=== PATIENT | female | born 1930 | race Asian ===

== ENCOUNTER 2018-09-25 15:26 | Inpatient (IN) | payer BC, MEDICAID ==
[~2018-09-25] VITALS: Ht 162.6 cm; Wt 51.7 kg
--- NOTE | 2018-09-25 15:39 | NUR ---
ED Nurse Note: Pt came into the ER w/ complaints of lower back pain since yesterday. According to pt, she has had this pain for 2 years but it got worse yesterday. Pt denies having trauma or falling. Pt is rating the pain a 10/10. Non radiating. Pt is A+ O x4. Ambulatory. Skin warm to touch.
--- NOTE | 2018-09-25 15:49 | Emergency Room Report ---
History of Present Illness General Chief Complaint: Back Pain-No Injury Present Illness HPI Patient is an 88-year-old female brought in by family members after increased low back pain. Patient a prior history of chronic discomfort to her low back. Patient had been having some worsening pain over the past 1 to 2 days. Patient reportedly had been urinating normally. She had not been vomiting. She had not been having any episodes of bleeding. Patient a prior history of cardiac disease and had prior angioplasty. She had been noted to have increased discomfort worse with ambulation. She was noted to have previous history of some compression fractures to her low back. She had not had any recent trauma. Allergies: Coded Allergies: No Known Allergies (Unverified , 09/25/18) Patient History Past Medical History: see triage record Last Menstrual Period: menopause Now: No Reviewed Nursing Documentation: PMH: Agreed; PSxH: Agreed Nursing Documentation-PMH Hx Cardiac Problems: Yes Hx Hypertension: Yes Review of Systems All Other Systems: negative except mentioned in HPI Physical Exam Vital Signs Date Time Temp Pulse Resp B/P (MAP) Pulse Ox O2 Delivery O2 Flow Rate FiO2 09/25/18 15:31 97.9 134 20 94 Room Air General Appearance: alert, GCS 15, mild distress, thin, Chronically Ill Head: normocephalic Eyes: bilateral eye PERRL ENT: hearing grossly normal Neck: limited range of motion Respiratory: lungs clear, normal breath sounds Cardiovascular #1: edema - bilateral lower extremity edema Gastrointestinal: normal inspection, normal bowel sounds, non tender, soft, no pulsatile mass Musculoskeletal: decreased range of motion, other - kyphosis Neurologic: alert, oriented x3, responsive, house player III-XII nml as tested, motor strength/tone normal, aphasia, abnormal gait - antalgic gait, kyphosis. Skin: normal inspection, normal color Medical Decision Making Diagnostic Impression: Primary Impression: Intractable back pain Additional Impressions: Urinary tract infection CHF (congestive heart failure) Atrial fibrillation with RVR Spinal stenosis ER Course Patient presented for back pain. Differential diagnosis included but was not limited to herniated disc, cauda equina syndrome, abdominal aortic aneurysm, perforated ulcer, spinal epidural abscess, spinal stenosis, lumbar fracture, metastatic lesion, pyelonephritis. Because of complexity of patient's case laboratory testing and imaging studies were ordered.Patient was noted to have prior history of cardiac disease as well as congestive heart failure. She was noted to have not taken her medications this morning. Patient was noted to have atrial fibrillation on cardiac monitoring with a rate of 126. Patient was given some pain medications. She was noted to have mildly elevated blood pressure and did not take her blood pressure medications.Patient was given low- dose IV morphine for pain.CT imaging of the thoracic and lumbar spine were ordered due to patient's prior history of worsening pain and possible compression fractures.Dr. Hugh Pressley was contacted for inpatient management. Labs Test 09/25/18 16:00 09/25/18 16:50 White Blood Count 5.8 K/UL (4.8-10.8) Red Blood Count 4.39 M/UL (4.20-5.40) Hemoglobin 13.9 G/DL (12.0-16.0) Hematocrit 41.3 % (37.0-47.0) Mean Corpuscular Volume 94 FL (80-99) Mean Corpuscular Hemoglobin 31.7 PG (27.0-31.0) Mean Corpuscular Hemoglobin Concent 33.7 G/DL (32.0-36.0) Red Cell Distribution Width 13.7 % (11.6-14.8) Platelet Count 147 K/UL (150-450) Mean Platelet Volume 5.8 FL (6.5-10.1) Neutrophils (%) (Auto) 56.3 % (45.0-75.0) Lymphocytes (%) (Auto) 30.6 % (20.0-45.0) Monocytes (%) (Auto) 6.9 % (1.0-10.0) Eosinophils (%) (Auto) 5.0 % (0.0-3.0) Basophils (%) (Auto) 1.2 % (0.0-2.0) Sodium Level 136 MMOL/L (136-145) Potassium Level 5.0 MMOL/L (3.5-5.1) Chloride Level 100 MMOL/L (98-107) Carbon Dioxide Level 26 MMOL/L (21-32) Anion Gap 10 mmol/L (5-15) Blood Urea Nitrogen 23 mg/dL (7-18) Creatinine 0.9 MG/DL (0.55-1.30) Estimat Glomerular Filtration Rate mL/min (>60) Glucose Level 111 MG/DL (74-106) Calcium Level 9.8 MG/DL (8.5-10.1) Total Bilirubin 1.1 MG/DL (0.2-1.0) Direct Bilirubin 0.2 MG/DL (0.0-0.3) Aspartate Amino Transf (AST/SGOT) 64 U/L (15-37) Alanine Aminotransferase (ALT/SGPT) 51 U/L (12-78) Alkaline Phosphatase 149 U/L (46-116) Troponin I 0.006 ng/mL (0.000-0.056) Total Protein 8.3 G/DL (6.4-8.2) Albumin 3.6 G/DL (3.4-5.0) Globulin 4.7 g/dL Albumin/Globulin Ratio 0.8 (1.0-2.7) Lipase 160 U/L (73-393) Urine Color [place] Urine Appearance Slightly cloudy Urine pH 6.5 (4.5-8.0) Urine Specific [place] 1.015 (1.005-1.035) Urine Protein 3+ (NEGATIVE) Urine Glucose (UA) Negative (NEGATIVE) Urine Ketones Negative (NEGATIVE) Urine Blood 1+ (NEGATIVE) Urine Nitrite Negative (NEGATIVE) Urine Bilirubin Negative (NEGATIVE) Urine Ictotest Negative (NEGATIVE) Urine Urobilinogen Normal MG/DL (0.0-1.0) Urine Leukocyte Esterase 3+ (NEGATIVE) Urine RBC 2-4 /HPF (0 - 2) Urine WBC 40-60 /HPF (0 - 2) Urine Squamous Epithelial Cells Many /LPF (NONE/OCC) Urine Bacteria Moderate /HPF (NONE) EKG Diagnostic Results Rate: tachycardiac ST Segments: other - afib Rhythm Strip Diag. Results EP Interpretation: yes Rhythm: no PVC's, no ectopy Last Vital Signs Date Time Temp Pulse Resp B/P (MAP) Pulse Ox O2 Delivery O2 Flow Rate FiO2 09/25/18 15:31 97.9 134 20 94 Room Air Status: unchanged Disposition: ADMITTED INPATIENT Condition: Serious Scripts Unable to Obtain Active Prescriptions or Reported Meds Albin Tariq MD September 25, 2018 15:49
[2018-09-25 15:50] VITALS: BP 135/112
[2018-09-25] MEDS ORDERED: Morphine Sulfate 2mg/ml Inj(IV/IM USE ONLY) IVP ONE ×3 (16:00→19:30)
[2018-09-25] MEDS ORDERED: Metoprolol 5mg/5ml Inj IVP ONE (16:00)
--- NOTE | 2018-09-25 16:07 | NUR ---
ED Nurse Note: Pt went down to CT.
--- NOTE | 2018-09-25 16:34 | NUR ---
ED Nurse Note: Offered straight cath for urine collection and pt denied. Will continue to monitor.
[2018-09-25 16:50] LABS: BASOPHILS % (AUTO) 1.2 % (0.0-2.0); HEMATOCRIT 41.3 % (37.0-47.0); HEMOGLOBIN 13.9 G/DL (12.0-16.0); LYMPHOCYTES % (AUTO) 30.6 % (20.0-45.0); MEAN CORPUSCULAR VOLUME 94 FL (80-99); MONOCYTES % (AUTO) 6.9 % (1.0-10.0); NEUTROPHILS % (AUTO) 56.3 % (45.0-75.0); PLATELET COUNT 147 K/UL (150-450); RED BLOOD COUNT 4.39 M/UL (4.20-5.40); RED CELL DISTRIBUTION WIDTH 13.7 % (11.6-14.8); WHITE BLOOD COUNT 5.8 K/UL (4.8-10.8)
[2018-09-25] MEDS ORDERED: Isovue-370 150ml vial INJ PRN (17:00)
[2018-09-25 17:01] LABS: BILIRUBIN, URINE NEGATIVE (NEGATIVE); COLOR,URINE AMBER; GLUCOSE, URINE (UA) NEGATIVE (NEGATIVE); KETONES,URINE NEGATIVE (NEGATIVE); LEUKOCYTE ESTERASE ,URINE 3+ (NEGATIVE); NITRITE,URINE NEGATIVE (NEGATIVE); PH,URINE 6.5 (4.5-8.0); PROTEIN,URINE 3+ (NEGATIVE); UROBILINOGEN,URINE NORMAL MG/DL (0.0-1.0)
[2018-09-25 17:01] LABS: ANION GAP 10 mmol/L (5-15); BLOOD UREA NITROGEN 23 mg/dL (7-18); CALCIUM 9.8 MG/DL (8.5-10.1); CARBON DIOXIDE 26 MMOL/L (21-32); CHLORIDE 100 MMOL/L (98-107); CREATININE 0.9 MG/DL (0.55-1.30); SODIUM 136 MMOL/L (136-145)
[2018-09-25 17:04] LABS: APPEARANCE,URINE SLIGHTLY CLOUDY
[2018-09-25 17:11] LABS: ALANINE AMINOTRANSFERASE 51 U/L (12-78); ALBUMIN 3.6 G/DL (3.4-5.0); ALBUMIN/GLOBULIN RATIO 0.8 (1.0-2.7); ALKALINE PHOSPHATASE 149 U/L (46-116); ASPARTATE AMINO TRANSFERASE 64 U/L (15-37); BILIRUBIN,TOTAL 1.1 MG/DL (0.2-1.0)
[2018-09-25 18:00] VITALS: BP 137/95
--- NOTE | 2018-09-25 18:03 | NUR ---
ED Nurse Note: Pt went down to get CT w/ contrast.
--- NOTE | 2018-09-25 18:18 | NUR ---
ED Nurse Note: Pt came back from CT.
[2018-09-25 18:46] LABS: BILIRUBIN,DIRECT 0.2 MG/DL (0.0-0.3)
[2018-09-25] MEDS ORDERED: Digoxin 0.5mg/2ml Inj IVP ONE (19:00)
[2018-09-25] MEDS ORDERED: cefTRIAXone 1 GM in NS 55 ML IVPB ONE (19:00)
--- NOTE | 2018-09-25 19:10 | NUR ---
HAND-OFF: Report given to ENRIQUETA Latif.
--- NOTE | 2018-09-25 19:11 | NUR ---
ED Nurse Note: Report received from ENRIQUETA Rutherford. Pt awake and alert. Daughter at bedside.
[2018-09-25] MEDS ORDERED: dilTIAZem HCl 25mg/5ml Inj IVP ONE (19:30)
[2018-09-25] MEDS ORDERED: Miralax 17gm pkt ORAL PRN (20:45)
[2018-09-25] MEDS ORDERED: Zolpidem 5mg tab ORAL PRN (20:45)
--- NOTE | 2018-09-25 21:29 | Consultation ---
History of Present Illness General Date patient seen: September 25, 2018 Chief Complaint: Back Pain-No Injury Referring physician: Dr. Hollingsworth Present Illness HPI Didi Paul is an 88-year-old female with a history of chronic low back pain, prior compression fractures of spine, and cardiac disease with prior angioplasty. Over the last two days, she has reported worsening of her normal back pain symptoms, especially while ambulating. She denies any problems with urination or defecation. She further denies fever, nausea, vomiting or any bleeding. She denies any falls or other trauma in the past month. Allergies: Coded Allergies: No Known Allergies (Unverified , 09/25/18) Medication History Scheduled Apixaban (Eliquis), 2.5 MG PO BID, (Reported) Atorvastatin Calcium* (Atorvastatin Calcium*), 20 MG ORAL BEDTIME, (Reported) Diltiazem HCl (Diltiazem 24Hr Cd), 240 MG PO BID, (Reported) Donepezil Hcl* (Donepezil Hcl*), 5 MG ORAL DAILY, (Reported) Furosemide* (Lasix*), 20 MG ORAL BID, (Reported) Isosorbide Mononitrate (Isosorbide Mononitrate Er), 30 MG PO BID, (Reported) Linagliptin (Tradjenta), 5 MG PO DAILY, (Reported) Memantine HCl (Memantine HCl ER), 14 MG PO DAILY, (Reported) Quetiapine Fumarate* (Seroquel*), 25 MG ORAL BID, (Reported) Ranitidine Hcl* (Zantac*), 150 MG ORAL HS, (Reported) Scheduled PRN Tramadol Hcl* (Ultram*), 50 MG ORAL Q8HR PRN for For Pain, (Reported) Patient History Limited by: language barrier History Provided By: Patient, Friend, Medical Record Healthcare decision maker Resuscitation status Advanced Directive on File Past Medical/Surgical History Past Medical/Surgical History: (1) Pulmonary hypertension, moderate to severe (2) CHF (congestive heart failure) (3) Constipation (4) Chronic a-fib (5) Urinary tract infection (6) Spinal stenosis (7) Atrial fibrillation with RVR (8) Intractable back pain (9) Subclinical hypothyroidism (10) EF 15% Review of Systems All Other Systems: negative except mentioned in HPI Physical Exam General Appearance: WD/WN, no apparent distress, alert, alert oriented x3 Lines, tubes and drains: peripheral Neck: non-tender, normal alignment, normal inspection Respiratory/Chest: normal breath sounds, no respiratory distress, no accessory muscle use Cardiovascular/Chest: normal peripheral pulses Abdomen: non tender, soft Extremities: normal range of motion, non-tender, normal inspection, no calf tenderness, normal capillary refill, non-pitting, no edema, no cyanosis Skin Exam: normal pigmentation, warm/dry 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: horse rider II-XII grossly normal, no motor/sensory deficits, alert, oriented x 3, responsive, normal mood/affect, no Babinski Musculoskeletal: normal muscle bulk, no effusion Last 24 Hour Vital Signs Date Time Temp Pulse Resp B/P (MAP) Pulse Ox O2 Delivery O2 Flow Rate FiO2 09/25/18 19:31 139 134/102 09/25/18 19:03 122 09/25/18 18:00 98.2 123 20 137/95 95 Room Air 09/25/18 17:44 98.0 09/25/18 16:32 98.0 09/25/18 16:01 128 135/112 09/25/18 15:50 98.0 124 21 135/112 96 Room Air 09/25/18 15:31 97.9 134 20 94 Room Air Laboratory Tests Test 09/25/18 16:00 09/25/18 16:50 White Blood Count 5.8 K/UL (4.8-10.8) Red Blood Count 4.39 M/UL (4.20-5.40) Hemoglobin 13.9 G/DL (12.0-16.0) Hematocrit 41.3 % (37.0-47.0) Mean Corpuscular Volume 94 FL (80-99) Mean Corpuscular Hemoglobin 31.7 PG (27.0-31.0) H Mean Corpuscular Hemoglobin Concent 33.7 G/DL (32.0-36.0) Red Cell Distribution Width 13.7 % (11.6-14.8) Platelet Count 147 K/UL (150-450) L Mean Platelet Volume 5.8 FL (6.5-10.1) L Neutrophils (%) (Auto) 56.3 % (45.0-75.0) Lymphocytes (%) (Auto) 30.6 % (20.0-45.0) Monocytes (%) (Auto) 6.9 % (1.0-10.0) Eosinophils (%) (Auto) 5.0 % (0.0-3.0) H Basophils (%) (Auto) 1.2 % (0.0-2.0) Sodium Level 136 MMOL/L (136-145) Potassium Level 5.0 MMOL/L (3.5-5.1) Chloride Level 100 MMOL/L (98-107) Carbon Dioxide Level 26 MMOL/L (21-32) Anion Gap 10 mmol/L (5-15) Blood Urea Nitrogen 23 mg/dL (7-18) H Creatinine 0.9 MG/DL (0.55-1.30) Estimat Glomerular Filtration Rate mL/min (>60) Glucose Level 111 MG/DL (74-106) H Calcium Level 9.8 MG/DL (8.5-10.1) Total Bilirubin 1.1 MG/DL (0.2-1.0) H Direct Bilirubin 0.2 MG/DL (0.0-0.3) Aspartate Amino Transf (AST/SGOT) 64 U/L (15-37) H Alanine Aminotransferase (ALT/SGPT) 51 U/L (12-78) Alkaline Phosphatase 149 U/L (46-116) H Troponin I 0.006 ng/mL (0.000-0.056) Total Protein 8.3 G/DL (6.4-8.2) H Albumin 3.6 G/DL (3.4-5.0) Globulin 4.7 g/dL Albumin/Globulin Ratio 0.8 (1.0-2.7) L Lipase 160 U/L (73-393) Urine Color [place] Urine Appearance Slightly cloudy Urine pH 6.5 (4.5-8.0) Urine Specific [place] 1.015 (1.005-1.035) Urine Protein 3+ (NEGATIVE) H Urine Glucose (UA) Negative (NEGATIVE) Urine Ketones Negative (NEGATIVE) Urine Blood 1+ (NEGATIVE) H Urine Nitrite Negative (NEGATIVE) Urine Bilirubin Negative (NEGATIVE) Urine Ictotest Negative (NEGATIVE) Urine Urobilinogen Normal MG/DL (0.0-1.0) Urine Leukocyte Esterase 3+ (NEGATIVE) H Urine RBC 2-4 /HPF (0 - 2) H Urine WBC 40-60 /HPF (0 - 2) H Urine Squamous Epithelial Cells Many /LPF (NONE/OCC) H Urine Bacteria Moderate /HPF (NONE) H Height (Feet): 5 Height (Inches): 4.00 Weight (Pounds): 125 Medications Current Medications Medications (Trade) Dose Ordered Sig/Yunior Route PRN Reason Start Time Stop Time Status Last Admin Dose Admin Acetaminophen (Tylenol) 650 mg Q4H PRN ORAL fever 09/25/18 20:45 10/25/18 20:44 Dextrose (Dextrose 50%) 25 ml Q30M PRN IV Hypoglycemia 09/25/18 20:45 10/25/18 20:44 Dextrose (Dextrose 50%) 50 ml Q30M PRN IV Hypoglycemia 09/25/18 20:45 10/25/18 20:44 Heparin Sodium (Porcine) (Heparin 5000 units/ml) 5,000 units EVERY 12 HOURS SUBQ 09/25/18 21:00 10/25/18 20:59 Iopamidol (Isovue-370 150ml) 150 ml NOW PRN INJ Radiology Procedure 09/25/18 17:00 Levofloxacin 50 ml @ 50 mls/hr Q24H IVPB 09/26/18 21:00 10/03/18 20:59 Levofloxacin 100 ml @ 100 mls/hr ONCE ONCE IVPB 09/25/18 22:00 09/25/18 22:59 Lorazepam (Ativan 2mg/ml 1ml) 0.5 mg Q4H PRN IV For Anxiety 09/25/18 20:45 10/02/18 20:44 Morphine Sulfate (Morphine Sulfate) 2 mg Q4H PRN IVP For Pain 4-6 09/25/18 20:45 10/02/18 20:44 Morphine Sulfate (Morphine Sulfate) 4 mg Q4H PRN IVP For Pain 7-10 09/25/18 20:45 10/02/18 20:44 Ondansetron HCl (Zofran) 4 mg Q6H PRN IVP Nausea & Vomiting 09/25/18 20:45 10/25/18 20:44 Polyethylene Glycol (Miralax) 17 gm HSPRN PRN ORAL Constipation 09/25/18 20:45 10/25/18 20:44 Zolpidem Tartrate (Ambien) 5 mg HSPRN PRN ORAL Insomnia 09/25/18 20:45 10/02/18 20:44 Assessment/Plan Problem List: (1) Intractable back pain ICD Codes: M54.9 - Dorsalgia, unspecified SNOMED: 468930835 (2) Spinal stenosis ICD Codes: M48.00 - Spinal stenosis, site unspecified SNOMED: 71677163 (3) Atrial fibrillation with RVR ICD Codes: I48.91 - Unspecified atrial fibrillation SNOMED: 655367480607380 (4) Constipation ICD Codes: K59.00 - Constipation, unspecified SNOMED: 53680685 (5) EF 15% Status: stable Assessment/Plan: CT L spine most significant for stenosis and degenerative changes - Recommend MRI L spine and surgical consultation - even if regarding injectable treatment as candidate may not be eligible for surgery due to secondary health concerns Kady López N.P. September 25, 2018 21:29
--- NOTE | 2018-09-25 21:30 | NUR ---
ED Nurse Note: Pt transferred to [facility] floor. Report given to ENRIQUETA Ruelas. Pt A/Ox4, Frisian speaking. Family @ bedside. pt showing no signs of acute distress. VSS. Pt accompanied by RN and supervisor spinning. All belongings taken with pt along with belongings list.
--- NOTE | 2018-09-25 21:30 | NUR ---
NURSE NOTES: Barbara ROBISON called and gave telephone report.
[2018-09-25] MEDS: Heparin 5000 units/ml inj SUBQ SCH (21:55)
--- NOTE | 2018-09-25 22:00 | NUR ---
NURSE NOTES: Pt report received from ivis ROBISON from ER and pt has been transferred to SDU at this time. No acute complications noted at this time. Pt is alert and oriented times 4. Pt has a manager cardiac placed, active and working, no signs or symptoms of acute cardiac distress noted at this time. Pt is saturating at 100% on room air. No signs or symptoms of acute respiratory distress at this time. Pt has a R AC 18 and a R Hand 20G IV active and able to flush, no complications noted. All safety precautions are taken such as bed is placed in lowest position, call light is within easy reach, pt is instructed to call for assistance when ambulating, bed alarm is armed and active, bed rails are up times 2. Pt family member at bed side. Pt has been received with all belongings at bed side. Will establish plan of care.
[2018-09-26] VITALS: BP 136/90
[2018-09-26 04:00] VITALS: BP 127/89
[2018-09-26 04:59] LABS: BASOPHILS % (AUTO) 1.1 % (0.0-2.0); EOSINOPHILS % (AUTO) 3.5 % (0.0-3.0); HEMATOCRIT 39.9 % (37.0-47.0); HEMOGLOBIN 13.2 G/DL (12.0-16.0); LYMPHOCYTES % (AUTO) 21.1 % (20.0-45.0); MEAN CORPUSCULAR VOLUME 97 FL (80-99); MONOCYTES % (AUTO) 9.4 % (1.0-10.0); NEUTROPHILS % (AUTO) 64.9 % (45.0-75.0); PLATELET COUNT 152 K/UL (150-450); RED CELL DISTRIBUTION WIDTH 14.6 % (11.6-14.8); WHITE BLOOD COUNT 5.8 K/UL (4.8-10.8)
[2018-09-26 05:37] LABS: ALANINE AMINOTRANSFERASE 57 U/L (12-78); ALBUMIN 3.4 G/DL (3.4-5.0); ALBUMIN/GLOBULIN RATIO 0.8 (1.0-2.7); ALKALINE PHOSPHATASE 185 U/L (46-116); ANION GAP 10 mmol/L (5-15); ASPARTATE AMINO TRANSFERASE 73 U/L (15-37); BLOOD UREA NITROGEN 26 mg/dL (7-18); CALCIUM 9.5 MG/DL (8.5-10.1); CARBON DIOXIDE 27 MMOL/L (21-32); CHLORIDE 97 MMOL/L (98-107); CREATININE 1.1 MG/DL (0.55-1.30); SODIUM 134 MMOL/L (136-145)
--- NOTE | 2018-09-26 06:57 | NUR ---
HAND-OFF: Report given to Erika ROBISON. pt is in stable conditoin and A-symptomatic.
--- NOTE | 2018-09-26 07:02 | NUR ---
NURSE NOTES: Received bedside report from Suraj ROBISON. Pt. up sitting at the edge of the bed. A/O x 4. No sign of distress. C/O back pain. IV site at right AC #18g. and right hand #20g. both SL. Bed in low position, locked. Family at bedside for support. Call light within reach. Will cont. to monitor.
[2018-09-26] MEDS: Morphine Sulfate 2mg/ml Inj(IV/IM USE ONLY) IVP PRN ×2 (07:28→21:30)
[2018-09-26 08:00] VITALS: BP 150/103
--- NOTE | 2018-09-26 08:47 | Consultation ---
History of Present Illness General Date patient seen: September 26, 2018 Present Illness Allergies: Coded Allergies: No Known Allergies (Unverified , 09/25/18) Medication History Unable to Obtain Active Prescriptions or Reported Meds Patient History Healthcare decision maker self Resuscitation status Full Code Advanced Directive on File No Physical Exam Last 24 Hour Vital Signs Date Time Temp Pulse Resp B/P (MAP) Pulse Ox O2 Delivery O2 Flow Rate FiO2 09/26/18 08:00 Room Air 09/26/18 08:00 97.6 102 20 150/103 (119) 98 102 09/26/18 06:00 109 09/26/18 04:00 98.1 103 16 127/89 (102) 99 103 09/26/18 04:00 Room Air 09/26/18 00:00 Room Air 09/26/18 00:00 113 09/26/18 00:00 98.0 118 16 136/90 (105) 99 118 09/25/18 22:00 Room Air 09/25/18 21:30 98.0 101 22 122/67 99 Room Air 09/25/18 19:31 139 134/102 09/25/18 19:03 122 09/25/18 18:00 98.2 123 20 137/95 95 Room Air 09/25/18 17:44 98.0 09/25/18 16:32 98.0 09/25/18 16:01 128 135/112 09/25/18 15:50 98.0 124 21 135/112 96 Room Air 09/25/18 15:31 97.9 134 20 94 Room Air Laboratory Tests Test 09/25/18 16:00 09/25/18 16:50 09/26/18 03:35 White Blood Count 5.8 K/UL (4.8-10.8) 5.8 K/UL (4.8-10.8) Red Blood Count 4.39 M/UL (4.20-5.40) 4.10 M/UL (4.20-5.40) L Hemoglobin 13.9 G/DL (12.0-16.0) 13.2 G/DL (12.0-16.0) Hematocrit 41.3 % (37.0-47.0) 39.9 % (37.0-47.0) Mean Corpuscular Volume 94 FL (80-99) 97 FL (80-99) Mean Corpuscular Hemoglobin 31.7 PG (27.0-31.0) H 32.2 PG (27.0-31.0) H Mean Corpuscular Hemoglobin Concent 33.7 G/DL (32.0-36.0) 33.1 G/DL (32.0-36.0) Red Cell Distribution Width 13.7 % (11.6-14.8) 14.6 % (11.6-14.8) Platelet Count 147 K/UL (150-450) L 152 K/UL (150-450) Mean Platelet Volume 5.8 FL (6.5-10.1) L 6.0 FL (6.5-10.1) L Neutrophils (%) (Auto) 56.3 % (45.0-75.0) 64.9 % (45.0-75.0) Lymphocytes (%) (Auto) 30.6 % (20.0-45.0) 21.1 % (20.0-45.0) Monocytes (%) (Auto) 6.9 % (1.0-10.0) 9.4 % (1.0-10.0) Eosinophils (%) (Auto) 5.0 % (0.0-3.0) H 3.5 % (0.0-3.0) H Basophils (%) (Auto) 1.2 % (0.0-2.0) 1.1 % (0.0-2.0) Sodium Level 136 MMOL/L (136-145) 134 MMOL/L (136-145) L Potassium Level 5.0 MMOL/L (3.5-5.1) 4.0 MMOL/L (3.5-5.1) Chloride Level 100 MMOL/L (98-107) 97 MMOL/L (98-107) L Carbon Dioxide Level 26 MMOL/L (21-32) 27 MMOL/L (21-32) Anion Gap 10 mmol/L (5-15) 10 mmol/L (5-15) Blood Urea Nitrogen 23 mg/dL (7-18) H 26 mg/dL (7-18) H Creatinine 0.9 MG/DL (0.55-1.30) 1.1 MG/DL (0.55-1.30) Estimat Glomerular Filtration Rate mL/min (>60) mL/min (>60) Glucose Level 111 MG/DL (74-106) H 87 MG/DL (74-106) Calcium Level 9.8 MG/DL (8.5-10.1) 9.5 MG/DL (8.5-10.1) Total Bilirubin 1.1 MG/DL (0.2-1.0) H 1.0 MG/DL (0.2-1.0) Direct Bilirubin 0.2 MG/DL (0.0-0.3) Aspartate Amino Transf (AST/SGOT) 64 U/L (15-37) H 73 U/L (15-37) H Alanine Aminotransferase (ALT/SGPT) 51 U/L (12-78) 57 U/L (12-78) Alkaline Phosphatase 149 U/L (46-116) H 185 U/L (46-116) H Troponin I 0.006 ng/mL (0.000-0.056) Total Protein 8.3 G/DL (6.4-8.2) H 7.9 G/DL (6.4-8.2) Albumin 3.6 G/DL (3.4-5.0) 3.4 G/DL (3.4-5.0) Globulin 4.7 g/dL 4.5 g/dL Albumin/Globulin Ratio 0.8 (1.0-2.7) L 0.8 (1.0-2.7) L Lipase 160 U/L (73-393) Urine Color [place] Urine Appearance Slightly cloudy Urine pH 6.5 (4.5-8.0) Urine Specific [place] 1.015 (1.005-1.035) Urine Protein 3+ (NEGATIVE) H Urine Glucose (UA) Negative (NEGATIVE) Urine Ketones Negative (NEGATIVE) Urine Blood 1+ (NEGATIVE) H Urine Nitrite Negative (NEGATIVE) Urine Bilirubin Negative (NEGATIVE) Urine Ictotest Negative (NEGATIVE) Urine Urobilinogen Normal MG/DL (0.0-1.0) Urine Leukocyte Esterase 3+ (NEGATIVE) H Urine RBC 2-4 /HPF (0 - 2) H Urine WBC 40-60 /HPF (0 - 2) H Urine Squamous Epithelial Cells Many /LPF (NONE/OCC) H Urine Bacteria Moderate /HPF (NONE) H Thyroid Stimulating Hormone (TSH) 15.169 uiU/mL (0.358-3.740) Microbiology Date/Time Source Procedure Growth Status 09/25/18 16:50 Urine,Clean Catch Urine Culture - Preliminary Resulted Height (Feet): 5 Height (Inches): 4.00 Weight (Pounds): 125 Medications Current Medications Medications (Trade) Dose Ordered Sig/Yunior Route PRN Reason Start Time Stop Time Status Last Admin Dose Admin Acetaminophen (Tylenol) 650 mg Q4H PRN ORAL fever 09/25/18 20:45 10/25/18 20:44 Dextrose (Dextrose 50%) 25 ml Q30M PRN IV Hypoglycemia 09/25/18 20:45 10/25/18 20:44 Dextrose (Dextrose 50%) 50 ml Q30M PRN IV Hypoglycemia 09/25/18 20:45 10/25/18 20:44 Heparin Sodium (Porcine) (Heparin 5000 units/ml) 5,000 units EVERY 12 HOURS SUBQ 09/25/18 21:00 10/25/18 20:59 09/25/18 21:55 Iopamidol (Isovue-370 150ml) 150 ml NOW PRN INJ Radiology Procedure 09/25/18 17:00 Levofloxacin 50 ml @ 50 mls/hr Q24H IVPB 09/26/18 21:00 10/03/18 20:59 Lorazepam (Ativan 2mg/ml 1ml) 0.5 mg Q4H PRN IV For Anxiety 09/25/18 20:45 10/02/18 20:44 Morphine Sulfate (Morphine Sulfate) 2 mg Q4H PRN IVP For Pain 4-6 09/25/18 20:45 10/02/18 20:44 09/26/18 07:28 Morphine Sulfate (Morphine Sulfate) 4 mg Q4H PRN IVP For Pain 7-10 09/25/18 20:45 10/02/18 20:44 Ondansetron HCl (Zofran) 4 mg Q6H PRN IVP Nausea & Vomiting 09/25/18 20:45 10/25/18 20:44 Polyethylene Glycol (Miralax) 17 gm HSPRN PRN ORAL Constipation 09/25/18 20:45 10/25/18 20:44 Zolpidem Tartrate (Ambien) 5 mg HSPRN PRN ORAL Insomnia 09/25/18 20:45 10/02/18 20:44 Assessment/Plan Assessment/Plan: (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
--- NOTE | 2018-09-26 09:14 | NUR ---
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 AFIB W/RVR . UTI VS: BP 157/111, P 134, T 97.9, RR 20, SpO2 94 RBC 4.10, Na 134, BUN 26 IS:LOPRESSOR 2.5mg ZOFRAN 4mg MORPHINE 1mG DIGOXIN 0.5mG CEFTRIAXONE 55ml IVPB LASIX 40meq CARDIZEM 10mg ADMITTED TO SDU DCP: RETURN HOME
[2018-09-26] MEDS: Heparin 5000 units/ml inj SUBQ SCH (09:45)
--- NOTE | 2018-09-26 09:45 | NUR ---
*-* NO INSURANCE INFORMATION IN THE BAR UNABLE TO SEND CLINICALS AND REVIEWS *-*
--- NOTE | 2018-09-26 10:22 | GI Initial Consult Note ---
History of Present Illness General Date patient seen: September 26, 2018 Time patient seen: 10:18 Reason for Hospitalization: Back Pain-No Injury Referring physician: PEE Reason for Consultation: ABNORMAL LFTs Present Illness HPI Patient is an 88-year-old female brought in by family members after increased low back pain. Patient a prior history of chronic discomfort to her low back. Patient had been having some worsening pain over the past 1 to 2 days. Patient reportedly had been urinating normally. She had not been vomiting. She had not been having any episodes of bleeding. Patient a prior history of cardiac disease and had prior angioplasty. She had been noted to have increased discomfort worse with ambulation. She was noted to have previous history of some compression fractures to her low back. She had not had any recent trauma. GI consulted for abnormal LFTs. Patient seen, awake alert and oriented x4 no apparent distress. Daughter at bedside. Patient denies any current abdominal pain, denies any nausea vomiting or diarrhea. The patient denies any history of endoscopy or colonoscopy. Labs reviewed; no leukocytosis, no anemia, AST elevation at 73 with alkaline phosphatase elevation of 185, TSH 15.7. Home Meds Unable to Obtain Active Prescriptions or Reported Meds Med list reviewed/reconciled: Yes Allergies: Coded Allergies: No Known Allergies (Unverified , 09/25/18) Patient History History Provided By: Patient, Medical Record PMH Narrative Past Medical History: see triage record Last Menstrual Period: menopause Now: No Reviewed Nursing Documentation: PMH: Agreed; PSxH: Agreed Nursing Documentation-PMH Hx Cardiac Problems: Yes Hx Hypertension: Yes Social History: Denies: smoking, alcohol use, drug use, other Review of Systems All Other Systems: negative except mentioned in HPI Physical Exam Vital Signs Date Time Temp Pulse Resp B/P (MAP) Pulse Ox O2 Delivery O2 Flow Rate FiO2 09/25/18 15:31 97.9 134 20 94 Room Air 09/25/18 15:50 135/112 Sp02 EP Interpretation: reviewed, normal Labs Laboratory Tests Test 09/25/18 16:00 09/25/18 16:50 09/26/18 03:35 White Blood Count 5.8 K/UL (4.8-10.8) 5.8 K/UL (4.8-10.8) Red Blood Count 4.39 M/UL (4.20-5.40) 4.10 M/UL (4.20-5.40) L Hemoglobin 13.9 G/DL (12.0-16.0) 13.2 G/DL (12.0-16.0) Hematocrit 41.3 % (37.0-47.0) 39.9 % (37.0-47.0) Mean Corpuscular Volume 94 FL (80-99) 97 FL (80-99) Mean Corpuscular Hemoglobin 31.7 PG (27.0-31.0) H 32.2 PG (27.0-31.0) H Mean Corpuscular Hemoglobin Concent 33.7 G/DL (32.0-36.0) 33.1 G/DL (32.0-36.0) Red Cell Distribution Width 13.7 % (11.6-14.8) 14.6 % (11.6-14.8) Platelet Count 147 K/UL (150-450) L 152 K/UL (150-450) Mean Platelet Volume 5.8 FL (6.5-10.1) L 6.0 FL (6.5-10.1) L Neutrophils (%) (Auto) 56.3 % (45.0-75.0) 64.9 % (45.0-75.0) Lymphocytes (%) (Auto) 30.6 % (20.0-45.0) 21.1 % (20.0-45.0) Monocytes (%) (Auto) 6.9 % (1.0-10.0) 9.4 % (1.0-10.0) Eosinophils (%) (Auto) 5.0 % (0.0-3.0) H 3.5 % (0.0-3.0) H Basophils (%) (Auto) 1.2 % (0.0-2.0) 1.1 % (0.0-2.0) Sodium Level 136 MMOL/L (136-145) 134 MMOL/L (136-145) L Potassium Level 5.0 MMOL/L (3.5-5.1) 4.0 MMOL/L (3.5-5.1) Chloride Level 100 MMOL/L (98-107) 97 MMOL/L (98-107) L Carbon Dioxide Level 26 MMOL/L (21-32) 27 MMOL/L (21-32) Anion Gap 10 mmol/L (5-15) 10 mmol/L (5-15) Blood Urea Nitrogen 23 mg/dL (7-18) H 26 mg/dL (7-18) H Creatinine 0.9 MG/DL (0.55-1.30) 1.1 MG/DL (0.55-1.30) Estimat Glomerular Filtration Rate mL/min (>60) mL/min (>60) Glucose Level 111 MG/DL (74-106) H 87 MG/DL (74-106) Calcium Level 9.8 MG/DL (8.5-10.1) 9.5 MG/DL (8.5-10.1) Total Bilirubin 1.1 MG/DL (0.2-1.0) H 1.0 MG/DL (0.2-1.0) Direct Bilirubin 0.2 MG/DL (0.0-0.3) Aspartate Amino Transf (AST/SGOT) 64 U/L (15-37) H 73 U/L (15-37) H Alanine Aminotransferase (ALT/SGPT) 51 U/L (12-78) 57 U/L (12-78) Alkaline Phosphatase 149 U/L (46-116) H 185 U/L (46-116) H Troponin I 0.006 ng/mL (0.000-0.056) Total Protein 8.3 G/DL (6.4-8.2) H 7.9 G/DL (6.4-8.2) Albumin 3.6 G/DL (3.4-5.0) 3.4 G/DL (3.4-5.0) Globulin 4.7 g/dL 4.5 g/dL Albumin/Globulin Ratio 0.8 (1.0-2.7) L 0.8 (1.0-2.7) L Lipase 160 U/L (73-393) Urine Color [place] Urine Appearance Slightly cloudy Urine pH 6.5 (4.5-8.0) Urine Specific [place] 1.015 (1.005-1.035) Urine Protein 3+ (NEGATIVE) H Urine Glucose (UA) Negative (NEGATIVE) Urine Ketones Negative (NEGATIVE) Urine Blood 1+ (NEGATIVE) H Urine Nitrite Negative (NEGATIVE) Urine Bilirubin Negative (NEGATIVE) Urine Ictotest Negative (NEGATIVE) Urine Urobilinogen Normal MG/DL (0.0-1.0) Urine Leukocyte Esterase 3+ (NEGATIVE) H Urine RBC 2-4 /HPF (0 - 2) H Urine WBC 40-60 /HPF (0 - 2) H Urine Squamous Epithelial Cells Many /LPF (NONE/OCC) H Urine Bacteria Moderate /HPF (NONE) H Thyroid Stimulating Hormone (TSH) 15.169 uiU/mL (0.358-3.740) General Appearance: well appearing, no apparent distress, alert, thin Head: normocephalic EENT: PERRL/EOMI, normal ENT inspection Neck: supple Respiratory: normal breath sounds, no respiratory distress Cardiovascular: normal rate Gastrointestinal: normal inspection, non tender, soft, normal bowel sounds, non -distended Rectal: deferred Genitourinary: no CVA tenderness Musculoskeletal: normal inspection, back normal Neurologic: normal inspection, alert, oriented x3, responsive Psychiatric: normal inspection, judgement/insight normal, memory normal Skin: normal inspection, normal color, no rash, warm/dry, palpation normal, well hydrated Lymphatic: normal inspection, no adenopathy Current Medications Current Medications Medications (Trade) Dose Ordered Sig/Yunior Route PRN Reason Start Time Stop Time Status Last Admin Dose Admin Acetaminophen (Tylenol) 650 mg Q4H PRN ORAL fever 09/25/18 20:45 10/25/18 20:44 Dextrose (Dextrose 50%) 25 ml Q30M PRN IV Hypoglycemia 09/25/18 20:45 10/25/18 20:44 Dextrose (Dextrose 50%) 50 ml Q30M PRN IV Hypoglycemia 09/25/18 20:45 10/25/18 20:44 Heparin Sodium (Porcine) (Heparin 5000 units/ml) 5,000 units EVERY 12 HOURS SUBQ 09/25/18 21:00 10/25/18 20:59 09/26/18 09:45 Iopamidol (Isovue-370 150ml) 150 ml NOW PRN INJ Radiology Procedure 09/25/18 17:00 Levofloxacin 50 ml @ 50 mls/hr Q24H IVPB 09/26/18 21:00 10/03/18 20:59 Lorazepam (Ativan 2mg/ml 1ml) 0.5 mg Q4H PRN IV For Anxiety 09/25/18 20:45 10/02/18 20:44 Morphine Sulfate (Morphine Sulfate) 2 mg Q4H PRN IVP For Pain 4-6 09/25/18 20:45 10/02/18 20:44 09/26/18 07:28 Morphine Sulfate (Morphine Sulfate) 4 mg Q4H PRN IVP For Pain 7-10 09/25/18 20:45 10/02/18 20:44 Ondansetron HCl (Zofran) 4 mg Q6H PRN IVP Nausea & Vomiting 09/25/18 20:45 10/25/18 20:44 Polyethylene Glycol (Miralax) 17 gm HSPRN PRN ORAL Constipation 09/25/18 20:45 10/25/18 20:44 Zolpidem Tartrate (Ambien) 5 mg HSPRN PRN ORAL Insomnia 09/25/18 20:45 10/02/18 20:44 GI: Plan Problems: (1) LFTs abnormal (2) Constipation Plan Symptomatic treatment at this time Advance diet as tolerated Pain management Zofran as needed Repeat LFTs PPI Follow-up labs, free T4 GI procedures only if emergent, otherwise outpatient Discussed with Dr. Mcclure. Thank you for this patient referral, we will follow. The patient was seen and examined at bedside and all new and available data was reviewed in the patients chart. I agree with the above findings, impression and plan. (Patient seen earlier today. Signature stamp does not reflect patient encounter time.). - MD Yaneth Dunn,[employer] BUSINESS EDUCATION TEACHER September 26, 2018 10:22
--- NOTE | 2018-09-26 10:25 | Diagnostic Imaging Report ---
Indication: Back pain Technique: Continuous helical transaxial imaging of the thoraco-lumbar spine was obtained. No IV contrast was administered. Coronal 2-D reformats were also obtained. Study obtained in a Siemens sensation [address] Total Dose length Product (DLP): 465.[address] Dose Index Volume (CTDIvol): 16.75 mGy Comparison: None Findings: There are severe degenerative changes within the thoracic and lumbar spine characterized by extensive hypertrophic circumferential endplate osteophytes, osteophytes involving the facets at multiple levels, narrowing and vacuum phenomenon of the intervertebral discs. There is also loss of height of the several of the vertebral bodies especially portions of the L3, L4 and L5 vertebra. Suggestion of multilevel spinal stenosis and narrowing of the neural foramina. Bones are osteopenic. There is no malalignment identified on this examination within the thoracolumbar spine. 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 There is an incidental rounded hypodensity in the right kidney probably cystic measuring about 2.3 cm. There is honeycombing at the right lung base and streaky densities throughout both lung daley, likely scarring or fibrosis. IMPRESSION: No obvious acute fracture. Severe degenerative changes of the lumbar spine as described above. Suspected right renal cysts. 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 [facility] has communicated the preliminary results to the Emergency Department. Their findings are largely concordant with this report. The CT scanner at [facility] is accredited by the [employer] and the scans are performed using dose optimization techniques as appropriate to a performed exam including Automatic Exposure control.
--- NOTE | 2018-09-26 10:34 | Diagnostic Imaging Report ---
Indication: Chest and abdominal pain. CTA chest abdomen pelvis Technique: Continuous helical transaxial imaging of the chest, abdomen and pelvis was obtained from the thoracic inlet to the pubic symphysis during rapid intravenous contrast administration. Arterial phase of enhancement obtained. Coronal 2-D reformats were also obtained and maximum intensity projection images in multiple planes. Study obtained in a Siemens sensation [address] Total Dose length Product (DLP): Refer to CT lumbar report mGycm CT Dose Index Volume (CTDIvol): Refer to CT lumbar report mGy Comparison: None Findings: There is evidence of biventricular enlargement of the heart. The right atrium in particular is markedly enlarged. There is reflux contrast within the IVC noted which may be due to right heart failure or tricuspid regurgitation. The aorta is diffusely ectatic. The ascending aorta is aneurysmal measuring up to about 4.5 cm. Moderate calcification of aorta demonstrated. There is no evidence of dissection. Aortic arch vessels are widely patent. The descending aorta has a maximum diameter of about 4.4 cm. The major vessels including the SMA and celiac artery appear patent. No significant stenosis of either renal artery are identified. The abdominal aorta is diffusely tortuous and mildly aneurysmal measuring up to about 3.8 cm. The pulmonary artery is also reasonably opacified and appears relatively uniform in enhancement. No obvious filling defects to suggest pulmonary embolus identified. Nonvascular findings: There is honeycombing at the right lung base indicative of fibrosis. Patchy groundglass opacities are present at both lung bases with reticular peripheral densities also likely fibrosis. No consolidation identified. There is trace right pleural fluid. There is minimal peritoneal fluid. Diverticula noted within the colon. There is suggestion of diffuse thickening of the wall the gallbladder. There are degenerative changes of the spine. This is discussed in detail on the thoracolumbar spine report. IMPRESSION: Ascending aortic aneurysm 4.5 cm. Moderate atherosclerotic disease with ectasia of the thoracic and abdominal aorta as described above. 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 No evidence of dissection. Multiple incidental findings: Patchy lung fibrosis. Groundglass opacities, nonspecific. Trace right pleural effusion. Trace ascites. Diverticulosis of the colon. Thickening of the wall the gallbladder, nonspecific in nature. Degenerative changes of the spine The CT scanner at [facility] is accredited by the [employer] and the scans are performed using dose optimization techniques as appropriate to a performed exam including Automatic Exposure control.
[2018-09-26 12:00] VITALS: BP 123/93
--- NOTE | 2018-09-26 12:28 | Consultation ---
History of Present Illness General Date patient seen: September 26, 2018 Chief Complaint: Back Pain-No Injury Referring physician: PEE Reason for Consultation: inpatient management Present Illness HPI 88-year-old female with hx of CAD, CHF, on laxis, Afib, on Eliquis and Cardizem, dementia, brought in by family members with CC of low back pain. Patient had been having some worsening pain over the past 1 to 2 days. . Patient a prior history of cardiac disease and had prior angioplasty. She was in rapid afib in ER. She also was diagnosed to have UTI and admitted to [facility]. Allergies: Coded Allergies: No Known Allergies (Unverified , 09/25/18) Medication History Unable to Obtain Active Prescriptions or Reported Meds Patient History Healthcare decision maker self Resuscitation status Full Code Advanced Directive on File No Past Medical/Surgical History Past Medical/Surgical History: (1) Chronic a-fib (2) Chronic systolic CHF (congestive heart failure) Review of Systems All Other Systems: negative except mentioned in HPI Physical Exam General Appearance: cachetic, thin Lines, tubes and drains: peripheral HEENT: normocephalic, atraumatic Neck: non-tender, normal alignment Respiratory/Chest: chest wall non-tender, lungs clear, normal breath sounds Breasts: no masses Cardiovascular/Chest: normal peripheral pulses, normal rate Abdomen: normal bowel sounds, non tender, soft Genitourinary/Rectal: normal genital exam, normal rectal exam Extremities: normal range of motion, non-tender Skin Exam: normal pigmentation 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 Last 24 Hour Vital Signs Date Time Temp Pulse Resp B/P (MAP) Pulse Ox O2 Delivery O2 Flow Rate FiO2 09/26/18 08:00 Room Air 09/26/18 08:00 97.6 102 20 150/103 (119) 98 102 09/26/18 07:31 129 09/26/18 06:00 109 09/26/18 04:00 98.1 103 16 127/89 (102) 99 103 09/26/18 04:00 Room Air 09/26/18 00:00 Room Air 09/26/18 00:00 113 09/26/18 00:00 98.0 118 16 136/90 (105) 99 118 09/25/18 22:00 Room Air 09/25/18 21:30 98.0 101 22 122/67 99 Room Air 09/25/18 19:31 139 134/102 09/25/18 19:03 122 09/25/18 18:00 98.2 123 20 137/95 95 Room Air 09/25/18 17:44 98.0 09/25/18 16:32 98.0 09/25/18 16:01 128 135/112 09/25/18 15:50 98.0 124 21 135/112 96 Room Air 09/25/18 15:31 97.9 134 20 94 Room Air Laboratory Tests Test 09/25/18 16:00 09/25/18 16:50 09/26/18 03:35 White Blood Count 5.8 K/UL (4.8-10.8) 5.8 K/UL (4.8-10.8) Red Blood Count 4.39 M/UL (4.20-5.40) 4.10 M/UL (4.20-5.40) L Hemoglobin 13.9 G/DL (12.0-16.0) 13.2 G/DL (12.0-16.0) Hematocrit 41.3 % (37.0-47.0) 39.9 % (37.0-47.0) Mean Corpuscular Volume 94 FL (80-99) 97 FL (80-99) Mean Corpuscular Hemoglobin 31.7 PG (27.0-31.0) H 32.2 PG (27.0-31.0) H Mean Corpuscular Hemoglobin Concent 33.7 G/DL (32.0-36.0) 33.1 G/DL (32.0-36.0) Red Cell Distribution Width 13.7 % (11.6-14.8) 14.6 % (11.6-14.8) Platelet Count 147 K/UL (150-450) L 152 K/UL (150-450) Mean Platelet Volume 5.8 FL (6.5-10.1) L 6.0 FL (6.5-10.1) L Neutrophils (%) (Auto) 56.3 % (45.0-75.0) 64.9 % (45.0-75.0) Lymphocytes (%) (Auto) 30.6 % (20.0-45.0) 21.1 % (20.0-45.0) Monocytes (%) (Auto) 6.9 % (1.0-10.0) 9.4 % (1.0-10.0) Eosinophils (%) (Auto) 5.0 % (0.0-3.0) H 3.5 % (0.0-3.0) H Basophils (%) (Auto) 1.2 % (0.0-2.0) 1.1 % (0.0-2.0) Sodium Level 136 MMOL/L (136-145) 134 MMOL/L (136-145) L Potassium Level 5.0 MMOL/L (3.5-5.1) 4.0 MMOL/L (3.5-5.1) Chloride Level 100 MMOL/L (98-107) 97 MMOL/L (98-107) L Carbon Dioxide Level 26 MMOL/L (21-32) 27 MMOL/L (21-32) Anion Gap 10 mmol/L (5-15) 10 mmol/L (5-15) Blood Urea Nitrogen 23 mg/dL (7-18) H 26 mg/dL (7-18) H Creatinine 0.9 MG/DL (0.55-1.30) 1.1 MG/DL (0.55-1.30) Estimat Glomerular Filtration Rate mL/min (>60) mL/min (>60) Glucose Level 111 MG/DL (74-106) H 87 MG/DL (74-106) Calcium Level 9.8 MG/DL (8.5-10.1) 9.5 MG/DL (8.5-10.1) Total Bilirubin 1.1 MG/DL (0.2-1.0) H 1.0 MG/DL (0.2-1.0) Direct Bilirubin 0.2 MG/DL (0.0-0.3) Aspartate Amino Transf (AST/SGOT) 64 U/L (15-37) H 73 U/L (15-37) H Alanine Aminotransferase (ALT/SGPT) 51 U/L (12-78) 57 U/L (12-78) Alkaline Phosphatase 149 U/L (46-116) H 185 U/L (46-116) H Troponin I 0.006 ng/mL (0.000-0.056) Total Protein 8.3 G/DL (6.4-8.2) H 7.9 G/DL (6.4-8.2) Albumin 3.6 G/DL (3.4-5.0) 3.4 G/DL (3.4-5.0) Globulin 4.7 g/dL 4.5 g/dL Albumin/Globulin Ratio 0.8 (1.0-2.7) L 0.8 (1.0-2.7) L Lipase 160 U/L (73-393) Urine Color [place] Urine Appearance Slightly cloudy Urine pH 6.5 (4.5-8.0) Urine Specific [place] 1.015 (1.005-1.035) Urine Protein 3+ (NEGATIVE) H Urine Glucose (UA) Negative (NEGATIVE) Urine Ketones Negative (NEGATIVE) Urine Blood 1+ (NEGATIVE) H Urine Nitrite Negative (NEGATIVE) Urine Bilirubin Negative (NEGATIVE) Urine Ictotest Negative (NEGATIVE) Urine Urobilinogen Normal MG/DL (0.0-1.0) Urine Leukocyte Esterase 3+ (NEGATIVE) H Urine RBC 2-4 /HPF (0 - 2) H Urine WBC 40-60 /HPF (0 - 2) H Urine Squamous Epithelial Cells Many /LPF (NONE/OCC) H Urine Bacteria Moderate /HPF (NONE) H Thyroid Stimulating Hormone (TSH) 15.169 uiU/mL (0.358-3.740) Microbiology Date/Time Source Procedure Growth Status 09/25/18 16:50 Urine,Clean Catch Urine Culture - Preliminary Resulted Height (Feet): 5 Height (Inches): 4.00 Weight (Pounds): 125 Medications Current Medications Medications (Trade) Dose Ordered Sig/Yunior Route PRN Reason Start Time Stop Time Status Last Admin Dose Admin Acetaminophen (Tylenol) 650 mg Q4H PRN ORAL fever 09/25/18 20:45 10/25/18 20:44 Dextrose (Dextrose 50%) 25 ml Q30M PRN IV Hypoglycemia 09/25/18 20:45 10/25/18 20:44 Dextrose (Dextrose 50%) 50 ml Q30M PRN IV Hypoglycemia 09/25/18 20:45 10/25/18 20:44 Heparin Sodium (Porcine) (Heparin 5000 units/ml) 5,000 units EVERY 12 HOURS SUBQ 09/25/18 21:00 10/25/18 20:59 09/26/18 09:45 Iopamidol (Isovue-370 150ml) 150 ml NOW PRN INJ Radiology Procedure 09/25/18 17:00 Levofloxacin 50 ml @ 50 mls/hr Q24H IVPB 09/26/18 21:00 10/03/18 20:59 Lorazepam (Ativan 2mg/ml 1ml) 0.5 mg Q4H PRN IV For Anxiety 09/25/18 20:45 10/02/18 20:44 Morphine Sulfate (Morphine Sulfate) 2 mg Q4H PRN IVP For Pain 4-6 09/25/18 20:45 10/02/18 20:44 09/26/18 07:28 Morphine Sulfate (Morphine Sulfate) 4 mg Q4H PRN IVP For Pain 7-10 09/25/18 20:45 10/02/18 20:44 Ondansetron HCl (Zofran) 4 mg Q6H PRN IVP Nausea & Vomiting 09/25/18 20:45 10/25/18 20:44 Polyethylene Glycol (Miralax) 17 gm HSPRN PRN ORAL Constipation 09/25/18 20:45 10/25/18 20:44 Zolpidem Tartrate (Ambien) 5 mg HSPRN PRN ORAL Insomnia 09/25/18 20:45 10/02/18 20:44 Assessment/Plan Problem List: (1) Atrial fibrillation with RVR ICD Codes: I48.91 - Unspecified atrial fibrillation SNOMED: 209656667438978 (2) Urinary tract infection ICD Codes: N39.0 - Urinary tract infection, site not specified SNOMED: 76427390 (3) Chronic systolic CHF (congestive heart failure) ICD Codes: I50.22 - Chronic systolic (congestive) heart failure SNOMED: 23570087, 746598693 (4) Chronic a-fib ICD Codes: I48.2 - Chronic atrial fibrillation SNOMED: 374331374 (5) Spinal stenosis ICD Codes: M48.00 - Spinal stenosis, site unspecified SNOMED: 78183809 (6) Intractable back pain ICD Codes: M54.9 - Dorsalgia, unspecified SNOMED: 610425125 Assessment/Plan: Echo Urine c/s IV abx, heart rate control with cardizem IV f/u CXR and bnp cardiology evaluation pt responding to Morphine for pain. John Hollingsworth MD September 26, 2018 12:28
--- NOTE | 2018-09-26 13:35 | NUR ---
RADIOLOGY DEPT., CHEST X-RAY DONE.-P.DYE
--- NOTE | 2018-09-26 14:20 | Diagnostic Imaging Report ---
Indication: Dyspnea Comparison: None A single view chest radiograph was obtained. Findings: The heart is markedly enlarged. The aorta is tortuous and ectatic. The interstitium of the lung is mildly prominent but the suspect this may be chronic. Bones are osteopenic. IMPRESSION: Cardiomegaly. No acute findings
--- NOTE | 2018-09-26 15:46 | NUR ---
P.T NOTE: P.T EVALUATION COMPLETED AND TREATMENT INITIATED. PLEASE REFER TO P.T EVALUATION FOR CURRENT FUNCTIONAL STATUS. Addendum: 09/26/18 at 1546 by SYLVIA GN PT Amended: Links added. Addendum: 09/26/18 at 1642 by SYLVIA NG PT ADDENDUM: SKILLED P.T SERVICE IS WARRANTED TO IMPROVE HER STRENGTH BALANCE AND ENDURANCE TO INCREASE HER MOBILITY INDEPENDENCE AND SAFETY. RECOMMEND HOME P.T AT GA.
[2018-09-26 16:00] VITALS: BP 144/103
[2018-09-26] MEDS: Eliquis 2.5mg tablet ORAL SCH (17:55)
--- NOTE | 2018-09-26 19:09 | Neurology Progress Note ---
Interim History Interim History ROS Limited/Unobtainable: No Complaints: LBP Events: Having U/S today Interim History Ambulating in and out of bed today with pain improved by morphine Review of Systems All Systems: reviewed and negative except above Objective Physical Exam Last Vital Signs Date Time Temp Pulse Resp B/P (MAP) Pulse Ox O2 Delivery O2 Flow Rate FiO2 09/26/18 16:00 Room Air 09/26/18 16:00 97.5 126 23 144/103 (117) 96 126 Laboratory Tests Test 09/26/18 03:35 White Blood Count 5.8 K/UL (4.8-10.8) Red Blood Count 4.10 M/UL (4.20-5.40) L Hemoglobin 13.2 G/DL (12.0-16.0) Hematocrit 39.9 % (37.0-47.0) Mean Corpuscular Volume 97 FL (80-99) Mean Corpuscular Hemoglobin 32.2 PG (27.0-31.0) H Mean Corpuscular Hemoglobin Concent 33.1 G/DL (32.0-36.0) Red Cell Distribution Width 14.6 % (11.6-14.8) Platelet Count 152 K/UL (150-450) Mean Platelet Volume 6.0 FL (6.5-10.1) L Neutrophils (%) (Auto) 64.9 % (45.0-75.0) Lymphocytes (%) (Auto) 21.1 % (20.0-45.0) Monocytes (%) (Auto) 9.4 % (1.0-10.0) Eosinophils (%) (Auto) 3.5 % (0.0-3.0) H Basophils (%) (Auto) 1.1 % (0.0-2.0) Sodium Level 134 MMOL/L (136-145) L Potassium Level 4.0 MMOL/L (3.5-5.1) Chloride Level 97 MMOL/L (98-107) L Carbon Dioxide Level 27 MMOL/L (21-32) Anion Gap 10 mmol/L (5-15) Blood Urea Nitrogen 26 mg/dL (7-18) H Creatinine 1.1 MG/DL (0.55-1.30) Estimat Glomerular Filtration Rate mL/min (>60) Glucose Level 87 MG/DL (74-106) Hemoglobin A1c 6.2 % (4.3-6.0) H Calcium Level 9.5 MG/DL (8.5-10.1) Total Bilirubin 1.0 MG/DL (0.2-1.0) Aspartate Amino Transf (AST/SGOT) 73 U/L (15-37) H Alanine Aminotransferase (ALT/SGPT) 57 U/L (12-78) Alkaline Phosphatase 185 U/L (46-116) H Total Protein 7.9 G/DL (6.4-8.2) Albumin 3.4 G/DL (3.4-5.0) Globulin 4.5 g/dL Albumin/Globulin Ratio 0.8 (1.0-2.7) L Thyroid Stimulating Hormone (TSH) 15.169 uiU/mL (0.358-3.740) Free Thyroxine 0.97 NG/DL (0.76-1.46) Free Triiodothyronine 2.4 pg/mL (2.3-4.2) Neurologic Exam Mental Status: awake, alert, oriented x4, normal cognition, good mathematical skills, normal recent memory, normal remote memory, preserved visuospatial function Speech: normal speech, no dysarthia Language: normal language, no aphasia Cranial Nerve II: fundus normal, visual daley, no papilledema Cranial Nerves III, IV, : PERRLA, EOMI, pupils Cranial Nerve V: normal facial sensations, temporales function normal, masseters function normal, pterygoids function normal Cranial Nerve VII: no facial asymmetry, normal facial expressions Cranial Nerve VIII: normal hearing, no nystagmus Cranial Nerve IX: normal palate elevation, gag response Cranial Nerve X: no voice hoarseness Cranial Nerve XI: SCM symmetric, trapezii function normal Cranial Nerve XII: tongue midline, no tongue atrophy/fasciculations Motor System: normal muscle tone, strength 5/5, no involuntary movement, no muscle wasting Sensory: normal pinprick, normal light touch, normal position sense, normal graphesthesia Coordination: normal finger to nose bilaterally, normal heel to cason bilaterally, negative Romberg test Deep Tendon Reflexes: 2+ bicep (L), 2+ bicep (R), 2+ tricep (L), 2+ tricep (R) , 2+ brachioradialis (L), 2+ brachioradialis (R), 2+ knee (L), 2+ knee (R), 2+ ankle (L), 2+ ankle (R) Stance: normal Gait: stable, normal regular Impression/Recommendations Problems: (1) Constipation (2) Urinary tract infection (3) Spinal stenosis (4) Atrial fibrillation with RVR (5) Intractable back pain (6) Subclinical hypothyroidism (7) EF 15% Recommendations Continue Q 4 Neurovascular obs Treat UTI with abx PUt on bowel regimen for any constipation - especially now with Morphine on board- Constipation will worsen LBP Maintain normothermia MRI L Spine with surgical consult= mainly for discussion of injectable therapy as patient is likely unable to have any surgery Kady López N.P. September 26, 2018 19:09
--- NOTE | 2018-09-26 19:24 | NUR ---
HAND-OFF: Report given to Katina ROBISON. Pt. remain stable.
--- NOTE | 2018-09-26 19:30 | Consultation ---
History of Present Illness General Date patient seen: September 26, 2018 Chief Complaint: Back Pain-No Injury Referring physician: Dr. Hollingsworth Reason for Consultation: inpatient management Present Illness HPI 88 y/o F with hx of CAD s/p angioplasty, HTN, compression fractures of spine, CHF, Afib on Eliquis, Dementia presents to ED on 09/25 with 1- 2 days of worsening low back pain Denied f/c, n/v/d, falls or trauma. +frequency per daughter Allergies: Coded Allergies: No Known Allergies (Unverified , 09/25/18) Medication History Unable to Obtain Active Prescriptions or Reported Meds Patient History Healthcare decision maker self Resuscitation status Full Code Advanced Directive on File No Patient History Narrative Pmhx: as above Shx: Denies: smoking, alcohol use, drug use, other Fhx: non contributory Review of Systems All Other Systems: negative except mentioned in HPI Physical Exam Physical Exam Narrative General Appearance: well appearing, no apparent distress, alert, thin Head: normocephalic EENT: PERRL/EOMI, normal ENT inspection Neck: supple Respiratory: normal breath sounds, no respiratory distress Cardiovascular: normal rate Gastrointestinal: normal inspection, non tender, soft, normal bowel sounds, non -distended Genitourinary: no CVA tenderness Musculoskeletal: normal inspection, back normal Neurologic: normal inspection, alert, oriented x3, responsive Psychiatric: normal inspection, judgement/insight normal, memory normal Skin: normal inspection, normal color, no rash, warm/dry, palpation normal, well hydrated Last 24 Hour Vital Signs Date Time Temp Pulse Resp B/P (MAP) Pulse Ox O2 Delivery O2 Flow Rate FiO2 09/26/18 16:00 Room Air 09/26/18 16:00 97.5 126 23 144/103 (117) 96 126 09/26/18 15:30 126 09/26/18 12:00 96.3 118 21 123/93 (103) 98 118 09/26/18 12:00 Room Air 09/26/18 11:28 124 09/26/18 08:00 Room Air 09/26/18 08:00 97.6 102 20 150/103 (119) 98 102 09/26/18 07:31 129 09/26/18 06:00 109 09/26/18 04:00 98.1 103 16 127/89 (102) 99 103 09/26/18 04:00 Room Air 09/26/18 00:00 Room Air 09/26/18 00:00 113 09/26/18 00:00 98.0 118 16 136/90 (105) 99 118 09/25/18 22:00 Room Air 09/25/18 21:30 98.0 101 22 122/67 99 Room Air 09/25/18 19:31 139 134/102 Intake and Output 09/25/18 09/26/18 19:00 07:00 # Voids 1 # Bowel Movements 2 Laboratory Tests Test 09/26/18 03:35 White Blood Count 5.8 K/UL (4.8-10.8) Red Blood Count 4.10 M/UL (4.20-5.40) L Hemoglobin 13.2 G/DL (12.0-16.0) Hematocrit 39.9 % (37.0-47.0) Mean Corpuscular Volume 97 FL (80-99) Mean Corpuscular Hemoglobin 32.2 PG (27.0-31.0) H Mean Corpuscular Hemoglobin Concent 33.1 G/DL (32.0-36.0) Red Cell Distribution Width 14.6 % (11.6-14.8) Platelet Count 152 K/UL (150-450) Mean Platelet Volume 6.0 FL (6.5-10.1) L Neutrophils (%) (Auto) 64.9 % (45.0-75.0) Lymphocytes (%) (Auto) 21.1 % (20.0-45.0) Monocytes (%) (Auto) 9.4 % (1.0-10.0) Eosinophils (%) (Auto) 3.5 % (0.0-3.0) H Basophils (%) (Auto) 1.1 % (0.0-2.0) Sodium Level 134 MMOL/L (136-145) L Potassium Level 4.0 MMOL/L (3.5-5.1) Chloride Level 97 MMOL/L (98-107) L Carbon Dioxide Level 27 MMOL/L (21-32) Anion Gap 10 mmol/L (5-15) Blood Urea Nitrogen 26 mg/dL (7-18) H Creatinine 1.1 MG/DL (0.55-1.30) Estimat Glomerular Filtration Rate mL/min (>60) Glucose Level 87 MG/DL (74-106) Hemoglobin A1c 6.2 % (4.3-6.0) H Calcium Level 9.5 MG/DL (8.5-10.1) Total Bilirubin 1.0 MG/DL (0.2-1.0) Aspartate Amino Transf (AST/SGOT) 73 U/L (15-37) H Alanine Aminotransferase (ALT/SGPT) 57 U/L (12-78) Alkaline Phosphatase 185 U/L (46-116) H Total Protein 7.9 G/DL (6.4-8.2) Albumin 3.4 G/DL (3.4-5.0) Globulin 4.5 g/dL Albumin/Globulin Ratio 0.8 (1.0-2.7) L Thyroid Stimulating Hormone (TSH) 15.169 uiU/mL (0.358-3.740) Free Thyroxine 0.97 NG/DL (0.76-1.46) Free Triiodothyronine 2.4 pg/mL (2.3-4.2) Height (Feet): 5 Height (Inches): 4.00 Weight (Pounds): 125 Medications Current Medications Medications (Trade) Dose Ordered Sig/Yunior Route PRN Reason Start Time Stop Time Status Last Admin Dose Admin Acetaminophen (Tylenol) 650 mg Q4H PRN ORAL fever 09/25/18 20:45 10/25/18 20:44 Apixaban (Eliquis) 2.5 mg BID ORAL 09/26/18 18:00 10/26/18 17:59 09/26/18 17:55 Dextrose (Dextrose 50%) 25 ml Q30M PRN IV Hypoglycemia 09/25/18 20:45 10/25/18 20:44 Dextrose (Dextrose 50%) 50 ml Q30M PRN IV Hypoglycemia 09/25/18 20:45 10/25/18 20:44 Diltiazem HCl (Cardizem) 10 mg Q1H PRN IV HR>120BPM 09/26/18 12:30 10/26/18 12:29 Iopamidol (Isovue-370 150ml) 150 ml NOW PRN INJ Radiology Procedure 09/25/18 17:00 Levofloxacin 50 ml @ 50 mls/hr Q24H IVPB 09/26/18 21:00 10/03/18 20:59 Lorazepam (Ativan 2mg/ml 1ml) 0.5 mg Q4H PRN IV For Anxiety 09/25/18 20:45 10/02/18 20:44 Morphine Sulfate (Morphine Sulfate) 2 mg Q4H PRN IVP For Pain 4-6 09/25/18 20:45 10/02/18 20:44 09/26/18 07:28 Morphine Sulfate (Morphine Sulfate) 4 mg Q4H PRN IVP For Pain 7-10 09/25/18 20:45 10/02/18 20:44 Ondansetron HCl (Zofran) 4 mg Q6H PRN IVP Nausea & Vomiting 09/25/18 20:45 10/25/18 20:44 Polyethylene Glycol (Miralax) 17 gm HSPRN PRN ORAL Constipation 09/25/18 20:45 10/25/18 20:44 Zolpidem Tartrate (Ambien) 5 mg HSPRN PRN ORAL Insomnia 09/25/18 20:45 10/02/18 20:44 Assessment/Plan Assessment/Plan: Abx: Levaquin 09/25- Ceftriaxone x1 09/25 Assessment: Low back pain -CT T +L spine: No obvious acute fracture.Severe degenerative changes of the lumbar spine as described above. Suspected right renal cysts. 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 -CTA c/a/p: Ascending aortic aneurysm 4.5 cm. Moderate atherosclerotic disease with ectasia of the thoracic and abdominal aorta as described above. 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 No evidence of dissection. Multiple incidental findings: Patchy lung fibrosis. Groundglass opacities, nonspecific. Trace right pleural effusion. Trace ascites. Diverticulosis of the colon. Thickening of the wall the gallbladder, nonspecific in nature. Degenerative changes of the spine Afebrile No leukocytosis -CXR: Cardiomegaly. No acute findings Probable UTI (+frequency) -u/a wbc 40-60, nit neg, leuk +3, sq cells many; ucx p Mild LFTs elevation- r/o hepatobiliary disease CAD s/p angioplasty HTN compression fractures of spine CHF Afib on Eliquis Dementia Plan: -Continue empiric LEvaquin #2 pending repeat u/a and ucx -f/u cx -Monitor CBC/CMP, temperatures -aspiration precautions -Abd US -CMP am -aspiration precautions -u/a w/ reflex Thank you for this consultation. Will continue to follow along with you. Discussed with ENRIQUETA. Fanny Lugo M.D. September 26, 2018 19:30
--- NOTE | 2018-09-26 19:30 | NUR ---
NURSE NOTES: Received Pt is resting on the bed and awake and confused and forgetful. Family; daughter stay at bedside. On Tele monitor with A-fib with HR 110-130's. No symptomatic. Denied pain at this time. IV site leaking on Rt. AC and Rt. Hand removed IV and will insert new IV. According to pervious nurse, she said her home medications verified with Dr. Piedra. Placed fall precaution. Will continue to care plan.
[2018-09-26 20:00] VITALS: BP 146/99
[2018-09-26] MEDS ORDERED: Levofloxacin 250mg/D5W 50ml IVPB SCH (21:00)
--- NOTE | 2018-09-26 22:00 | History and Physical Report ---
DATE OF ADMISSION: 09/25/2018 CONSULTANTS: 1. John Hollingsworth M.D. 2. Mino Wilson M.D. 3. Mark Manuel M.D. 4. Ross Smith M.D. 5. Puma Dong M.D. CHIEF COMPLAINT: Intractable back pain, atrial fibrillation, and rapid ventricular response. BRIEF HISTORY: This is an 88-year-old female, who lives at home, presented to [facility] last night with intractable back pain, was having some rapid atrial fibrillation with rapid ventricular response and the patient was seen and admitted to [facility] for further care. Currently, feeling a little bit better, in a rollator in the room, slight back pain. REVIEW OF SYSTEMS: No chest pain. Slight short of breath. No nausea, vomiting, or diarrhea. PAST MEDICAL HISTORY: Include congestive heart failure, degenerative joint disease, and spinal stenosis. PAST SURGICAL HISTORY: Unknown. MEDICATIONS: Include levofloxacin, apixaban, Tylenol, morphine, , and zolpidem. ALLERGIES: Denies. SOCIAL HISTORY: No smoking. No alcohol. No intravenous drug abuse. FAMILY HISTORY: Noncontributory. PHYSICAL EXAMINATION: GENERAL: Today, he is very calm, in room. VITAL SIGNS: Temperature is 97, pulse 102, respirations 20, and blood pressure 150/103. CARDIOVASCULAR: There is no murmur. Slightly irregular and rapid. LUNGS: Distant and clear. ABDOMEN: Bowel sounds positive. Nontender. Nondistended. EXTREMITIES: No cyanosis or edema. NEUROLOGIC: The patient moves all extremities. Lower extremity weakness noted. LABORATORY AND DIAGNOSTIC DATA: Labs at this time show CBC is normal. BMP shows sodium 134, chloride 97, and BUN 26. AST 73 and alkaline phosphatase 185. Troponin 0.006. TSH is 15. She is hypothyroid. Urinalysis show 3+ protein, 3+ leukocyte esterase. ASSESSMENT: 1. Intractable back pain. 2. Atrial fibrillation. 3. Rapid ventricular response. 4. Congestive heart failure. 5. Degenerative joint disease. 6. Hypothyroid. 7. Spinal stenosis. 8. Urinary tract infection. PLAN: 1. Resume home medications. 2. Cardiology followup. 3. We will add Dr. Velazquez for Endocrinology evaluation. 4. PT and dietary evaluation. 5. CBC and BMP in the morning. 6. We will continue to follow the patient. Hugh Pressley D.O. DR: DAVID JOB#: [id number] CC:
[2018-09-26 22:46] LABS: APPEARANCE,URINE CLEAR; BILIRUBIN, URINE NEGATIVE (NEGATIVE); GLUCOSE, URINE (UA) NEGATIVE (NEGATIVE); KETONES,URINE NEGATIVE (NEGATIVE); LEUKOCYTE ESTERASE ,URINE 3+ (NEGATIVE); NITRITE,URINE NEGATIVE (NEGATIVE); PH,URINE 5 (4.5-8.0); PROTEIN,URINE 3+ (NEGATIVE); UROBILINOGEN,URINE NORMAL MG/DL (0.0-1.0)
[2018-09-26 22:48] LABS: COLOR,URINE YELLOW
[2018-09-26] MEDS ORDERED: CARDIAZEM CD240 MG PO (23:01)
[2018-09-26] MEDS ORDERED: QUETIAPINE FUMA25 MG ORAL (23:01)
[2018-09-26] MEDS ORDERED: ISOSORBIDE MONO30 M1 PO (23:01)
[2018-09-26] MEDS ORDERED: TRAMADOL HCL50 MG ORAL (23:01)
[2018-09-26] MEDS ORDERED: ZANTAC150 MG ORAL (23:01)
[2018-09-26] MEDS ORDERED: DONEPEZIL HCL5 M2 ORAL (23:01)
[2018-09-26] MEDS ORDERED: ELIQUIS2.5 MG PO (23:01)
[2018-09-26] MEDS ORDERED: FUROSEMIDE20 M1 ORAL (23:01)
[2018-09-26] MEDS ORDERED: ATORVASTATIN CA20 MG ORAL (23:01)
[2018-09-26] MEDS ORDERED: TRADJENTA5 MG PO (23:01)
[2018-09-26] MEDS ORDERED: MEMANTINE HCL E14 MG PO (23:01)
[2018-09-27] VITALS: BP 136/95
[2018-09-27] MEDS: dilTIAZem HCl 25mg/5ml Inj IV PRN ×3 (00:45→08:53)
--- NOTE | 2018-09-27 03:00 | Consultation ---
DATE OF CONSULTATION: 09/26/2018 ENDOCRINOLOGY CONSULTATION CONSULTING PHYSICIAN: Herber Velazquez M.D. REFERRING PHYSICIAN: Hugh Pressley D.O. REASON FOR CONSULTATION: Elevated TSH. HISTORY OF PRESENT ILLNESS: This is an 88-year-old female with history of dementia, presented to the hospital with increased low back pain. She has been having worsening of the pain in the past 1 to 2 days. She has been urinating normally. No abdominal symptoms. She has prior history of cardiac disease and had angioplasty and she has been noted to have increased discomfort with ambulation and also previously had compression fracture to her lower back. She was noted to be in atrial fibrillation with rapid ventricular response. Also, the TSH was noted to be elevated at 15. Endocrinology was consulted. PAST MEDICAL HISTORY: 1. Coronary artery disease. 2. Congestive heart failure. 3. Atrial fibrillation. 4. Dementia. MEDICATIONS AT HOME: 1. Lasix. 2. Eliquis. 3. Cardizem. ALLERGIES TO MEDICATIONS: None. REVIEW OF SYSTEMS: Difficult to obtain. PHYSICAL EXAMINATION: GENERAL: The patient's blood pressure is 150/100, pulse of 100, temperature of 97, and respiratory rate of 20. HEENT: Pupils are reactive to light. Sclerae anicteric. NECK: No jugular venous distention. HEART: Regular. LUNGS: Clear. ABDOMEN: Positive bowel sounds. EXTREMITIES: Trace edema. LABORATORY VALUES: Sodium 134, potassium 4.2, chloride 97, bicarbonate 27, BUN 26, and creatinine 1.1. TSH of 15. A1c of 6.2. DIAGNOSES: 1. Worsening of the back pain. 2. Congestive heart failure. 3. Atrial fibrillation. 4. Hypothyroidism, subclinical. 5. Borderline diabetes. PLAN: T4 and T3 are normal. Repeat the TSH and if it comes back elevated, we will start the patient on low-dose levothyroxine. No need for blood glucose monitoring since the blood glucose is mostly within the range and and A1c is in the borderline range of diabetes. I will follow the results and further advice. Thank you Dr. Pressley for the courtesy of this consultation. Herber Velazquez M.D. DR: ENRIQUETA/MAICOL JOB#: [id number] CC:
[2018-09-27] MEDS: Morphine Sulfate 4mg/ml Inj (IV USE ONLY) IVP PRN (03:15)
[2018-09-27 04:00] VITALS: BP 140/108
[2018-09-27 04:58] LABS: BASOPHILS % (AUTO) 1.4 % (0.0-2.0); EOSINOPHILS % (AUTO) 5.7 % (0.0-3.0); HEMATOCRIT 42.2 % (37.0-47.0); HEMOGLOBIN 14.2 G/DL (12.0-16.0); LYMPHOCYTES % (AUTO) 30.2 % (20.0-45.0); MEAN CORPUSCULAR VOLUME 97 FL (80-99); MONOCYTES % (AUTO) 9.1 % (1.0-10.0); NEUTROPHILS % (AUTO) 53.6 % (45.0-75.0); PLATELET COUNT 150 K/UL (150-450); RED BLOOD COUNT 4.35 M/UL (4.20-5.40); RED CELL DISTRIBUTION WIDTH 14.2 % (11.6-14.8); WHITE BLOOD COUNT 4.8 K/UL (4.8-10.8)
[2018-09-27 05:37] LABS: ALANINE AMINOTRANSFERASE 55 U/L (12-78); ALBUMIN 3.2 G/DL (3.4-5.0); ALBUMIN/GLOBULIN RATIO 0.7 (1.0-2.7); ALKALINE PHOSPHATASE 170 U/L (46-116); ANION GAP 10 mmol/L (5-15); ASPARTATE AMINO TRANSFERASE 66 U/L (15-37); BILIRUBIN,TOTAL 0.9 MG/DL (0.2-1.0); BLOOD UREA NITROGEN 36 mg/dL (7-18); CALCIUM 9.6 MG/DL (8.5-10.1); CARBON DIOXIDE 25 MMOL/L (21-32); CHLORIDE 97 MMOL/L (98-107); CREATININE 1.1 MG/DL (0.55-1.30); POTASSIUM 4.5 MMOL/L (3.5-5.1); SODIUM 132 MMOL/L (136-145)
--- NOTE | 2018-09-27 06:21 | General Progress Note ---
Assessment/Plan Problem List: (1) Subclinical hypothyroidism ICD Codes: E03.9 - Hypothyroidism, unspecified SNOMED: 17076826 (2) Intractable back pain ICD Codes: M54.9 - Dorsalgia, unspecified SNOMED: 848734684 (3) Atrial fibrillation with RVR ICD Codes: I48.91 - Unspecified atrial fibrillation SNOMED: 722848118284654 (4) Spinal stenosis ICD Codes: M48.00 - Spinal stenosis, site unspecified SNOMED: 12270705 (5) Urinary tract infection ICD Codes: N39.0 - Urinary tract infection, site not specified SNOMED: 41541746 Assessment/Plan: TSH is repeated and is pending free T4 and free T3 are normal will hold off on thyroid hormone replacement until repeat TSH is available Subjective ROS Limited/Unobtainable: Yes Allergies: Coded Allergies: No Known Allergies (Unverified , 09/25/18) Subjective events noted interval notes reviewed Objective Last 24 Hour Vital Signs Date Time Temp Pulse Resp B/P (MAP) Pulse Ox O2 Delivery O2 Flow Rate FiO2 09/27/18 04:00 122 09/27/18 04:00 98.0 125 24 140/108 (119) 97 124 09/27/18 04:00 Room Air 09/27/18 00:45 135 153/101 09/27/18 00:00 116 09/27/18 00:00 98.1 124 24 136/95 (109) 96 124 09/27/18 00:00 Room Air 09/26/18 20:00 126 09/26/18 20:00 98.4 126 23 146/99 (115) 96 126 09/26/18 20:00 Room Air 09/26/18 16:00 Room Air 09/26/18 16:00 97.5 126 23 144/103 (117) 96 126 09/26/18 15:30 126 09/26/18 12:00 96.3 118 21 123/93 (103) 98 118 09/26/18 12:00 Room Air 09/26/18 11:28 124 09/26/18 08:00 Room Air 09/26/18 08:00 97.6 102 20 150/103 (119) 98 102 09/26/18 07:31 129 Intake and Output 09/26/18 09/27/18 19:00 07:00 Intake Total 400 ml 50 ml Balance 400 ml 50 ml Intake Oral 400 ml IV Total 50 ml # Voids 2 # Bowel Movements 3 Laboratory Tests 09/26/18 22:20: Urine Color Yellow, Urine Appearance Clear, Urine pH 5, Urine Specific [place] 1.020, Urine Protein 3+H, Urine Glucose (UA) Negative, Urine Ketones Negative, Urine Blood 2+H, Urine Nitrite Negative, Urine Bilirubin Negative, Urine Urobilinogen Normal, Urine Leukocyte Esterase 3+H, Urine RBC 2-4H, Urine WBC 5- 10H, Urine Squamous Epithelial Cells Few, Urine Bacteria ModerateH 09/27/18 03:20: White Blood Count 4.8, Red Blood Count 4.35, Hemoglobin 14.2, Hematocrit 42.2, Mean Corpuscular Volume 97, Mean Corpuscular Hemoglobin 32.6H, Mean Corpuscular Hemoglobin Concent 33.6, Red Cell Distribution Width 14.2, Platelet Count 150, Mean Platelet Volume 7.3, Neutrophils (%) (Auto) 53.6, Lymphocytes (%) (Auto) 30.2, Monocytes (%) (Auto) 9.1, Eosinophils (%) (Auto) 5.7H, Basophils (%) (Auto ) 1.4, Sodium Level 132L, Potassium Level 4.5, Chloride Level 97L, Carbon Dioxide Level 25, Anion Gap 10, Blood Urea Nitrogen 36H, Creatinine 1.1, Estimat Glomerular Filtration Rate , Glucose Level 84, Calcium Level 9.6, Phosphorus Level 5.0H, Magnesium Level 2.2, Total Bilirubin 0.9, Aspartate Amino Transf (AST/SGOT) 66H, Alanine Aminotransferase (ALT/SGPT) 55, Alkaline Phosphatase 170H, Pro-B-Type Natriuretic Peptide [Pending], Total Protein 7.8, Albumin 3.2L, Globulin 4.6, Albumin/Globulin Ratio 0.7L, Free Thyroxine 0.97, Thyroid Stimulating Immunoglobulin [Pending] Height (Feet): 5 Height (Inches): 4.00 Weight (Pounds): 125 General Appearance: no apparent distress Neck: normal alignment Cardiovascular: arrhythmia Respiratory/Chest: lungs clear Abdomen: normal bowel sounds Pelvis: normal external exam Edema: no edema noted Arm (L), no edema noted Arm (R), no edema noted Leg (L), no edema noted Leg (R), no edema noted Pedal (L), no edema noted Pedal (R), no edema noted Generalized Objective Current Medications Medications (Trade) Dose Ordered Sig/Yunior Route PRN Reason Start Time Stop Time Status Last Admin Dose Admin Acetaminophen (Tylenol) 650 mg Q4H PRN ORAL fever 09/25/18 20:45 10/25/18 20:44 Apixaban (Eliquis) 2.5 mg BID ORAL 09/26/18 18:00 10/26/18 17:59 09/26/18 17:55 Dextrose (Dextrose 50%) 25 ml Q30M PRN IV Hypoglycemia 09/25/18 20:45 10/25/18 20:44 Dextrose (Dextrose 50%) 50 ml Q30M PRN IV Hypoglycemia 09/25/18 20:45 10/25/18 20:44 Diltiazem HCl (Cardizem) 10 mg Q1H PRN IV HR>120BPM 09/26/18 12:30 10/26/18 12:29 09/27/18 00:45 Iopamidol (Isovue-370 150ml) 150 ml NOW PRN INJ Radiology Procedure 09/25/18 17:00 Levofloxacin 50 ml @ 50 mls/hr Q24H IVPB 09/26/18 21:00 10/03/18 20:59 09/26/18 21:30 Lorazepam (Ativan 2mg/ml 1ml) 0.5 mg Q4H PRN IV For Anxiety 09/25/18 20:45 10/02/18 20:44 Morphine Sulfate (Morphine Sulfate) 2 mg Q4H PRN IVP For Pain 4-6 09/25/18 20:45 10/02/18 20:44 09/26/18 21:30 Morphine Sulfate (Morphine Sulfate) 4 mg Q4H PRN IVP For Pain 7-10 09/25/18 20:45 10/02/18 20:44 09/27/18 03:15 Ondansetron HCl (Zofran) 4 mg Q6H PRN IVP Nausea & Vomiting 09/25/18 20:45 10/25/18 20:44 Polyethylene Glycol (Miralax) 17 gm HSPRN PRN ORAL Constipation 09/25/18 20:45 10/25/18 20:44 Zolpidem Tartrate (Ambien) 5 mg HSPRN PRN ORAL Insomnia 09/25/18 20:45 10/02/18 20:44 09/26/18 23:34 Herber Velazquez MD September 27, 2018 06:21
--- NOTE | 2018-09-27 06:54 | NUR ---
NURSE NOTES: Pt is resting on the bed and awake and agitated and confused. On Tele monitor with ST wtih HR: 130's Trying to give Cardizem 10mg IV prn but pt remove IV at this time again. Explained benefits at risks. Cardizem medication was discarded.
--- NOTE | 2018-09-27 07:30 | NUR ---
HAND-OFF: Report given to ENRIQUETA Claudio. Pt is resting on the bed and awake and confused. Family stays at bedside. Pt removed IV line again. Still noted A-fib on Tele monitor.
--- NOTE | 2018-09-27 07:36 | NUR ---
NURSE NOTES: Received report from ENRIQUETA Mckoy. Observed patient in bed, awake, verbal, and responsive. Family member present at the bedside. Patient is on room air, no distress noted. Per night shift supervisor nurse, patient pulled out IV line. No signs/symptoms of pain at this time. Bed in lowest position, side rails up x 3, and call light within reach. Will continue to monitor.
[2018-09-27 08:00] VITALS: BP 133/110
[2018-09-27] MEDS: Eliquis 2.5mg tablet ORAL SCH ×2 (08:48→17:47)
--- NOTE | 2018-09-27 08:55 | General Progress Note ---
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 Wilson and he concurred. Subjective Date patient seen: September 27, 2018 Time patient seen: 07:30 - am Allergies: Coded Allergies: No Known Allergies (Unverified , 09/25/18) Subjective REVIEW OF SYSTEMS: Denies rash, fever, chills, sweating, dizziness, drowsiness, blurred vision, sore throat, or change in weight. No shortness of breath or chest pain. No nausea, vomiting, or blood in the stool or urine. No bowel or bladder incontinence. No dysuria. The patient is complaining of back pain. SUBJECTIVE: She is in bed with family member at bedside. The pain has been tolerated on the Morphine. CT scans reviewed. No new complaints at this time. Objective Last 24 Hour Vital Signs Date Time Temp Pulse Resp B/P (MAP) Pulse Ox O2 Delivery O2 Flow Rate FiO2 09/27/18 08:00 Room Air 09/27/18 08:00 97.8 125 20 133/110 (118) 98 09/27/18 04:00 122 09/27/18 04:00 98.0 125 24 140/108 (119) 97 124 09/27/18 04:00 Room Air 09/27/18 00:45 135 153/101 09/27/18 00:00 116 09/27/18 00:00 98.1 124 24 136/95 (109) 96 124 09/27/18 00:00 Room Air 09/26/18 20:00 126 09/26/18 20:00 98.4 126 23 146/99 (115) 96 126 09/26/18 20:00 Room Air 09/26/18 16:00 Room Air 09/26/18 16:00 97.5 126 23 144/103 (117) 96 126 09/26/18 15:30 126 09/26/18 12:00 96.3 118 21 123/93 (103) 98 118 09/26/18 12:00 Room Air 09/26/18 11:28 124 Intake and Output 09/26/18 09/27/18 19:00 07:00 Intake Total 400 ml 290 ml Balance 400 ml 290 ml Intake Oral 400 ml 240 ml IV Total 50 ml # Voids 2 4 # Bowel Movements 3 Laboratory Tests 09/26/18 22:20: Urine Color Yellow, Urine Appearance Clear, Urine pH 5, Urine Specific [place] 1.020, Urine Protein 3+H, Urine Glucose (UA) Negative, Urine Ketones Negative, Urine Blood 2+H, Urine Nitrite Negative, Urine Bilirubin Negative, Urine Urobilinogen Normal, Urine Leukocyte Esterase 3+H, Urine RBC 2-4H, Urine WBC 5- 10H, Urine Squamous Epithelial Cells Few, Urine Bacteria ModerateH 09/27/18 03:20: White Blood Count 4.8, Red Blood Count 4.35, Hemoglobin 14.2, Hematocrit 42.2, Mean Corpuscular Volume 97, Mean Corpuscular Hemoglobin 32.6H, Mean Corpuscular Hemoglobin Concent 33.6, Red Cell Distribution Width 14.2, Platelet Count 150, Mean Platelet Volume 7.3, Neutrophils (%) (Auto) 53.6, Lymphocytes (%) (Auto) 30.2, Monocytes (%) (Auto) 9.1, Eosinophils (%) (Auto) 5.7H, Basophils (%) (Auto ) 1.4, Sodium Level 132L, Potassium Level 4.5, Chloride Level 97L, Carbon Dioxide Level 25, Anion Gap 10, Blood Urea Nitrogen 36H, Creatinine 1.1, Estimat Glomerular Filtration Rate , Glucose Level 84, Calcium Level 9.6, Phosphorus Level 5.0H, Magnesium Level 2.2, Total Bilirubin 0.9, Aspartate Amino Transf (AST/SGOT) 66H, Alanine Aminotransferase (ALT/SGPT) 55, Alkaline Phosphatase 170H, Pro-B-Type Natriuretic Peptide 63456O, Total Protein 7.8, Albumin 3.2L, Globulin 4.6, Albumin/Globulin Ratio 0.7L, Thyroid Stimulating Hormone (TSH) 18.321H, Free Thyroxine 0.97, Thyroid Stimulating Immunoglobulin [ Pending] Height (Feet): 5 Height (Inches): 4.00 Weight (Pounds): 125 Objective PHYSICAL EXAMINATION: GENERAL: Alert, awake, and oriented. LUNGS: Decreased breath sounds bilaterally. HEART: S1 and S2 regular. ABDOMEN: Soft and nontender. EXTREMITIES: No cyanosis. No clubbing. NEURO: No changes. Procedure: CT T Spine no Contrast Indication: Back pain Technique: Continuous helical transaxial imaging of the thoraco-lumbar spine was obtained. No IV contrast was administered. Coronal 2-D reformats were also obtained. Study obtained in a Siemens sensation [address] Total Dose length Product (DLP): 465.[address] Dose Index Volume (CTDIvol): 16.75 mGy Comparison: None Findings: There are severe degenerative changes within the thoracic and lumbar spine characterized by extensive hypertrophic circumferential endplate osteophytes, osteophytes involving the facets at multiple levels, narrowing and vacuum phenomenon of the intervertebral discs. There is also loss of height of the several of the vertebral bodies especially portions of the L3, L4 and L5 vertebra. Suggestion of multilevel spinal stenosis and narrowing of the neural foramina. Bones are osteopenic. There is no malalignment identified on this examination within the thoracolumbar spine. 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 There is an incidental rounded hypodensity in the right kidney probably cystic measuring about 2.3 cm. There is honeycombing at the right lung base and streaky densities throughout both lung daley, likely scarring or fibrosis. IMPRESSION: No obvious acute fracture. Severe degenerative changes of the lumbar spine as described above. Suspected right renal cysts. 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 No IV contrast was administered. Coronal 2-D reformats were also obtained. Study obtained in a Siemens sensation [address] Total Dose length Product (DLP): 465.[address] Dose Index Volume (CTDIvol): 16.75 mGy Comparison: None Findings: There are severe degenerative changes within the thoracic and lumbar spine characterized by extensive hypertrophic circumferential endplate osteophytes, osteophytes involving the facets at multiple levels, narrowing and vacuum phenomenon of the intervertebral discs. There is also loss of height of the several of the vertebral bodies especially portions of the L3, L4 and L5 vertebra. Suggestion of multilevel spinal stenosis and narrowing of the neural foramina. Bones are osteopenic. There is no malalignment identified on this examination within the thoracolumbar spine. 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 There is an incidental rounded hypodensity in the right kidney probably cystic measuring about 2.3 cm. There is honeycombing at the right lung base and streaky densities throughout both lung daley, likely scarring or fibrosis. IMPRESSION: No obvious acute fracture. Severe degenerative changes of the lumbar spine as described above. Suspected right renal cysts. 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 Ilya Perez September 27, 2018 08:55
--- NOTE | 2018-09-27 09:39 | Diagnostic Imaging Report ---
Indication:Abdominal pain Technique: Grayscale and duplex Doppler imaging of the abdomen performed. Comparison: None Findings: There is thickening of the gallbladder wall nonspecific. The liver is unremarkable. Trace ascites noted. At least 2 renal cysts demonstrated in the right kidney. There is no hydronephrosis. Spleen is normal in size. No biliary ductal dilatation is identified. CBD is 3 mm in diameter. The aorta is moderately calcified and ectatic consistent with atherosclerotic disease. There is fusiform dilatation of the proximal aorta just below the diaphragm measuring up to about 3.5 cm. The mid and distal aorta appear ectatic and tortuous without obvious fusiform aneurysm. IMPRESSION: Fusiform aneurysm suspected in the infradiaphragmatic upper abdominal aorta measuring up to 3.5 cm. Thickening of the gallbladder wall, nonspecific. Trace ascites. Right renal cysts
--- NOTE | 2018-09-27 10:00 | GI Progress Note ---
Assessment/Plan Problems: (1) Subclinical hypothyroidism ICD Codes: E03.9 - Hypothyroidism, unspecified SNOMED: 34337868 (2) Constipation ICD Codes: K59.00 - Constipation, unspecified SNOMED: 38455289 (3) LFTs abnormal ICD Codes: R94.5 - Abnormal results of liver function studies SNOMED: 782397864 Status: unchanged Status Narrative Discussed with Dr. Mcclure. Assessment/Plan Symptomatic treatment at this time Advance diet as tolerated Pain management Zofran as needed Repeat LFTs PPI Follow-up labs, free T4 GI procedures only if emergent, otherwise outpatient The patient was seen and examined at bedside and all new and available data was reviewed in the patients chart. I agree with the above findings, impression and plan. (Patient seen earlier today. Signature stamp does not reflect patient encounter time.). - Daron Mcclure MD Subjective Gastrointestinal/Abdominal: Reports: no symptoms Subjective limited Objective Last 24 Hour Vital Signs Date Time Temp Pulse Resp B/P (MAP) Pulse Ox O2 Delivery O2 Flow Rate FiO2 09/27/18 08:53 125 133/110 09/27/18 08:00 Room Air 09/27/18 08:00 97.8 125 20 133/110 (118) 98 09/27/18 07:37 131 09/27/18 04:00 122 09/27/18 04:00 98.0 125 24 140/108 (119) 97 124 09/27/18 04:00 Room Air 09/27/18 00:45 135 153/101 09/27/18 00:00 116 09/27/18 00:00 98.1 124 24 136/95 (109) 96 124 09/27/18 00:00 Room Air 09/26/18 20:00 126 09/26/18 20:00 98.4 126 23 146/99 (115) 96 126 09/26/18 20:00 Room Air 09/26/18 16:00 Room Air 09/26/18 16:00 97.5 126 23 144/103 (117) 96 126 09/26/18 15:30 126 09/26/18 12:00 96.3 118 21 123/93 (103) 98 118 09/26/18 12:00 Room Air 09/26/18 11:28 124 Intake and Output 09/26/18 09/27/18 19:00 07:00 Intake Total 400 ml 290 ml Balance 400 ml 290 ml Intake Oral 400 ml 240 ml IV Total 50 ml # Voids 2 4 # Bowel Movements 3 Laboratory Tests Test 09/26/18 22:20 09/27/18 03:20 Urine Color Yellow Urine Appearance Clear Urine pH 5 (4.5-8.0) Urine Specific [place] 1.020 (1.005-1.035) Urine Protein 3+ (NEGATIVE) H Urine Glucose (UA) Negative (NEGATIVE) Urine Ketones Negative (NEGATIVE) Urine Blood 2+ (NEGATIVE) H Urine Nitrite Negative (NEGATIVE) Urine Bilirubin Negative (NEGATIVE) Urine Urobilinogen Normal MG/DL (0.0-1.0) Urine Leukocyte Esterase 3+ (NEGATIVE) H Urine RBC 2-4 /HPF (0 - 2) H Urine WBC 5-10 /HPF (0 - 2) H Urine Squamous Epithelial Cells Few /LPF (NONE/OCC) Urine Bacteria Moderate /HPF (NONE) H White Blood Count 4.8 K/UL (4.8-10.8) Red Blood Count 4.35 M/UL (4.20-5.40) Hemoglobin 14.2 G/DL (12.0-16.0) Hematocrit 42.2 % (37.0-47.0) Mean Corpuscular Volume 97 FL (80-99) Mean Corpuscular Hemoglobin 32.6 PG (27.0-31.0) H Mean Corpuscular Hemoglobin Concent 33.6 G/DL (32.0-36.0) Red Cell Distribution Width 14.2 % (11.6-14.8) Platelet Count 150 K/UL (150-450) Mean Platelet Volume 7.3 FL (6.5-10.1) Neutrophils (%) (Auto) 53.6 % (45.0-75.0) Lymphocytes (%) (Auto) 30.2 % (20.0-45.0) Monocytes (%) (Auto) 9.1 % (1.0-10.0) Eosinophils (%) (Auto) 5.7 % (0.0-3.0) H Basophils (%) (Auto) 1.4 % (0.0-2.0) Sodium Level 132 MMOL/L (136-145) L Potassium Level 4.5 MMOL/L (3.5-5.1) Chloride Level 97 MMOL/L (98-107) L Carbon Dioxide Level 25 MMOL/L (21-32) Anion Gap 10 mmol/L (5-15) Blood Urea Nitrogen 36 mg/dL (7-18) H Creatinine 1.1 MG/DL (0.55-1.30) Estimat Glomerular Filtration Rate mL/min (>60) Glucose Level 84 MG/DL (74-106) Calcium Level 9.6 MG/DL (8.5-10.1) Phosphorus Level 5.0 MG/DL (2.5-4.9) H Magnesium Level 2.2 MG/DL (1.8-2.4) Total Bilirubin 0.9 MG/DL (0.2-1.0) Aspartate Amino Transf (AST/SGOT) 66 U/L (15-37) H Alanine Aminotransferase (ALT/SGPT) 55 U/L (12-78) Alkaline Phosphatase 170 U/L (46-116) H Pro-B-Type Natriuretic Peptide 72910 pg/mL (0-125) H Total Protein 7.8 G/DL (6.4-8.2) Albumin 3.2 G/DL (3.4-5.0) L Globulin 4.6 g/dL Albumin/Globulin Ratio 0.7 (1.0-2.7) L Thyroid Stimulating Hormone (TSH) 18.321 uiU/mL (0.358-3.740) Free Thyroxine 0.97 NG/DL (0.76-1.46) Thyroid Stimulating Immunoglobulin Pending Height (Feet): 5 Height (Inches): 4.00 Weight (Pounds): 125 General Appearance: no apparent distress, alert, thin Cardiovascular: normal rate Respiratory/Chest: normal breath sounds, no respiratory distress Abdominal Exam: normal bowel sounds, non tender, soft Extremities: non-tender Marlene Wolfe NP September 27, 2018 10:00
[2018-09-27] MEDS ORDERED: Digoxin 0.5mg/2ml Inj IVP SCH (10:45)
--- NOTE | 2018-09-27 10:52 | Pulmonology Progress Note ---
Assessment/Plan Problems: (1) Atrial fibrillation with RVR (2) Urinary tract infection (3) Chronic systolic CHF (congestive heart failure) (4) Chronic a-fib (5) Spinal stenosis (6) Intractable back pain (7) Pulmonary hypertension, moderate to severe (8) EF 15% (9) Subclinical hypothyroidism Assessment/Plan IV digoxin once resume Cardizem PO check Urine c/s continue IV abx Echo reviewed EF of 15% responding well to Morphine IV, will add [place] on Eliquis for afib resume Quetiapine, Subjective ROS Limited/Unobtainable: No Interval Events: comfortable Allergies: Coded Allergies: No Known Allergies (Unverified , 09/25/18) Objective Last 24 Hour Vital Signs Date Time Temp Pulse Resp B/P (MAP) Pulse Ox O2 Delivery O2 Flow Rate FiO2 09/27/18 08:53 125 133/110 09/27/18 08:00 Room Air 09/27/18 08:00 97.8 125 20 133/110 (118) 98 09/27/18 07:37 131 09/27/18 04:00 122 09/27/18 04:00 98.0 125 24 140/108 (119) 97 124 09/27/18 04:00 Room Air 09/27/18 00:45 135 153/101 09/27/18 00:00 116 09/27/18 00:00 98.1 124 24 136/95 (109) 96 124 09/27/18 00:00 Room Air 09/26/18 20:00 126 09/26/18 20:00 98.4 126 23 146/99 (115) 96 126 09/26/18 20:00 Room Air 09/26/18 16:00 Room Air 09/26/18 16:00 97.5 126 23 144/103 (117) 96 126 09/26/18 15:30 126 09/26/18 12:00 96.3 118 21 123/93 (103) 98 118 09/26/18 12:00 Room Air 09/26/18 11:28 124 Intake and Output 09/26/18 09/27/18 19:00 07:00 Intake Total 400 ml 290 ml Balance 400 ml 290 ml Intake Oral 400 ml 240 ml IV Total 50 ml # Voids 2 4 # Bowel Movements 3 General Appearance: cachetic HEENT: normocephalic, atraumatic Respiratory/Chest: chest wall non-tender, lungs clear Cardiovascular: normal rate Abdomen: normal bowel sounds, no organomegaly Extremities: no cyanosis, no clubbing Skin: no rash Microbiology Date/Time Source Procedure Growth Status 09/25/18 16:50 Urine,Clean Catch Urine Culture - Preliminary Gram Negative Bacillus 1 Resulted Laboratory Tests 09/26/18 22:20: Urine Color Yellow, Urine Appearance Clear, Urine pH 5, Urine Specific [place] 1.020, Urine Protein 3+H, Urine Glucose (UA) Negative, Urine Ketones Negative, Urine Blood 2+H, Urine Nitrite Negative, Urine Bilirubin Negative, Urine Urobilinogen Normal, Urine Leukocyte Esterase 3+H, Urine RBC 2-4H, Urine WBC 5- 10H, Urine Squamous Epithelial Cells Few, Urine Bacteria ModerateH 09/27/18 03:20: White Blood Count 4.8, Red Blood Count 4.35, Hemoglobin 14.2, Hematocrit 42.2, Mean Corpuscular Volume 97, Mean Corpuscular Hemoglobin 32.6H, Mean Corpuscular Hemoglobin Concent 33.6, Red Cell Distribution Width 14.2, Platelet Count 150, Mean Platelet Volume 7.3, Neutrophils (%) (Auto) 53.6, Lymphocytes (%) (Auto) 30.2, Monocytes (%) (Auto) 9.1, Eosinophils (%) (Auto) 5.7H, Basophils (%) (Auto ) 1.4, Sodium Level 132L, Potassium Level 4.5, Chloride Level 97L, Carbon Dioxide Level 25, Anion Gap 10, Blood Urea Nitrogen 36H, Creatinine 1.1, Estimat Glomerular Filtration Rate , Glucose Level 84, Calcium Level 9.6, Phosphorus Level 5.0H, Magnesium Level 2.2, Total Bilirubin 0.9, Aspartate Amino Transf (AST/SGOT) 66H, Alanine Aminotransferase (ALT/SGPT) 55, Alkaline Phosphatase 170H, Pro-B-Type Natriuretic Peptide 34861B, Total Protein 7.8, Albumin 3.2L, Globulin 4.6, Albumin/Globulin Ratio 0.7L, Thyroid Stimulating Hormone (TSH) 18.321H, Free Thyroxine 0.97, Thyroid Stimulating Immunoglobulin [ Pending] Current Medications Medications (Trade) Dose Ordered Sig/Yunior Route PRN Reason Start Time Stop Time Status Last Admin Dose Admin Acetaminophen (Tylenol) 650 mg Q4H PRN ORAL fever 09/25/18 20:45 10/25/18 20:44 Apixaban (Eliquis) 2.5 mg BID ORAL 09/26/18 18:00 10/26/18 17:59 09/27/18 08:48 Dextrose (Dextrose 50%) 25 ml Q30M PRN IV Hypoglycemia 09/25/18 20:45 10/25/18 20:44 Dextrose (Dextrose 50%) 50 ml Q30M PRN IV Hypoglycemia 09/25/18 20:45 10/25/18 20:44 Diltiazem HCl (Cardizem) 10 mg Q1H PRN IV HR>120BPM 09/26/18 12:30 10/26/18 12:29 09/27/18 08:53 Iopamidol (Isovue-370 150ml) 150 ml NOW PRN INJ Radiology Procedure 09/25/18 17:00 Levofloxacin 50 ml @ 50 mls/hr Q24H IVPB 09/26/18 21:00 10/03/18 20:59 09/26/18 21:30 Lorazepam (Ativan 2mg/ml 1ml) 0.5 mg Q4H PRN IV For Anxiety 09/25/18 20:45 10/02/18 20:44 Morphine Sulfate (Morphine Sulfate) 2 mg Q4H PRN IVP For Pain 4-6 09/25/18 20:45 10/02/18 20:44 09/26/18 21:30 Morphine Sulfate (Morphine Sulfate) 4 mg Q4H PRN IVP For Pain 7-10 09/25/18 20:45 10/02/18 20:44 09/27/18 03:15 Ondansetron HCl (Zofran) 4 mg Q6H PRN IVP Nausea & Vomiting 09/25/18 20:45 10/25/18 20:44 Polyethylene Glycol (Miralax) 17 gm HSPRN PRN ORAL Constipation 09/25/18 20:45 10/25/18 20:44 Zolpidem Tartrate (Ambien) 5 mg HSPRN PRN ORAL Insomnia 09/25/18 20:45 10/02/18 20:44 09/26/18 23:34 John Hollingsworth MD September 27, 2018 10:52
[2018-09-27] MEDS ORDERED: Digoxin 0.5mg/2ml Inj IVP ONE (11:00)
[2018-09-27] MEDS: dilTIAZem HCl CD 240mg cap ORAL SCH ×2 (11:11→21:52)
--- NOTE | 2018-09-27 11:13 | Infectious Diseases Prog Note ---
Assessment/Plan Assessment/Plan Abx: Levaquin 09/25- Ceftriaxone x1 09/25 Assessment: Low back pain -CT T +L spine: No obvious acute fracture.Severe degenerative changes of the lumbar spine as described above. Suspected right renal cysts. 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 -CTA c/a/p: Ascending aortic aneurysm 4.5 cm. Moderate atherosclerotic disease with ectasia of the thoracic and abdominal aorta as described above. 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 No evidence of dissection. Multiple incidental findings: Patchy lung fibrosis. [place] opacities, nonspecific. Trace right pleural effusion. Trace ascites. Diverticulosis of the colon. Thickening of the wall the gallbladder, nonspecific in nature. Degenerative changes of the spine Afebrile No leukocytosis -CXR: Cardiomegaly. No acute findings Probable UTI (+frequency) -u/a wbc 40-60, nit neg, leuk +3, sq cells many; ucx 10-20k GNR; repeat u/a wbc 5-10, nit neg, leuk +3, few sq cells; ucx p Mild LFTs elevation; improving- r/o hepatobiliary disease -Abd US: Fusiform aneurysm suspected in the infradiaphragmatic upper abdominal aorta measuring up to 3.5 cm. Thickening of the gallbladder wall, nonspecific. Trace ascites. Right renal cysts CAD s/p angioplasty HTN compression fractures of spine CHF Afib on Eliquis Dementia Plan: -Continue empiric LEvaquin #3 pending repeat u/a and ucx -f/u cx -Monitor CBC/CMP, temperatures -aspiration precautions -f/u repeat ucx Thank you for this consultation. Will continue to follow along with you. Discussed with RN. Subjective Allergies: Coded Allergies: No Known Allergies (Unverified , 09/25/18) Subjective afebrile no leukocytosis Objective Vital Signs Last 24 Hour Vital Signs Date Time Temp Pulse Resp B/P (MAP) Pulse Ox O2 Delivery O2 Flow Rate FiO2 09/27/18 10:54 118 09/27/18 08:53 125 133/110 09/27/18 08:00 Room Air 09/27/18 08:00 97.8 125 20 133/110 (118) 98 09/27/18 07:37 131 09/27/18 04:00 122 09/27/18 04:00 98.0 125 24 140/108 (119) 97 124 09/27/18 04:00 Room Air 09/27/18 00:45 135 153/101 09/27/18 00:00 116 09/27/18 00:00 98.1 124 24 136/95 (109) 96 124 09/27/18 00:00 Room Air 09/26/18 20:00 126 09/26/18 20:00 98.4 126 23 146/99 (115) 96 126 09/26/18 20:00 Room Air 09/26/18 16:00 Room Air 09/26/18 16:00 97.5 126 23 144/103 (117) 96 126 09/26/18 15:30 126 09/26/18 12:00 96.3 118 21 123/93 (103) 98 118 09/26/18 12:00 Room Air 09/26/18 11:28 124 Height (Feet): 5 Height (Inches): 4.00 Weight (Pounds): 125 Objective General Appearance: well appearing, no apparent distress, alert, thin Head: normocephalic EENT: PERRL/EOMI, normal ENT inspection Neck: supple Respiratory: normal breath sounds, no respiratory distress Cardiovascular: normal rate Gastrointestinal: normal inspection, non tender, soft, normal bowel sounds, non -distended Genitourinary: no CVA tenderness Musculoskeletal: normal inspection, back normal Neurologic: normal inspection, alert, oriented x3, responsive Psychiatric: normal inspection, judgement/insight normal, memory normal Skin: normal inspection, normal color, no rash, warm/dry, palpation normal, well hydrated Microbiology Date/Time Source Procedure Growth Status 09/25/18 16:50 Urine,Clean Catch Urine Culture - Preliminary Gram Negative Bacillus 1 Resulted Laboratory Tests Test 09/26/18 22:20 09/27/18 03:20 Urine Color Yellow Urine Appearance Clear Urine pH 5 (4.5-8.0) Urine Specific [place] 1.020 (1.005-1.035) Urine Protein 3+ (NEGATIVE) H Urine Glucose (UA) Negative (NEGATIVE) Urine Ketones Negative (NEGATIVE) Urine Blood 2+ (NEGATIVE) H Urine Nitrite Negative (NEGATIVE) Urine Bilirubin Negative (NEGATIVE) Urine Urobilinogen Normal MG/DL (0.0-1.0) Urine Leukocyte Esterase 3+ (NEGATIVE) H Urine RBC 2-4 /HPF (0 - 2) H Urine WBC 5-10 /HPF (0 - 2) H Urine Squamous Epithelial Cells Few /LPF (NONE/OCC) Urine Bacteria Moderate /HPF (NONE) H White Blood Count 4.8 K/UL (4.8-10.8) Red Blood Count 4.35 M/UL (4.20-5.40) Hemoglobin 14.2 G/DL (12.0-16.0) Hematocrit 42.2 % (37.0-47.0) Mean Corpuscular Volume 97 FL (80-99) Mean Corpuscular Hemoglobin 32.6 PG (27.0-31.0) H Mean Corpuscular Hemoglobin Concent 33.6 G/DL (32.0-36.0) Red Cell Distribution Width 14.2 % (11.6-14.8) Platelet Count 150 K/UL (150-450) Mean Platelet Volume 7.3 FL (6.5-10.1) Neutrophils (%) (Auto) 53.6 % (45.0-75.0) Lymphocytes (%) (Auto) 30.2 % (20.0-45.0) Monocytes (%) (Auto) 9.1 % (1.0-10.0) Eosinophils (%) (Auto) 5.7 % (0.0-3.0) H Basophils (%) (Auto) 1.4 % (0.0-2.0) Sodium Level 132 MMOL/L (136-145) L Potassium Level 4.5 MMOL/L (3.5-5.1) Chloride Level 97 MMOL/L (98-107) L Carbon Dioxide Level 25 MMOL/L (21-32) Anion Gap 10 mmol/L (5-15) Blood Urea Nitrogen 36 mg/dL (7-18) H Creatinine 1.1 MG/DL (0.55-1.30) Estimat Glomerular Filtration Rate mL/min (>60) Glucose Level 84 MG/DL (74-106) Calcium Level 9.6 MG/DL (8.5-10.1) Phosphorus Level 5.0 MG/DL (2.5-4.9) H Magnesium Level 2.2 MG/DL (1.8-2.4) Total Bilirubin 0.9 MG/DL (0.2-1.0) Aspartate Amino Transf (AST/SGOT) 66 U/L (15-37) H Alanine Aminotransferase (ALT/SGPT) 55 U/L (12-78) Alkaline Phosphatase 170 U/L (46-116) H Pro-B-Type Natriuretic Peptide 51208 pg/mL (0-125) H Total Protein 7.8 G/DL (6.4-8.2) Albumin 3.2 G/DL (3.4-5.0) L Globulin 4.6 g/dL Albumin/Globulin Ratio 0.7 (1.0-2.7) L Thyroid Stimulating Hormone (TSH) 18.321 uiU/mL (0.358-3.740) Free Thyroxine 0.97 NG/DL (0.76-1.46) Thyroid Stimulating Immunoglobulin Pending Current Medications Medications (Trade) Dose Ordered Sig/Yunior Route PRN Reason Start Time Stop Time Status Last Admin Dose Admin Acetaminophen (Tylenol) 650 mg Q4H PRN ORAL fever 09/25/18 20:45 10/25/18 20:44 Apixaban (Eliquis) 2.5 mg BID ORAL 09/26/18 18:00 10/26/18 17:59 09/27/18 08:48 Dextrose (Dextrose 50%) 25 ml Q30M PRN IV Hypoglycemia 09/25/18 20:45 10/25/18 20:44 Dextrose (Dextrose 50%) 50 ml Q30M PRN IV Hypoglycemia 09/25/18 20:45 10/25/18 20:44 Digoxin (Lanoxin) 0.25 mg DAILY ORAL 09/28/18 09:00 10/28/18 08:59 Digoxin (Lanoxin) 0.5 mg ONCE IVP 09/27/18 10:45 09/27/18 12:00 09/27/18 10:54 Diltiazem HCl (Cardizem CD) 240 mg Q12HR ORAL 09/27/18 10:45 10/27/18 10:44 Diltiazem HCl (Cardizem) 10 mg Q1H PRN IV HR>120BPM 09/26/18 12:30 10/26/18 12:29 09/27/18 08:53 Donepezil HCl (Aricept) 5 mg DAILY ORAL 09/28/18 09:00 10/28/18 08:59 Iopamidol (Isovue-370 150ml) 150 ml NOW PRN INJ Radiology Procedure 09/25/18 17:00 Isosorbide Mononitrate (Imdur) 30 mg Q12HR ORAL 09/27/18 21:00 10/27/18 20:59 Levofloxacin 50 ml @ 50 mls/hr Q24H IVPB 09/26/18 21:00 10/03/18 20:59 09/26/18 21:30 Lorazepam (Ativan 2mg/ml 1ml) 0.5 mg Q4H PRN IV For Anxiety 09/25/18 20:45 10/02/18 20:44 Memantine (Namenda) 10 mg DAILY ORAL 09/28/18 09:00 10/28/18 08:59 Morphine Sulfate (Morphine Sulfate) 2 mg Q4H PRN IVP For Pain 4-6 09/25/18 20:45 10/02/18 20:44 09/26/18 21:30 Morphine Sulfate (Morphine Sulfate) 4 mg Q4H PRN IVP For Pain 7-10 09/25/18 20:45 10/02/18 20:44 09/27/18 03:15 Ondansetron HCl (Zofran) 4 mg Q6H PRN IVP Nausea & Vomiting 09/25/18 20:45 10/25/18 20:44 Polyethylene Glycol (Miralax) 17 gm HSPRN PRN ORAL Constipation 09/25/18 20:45 10/25/18 20:44 Quetiapine Fumarate (SEROquel) 25 mg BID ORAL 09/27/18 18:00 10/27/18 17:59 Zolpidem Tartrate (Ambien) 5 mg HSPRN PRN ORAL Insomnia 09/25/18 20:45 10/02/18 20:44 09/26/18 23:34 Fanny Lugo M.D. September 27, 2018 11:13
[2018-09-27 12:00] VITALS: BP 132/104
--- NOTE | 2018-09-27 13:09 | Neurology Progress Note ---
Interim History Interim History ROS Limited/Unobtainable: No Complaints: LBP Events: Awaiting completion of L Spine MRI Interim History Pain managed with Morphine Objective Physical Exam Last Vital Signs Date Time Temp Pulse Resp B/P (MAP) Pulse Ox O2 Delivery O2 Flow Rate FiO2 09/27/18 12:00 97.8 131 23 132/104 (113) 99 09/27/18 12:00 Room Air Laboratory Tests Test 09/26/18 22:20 09/27/18 03:20 Urine Color Yellow Urine Appearance Clear Urine pH 5 (4.5-8.0) Urine Specific [place] 1.020 (1.005-1.035) Urine Protein 3+ (NEGATIVE) H Urine Glucose (UA) Negative (NEGATIVE) Urine Ketones Negative (NEGATIVE) Urine Blood 2+ (NEGATIVE) H Urine Nitrite Negative (NEGATIVE) Urine Bilirubin Negative (NEGATIVE) Urine Urobilinogen Normal MG/DL (0.0-1.0) Urine Leukocyte Esterase 3+ (NEGATIVE) H Urine RBC 2-4 /HPF (0 - 2) H Urine WBC 5-10 /HPF (0 - 2) H Urine Squamous Epithelial Cells Few /LPF (NONE/OCC) Urine Bacteria Moderate /HPF (NONE) H White Blood Count 4.8 K/UL (4.8-10.8) Red Blood Count 4.35 M/UL (4.20-5.40) Hemoglobin 14.2 G/DL (12.0-16.0) Hematocrit 42.2 % (37.0-47.0) Mean Corpuscular Volume 97 FL (80-99) Mean Corpuscular Hemoglobin 32.6 PG (27.0-31.0) H Mean Corpuscular Hemoglobin Concent 33.6 G/DL (32.0-36.0) Red Cell Distribution Width 14.2 % (11.6-14.8) Platelet Count 150 K/UL (150-450) Mean Platelet Volume 7.3 FL (6.5-10.1) Neutrophils (%) (Auto) 53.6 % (45.0-75.0) Lymphocytes (%) (Auto) 30.2 % (20.0-45.0) Monocytes (%) (Auto) 9.1 % (1.0-10.0) Eosinophils (%) (Auto) 5.7 % (0.0-3.0) H Basophils (%) (Auto) 1.4 % (0.0-2.0) Sodium Level 132 MMOL/L (136-145) L Potassium Level 4.5 MMOL/L (3.5-5.1) Chloride Level 97 MMOL/L (98-107) L Carbon Dioxide Level 25 MMOL/L (21-32) Anion Gap 10 mmol/L (5-15) Blood Urea Nitrogen 36 mg/dL (7-18) H Creatinine 1.1 MG/DL (0.55-1.30) Estimat Glomerular Filtration Rate mL/min (>60) Glucose Level 84 MG/DL (74-106) Calcium Level 9.6 MG/DL (8.5-10.1) Phosphorus Level 5.0 MG/DL (2.5-4.9) H Magnesium Level 2.2 MG/DL (1.8-2.4) Total Bilirubin 0.9 MG/DL (0.2-1.0) Aspartate Amino Transf (AST/SGOT) 66 U/L (15-37) H Alanine Aminotransferase (ALT/SGPT) 55 U/L (12-78) Alkaline Phosphatase 170 U/L (46-116) H Pro-B-Type Natriuretic Peptide 51009 pg/mL (0-125) H Total Protein 7.8 G/DL (6.4-8.2) Albumin 3.2 G/DL (3.4-5.0) L Globulin 4.6 g/dL Albumin/Globulin Ratio 0.7 (1.0-2.7) L Thyroid Stimulating Hormone (TSH) 18.321 uiU/mL (0.358-3.740) Free Thyroxine 0.97 NG/DL (0.76-1.46) Thyroid Stimulating Immunoglobulin Pending Neurologic Exam Mental Status: awake, alert, oriented x4, normal cognition, good mathematical skills, normal recent memory, normal remote memory, preserved visuospatial function Speech: normal speech, no dysarthia Language: normal language, no aphasia Cranial Nerve II: fundus normal, visual daley, no papilledema Cranial Nerves III, IV, : PERRLA, EOMI, pupils Cranial Nerve V: normal facial sensations, temporales function normal, masseters function normal, pterygoids function normal Cranial Nerve VII: no facial asymmetry, normal facial expressions Cranial Nerve VIII: normal hearing, no nystagmus Cranial Nerve IX: normal palate elevation, gag response Cranial Nerve X: no voice hoarseness Cranial Nerve XI: SCM symmetric, trapezii function normal Cranial Nerve XII: tongue midline, no tongue atrophy/fasciculations Motor System: normal muscle tone, strength 5/5, no involuntary movement, no muscle wasting Sensory: normal pinprick, normal light touch, normal position sense, normal graphesthesia Coordination: normal finger to nose bilaterally, normal heel to cason bilaterally, negative Romberg test Deep Tendon Reflexes: 2+ bicep (L), 2+ bicep (R), 2+ tricep (L), 2+ tricep (R) , 2+ brachioradialis (L), 2+ brachioradialis (R), 2+ knee (L), 2+ knee (R), 2+ ankle (L), 2+ ankle (R) Stance: normal Gait: stable, normal regular Impression/Recommendations Problems: (1) Constipation (2) Urinary tract infection (3) Spinal stenosis (4) Atrial fibrillation with RVR (5) Intractable back pain (6) Subclinical hypothyroidism (7) EF 15% Status: stable Recommendations Continue Q 4 Neurovascular obs Treat UTI with abx PUt on bowel regimen for any constipation - especially now with Morphine on board- Constipation will worsen LBP Maintain normothermia MRI L Spine with surgical consult= mainly for discussion of injectable therapy as patient is likely unable to have any surgery Awaiting completion of study- No changes to exam today. Kady López N.P. September 27, 2018 13:09
--- NOTE | 2018-09-27 13:38 | NUR ---
*-* INSURANCE *-* ALL CLINICALS AND REVIEW HAVE BEEN FAXED TO: [facility] #PENDING [facility]:ABBI Easley [phone] F
--- NOTE | 2018-09-27 13:54 | NUR ---
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 AFIB W/RVR . UTI VS: BP 133/110, P 131, T 97.8, RR 23, SpO2 99 Na 132, BUN 36, TSH 18.321 IS:CARDIZEM 240mg IV DIGOXIN 0.5mg IVP ELIQUIS 2.5mg MORPHINE SULFATE 4mg IVP SDU STATUS
[2018-09-27] MEDS: LORazepam Inj 2mg/ml 1ml IV PRN (14:55)
--- NOTE | 2018-09-27 15:10 | General Progress Note ---
Assessment/Plan Problem List: (1) CHF (congestive heart failure) ICD Codes: I50.9 - Heart failure, unspecified SNOMED: 47371623 (2) Chronic a-fib ICD Codes: I48.2 - Chronic atrial fibrillation SNOMED: 264584710 (3) Spinal stenosis ICD Codes: M48.00 - Spinal stenosis, site unspecified SNOMED: 40887529 (4) Atrial fibrillation with RVR ICD Codes: I48.91 - Unspecified atrial fibrillation SNOMED: 837961923415774 (5) Intractable back pain ICD Codes: M54.9 - Dorsalgia, unspecified SNOMED: 277086961 (6) Subclinical hypothyroidism ICD Codes: E03.9 - Hypothyroidism, unspecified SNOMED: 53018828 Status: stable, progressing Assessment/Plan: pt diet pain control cbc bmp am dc plan Subjective Constitutional: Reports: weakness Allergies: Coded Allergies: No Known Allergies (Unverified , 09/25/18) All Systems: reviewed and negative except above Subjective sleepy calm Objective Last 24 Hour Vital Signs Date Time Temp Pulse Resp B/P (MAP) Pulse Ox O2 Delivery O2 Flow Rate FiO2 09/27/18 12:01 112 09/27/18 12:00 97.8 131 23 132/104 (113) 99 09/27/18 12:00 Room Air 09/27/18 11:11 118 133/110 09/27/18 10:54 118 09/27/18 08:53 125 133/110 09/27/18 08:00 Room Air 09/27/18 08:00 97.8 125 20 133/110 (118) 98 09/27/18 07:37 131 09/27/18 04:00 122 09/27/18 04:00 98.0 125 24 140/108 (119) 97 124 09/27/18 04:00 Room Air 09/27/18 00:45 135 153/101 09/27/18 00:00 116 09/27/18 00:00 98.1 124 24 136/95 (109) 96 124 09/27/18 00:00 Room Air 09/26/18 20:00 126 09/26/18 20:00 98.4 126 23 146/99 (115) 96 126 09/26/18 20:00 Room Air 09/26/18 16:00 Room Air 09/26/18 16:00 97.5 126 23 144/103 (117) 96 126 09/26/18 15:30 126 Intake and Output 09/26/18 09/27/18 19:00 07:00 Intake Total 400 ml 290 ml Balance 400 ml 290 ml Intake Oral 400 ml 240 ml IV Total 50 ml # Voids 2 4 # Bowel Movements 3 Laboratory Tests 09/26/18 22:20: Urine Color Yellow, Urine Appearance Clear, Urine pH 5, Urine Specific [place] 1.020, Urine Protein 3+H, Urine Glucose (UA) Negative, Urine Ketones Negative, Urine Blood 2+H, Urine Nitrite Negative, Urine Bilirubin Negative, Urine Urobilinogen Normal, Urine Leukocyte Esterase 3+H, Urine RBC 2-4H, Urine WBC 5- 10H, Urine Squamous Epithelial Cells Few, Urine Bacteria ModerateH 09/27/18 03:20: White Blood Count 4.8, Red Blood Count 4.35, Hemoglobin 14.2, Hematocrit 42.2, Mean Corpuscular Volume 97, Mean Corpuscular Hemoglobin 32.6H, Mean Corpuscular Hemoglobin Concent 33.6, Red Cell Distribution Width 14.2, Platelet Count 150, Mean Platelet Volume 7.3, Neutrophils (%) (Auto) 53.6, Lymphocytes (%) (Auto) 30.2, Monocytes (%) (Auto) 9.1, Eosinophils (%) (Auto) 5.7H, Basophils (%) (Auto ) 1.4, Sodium Level 132L, Potassium Level 4.5, Chloride Level 97L, Carbon Dioxide Level 25, Anion Gap 10, Blood Urea Nitrogen 36H, Creatinine 1.1, Estimat Glomerular Filtration Rate , Glucose Level 84, Calcium Level 9.6, Phosphorus Level 5.0H, Magnesium Level 2.2, Total Bilirubin 0.9, Aspartate Amino Transf (AST/SGOT) 66H, Alanine Aminotransferase (ALT/SGPT) 55, Alkaline Phosphatase 170H, Pro-B-Type Natriuretic Peptide 96787E, Total Protein 7.8, Albumin 3.2L, Globulin 4.6, Albumin/Globulin Ratio 0.7L, Thyroid Stimulating Hormone (TSH) 18.321H, Free Thyroxine 0.97, Thyroid Stimulating Immunoglobulin [ Pending] Height (Feet): 5 Height (Inches): 4.00 Weight (Pounds): 125 General Appearance: lethargic EENT: normal ENT inspection Neck: normal alignment Cardiovascular: normal peripheral pulses, normal rate, regular rhythm Respiratory/Chest: chest wall non-tender, lungs clear, normal breath sounds Abdomen: normal bowel sounds, non tender, soft Extremities: normal inspection Edema: no edema noted Arm (L), no edema noted Arm (R), no edema noted Leg (L), no edema noted Leg (R), no edema noted Pedal (L), no edema noted Pedal (R), no edema noted Generalized Neurologic: motor weakness Skin: normal pigmentation, warm/dry Hugh Pressley DO September 27, 2018 15:10
[2018-09-27 16:00] VITALS: BP 118/74
--- NOTE | 2018-09-27 16:00 | NUR ---
NURSE NOTES: Patient was brought down to MRI with RN, transported and accredited pharmacy technician. Patient was asleep, calm and comfortable during transport. Prior to transportation to MRI, patient was given health teachings regarding procedure and was given PRN ativan IVP for anxiety. While setting up for MRI, patient became very restless and combative, unable to follow commands, patient was shouting and attempting to get out of bed while kicking. Patient was brought back to SDU with RN, unable to do MRI at this time.
--- NOTE | 2018-09-27 16:31 | NUR ---
09/27 @ 1550 FIRST ATTEMPT. pt IS COMBATIVE. EVEN WITH SEDATION pt WOKE UP WHILE TRANSFERRING FROM [place] TO EXAM TABLE. pt ATTEMPTED TO HIT TECH, TRANSPORTER (VIKTOR), WELL RN (LETTY). MORE ATIVAN WAS NEEDED HOWEVER ORDERS FOR IT IS Q 4 HRS. UNABLE TO RECEIVE MORE. EXAM ON HOLD. - CS
--- NOTE | 2018-09-27 18:45 | Consultation ---
DATE OF CONSULTATION: 09/26/2018 REFERRING PHYSICIAN: Hugh Pressley D.O. CONSULTING PHYSICIAN: Mino Wilson M.D. PHYSICIAN TEMPLATE MAKER: Elena Abad CHIEF COMPLAINT: Back pain. HISTORY OF PRESENT ILLNESS: This is an 88-year-old female who was seen on the [facility] for initial pain management consultation. The patient is in bed. Her daughter is at bedside and is being interpreting at this time. The patient had been complaining of lower back pain and admitted into the hospital. A CT scan of the thoracic and lumbar spine was ordered, which pending results at this time. She had a history of back pain which is chronic which is severe interfering with her daily activities. She reports a history of compression fractures in the lower back. At this time, she was started on morphine 2 to 4 mg IV every 4 hours as needed for moderate to severe pain. One dose of the morphine 2 mg in the last 24hrs. We were consulted so that the patient would have adequate pain control while here in the hospital. PAST MEDICAL HISTORY: CHF, hypertension, AFib, menopause, and AAA. SOCIAL HISTORY: Denies smoking tobacco, drinking alcohol, or IV drug abuse. ALLERGIES: No known drug allergies. MEDICATIONS: None reported at this time. REVIEW OF SYSTEMS: Denies rash, fever, chills, sweating, dizziness, drowsiness, blurred vision, sore throat, or change in weight. No shortness of breath or chest pain. No nausea, vomiting, or blood in the stool or urine. No bowel or bladder incontinence. No dysuria. The patient is complaining of back pain. PHYSICAL EXAMINATION: GENERAL: Alert, awake, and oriented. VITAL SIGNS: Blood pressure 127/89, heart rate 63, oxygen saturation 99%, respiratory rate is 16, and temperature 99.1 degrees Fahrenheit. HEENT: PERRLA. NECK: Range of motion is full in all directions. No tenderness to paracervical muscles. No adenopathy. LUNGS: Decreased breath sounds bilaterally. HEART: S1 and S2 regular. ABDOMEN: Soft and nontender. BACK: Range of motion is decreased in flexion and extension with tenderness to paraspinal muscles, trapezius, and rhomboid muscles. EXTREMITIES: Upper and lower extremity range of motion is decreased due to the patient's condition. No cyanosis. No clubbing. Sensory is reduced. Reflexes are not obtainable. No adenopathy. 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 The patient will be continued on the morphine as needed. CT scan of the thoracic and lumbar spine pending the results. The patient was discussed with Dr. Wilson and concurred. We will follow the patient. Thank you very much for the courtesy of this consultation. Mino Wilson M.D. MARLENA Abad DR: Melyg JOB#: [id number] CC: FRAN
--- NOTE | 2018-09-27 19:06 | NUR ---
HAND-OFF: Report given to ENRIQUETA Alex. Patient in stable condition.
--- NOTE | 2018-09-27 19:10 | NUR ---
NURSE NOTES: Report received from ENRIQUETA Claudio. Observed pt sleeping on the bed. Afib with HR of 70 noted. On Room air, with no signs of SOB. IV on R UA 22G, intact and patent. Bed in the lowest position. Side rails up x3. Call light within reach. Will continue to monitor.
[2018-09-27 20:00] VITALS: BP 130/88
[2018-09-27] MEDS: Imdur 30mg tab ORAL SCH (21:53)
--- NOTE | 2018-09-27 23:04 | NUR ---
NURSE NOTES: Pt appears calm and comfortable. Used bedside commode, urine output of 350cc noted. A-fib with HR of 87 noted on patient monitor. Pt daughter at the bed side. No acute distress noted at this time.
[2018-09-28] VITALS: BP 113/66
--- NOTE | 2018-09-28 02:46 | Neurology Progress Note ---
Interim History Interim History ROS Limited/Unobtainable: No Complaints: LBP Events: Awaiting completion of L Spine MRI Objective Physical Exam Last Vital Signs Date Time Temp Pulse Resp B/P (MAP) Pulse Ox O2 Delivery O2 Flow Rate FiO2 09/28/18 00:00 97.8 80 20 113/66 (82) 95 09/28/18 00:00 Room Air Laboratory Tests Test 09/27/18 03:20 White Blood Count 4.8 K/UL (4.8-10.8) Red Blood Count 4.35 M/UL (4.20-5.40) Hemoglobin 14.2 G/DL (12.0-16.0) Hematocrit 42.2 % (37.0-47.0) Mean Corpuscular Volume 97 FL (80-99) Mean Corpuscular Hemoglobin 32.6 PG (27.0-31.0) H Mean Corpuscular Hemoglobin Concent 33.6 G/DL (32.0-36.0) Red Cell Distribution Width 14.2 % (11.6-14.8) Platelet Count 150 K/UL (150-450) Mean Platelet Volume 7.3 FL (6.5-10.1) Neutrophils (%) (Auto) 53.6 % (45.0-75.0) Lymphocytes (%) (Auto) 30.2 % (20.0-45.0) Monocytes (%) (Auto) 9.1 % (1.0-10.0) Eosinophils (%) (Auto) 5.7 % (0.0-3.0) H Basophils (%) (Auto) 1.4 % (0.0-2.0) Sodium Level 132 MMOL/L (136-145) L Potassium Level 4.5 MMOL/L (3.5-5.1) Chloride Level 97 MMOL/L (98-107) L Carbon Dioxide Level 25 MMOL/L (21-32) Anion Gap 10 mmol/L (5-15) Blood Urea Nitrogen 36 mg/dL (7-18) H Creatinine 1.1 MG/DL (0.55-1.30) Estimat Glomerular Filtration Rate mL/min (>60) Glucose Level 84 MG/DL (74-106) Calcium Level 9.6 MG/DL (8.5-10.1) Phosphorus Level 5.0 MG/DL (2.5-4.9) H Magnesium Level 2.2 MG/DL (1.8-2.4) Total Bilirubin 0.9 MG/DL (0.2-1.0) Aspartate Amino Transf (AST/SGOT) 66 U/L (15-37) H Alanine Aminotransferase (ALT/SGPT) 55 U/L (12-78) Alkaline Phosphatase 170 U/L (46-116) H Pro-B-Type Natriuretic Peptide 12682 pg/mL (0-125) H Total Protein 7.8 G/DL (6.4-8.2) Albumin 3.2 G/DL (3.4-5.0) L Globulin 4.6 g/dL Albumin/Globulin Ratio 0.7 (1.0-2.7) L Thyroid Stimulating Hormone (TSH) 18.321 uiU/mL (0.358-3.740) Free Thyroxine 0.97 NG/DL (0.76-1.46) Thyroid Stimulating Immunoglobulin Pending Neurologic Exam Mental Status: awake, alert, oriented x4, normal cognition, good mathematical skills, normal recent memory, normal remote memory, preserved visuospatial function Speech: normal speech, no dysarthia Language: normal language, no aphasia Cranial Nerve II: fundus normal, visual daley, no papilledema Cranial Nerves III, IV, : PERRLA, EOMI, pupils Cranial Nerve V: normal facial sensations, temporales function normal, masseters function normal, pterygoids function normal Cranial Nerve VII: no facial asymmetry, normal facial expressions Cranial Nerve VIII: normal hearing, no nystagmus Cranial Nerve IX: normal palate elevation, gag response Cranial Nerve X: no voice hoarseness Cranial Nerve XI: SCM symmetric, trapezii function normal Cranial Nerve XII: tongue midline, no tongue atrophy/fasciculations Motor System: normal muscle tone, strength 5/5, no involuntary movement, no muscle wasting Sensory: normal pinprick, normal light touch, normal position sense, normal graphesthesia Coordination: normal finger to nose bilaterally, normal heel to cason bilaterally, negative Romberg test Deep Tendon Reflexes: 2+ bicep (L), 2+ bicep (R), 2+ tricep (L), 2+ tricep (R) , 2+ brachioradialis (L), 2+ brachioradialis (R), 2+ knee (L), 2+ knee (R), 2+ ankle (L), 2+ ankle (R) Stance: normal Gait: stable, normal regular Impression/Recommendations Problems: (1) Constipation (2) Urinary tract infection (3) Spinal stenosis (4) Atrial fibrillation with RVR (5) Intractable back pain (6) Subclinical hypothyroidism (7) EF 15% Status: stable, progressing Recommendations Continue Q 4 Neurovascular obs Treat UTI with abx PUt on bowel regimen for any constipation - especially now with Morphine on board- Constipation will worsen LBP Maintain normothermia MRI L Spine with surgical consult= mainly for discussion of injectable therapy as patient is likely unable to have any surgery Awaiting completion of study- No changes to exam today. Kady López N.P. September 28, 2018 02:46
[2018-09-28] MEDS: Morphine Sulfate 4mg/ml Inj (IV USE ONLY) IVP PRN (02:52)
--- NOTE | 2018-09-28 03:00 | NUR ---
NURSE NOTES: Pt c/o back pain, 01/24, chronic, aching pain, non-radiating. Observed pt sitting on the bed and rubbing her back. Position change, adjusting pillows, talking done for distraction. PRN pain med given. Will continue to monitor.
[2018-09-28 04:00] VITALS: BP 97/61
[2018-09-28 05:26] LABS: BASOPHILS % (AUTO) 1.2 % (0.0-2.0); HEMATOCRIT 42.5 % (37.0-47.0); HEMOGLOBIN 14.5 G/DL (12.0-16.0); LYMPHOCYTES % (AUTO) 19.2 % (20.0-45.0); MEAN CORPUSCULAR VOLUME 96 FL (80-99); MONOCYTES % (AUTO) 9.8 % (1.0-10.0); NEUTROPHILS % (AUTO) 62.7 % (45.0-75.0); PLATELET COUNT 172 K/UL (150-450); RED BLOOD COUNT 4.44 M/UL (4.20-5.40); RED CELL DISTRIBUTION WIDTH 14.2 % (11.6-14.8); WHITE BLOOD COUNT 5.2 K/UL (4.8-10.8)
[2018-09-28 05:32] LABS: ANION GAP 11 mmol/L (5-15); BLOOD UREA NITROGEN 34 mg/dL (7-18); CALCIUM 9.1 MG/DL (8.5-10.1); CARBON DIOXIDE 24 MMOL/L (21-32); CHLORIDE 100 MMOL/L (98-107); CREATININE 1.1 MG/DL (0.55-1.30); POTASSIUM 4.3 MMOL/L (3.5-5.1); SODIUM 135 MMOL/L (136-145)
--- NOTE | 2018-09-28 06:35 | General Progress Note ---
Assessment/Plan Problem List: (1) Subclinical hypothyroidism ICD Codes: E03.9 - Hypothyroidism, unspecified SNOMED: 72834438 (2) Intractable back pain ICD Codes: M54.9 - Dorsalgia, unspecified SNOMED: 953978122 (3) Atrial fibrillation with RVR ICD Codes: I48.91 - Unspecified atrial fibrillation SNOMED: 610709456985255 (4) Spinal stenosis ICD Codes: M48.00 - Spinal stenosis, site unspecified SNOMED: 20171119 (5) Urinary tract infection ICD Codes: N39.0 - Urinary tract infection, site not specified SNOMED: 42705545 Status: stable, progressing Assessment/Plan: TSH is repeated and elevation is confirmed free T4 and free T3 are normal will start low dose Levothyroxine 25 mcg daily Subjective ROS Limited/Unobtainable: Yes Allergies: Coded Allergies: No Known Allergies (Unverified , 09/25/18) Subjective events noted interval notes reviewed Objective Last 24 Hour Vital Signs Date Time Temp Pulse Resp B/P (MAP) Pulse Ox O2 Delivery O2 Flow Rate FiO2 09/28/18 04:00 Room Air 09/28/18 04:00 61 09/28/18 04:00 97.5 73 18 97/61 (73) 96 09/28/18 00:00 97.8 80 20 113/66 (82) 95 09/28/18 00:00 Room Air 09/28/18 00:00 84 09/27/18 21:53 138/88 09/27/18 21:52 78 138/88 09/27/18 20:00 75 09/27/18 20:00 97.5 81 20 130/88 (102) 100 09/27/18 20:00 Room Air 09/27/18 16:26 66 09/27/18 16:00 98.4 131 19 118/74 (89) 100 09/27/18 16:00 Room Air 09/27/18 12:01 112 09/27/18 12:00 97.8 131 23 132/104 (113) 99 09/27/18 12:00 Room Air 09/27/18 11:11 118 133/110 09/27/18 10:54 118 09/27/18 08:53 125 133/110 09/27/18 08:00 Room Air 09/27/18 08:00 97.8 125 20 133/110 (118) 98 09/27/18 07:37 131 Intake and Output 09/27/18 09/28/18 18:59 06:59 Intake Total 480 ml 500 ml Output Total 650 ml Balance 480 ml -150 ml Intake Oral 480 ml 500 ml Output Urine Total 650 ml # Voids 3 2 Laboratory Tests 09/28/18 03:40: White Blood Count 5.2, Red Blood Count 4.44, Hemoglobin 14.5, Hematocrit 42.5, Mean Corpuscular Volume 96, Mean Corpuscular Hemoglobin 32.7H, Mean Corpuscular Hemoglobin Concent 34.1, Red Cell Distribution Width 14.2, Platelet Count 172, Mean Platelet Volume 6.5, Neutrophils (%) (Auto) 62.7, Lymphocytes (%) (Auto) 19.2L, Monocytes (%) (Auto) 9.8, Eosinophils (%) (Auto) 7.0H, Basophils (%) ( Auto) 1.2, Sodium Level 135L, Potassium Level 4.3, Chloride Level 100, Carbon Dioxide Level 24, Anion Gap 11, Blood Urea Nitrogen 34H, Creatinine 1.1, Estimat Glomerular Filtration Rate , Glucose Level 114H, Calcium Level 9.1 Height (Feet): 5 Height (Inches): 4.00 Weight (Pounds): 118 General Appearance: no apparent distress Neck: normal alignment Cardiovascular: arrhythmia Respiratory/Chest: lungs clear Abdomen: normal bowel sounds Pelvis: normal external exam Objective Current Medications Medications (Trade) Dose Ordered Sig/Yunior Route PRN Reason Start Time Stop Time Status Last Admin Dose Admin Acetaminophen (Tylenol) 650 mg Q4H PRN ORAL fever 09/25/18 20:45 10/25/18 20:44 Apixaban (Eliquis) 2.5 mg BID ORAL 09/26/18 18:00 10/26/18 17:59 09/27/18 17:47 Dextrose (Dextrose 50%) 25 ml Q30M PRN IV Hypoglycemia 09/25/18 20:45 10/25/18 20:44 Dextrose (Dextrose 50%) 50 ml Q30M PRN IV Hypoglycemia 09/25/18 20:45 10/25/18 20:44 Digoxin (Lanoxin) 0.25 mg DAILY ORAL 09/28/18 09:00 10/28/18 08:59 Diltiazem HCl (Cardizem CD) 240 mg Q12HR ORAL 09/27/18 10:45 10/27/18 10:44 09/27/18 21:52 Diltiazem HCl (Cardizem) 10 mg Q1H PRN IV HR>120BPM 09/26/18 12:30 10/26/18 12:29 09/27/18 08:53 Donepezil HCl (Aricept) 5 mg DAILY ORAL 09/28/18 09:00 10/28/18 08:59 Iopamidol (Isovue-370 150ml) 150 ml NOW PRN INJ Radiology Procedure 09/25/18 17:00 Isosorbide Mononitrate (Imdur) 30 mg Q12HR ORAL 09/27/18 21:00 10/27/18 20:59 09/27/18 21:53 Levofloxacin (Levaquin) 250 mg Q24H ORAL 09/27/18 21:00 10/04/18 20:59 09/27/18 21:46 Lorazepam (Ativan 2mg/ml 1ml) 0.5 mg Q4H PRN IV For Anxiety 09/25/18 20:45 10/02/18 20:44 09/27/18 14:55 Memantine (Namenda) 10 mg DAILY ORAL 09/28/18 09:00 10/28/18 08:59 Morphine Sulfate (Morphine Sulfate) 2 mg Q4H PRN IVP For Pain 4-6 09/25/18 20:45 10/02/18 20:44 09/26/18 21:30 Morphine Sulfate (Morphine Sulfate) 4 mg Q4H PRN IVP For Pain 7-10 09/25/18 20:45 10/02/18 20:44 09/28/18 02:52 Ondansetron HCl (Zofran) 4 mg Q6H PRN IVP Nausea & Vomiting 09/25/18 20:45 10/25/18 20:44 Polyethylene Glycol (Miralax) 17 gm HSPRN PRN ORAL Constipation 09/25/18 20:45 10/25/18 20:44 Quetiapine Fumarate (SEROquel) 25 mg BID ORAL 09/27/18 18:00 10/27/18 17:59 09/27/18 17:46 Zolpidem Tartrate (Ambien) 5 mg HSPRN PRN ORAL Insomnia 09/25/18 20:45 10/02/18 20:44 09/26/18 23:34 Herber Velazquez MD September 28, 2018 06:34
[2018-09-28] MEDS: Levothyroxine 25mcg tab ORAL SCH (06:49)
--- NOTE | 2018-09-28 07:16 | NUR ---
NURSE NOTES: Report given to ENRIQUETA Claudio. No acute distress noted at this time.
--- NOTE | 2018-09-28 07:17 | NUR ---
HAND-OFF: Report given to ENRIQUETA Claudio.
--- NOTE | 2018-09-28 07:27 | NUR ---
NURSE NOTES: Report received from ENRIQUETA Alex. Observed patient sitting in bed, awake and responsive. Patient on room air, no distress noted. IV on right upper arm intact and patent. No signs/symptoms of pain at this time. Patient's daughter present at bedside. Bed in lowest position, side rails up, and call within reach. Will continue to monitor.
[2018-09-28 08:00] VITALS: BP 97/64
--- NOTE | 2018-09-28 08:51 | General Progress Note ---
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 D/w Dr. Wilson and he concurred. Subjective Date patient seen: September 28, 2018 Time patient seen: 07:30 - am Allergies: Coded Allergies: No Known Allergies (Unverified , 09/25/18) Subjective REVIEW OF SYSTEMS: Denies rash, fever, chills, sweating, dizziness, drowsiness, blurred vision, sore throat, or change in weight. No shortness of breath or chest pain. No nausea, vomiting, or blood in the stool or urine. No bowel or bladder incontinence. No dysuria. The patient is complaining of back pain. SUBJECTIVE: She is in bed with family member at bedside. Pain has been unchanged and worse with movement which has been tolerated on the Morphine. MRI of L spine has been ordered. Objective Last 24 Hour Vital Signs Date Time Temp Pulse Resp B/P (MAP) Pulse Ox O2 Delivery O2 Flow Rate FiO2 09/28/18 08:00 Room Air 09/28/18 08:00 97.2 62 18 97/64 (75) 98 09/28/18 04:00 Room Air 09/28/18 04:00 61 09/28/18 04:00 97.5 73 18 97/61 (73) 96 09/28/18 00:00 97.8 80 20 113/66 (82) 95 09/28/18 00:00 Room Air 09/28/18 00:00 84 09/27/18 21:53 138/88 09/27/18 21:52 78 138/88 09/27/18 20:00 75 09/27/18 20:00 97.5 81 20 130/88 (102) 100 09/27/18 20:00 Room Air 09/27/18 16:26 66 09/27/18 16:00 98.4 131 19 118/74 (89) 100 09/27/18 16:00 Room Air 09/27/18 12:01 112 09/27/18 12:00 97.8 131 23 132/104 (113) 99 09/27/18 12:00 Room Air 09/27/18 11:11 118 133/110 09/27/18 10:54 118 09/27/18 08:53 125 133/110 Intake and Output 09/27/18 09/28/18 19:00 07:00 Intake Total 480 ml 500 ml Output Total 650 ml Balance 480 ml -150 ml Intake Oral 480 ml 500 ml Output Urine Total 650 ml # Voids 3 2 Laboratory Tests 09/28/18 03:40: White Blood Count 5.2, Red Blood Count 4.44, Hemoglobin 14.5, Hematocrit 42.5, Mean Corpuscular Volume 96, Mean Corpuscular Hemoglobin 32.7H, Mean Corpuscular Hemoglobin Concent 34.1, Red Cell Distribution Width 14.2, Platelet Count 172, Mean Platelet Volume 6.5, Neutrophils (%) (Auto) 62.7, Lymphocytes (%) (Auto) 19.2L, Monocytes (%) (Auto) 9.8, Eosinophils (%) (Auto) 7.0H, Basophils (%) ( Auto) 1.2, Sodium Level 135L, Potassium Level 4.3, Chloride Level 100, Carbon Dioxide Level 24, Anion Gap 11, Blood Urea Nitrogen 34H, Creatinine 1.1, Estimat Glomerular Filtration Rate , Glucose Level 114H, Calcium Level 9.1 Height (Feet): 5 Height (Inches): 4.00 Weight (Pounds): 118 Objective PHYSICAL EXAMINATION: GENERAL: Alert, awake, and oriented. LUNGS: Decreased breath sounds bilaterally. HEART: S1 and S2 regular. ABDOMEN: Soft and nontender. EXTREMITIES: No cyanosis. No clubbing. NEURO: No changes. Ilya Perez September 28, 2018 08:51
[2018-09-28] MEDS: Imdur 30mg tab ORAL SCH ×2 (09:00→20:45)
[2018-09-28] MEDS: dilTIAZem HCl CD 240mg cap ORAL SCH (09:00)
[2018-09-28] MEDS: Eliquis 2.5mg tablet ORAL SCH ×2 (09:44→18:23)
[2018-09-28] MEDS: Memantine 10mg tab ORAL SCH (09:44)
[2018-09-28] MEDS: Donepezil 5mg Tab ORAL SCH (09:44)
--- NOTE | 2018-09-28 09:48 | NUR ---
PT NOTE: In in bed awake & alert. Pt declines therapeutic exercise & GT at this time. Will check back later today if schedule permits.
--- NOTE | 2018-09-28 10:07 | GI Progress Note ---
Assessment/Plan Problems: (1) Subclinical hypothyroidism ICD Codes: E03.9 - Hypothyroidism, unspecified SNOMED: 15257953 (2) Constipation ICD Codes: K59.00 - Constipation, unspecified SNOMED: 97557033 (3) LFTs abnormal ICD Codes: R94.5 - Abnormal results of liver function studies SNOMED: 278948516 Status: stable Status Narrative Discussed with Dr. Mcclure. Assessment/Plan Symptomatic treatment at this time Advance diet as tolerated Pain management Zofran as needed Repeat LFTs PPI Follow-up labs, free T4 GI procedures only if emergent, otherwise outpatient The patient was seen and examined at bedside and all new and available data was reviewed in the patients chart. I agree with the above findings, impression and plan. (Patient seen earlier today. Signature stamp does not reflect patient encounter time.). - Daron Mcclure MD Subjective Subjective limited Objective Last 24 Hour Vital Signs Date Time Temp Pulse Resp B/P (MAP) Pulse Ox O2 Delivery O2 Flow Rate FiO2 09/28/18 09:00 57 09/28/18 09:00 97/64 09/28/18 09:00 57 97/64 09/28/18 08:00 Room Air 09/28/18 08:00 97.2 62 18 97/64 (75) 98 09/28/18 08:00 57 09/28/18 04:00 Room Air 09/28/18 04:00 61 09/28/18 04:00 97.5 73 18 97/61 (73) 96 09/28/18 00:00 97.8 80 20 113/66 (82) 95 09/28/18 00:00 Room Air 09/28/18 00:00 84 09/27/18 21:53 138/88 09/27/18 21:52 78 138/88 09/27/18 20:00 75 09/27/18 20:00 97.5 81 20 130/88 (102) 100 09/27/18 20:00 Room Air 09/27/18 16:26 66 09/27/18 16:00 98.4 131 19 118/74 (89) 100 09/27/18 16:00 Room Air 09/27/18 12:01 112 09/27/18 12:00 97.8 131 23 132/104 (113) 99 09/27/18 12:00 Room Air 09/27/18 11:11 118 133/110 09/27/18 10:54 118 Intake and Output 09/27/18 09/28/18 19:00 07:00 Intake Total 480 ml 500 ml Output Total 650 ml Balance 480 ml -150 ml Intake Oral 480 ml 500 ml Output Urine Total 650 ml # Voids 3 2 Laboratory Tests Test 09/28/18 03:40 White Blood Count 5.2 K/UL (4.8-10.8) Red Blood Count 4.44 M/UL (4.20-5.40) Hemoglobin 14.5 G/DL (12.0-16.0) Hematocrit 42.5 % (37.0-47.0) Mean Corpuscular Volume 96 FL (80-99) Mean Corpuscular Hemoglobin 32.7 PG (27.0-31.0) H Mean Corpuscular Hemoglobin Concent 34.1 G/DL (32.0-36.0) Red Cell Distribution Width 14.2 % (11.6-14.8) Platelet Count 172 K/UL (150-450) Mean Platelet Volume 6.5 FL (6.5-10.1) Neutrophils (%) (Auto) 62.7 % (45.0-75.0) Lymphocytes (%) (Auto) 19.2 % (20.0-45.0) L Monocytes (%) (Auto) 9.8 % (1.0-10.0) Eosinophils (%) (Auto) 7.0 % (0.0-3.0) H Basophils (%) (Auto) 1.2 % (0.0-2.0) Sodium Level 135 MMOL/L (136-145) L Potassium Level 4.3 MMOL/L (3.5-5.1) Chloride Level 100 MMOL/L (98-107) Carbon Dioxide Level 24 MMOL/L (21-32) Anion Gap 11 mmol/L (5-15) Blood Urea Nitrogen 34 mg/dL (7-18) H Creatinine 1.1 MG/DL (0.55-1.30) Estimat Glomerular Filtration Rate mL/min (>60) Glucose Level 114 MG/DL (74-106) H Calcium Level 9.1 MG/DL (8.5-10.1) Height (Feet): 5 Height (Inches): 4.00 Weight (Pounds): 118 General Appearance: no apparent distress, alert, thin Cardiovascular: normal rate Respiratory/Chest: normal breath sounds, no respiratory distress Abdominal Exam: normal bowel sounds, non tender, soft Extremities: non-tender Marlene Wolfe NP September 28, 2018 10:07
--- NOTE | 2018-09-28 10:54 | Pulmonology Progress Note ---
Assessment/Plan Problems: (1) Atrial fibrillation with RVR Assessment & Plan: controlled now with heart rate as low as 50's (2) EF 15% (3) Urinary tract infection (4) Chronic systolic CHF (congestive heart failure) (5) Chronic a-fib (6) Spinal stenosis (7) Intractable back pain (8) Pulmonary hypertension, moderate to severe (9) Subclinical hypothyroidism Assessment/Plan IV digoxin once yesterday, resume Cardizem PO check Urine c/s mckoy sensitive except for Nitrofurantoin continue IV abx Echo reviewed EF of 15% responding well to Morphine IV, will add [place] on Eliquis for afib resume Quetiapine, Subjective ROS Limited/Unobtainable: No Constitutional: Reports: no symptoms HEENT: Repors: no symptoms Respiratory: Reports: no symptoms Allergies: Coded Allergies: No Known Allergies (Unverified , 09/25/18) Objective Last 24 Hour Vital Signs Date Time Temp Pulse Resp B/P (MAP) Pulse Ox O2 Delivery O2 Flow Rate FiO2 09/28/18 09:00 57 09/28/18 09:00 97/64 09/28/18 09:00 57 97/64 09/28/18 08:00 Room Air 09/28/18 08:00 97.2 62 18 97/64 (75) 98 09/28/18 08:00 57 09/28/18 04:00 Room Air 09/28/18 04:00 61 09/28/18 04:00 97.5 73 18 97/61 (73) 96 09/28/18 00:00 97.8 80 20 113/66 (82) 95 09/28/18 00:00 Room Air 09/28/18 00:00 84 09/27/18 21:53 138/88 09/27/18 21:52 78 138/88 09/27/18 20:00 75 09/27/18 20:00 97.5 81 20 130/88 (102) 100 09/27/18 20:00 Room Air 09/27/18 16:26 66 09/27/18 16:00 98.4 131 19 118/74 (89) 100 09/27/18 16:00 Room Air 09/27/18 12:01 112 09/27/18 12:00 97.8 131 23 132/104 (113) 99 09/27/18 12:00 Room Air 09/27/18 11:11 118 133/110 09/27/18 10:54 118 Intake and Output 09/27/18 09/28/18 19:00 07:00 Intake Total 480 ml 500 ml Output Total 650 ml Balance 480 ml -150 ml Intake Oral 480 ml 500 ml Output Urine Total 650 ml # Voids 3 2 General Appearance: WD/WN HEENT: normocephalic, atraumatic Respiratory/Chest: chest wall non-tender, lungs clear Breasts: no masses Cardiovascular: normal peripheral pulses, normal rate Abdomen: normal bowel sounds Genitourinary: normal external genitalia Extremities: no cyanosis 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, no motor/sensory deficits Lymphatic: no neck adenopathy Musculoskeletal: normal muscle bulk Microbiology Date/Time Source Procedure Growth Status 09/25/18 16:50 Urine,Clean Catch Urine Culture - Final Proteus Mirabilis Complete Laboratory Tests 09/28/18 03:40: White Blood Count 5.2, Red Blood Count 4.44, Hemoglobin 14.5, Hematocrit 42.5, Mean Corpuscular Volume 96, Mean Corpuscular Hemoglobin 32.7H, Mean Corpuscular Hemoglobin Concent 34.1, Red Cell Distribution Width 14.2, Platelet Count 172, Mean Platelet Volume 6.5, Neutrophils (%) (Auto) 62.7, Lymphocytes (%) (Auto) 19.2L, Monocytes (%) (Auto) 9.8, Eosinophils (%) (Auto) 7.0H, Basophils (%) ( Auto) 1.2, Sodium Level 135L, Potassium Level 4.3, Chloride Level 100, Carbon Dioxide Level 24, Anion Gap 11, Blood Urea Nitrogen 34H, Creatinine 1.1, Estimat Glomerular Filtration Rate , Glucose Level 114H, Calcium Level 9.1 Current Medications Medications (Trade) Dose Ordered Sig/Yunior Route PRN Reason Start Time Stop Time Status Last Admin Dose Admin Acetaminophen (Tylenol) 650 mg Q4H PRN ORAL fever 09/25/18 20:45 10/25/18 20:44 Apixaban (Eliquis) 2.5 mg BID ORAL 09/26/18 18:00 10/26/18 17:59 09/28/18 09:44 Dextrose (Dextrose 50%) 25 ml Q30M PRN IV Hypoglycemia 09/25/18 20:45 6/11/19 20:44 Dextrose (Dextrose 50%) 50 ml Q30M PRN IV Hypoglycemia 09/25/18 20:45 10/25/18 20:44 Digoxin (Lanoxin) 0.25 mg DAILY ORAL 09/28/18 09:00 10/28/18 08:59 Diltiazem HCl (Cardizem CD) 240 mg Q12HR ORAL 09/27/18 10:45 10/27/18 10:44 09/27/18 21:52 Diltiazem HCl (Cardizem) 10 mg Q1H PRN IV HR>120BPM 09/26/18 12:30 10/26/18 12:29 09/27/18 08:53 Donepezil HCl (Aricept) 5 mg DAILY ORAL 09/28/18 09:00 10/28/18 08:59 09/28/18 09:44 Iopamidol (Isovue-370 150ml) 150 ml NOW PRN INJ Radiology Procedure 09/25/18 17:00 Isosorbide Mononitrate (Imdur) 30 mg Q12HR ORAL 09/27/18 21:00 10/27/18 20:59 09/27/18 21:53 Levofloxacin (Levaquin) 250 mg Q24H ORAL 09/27/18 21:00 10/04/18 20:59 09/27/18 21:46 Levothyroxine Sodium (Synthroid) 25 mcg DAILY@0630 ORAL 09/28/18 06:45 10/28/18 06:44 09/28/18 06:49 Lorazepam (Ativan 2mg/ml 1ml) 0.5 mg Q4H PRN IV For Anxiety 09/25/18 20:45 10/02/18 20:44 09/27/18 14:55 Memantine (Namenda) 10 mg DAILY ORAL 09/28/18 09:00 10/28/18 08:59 09/28/18 09:44 Morphine Sulfate (Morphine Sulfate) 2 mg Q4H PRN IVP For Pain 4-6 09/25/18 20:45 10/02/18 20:44 09/26/18 21:30 Morphine Sulfate (Morphine Sulfate) 4 mg Q4H PRN IVP For Pain 7-10 09/25/18 20:45 10/02/18 20:44 09/28/18 02:52 Ondansetron HCl (Zofran) 4 mg Q6H PRN IVP Nausea & Vomiting 09/25/18 20:45 10/25/18 20:44 Polyethylene Glycol (Miralax) 17 gm HSPRN PRN ORAL Constipation 09/25/18 20:45 10/25/18 20:44 Quetiapine Fumarate (SEROquel) 25 mg BID ORAL 09/27/18 18:00 10/27/18 17:59 09/28/18 09:44 Zolpidem Tartrate (Ambien) 5 mg HSPRN PRN ORAL Insomnia 09/25/18 20:45 10/02/18 20:44 09/26/18 23:34 John Hollingsworth MD September 28, 2018 10:54
[2018-09-28 12:00] VITALS: BP 116/73
--- NOTE | 2018-09-28 12:06 | NUR ---
[employer] SI: INTRACTABLE BACK PAIN . AFIB W/RVR . UTI VS: BP 97/61, P 57, T 97.5, RR 20, SpO2 95 NA 135, BUN 34 IS:MORPHINE SULFATE 4mg SYNTHROID 25mcg MEMANTINE 10mg ARICEPT 5mg SDU STATUS
--- NOTE | 2018-09-28 13:21 | NUR ---
*-* INSURANCE *-* UPDATED CLINICALS AND REVIEW HAVE BEEN FAXED TO: [facility] #PENDING [facility]:ABBI Easley [phone]
--- NOTE | 2018-09-28 14:49 | General Progress Note ---
Assessment/Plan Problem List: (1) CHF (congestive heart failure) ICD Codes: I50.9 - Heart failure, unspecified SNOMED: 16378615 (2) Chronic a-fib ICD Codes: I48.2 - Chronic atrial fibrillation SNOMED: 806312763 (3) Spinal stenosis ICD Codes: M48.00 - Spinal stenosis, site unspecified SNOMED: 97549473 (4) Atrial fibrillation with RVR ICD Codes: I48.91 - Unspecified atrial fibrillation SNOMED: 704054948822511 (5) Intractable back pain ICD Codes: M54.9 - Dorsalgia, unspecified SNOMED: 326005656 (6) Subclinical hypothyroidism ICD Codes: E03.9 - Hypothyroidism, unspecified SNOMED: 11291576 Status: stable, progressing Assessment/Plan: pt diet pain control cbc bmp am dc plan w hh Subjective Constitutional: Reports: weakness Allergies: Coded Allergies: No Known Allergies (Unverified , 09/25/18) All Systems: reviewed and negative except above Subjective sleepy calm Objective Last 24 Hour Vital Signs Date Time Temp Pulse Resp B/P (MAP) Pulse Ox O2 Delivery O2 Flow Rate FiO2 09/28/18 12:00 46 09/28/18 12:00 97.0 68 18 116/73 (87) 99 09/28/18 12:00 Room Air 09/28/18 09:00 57 09/28/18 09:00 97/64 09/28/18 09:00 57 97/64 09/28/18 08:00 Room Air 09/28/18 08:00 97.2 62 18 97/64 (75) 98 09/28/18 08:00 57 09/28/18 04:00 Room Air 09/28/18 04:00 61 09/28/18 04:00 97.5 73 18 97/61 (73) 96 09/28/18 00:00 97.8 80 20 113/66 (82) 95 09/28/18 00:00 Room Air 09/28/18 00:00 84 09/27/18 21:53 138/88 09/27/18 21:52 78 138/88 09/27/18 20:00 75 09/27/18 20:00 97.5 81 20 130/88 (102) 100 09/27/18 20:00 Room Air 5/14/19 16:26 66 09/27/18 16:00 98.4 131 19 118/74 (89) 100 09/27/18 16:00 Room Air Intake and Output 09/27/18 09/28/18 19:00 07:00 Intake Total 480 ml 500 ml Output Total 650 ml Balance 480 ml -150 ml Intake Oral 480 ml 500 ml Output Urine Total 650 ml # Voids 3 2 Laboratory Tests 09/28/18 03:40: White Blood Count 5.2, Red Blood Count 4.44, Hemoglobin 14.5, Hematocrit 42.5, Mean Corpuscular Volume 96, Mean Corpuscular Hemoglobin 32.7H, Mean Corpuscular Hemoglobin Concent 34.1, Red Cell Distribution Width 14.2, Platelet Count 172, Mean Platelet Volume 6.5, Neutrophils (%) (Auto) 62.7, Lymphocytes (%) (Auto) 19.2L, Monocytes (%) (Auto) 9.8, Eosinophils (%) (Auto) 7.0H, Basophils (%) ( Auto) 1.2, Sodium Level 135L, Potassium Level 4.3, Chloride Level 100, Carbon Dioxide Level 24, Anion Gap 11, Blood Urea Nitrogen 34H, Creatinine 1.1, Estimat Glomerular Filtration Rate , Glucose Level 114H, Calcium Level 9.1 Height (Feet): 5 Height (Inches): 4.00 Weight (Pounds): 118 General Appearance: lethargic EENT: normal ENT inspection Neck: normal alignment Cardiovascular: normal peripheral pulses, normal rate, regular rhythm Respiratory/Chest: chest wall non-tender, lungs clear, normal breath sounds Abdomen: normal bowel sounds, non tender, soft Extremities: normal inspection Edema: no edema noted Arm (L), no edema noted Arm (R), no edema noted Leg (L), no edema noted Leg (R), no edema noted Pedal (L), no edema noted Pedal (R), no edema noted Generalized Neurologic: motor weakness Skin: normal pigmentation, warm/dry Hugh Pressley DO September 28, 2018 14:49
[2018-09-28 16:00] VITALS: BP 131/58
[2018-09-28] MEDS: LORazepam Inj 2mg/ml 1ml IV PRN (16:09)
--- NOTE | 2018-09-28 18:28 | Infectious Diseases Prog Note ---
Assessment/Plan Assessment/Plan Abx: Levaquin 09/25- Ceftriaxone x1 09/25 Assessment: Low back pain -CT T +L spine: No obvious acute fracture.Severe degenerative changes of the lumbar spine as described above. Suspected right renal cysts. 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 -CTA c/a/p: Ascending aortic aneurysm 4.5 cm. Moderate atherosclerotic disease with ectasia of the thoracic and abdominal aorta as described above. 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 No evidence of dissection. Multiple incidental findings: Patchy lung fibrosis. Groundglass opacities, nonspecific. Trace right pleural effusion. Trace ascites. Diverticulosis of the colon. Thickening of the wall the gallbladder, nonspecific in nature. Degenerative changes of the spine Afebrile No leukocytosis -CXR: Cardiomegaly. No acute findings Probable UTI (+frequency) -u/a wbc 40-60, nit neg, leuk +3, sq cells many; ucx 10-20k P.mirabilis (R nitro; otherwise S); repeat u/a wbc 5-10, nit neg, leuk +3, few sq cells; ucx p Mild LFTs elevation; improving- r/o hepatobiliary disease -Abd US: Fusiform aneurysm suspected in the infradiaphragmatic upper abdominal aorta measuring up to 3.5 cm. Thickening of the gallbladder wall, nonspecific. Trace ascites. Right renal cysts CAD s/p angioplasty HTN compression fractures of spine CHF Afib on Eliquis Dementia Plan: -Continue empiric LEvaquin #4 pending repeat u/a and ucx -f/u cx -Monitor CBC/CMP, temperatures -aspiration precautions -f/u repeat ucx Thank you for this consultation. Will continue to follow along with you. Discussed with RN. Subjective Allergies: Coded Allergies: No Known Allergies (Unverified , 09/25/18) Subjective afebrile no leukocytosis Objective Vital Signs Last 24 Hour Vital Signs Date Time Temp Pulse Resp B/P (MAP) Pulse Ox O2 Delivery O2 Flow Rate FiO2 09/28/18 16:00 62 09/28/18 16:00 97.7 67 22 131/58 (82) 96 09/28/18 16:00 Room Air 09/28/18 12:00 46 09/28/18 12:00 97.0 68 18 116/73 (87) 99 09/28/18 12:00 Room Air 09/28/18 09:00 57 09/28/18 09:00 97/64 09/28/18 09:00 57 97/64 09/28/18 08:00 Room Air 09/28/18 08:00 97.2 62 18 97/64 (75) 98 09/28/18 08:00 57 09/28/18 04:00 Room Air 09/28/18 04:00 61 09/28/18 04:00 97.5 73 18 97/61 (73) 96 09/28/18 00:00 97.8 80 20 113/66 (82) 95 09/28/18 00:00 Room Air 09/28/18 00:00 84 09/27/18 21:53 138/88 09/27/18 21:52 78 138/88 09/27/18 20:00 75 09/27/18 20:00 97.5 81 20 130/88 (102) 100 09/27/18 20:00 Room Air Height (Feet): 5 Height (Inches): 4.00 Weight (Pounds): 118 Objective General Appearance: well appearing, no apparent distress, alert, thin Head: normocephalic EENT: PERRL/EOMI, normal ENT inspection Neck: supple Respiratory: normal breath sounds, no respiratory distress Cardiovascular: normal rate Gastrointestinal: normal inspection, non tender, soft, normal bowel sounds, non -distended Genitourinary: no CVA tenderness Musculoskeletal: normal inspection, back normal Neurologic: normal inspection, alert, oriented x3, responsive Psychiatric: normal inspection, judgement/insight normal, memory normal Skin: normal inspection, normal color, no rash, warm/dry, palpation normal, well hydrated Laboratory Tests Test 09/28/18 03:40 White Blood Count 5.2 K/UL (4.8-10.8) Red Blood Count 4.44 M/UL (4.20-5.40) Hemoglobin 14.5 G/DL (12.0-16.0) Hematocrit 42.5 % (37.0-47.0) Mean Corpuscular Volume 96 FL (80-99) Mean Corpuscular Hemoglobin 32.7 PG (27.0-31.0) H Mean Corpuscular Hemoglobin Concent 34.1 G/DL (32.0-36.0) Red Cell Distribution Width 14.2 % (11.6-14.8) Platelet Count 172 K/UL (150-450) Mean Platelet Volume 6.5 FL (6.5-10.1) Neutrophils (%) (Auto) 62.7 % (45.0-75.0) Lymphocytes (%) (Auto) 19.2 % (20.0-45.0) L Monocytes (%) (Auto) 9.8 % (1.0-10.0) Eosinophils (%) (Auto) 7.0 % (0.0-3.0) H Basophils (%) (Auto) 1.2 % (0.0-2.0) Sodium Level 135 MMOL/L (136-145) L Potassium Level 4.3 MMOL/L (3.5-5.1) Chloride Level 100 MMOL/L (98-107) Carbon Dioxide Level 24 MMOL/L (21-32) Anion Gap 11 mmol/L (5-15) Blood Urea Nitrogen 34 mg/dL (7-18) H Creatinine 1.1 MG/DL (0.55-1.30) Estimat Glomerular Filtration Rate mL/min (>60) Glucose Level 114 MG/DL (74-106) H Calcium Level 9.1 MG/DL (8.5-10.1) Thyroid Stimulating Hormone (TSH) 11.074 uiU/mL (0.358-3.740) Current Medications Medications (Trade) Dose Ordered Sig/Yunior Route PRN Reason Start Time Stop Time Status Last Admin Dose Admin Acetaminophen (Tylenol) 650 mg Q4H PRN ORAL fever 09/25/18 20:45 10/25/18 20:44 Acetaminophen/ Hydrocodone Bitart ([place] 10/325) 1 tab Q4H PRN ORAL For Pain 09/28/18 11:00 10/05/18 10:59 Apixaban (Eliquis) 2.5 mg BID ORAL 09/26/18 18:00 10/26/18 17:59 09/28/18 18:23 Dextrose (Dextrose 50%) 25 ml Q30M PRN IV Hypoglycemia 09/25/18 20:45 10/25/18 20:44 Dextrose (Dextrose 50%) 50 ml Q30M PRN IV Hypoglycemia 09/25/18 20:45 10/25/18 20:44 Digoxin (Lanoxin) 0.25 mg DAILY ORAL 09/28/18 09:00 10/28/18 08:59 Diltiazem HCl (Cardizem CD) 240 mg Q12HR ORAL 09/27/18 10:45 10/27/18 10:44 09/27/18 21:52 Diltiazem HCl (Cardizem) 10 mg Q1H PRN IV HR>120BPM 09/26/18 12:30 10/26/18 12:29 09/27/18 08:53 Donepezil HCl (Aricept) 5 mg DAILY ORAL 09/28/18 09:00 10/28/18 08:59 09/28/18 09:44 Iopamidol (Isovue-370 150ml) 150 ml NOW PRN INJ Radiology Procedure 09/25/18 17:00 Isosorbide Mononitrate (Imdur) 30 mg Q12HR ORAL 09/27/18 21:00 10/27/18 20:59 09/27/18 21:53 Levofloxacin (Levaquin) 250 mg Q24H ORAL 09/27/18 21:00 10/04/18 20:59 09/27/18 21:46 Levothyroxine Sodium (Synthroid) 25 mcg DAILY@0630 ORAL 09/28/18 06:45 10/28/18 06:44 09/28/18 06:49 Lorazepam (Ativan 2mg/ml 1ml) 0.5 mg Q4H PRN IV For Anxiety 09/25/18 20:45 10/02/18 20:44 09/28/18 16:09 Memantine (Namenda) 10 mg DAILY ORAL 09/28/18 09:00 10/28/18 08:59 09/28/18 09:44 Morphine Sulfate (Morphine Sulfate) 2 mg Q4H PRN IVP For Pain 4-6 09/25/18 20:45 10/02/18 20:44 09/26/18 21:30 Morphine Sulfate (Morphine Sulfate) 4 mg Q4H PRN IVP For Pain 7-10 09/25/18 20:45 10/02/18 20:44 09/28/18 02:52 Ondansetron HCl (Zofran) 4 mg Q6H PRN IVP Nausea & Vomiting 09/25/18 20:45 10/25/18 20:44 Polyethylene Glycol (Miralax) 17 gm HSPRN PRN ORAL Constipation 09/25/18 20:45 10/25/18 20:44 Quetiapine Fumarate (SEROquel) 25 mg BID ORAL 09/27/18 18:00 10/27/18 17:59 09/28/18 18:23 Zolpidem Tartrate (Ambien) 5 mg HSPRN PRN ORAL Insomnia 09/25/18 20:45 10/02/18 20:44 09/26/18 23:34 Fanny Lugo M.D. September 28, 2018 18:28
--- NOTE | 2018-09-28 18:51 | Cardiology Progress Note ---
Assessment/Plan Assessment/Plan The patient is seen and examined, full consult note will be dictated shortly. Objective Last 24 Hour Vital Signs Date Time Temp Pulse Resp B/P (MAP) Pulse Ox O2 Delivery O2 Flow Rate FiO2 09/28/18 16:00 62 09/28/18 16:00 97.7 67 22 131/58 (82) 96 09/28/18 16:00 Room Air 09/28/18 12:00 46 09/28/18 12:00 97.0 68 18 116/73 (87) 99 09/28/18 12:00 Room Air 09/28/18 09:00 57 09/28/18 09:00 97/64 09/28/18 09:00 57 97/64 09/28/18 08:00 Room Air 09/28/18 08:00 97.2 62 18 97/64 (75) 98 09/28/18 08:00 57 09/28/18 04:00 Room Air 09/28/18 04:00 61 09/28/18 04:00 97.5 73 18 97/61 (73) 96 09/28/18 00:00 97.8 80 20 113/66 (82) 95 09/28/18 00:00 Room Air 09/28/18 00:00 84 09/27/18 21:53 138/88 09/27/18 21:52 78 138/88 09/27/18 20:00 75 09/27/18 20:00 97.5 81 20 130/88 (102) 100 09/27/18 20:00 Room Air Intake and Output 09/27/18 09/28/18 19:00 07:00 Intake Total 480 ml 500 ml Output Total 650 ml Balance 480 ml -150 ml Intake Oral 480 ml 500 ml Output Urine Total 650 ml # Voids 3 2 Laboratory Tests Test 09/28/18 03:40 White Blood Count 5.2 K/UL (4.8-10.8) Red Blood Count 4.44 M/UL (4.20-5.40) Hemoglobin 14.5 G/DL (12.0-16.0) Hematocrit 42.5 % (37.0-47.0) Mean Corpuscular Volume 96 FL (80-99) Mean Corpuscular Hemoglobin 32.7 PG (27.0-31.0) H Mean Corpuscular Hemoglobin Concent 34.1 G/DL (32.0-36.0) Red Cell Distribution Width 14.2 % (11.6-14.8) Platelet Count 172 K/UL (150-450) Mean Platelet Volume 6.5 FL (6.5-10.1) Neutrophils (%) (Auto) 62.7 % (45.0-75.0) Lymphocytes (%) (Auto) 19.2 % (20.0-45.0) L Monocytes (%) (Auto) 9.8 % (1.0-10.0) Eosinophils (%) (Auto) 7.0 % (0.0-3.0) H Basophils (%) (Auto) 1.2 % (0.0-2.0) Sodium Level 135 MMOL/L (136-145) L Potassium Level 4.3 MMOL/L (3.5-5.1) Chloride Level 100 MMOL/L (98-107) Carbon Dioxide Level 24 MMOL/L (21-32) Anion Gap 11 mmol/L (5-15) Blood Urea Nitrogen 34 mg/dL (7-18) H Creatinine 1.1 MG/DL (0.55-1.30) Estimat Glomerular Filtration Rate mL/min (>60) Glucose Level 114 MG/DL (74-106) H Calcium Level 9.1 MG/DL (8.5-10.1) Thyroid Stimulating Hormone (TSH) 11.074 uiU/mL (0.358-3.740) Mark Manuel MD September 28, 2018 18:51
--- NOTE | 2018-09-28 19:10 | NUR ---
HAND-OFF: Report given to ENRIQUETA Aaron. Patient in stable condition.
--- NOTE | 2018-09-28 19:20 | NUR ---
NURSE NOTES: Received report from Shanon RN and Ashley ROBISON, pt. in bed awake- A/O x's1-able to make needs known, pt. is forgetful at times, Family member is at bedside and will be staying the night with patient, quality assurance monitor final on, bed in lowest position and call light within easy reach, bed alarm on and safety brakes engaged, pt. is aware to ask for assist when ambulating to bathroom, pt appears to be sating well on room air at 98%- no distress noted, TYREL 22G- IV intact and patent, all needs attended to, Safety measures continued, will continue with plan of care.
[2018-09-28 20:00] VITALS: BP 138/88
--- NOTE | 2018-09-28 20:40 | NUR ---
NURSE NOTES: Called DR. Manuel- regarding daughter is not wanting to give pt. Imdur and Vasotec- even after I explained reasons why she is getting the medicine. Per DR. Manuel can hold Imdur but to give Vasotec- orders carried out and daughter aware and okay to give.
[2018-09-28] MEDS: Enalapril 2.5mg tab ORAL SCH (21:25)
--- NOTE | 2018-09-28 23:45 | Consultation ---
DATE OF CONSULTATION: 09/28/2018 CARDIOLOGY CONSULTATION CONSULTING PHYSICIAN: Mark Manuel M.D. REFERRING PHYSICIAN: Hugh Pressley D.O. REASON FOR CONSULTATION: Management of atrial fibrillation. HISTORY OF PRESENT ILLNESS: This is a very unfortunate 88-year-old female, who was brought in by family members for evaluation and management of her low back pain that has been going on for about 1 to 2 days. At the time of arrival to the hospital, the patient was noted to have atrial fibrillation with rapid ventricular response at the rate of 134 and blood pressure was 135/112 mmHg. Initial evaluation of this patient in the emergency department revealed urinary tract infection. Her troponin I level was 0.006. A 12 lead electrocardiogram in the emergency department confirmed atrial fibrillation with rapid ventricular response. The patient was admitted to intensive care unit for further evaluation and management of intractable back pain, urinary tract infection, and atrial fibrillation with rapid ventricular response. A 2D echocardiography done in this facility reveals severe global left ventricular hypokinesia with wall motion abnormalities in the anteroseptal, anterior, basal inferior, and apical baron with overall left ventricular ejection fraction of about 15 to 20 percent. There was also evidence of moderate mitral regurgitation as well as severe pulmonary hypertension with right ventricular systolic pressure of 71 mmHg. The study also revealed increased right atrial pressure as IVC was dilated at 2.6 with no physiological collapse. A Cardiology consultation was made at the request of Dr. Pressley for management of cardiomyopathy as well as atrial fibrillation. PAST MEDICAL HISTORY: 1. Congestive heart failure. 2. Hypertension. 3. Compression fracture of the lumbar spine. PAST SURGICAL HISTORY: None. MEDICATIONS: List of medication includes apixaban 2.5 mg twice daily, atorvastatin 20 mg p.o. at bedtime, diltiazem 240 mg twice daily, donepezil 5 mg daily, Lasix 20 mg p.o. twice daily, isosorbide mononitrate 30 mg p.o. twice daily, Tradjenta 5 mg p.o. daily, memantine 14 mg p.o. daily, Seroquel 25 mg twice daily, Zantac 150 mg at bedtime, and Ultram 50 mg q.8 hours p.r.n. pain. ALLERGIES: No known drug allergies. REVIEW OF SYSTEMS: A 12-system review done is essentially negative except what mentioned in the history of present illness. PHYSICAL EXAMINATION: VITAL SIGNS: At the time of arrival to the hospital, blood pressure was 135/112 mmHg, heart rate of 124, temperature 98.0 degrees Fahrenheit, and O2 saturation 96% on room air. GENERAL: The patient is a very unfortunate 88-year-old female, who is in no apparent respiratory distress. HEENT: Atraumatic, normocephalic, anicteric. Pupils are equal, round, and reactive to light and accommodation. Extraocular muscles are intact. NECK: JVP is elevated about 12 cm. No carotid bruit. Carotid upstroke is 2+ bilaterally. CVS: Normal S1, S2. Irregular irregular rhythm. A 2/6 holosystolic murmur at the apex. LUNGS: Clear to auscultation bilaterally. ABDOMEN: Soft, nontender, and nondistended. No hepatosplenomegaly. Positive bowel sounds. EXTREMITIES: No evidence of edema, clubbing, or cyanosis. LABORATORY FINDINGS: At the time of admission, sodium 136, potassium is 5.0, chloride 100, bicarbonate 26, BUN 23, and creatinine 0.9. Glucose is 111. Calcium is 9.8. Magnesium 2.2. AST 64 and ALT 51. Troponin I level was 0.006. ProBNP was . TSH of 15.1. WBC 5.8, hemoglobin 13.9, hematocrit 41.3, and platelet count is 147,000. Chest x-ray shows cardiomegaly with no pulmonary edema. A 2D echocardiography, overall left ventricular ejection fraction of 15 to 20 percent with areas of wall motion abnormalities as mentioned above, severe pulmonary hypertension 71 mmHg with right atrial pressure measured at 15 mmHg, moderate mitral regurgitation, and mild aortic regurgitation, diastolic data could not be obtained due to underlying atrial fibrillation. ASSESSMENT AND PLAN: This is a very unfortunate 88-year-old lady, who is seen in Cardiology consultation. 1. Four-chamber and dilated cardiomyopathy with areas of wall motion abnormalities suggestive of possible ischemic cardiomyopathy. It is not clear whether ischemic workup has been done in this patient or not. Overall, left ventricular ejection fraction of about 15 to 20 percent. We will start the patient on guideline directed medical therapy. We required to discuss with the patient regarding prior cardiac workup in this patient. 2. Atrial fibrillation with rapid ventricular response, responded well to digoxin, currently controlled ventricular response. Given the fact that the patient has low ejection fraction, I would discontinue diltiazem and replace with carvedilol as the diltiazem would have negative inotropic properties. A digoxin level will be also done in view of the chronic kidney disease. The patient is on Eliquis and will be continued on Eliquis this admission. 3. History of hypertension. Blood pressure is fluctuating at this time. We will continue adjusting the medication to treat primarily acute heart failure. I would like to thank, Dr. Pressley, for allowing me to participate in the care of this patient. Mark Manuel M.D. DR: RODERICK JOB#: [id number] CC:
[2018-09-29] VITALS: BP 126/66
[2018-09-29 04:00] VITALS: BP 137/86
[2018-09-29 05:19] LABS: BASOPHILS % (AUTO) 7.4 % (0.0-2.0); EOSINOPHILS % (AUTO) 6.8 % (0.0-3.0); HEMATOCRIT 43.3 % (37.0-47.0); HEMOGLOBIN 14.3 G/DL (12.0-16.0); LYMPHOCYTES % (AUTO) 28.2 % (20.0-45.0); MEAN CORPUSCULAR VOLUME 99 FL (80-99); MONOCYTES % (AUTO) 9.4 % (1.0-10.0); NEUTROPHILS % (AUTO) 48.1 % (45.0-75.0); PLATELET COUNT 152 K/UL (150-450); RED BLOOD COUNT 4.37 M/UL (4.20-5.40); RED CELL DISTRIBUTION WIDTH 14.8 % (11.6-14.8); WHITE BLOOD COUNT 4.1 K/UL (4.8-10.8)
[2018-09-29 05:45] LABS: ALANINE AMINOTRANSFERASE 53 U/L (12-78); ALBUMIN 3.8 G/DL (3.4-5.0); ALBUMIN/GLOBULIN RATIO 0.9 (1.0-2.7); ALKALINE PHOSPHATASE 170 U/L (46-116); ANION GAP 15 mmol/L (5-15); ASPARTATE AMINO TRANSFERASE 82 U/L (15-37); BILIRUBIN,TOTAL 0.9 MG/DL (0.2-1.0); BLOOD UREA NITROGEN 34 mg/dL (7-18); CALCIUM 9.7 MG/DL (8.5-10.1); CARBON DIOXIDE 22 MMOL/L (21-32); CHLORIDE 97 MMOL/L (98-107); CREATININE 1.1 MG/DL (0.55-1.30); POTASSIUM 5.9 MMOL/L (3.5-5.1); SODIUM 135 MMOL/L (136-145)
[2018-09-29] MEDS: Levothyroxine 25mcg tab ORAL SCH (06:34)
--- NOTE | 2018-09-29 07:09 | NUR ---
HAND-OFF: Report given to Shanon RN, pt. remains stable and no signs of distress noted- aware to f/u on abnormal labs- potassium trending up- message left for DR. Hollingsworth- regarding abnormal labs waiting for call back from doctor.
--- NOTE | 2018-09-29 07:12 | NUR ---
NURSE NOTES: Received patient from ENRIQUETA Aaron. patient is awake, sitting at edge of bed. on room air, respirations even and unlabored. TYREL 22 gauge saline lcok patent and asymptomatic. bed locked in lowest position, siderails up X3, bed alarm on. daughter at bedside, call light within reach. patient has K level of 5.9. Dr. Hollingsworth notified by shift commander nurse. will continue to monitor.
--- NOTE | 2018-09-29 07:12 | NUR ---
NURSE NOTES: potassium trending up- message left for DR. Hollingsworth- regarding abnormal labs waiting for call back from doctor. Nurse aware to follow up.
[2018-09-29 08:00] VITALS: BP 123/81
[2018-09-29] MEDS ORDERED: Sodium Polystyrene Sulfonate 15gm Powder ORAL ONE ×2 (08:30)
[2018-09-29] MEDS: Imdur 30mg tab ORAL SCH ×2 (08:38→20:22)
[2018-09-29] MEDS: Memantine 10mg tab ORAL SCH (08:38)
[2018-09-29] MEDS: Donepezil 5mg Tab ORAL SCH (08:38)
[2018-09-29] MEDS: Eliquis 2.5mg tablet ORAL SCH ×2 (08:39→17:37)
[2018-09-29] MEDS: Enalapril 2.5mg tab ORAL SCH (08:39)
--- NOTE | 2018-09-29 08:50 | General Progress Note ---
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 D/w Dr. Wilson and he concurred. Subjective Date patient seen: September 29, 2018 Time patient seen: 07:15 - am Allergies: Coded Allergies: No Known Allergies (Unverified , 09/25/18) Subjective REVIEW OF SYSTEMS: Denies rash, fever, chills, sweating, dizziness, drowsiness, blurred vision, sore throat, or change in weight. No shortness of breath or chest pain. No nausea, vomiting, or blood in the stool or urine. No bowel or bladder incontinence. No dysuria. The patient is complaining of back pain. SUBJECTIVE: Patient is in bed continues to c/o pain in her back with movement. MRI was taken pending results. She has continued to get the Morphine as needed. Was started on norco 10/325mg PO 1 tab Q4H PRN pain to transition from IV to PO medication. Objective Last 24 Hour Vital Signs Date Time Temp Pulse Resp B/P (MAP) Pulse Ox O2 Delivery O2 Flow Rate FiO2 09/29/18 08:39 123/81 09/29/18 08:39 84 123/81 09/29/18 08:38 84 09/29/18 08:38 123/81 09/29/18 08:00 Room Air 09/29/18 08:00 97.0 84 18 123/81 (95) 99 09/29/18 04:00 67 09/29/18 04:00 Room Air 09/29/18 04:00 97.2 70 16 137/86 (103) 97 09/29/18 00:00 Room Air 09/29/18 00:00 97.3 84 16 126/66 (86) 96 09/29/18 00:00 67 09/28/18 21:25 131/79 09/28/18 20:45 138/88 09/28/18 20:31 75 138/88 09/28/18 20:00 97.3 75 16 138/88 (105) 100 09/28/18 20:00 Room Air 09/28/18 20:00 59 09/28/18 16:00 62 09/28/18 16:00 97.7 67 22 131/58 (82) 96 09/28/18 16:00 Room Air 09/28/18 12:00 46 09/28/18 12:00 97.0 68 18 116/73 (87) 99 09/28/18 12:00 Room Air 09/28/18 09:00 57 09/28/18 09:00 97/64 09/28/18 09:00 57 97/64 Intake and Output 09/28/18 09/29/18 18:59 06:59 Intake Total 480 ml Balance 480 ml Intake Oral 480 ml # Voids 2 2 Laboratory Tests 09/29/18 04:00: White Blood Count 4.1L, Red Blood Count 4.37, Hemoglobin 14.3, Hematocrit 43.3, Mean Corpuscular Volume 99, Mean Corpuscular Hemoglobin 32.7H, Mean Corpuscular Hemoglobin Concent 32.9, Red Cell Distribution Width 14.8, Platelet Count 152, Mean Platelet Volume 5.5L, Neutrophils (%) (Auto) 48.1, Lymphocytes (%) (Auto) 28.2, Monocytes (%) (Auto) 9.4, Eosinophils (%) (Auto) 6.8H, Basophils (%) (Auto ) 7.4H, Sodium Level 135L, Potassium Level 5.9H, Chloride Level 97L, Carbon Dioxide Level 22, Anion Gap 15, Blood Urea Nitrogen 34H, Creatinine 1.1, Estimat Glomerular Filtration Rate , Glucose Level 85, Calcium Level 9.7, Total Bilirubin 0.9, Aspartate Amino Transf (AST/SGOT) 82H, Alanine Aminotransferase ( ALT/SGPT) 53, Alkaline Phosphatase 170H, Total Protein 7.8, Albumin 3.8, Globulin 4.0, Albumin/Globulin Ratio 0.9L Height (Feet): 5 Height (Inches): 4.00 Weight (Pounds): 116 Objective PHYSICAL EXAMINATION: GENERAL: Alert, awake, and oriented. LUNGS: Decreased breath sounds bilaterally. HEART: S1 and S2 regular. ABDOMEN: Soft and nontender. EXTREMITIES: No cyanosis. No clubbing. NEURO: No changes. Ilya Perez September 29, 2018 08:50
--- NOTE | 2018-09-29 10:04 | Cardiac Electrophysiology PN ---
Subjective Subjective EP consult dictated. [id number] Objective Last 24 Hour Vital Signs Date Time Temp Pulse Resp B/P (MAP) Pulse Ox O2 Delivery O2 Flow Rate FiO2 09/29/18 08:39 123/81 09/29/18 08:39 84 123/81 09/29/18 08:38 84 09/29/18 08:38 123/81 09/29/18 08:00 Room Air 09/29/18 08:00 97.0 84 18 123/81 (95) 99 09/29/18 08:00 88 09/29/18 04:00 67 09/29/18 04:00 Room Air 09/29/18 04:00 97.2 70 16 137/86 (103) 97 09/29/18 00:00 Room Air 09/29/18 00:00 97.3 84 16 126/66 (86) 96 09/29/18 00:00 67 09/28/18 21:25 131/79 09/28/18 20:45 138/88 09/28/18 20:31 75 138/88 09/28/18 20:00 97.3 75 16 138/88 (105) 100 09/28/18 20:00 Room Air 09/28/18 20:00 59 09/28/18 16:00 62 09/28/18 16:00 97.7 67 22 131/58 (82) 96 09/28/18 16:00 Room Air 09/28/18 12:00 46 09/28/18 12:00 97.0 68 18 116/73 (87) 99 09/28/18 12:00 Room Air Intake and Output 09/28/18 09/29/18 18:59 06:59 Intake Total 480 ml Balance 480 ml Intake Oral 480 ml # Voids 2 2 Laboratory Tests Test 09/29/18 04:00 White Blood Count 4.1 K/UL (4.8-10.8) L Red Blood Count 4.37 M/UL (4.20-5.40) Hemoglobin 14.3 G/DL (12.0-16.0) Hematocrit 43.3 % (37.0-47.0) Mean Corpuscular Volume 99 FL (80-99) Mean Corpuscular Hemoglobin 32.7 PG (27.0-31.0) H Mean Corpuscular Hemoglobin Concent 32.9 G/DL (32.0-36.0) Red Cell Distribution Width 14.8 % (11.6-14.8) Platelet Count 152 K/UL (150-450) Mean Platelet Volume 5.5 FL (6.5-10.1) L Neutrophils (%) (Auto) 48.1 % (45.0-75.0) Lymphocytes (%) (Auto) 28.2 % (20.0-45.0) Monocytes (%) (Auto) 9.4 % (1.0-10.0) Eosinophils (%) (Auto) 6.8 % (0.0-3.0) H Basophils (%) (Auto) 7.4 % (0.0-2.0) H Sodium Level 135 MMOL/L (136-145) L Potassium Level 5.9 MMOL/L (3.5-5.1) H Chloride Level 97 MMOL/L (98-107) L Carbon Dioxide Level 22 MMOL/L (21-32) Anion Gap 15 mmol/L (5-15) Blood Urea Nitrogen 34 mg/dL (7-18) H Creatinine 1.1 MG/DL (0.55-1.30) Estimat Glomerular Filtration Rate mL/min (>60) Glucose Level 85 MG/DL (74-106) Calcium Level 9.7 MG/DL (8.5-10.1) Total Bilirubin 0.9 MG/DL (0.2-1.0) Aspartate Amino Transf (AST/SGOT) 82 U/L (15-37) H Alanine Aminotransferase (ALT/SGPT) 53 U/L (12-78) Alkaline Phosphatase 170 U/L (46-116) H Total Protein 7.8 G/DL (6.4-8.2) Albumin 3.8 G/DL (3.4-5.0) Globulin 4.0 g/dL Albumin/Globulin Ratio 0.9 (1.0-2.7) L Microbiology Date/Time Source Procedure Growth Status 09/26/18 22:20 Urine,Clean Catch Urine Culture - Preliminary Resulted Mark Sanders MD September 29, 2018 10:04
--- NOTE | 2018-09-29 10:20 | Pulmonology Progress Note ---
Assessment/Plan Problems: (1) Atrial fibrillation with RVR Assessment & Plan: controlled now with heart rate as low as 50's (2) EF 15% (3) Urinary tract infection (4) Chronic systolic CHF (congestive heart failure) (5) Chronic a-fib (6) Spinal stenosis (7) Intractable back pain (8) Pulmonary hypertension, moderate to severe (9) Subclinical hypothyroidism Assessment/Plan continue IV abx Echo reviewed EF of 15%heart rate controlled hyperkalemia, ? etiology, dc enalapril, one dose of Kayexalate. resume Cardizem PO check Urine c/s mckoy sensitive except for Nitrofurantoin responding well to Morphine IV, will add Hancock on Eliquis for afib resume Quetiapine, d/w daughter at the bed site. Subjective ROS Limited/Unobtainable: No Constitutional: Reports: no symptoms HEENT: Repors: no symptoms Respiratory: Reports: no symptoms Allergies: Coded Allergies: No Known Allergies (Unverified , 09/25/18) Objective Last 24 Hour Vital Signs Date Time Temp Pulse Resp B/P (MAP) Pulse Ox O2 Delivery O2 Flow Rate FiO2 09/29/18 08:39 123/81 09/29/18 08:39 84 123/81 09/29/18 08:38 84 09/29/18 08:38 123/81 09/29/18 08:00 Room Air 09/29/18 08:00 97.0 84 18 123/81 (95) 99 09/29/18 08:00 88 09/29/18 04:00 67 09/29/18 04:00 Room Air 09/29/18 04:00 97.2 70 16 137/86 (103) 97 09/29/18 00:00 Room Air 09/29/18 00:00 97.3 84 16 126/66 (86) 96 09/29/18 00:00 67 09/28/18 21:25 131/79 09/28/18 20:45 138/88 09/28/18 20:31 75 138/88 09/28/18 20:00 97.3 75 16 138/88 (105) 100 09/28/18 20:00 Room Air 09/28/18 20:00 59 09/28/18 16:00 62 09/28/18 16:00 97.7 67 22 131/58 (82) 96 09/28/18 16:00 Room Air 09/28/18 12:00 46 09/28/18 12:00 97.0 68 18 116/73 (87) 99 09/28/18 12:00 Room Air Intake and Output 09/28/18 09/29/18 18:59 06:59 Intake Total 480 ml Balance 480 ml Intake Oral 480 ml # Voids 2 2 General Appearance: cachetic HEENT: normocephalic, atraumatic Respiratory/Chest: chest wall non-tender, lungs clear Cardiovascular: normal peripheral pulses, normal rate Abdomen: normal bowel sounds, soft, non tender Genitourinary: normal external genitalia Extremities: no cyanosis Skin: no rash Neurologic/Psychiatric: floor covering contractor II-XII grossly normal Microbiology Date/Time Source Procedure Growth Status 09/26/18 22:20 Urine,Clean Catch Urine Culture - Preliminary Resulted Laboratory Tests 09/29/18 04:00: White Blood Count 4.1L, Red Blood Count 4.37, Hemoglobin 14.3, Hematocrit 43.3, Mean Corpuscular Volume 99, Mean Corpuscular Hemoglobin 32.7H, Mean Corpuscular Hemoglobin Concent 32.9, Red Cell Distribution Width 14.8, Platelet Count 152, Mean Platelet Volume 5.5L, Neutrophils (%) (Auto) 48.1, Lymphocytes (%) (Auto) 28.2, Monocytes (%) (Auto) 9.4, Eosinophils (%) (Auto) 6.8H, Basophils (%) (Auto ) 7.4H, Sodium Level 135L, Potassium Level 5.9H, Chloride Level 97L, Carbon Dioxide Level 22, Anion Gap 15, Blood Urea Nitrogen 34H, Creatinine 1.1, Estimat Glomerular Filtration Rate , Glucose Level 85, Calcium Level 9.7, Total Bilirubin 0.9, Aspartate Amino Transf (AST/SGOT) 82H, Alanine Aminotransferase ( ALT/SGPT) 53, Alkaline Phosphatase 170H, Total Protein 7.8, Albumin 3.8, Globulin 4.0, Albumin/Globulin Ratio 0.9L Current Medications Medications (Trade) Dose Ordered Sig/Yunior Route PRN Reason Start Time Stop Time Status Last Admin Dose Admin Acetaminophen (Tylenol) 650 mg Q4H PRN ORAL fever 09/25/18 20:45 10/25/18 20:44 Acetaminophen/ Hydrocodone Bitart (Hancock 10/325) 1 tab Q4H PRN ORAL For Pain 09/28/18 11:00 10/05/18 10:59 Apixaban (Eliquis) 2.5 mg BID ORAL 09/26/18 18:00 10/26/18 17:59 09/29/18 08:39 Carvedilol (Coreg) 3.125 mg EVERY 12 HOURS ORAL 09/28/18 21:00 10/28/18 20:59 09/29/18 08:39 Dextrose (Dextrose 50%) 25 ml Q30M PRN IV Hypoglycemia 09/25/18 20:45 10/25/18 20:44 Dextrose (Dextrose 50%) 50 ml Q30M PRN IV Hypoglycemia 09/25/18 20:45 10/25/18 20:44 Digoxin (Lanoxin) 0.25 mg DAILY ORAL 09/28/18 09:00 10/28/18 08:59 09/29/18 08:38 Diltiazem HCl (Cardizem) 10 mg Q1H PRN IV HR>120BPM 09/26/18 12:30 10/26/18 12:29 09/27/18 08:53 Donepezil HCl (Aricept) 5 mg DAILY ORAL 09/28/18 09:00 10/28/18 08:59 09/29/18 08:38 Enalapril Maleate (Vasotec) 2.5 mg EVERY 12 HOURS ORAL 09/28/18 21:00 10/28/18 20:59 09/29/18 08:39 Iopamidol (Isovue-370 150ml) 150 ml NOW PRN INJ Radiology Procedure 09/25/18 17:00 Isosorbide Mononitrate (Imdur) 30 mg Q12HR ORAL 09/27/18 21:00 10/27/18 20:59 09/29/18 08:38 Levofloxacin (Levaquin) 250 mg Q24H ORAL 09/27/18 21:00 10/04/18 20:59 09/28/18 20:31 Levothyroxine Sodium (Synthroid) 25 mcg DAILY@0630 ORAL 09/28/18 06:45 10/28/18 06:44 09/29/18 06:34 Lorazepam (Ativan 2mg/ml 1ml) 0.5 mg Q4H PRN IV For Anxiety 09/25/18 20:45 10/02/18 20:44 09/28/18 16:09 Memantine (Namenda) 10 mg DAILY ORAL 09/28/18 09:00 10/28/18 08:59 09/29/18 08:38 Morphine Sulfate (Morphine Sulfate) 2 mg Q4H PRN IVP For Pain 4-6 09/25/18 20:45 10/02/18 20:44 09/26/18 21:30 Morphine Sulfate (Morphine Sulfate) 4 mg Q4H PRN IVP For Pain 7-10 09/25/18 20:45 10/02/18 20:44 09/28/18 02:52 Ondansetron HCl (Zofran) 4 mg Q6H PRN IVP Nausea & Vomiting 09/25/18 20:45 10/25/18 20:44 Polyethylene Glycol (Miralax) 17 gm HSPRN PRN ORAL Constipation 09/25/18 20:45 10/25/18 20:44 Quetiapine Fumarate (SEROquel) 25 mg BID ORAL 09/27/18 18:00 10/27/18 17:59 09/29/18 08:40 Zolpidem Tartrate (Ambien) 5 mg HSPRN PRN ORAL Insomnia 09/25/18 20:45 10/02/18 20:44 09/26/18 23:34 John Hollingsworth MD September 29, 2018 10:20
--- NOTE | 2018-09-29 10:21 | GI Progress Note ---
Assessment/Plan Problems: (1) Subclinical hypothyroidism ICD Codes: E03.9 - Hypothyroidism, unspecified SNOMED: 71082652 (2) Constipation ICD Codes: K59.00 - Constipation, unspecified SNOMED: 40708677 (3) LFTs abnormal ICD Codes: R94.5 - Abnormal results of liver function studies SNOMED: 522828004 Status: stable, unchanged Status Narrative Discussed with Dr. Mcclure Assessment/Plan Symptomatic treatment at this time Advance diet as tolerated Pain management Zofran as needed Repeat LFTs PPI Follow-up labs GI procedures only if emergent, otherwise outpatient The patient was seen and examined at bedside and all new and available data was reviewed in the patients chart. I agree with the above findings, impression and plan. (Patient seen earlier today. Signature stamp does not reflect patient encounter time.). - Daron Mcclure MD Subjective Subjective limited Objective Last 24 Hour Vital Signs Date Time Temp Pulse Resp B/P (MAP) Pulse Ox O2 Delivery O2 Flow Rate FiO2 09/29/18 08:39 123/81 09/29/18 08:39 84 123/81 09/29/18 08:38 84 09/29/18 08:38 123/81 09/29/18 08:00 Room Air 09/29/18 08:00 97.0 84 18 123/81 (95) 99 09/29/18 08:00 88 09/29/18 04:00 67 09/29/18 04:00 Room Air 09/29/18 04:00 97.2 70 16 137/86 (103) 97 09/29/18 00:00 Room Air 09/29/18 00:00 97.3 84 16 126/66 (86) 96 09/29/18 00:00 67 09/28/18 21:25 131/79 09/28/18 20:45 138/88 09/28/18 20:31 75 138/88 09/28/18 20:00 97.3 75 16 138/88 (105) 100 09/28/18 20:00 Room Air 09/28/18 20:00 59 09/28/18 16:00 62 09/28/18 16:00 97.7 67 22 131/58 (82) 96 09/28/18 16:00 Room Air 09/28/18 12:00 46 09/28/18 12:00 97.0 68 18 116/73 (87) 99 09/28/18 12:00 Room Air Intake and Output 09/28/18 09/29/18 18:59 06:59 Intake Total 480 ml Balance 480 ml Intake Oral 480 ml # Voids 2 2 Laboratory Tests Test 09/29/18 04:00 White Blood Count 4.1 K/UL (4.8-10.8) L Red Blood Count 4.37 M/UL (4.20-5.40) Hemoglobin 14.3 G/DL (12.0-16.0) Hematocrit 43.3 % (37.0-47.0) Mean Corpuscular Volume 99 FL (80-99) Mean Corpuscular Hemoglobin 32.7 PG (27.0-31.0) H Mean Corpuscular Hemoglobin Concent 32.9 G/DL (32.0-36.0) Red Cell Distribution Width 14.8 % (11.6-14.8) Platelet Count 152 K/UL (150-450) Mean Platelet Volume 5.5 FL (6.5-10.1) L Neutrophils (%) (Auto) 48.1 % (45.0-75.0) Lymphocytes (%) (Auto) 28.2 % (20.0-45.0) Monocytes (%) (Auto) 9.4 % (1.0-10.0) Eosinophils (%) (Auto) 6.8 % (0.0-3.0) H Basophils (%) (Auto) 7.4 % (0.0-2.0) H Sodium Level 135 MMOL/L (136-145) L Potassium Level 5.9 MMOL/L (3.5-5.1) H Chloride Level 97 MMOL/L (98-107) L Carbon Dioxide Level 22 MMOL/L (21-32) Anion Gap 15 mmol/L (5-15) Blood Urea Nitrogen 34 mg/dL (7-18) H Creatinine 1.1 MG/DL (0.55-1.30) Estimat Glomerular Filtration Rate mL/min (>60) Glucose Level 85 MG/DL (74-106) Calcium Level 9.7 MG/DL (8.5-10.1) Total Bilirubin 0.9 MG/DL (0.2-1.0) Aspartate Amino Transf (AST/SGOT) 82 U/L (15-37) H Alanine Aminotransferase (ALT/SGPT) 53 U/L (12-78) Alkaline Phosphatase 170 U/L (46-116) H Total Protein 7.8 G/DL (6.4-8.2) Albumin 3.8 G/DL (3.4-5.0) Globulin 4.0 g/dL Albumin/Globulin Ratio 0.9 (1.0-2.7) L Height (Feet): 5 Height (Inches): 4.00 Weight (Pounds): 116 General Appearance: WD/WN, no apparent distress, alert, thin Cardiovascular: normal rate Respiratory/Chest: normal breath sounds, no respiratory distress Abdominal Exam: normal bowel sounds, non tender, soft Extremities: normal range of motion, non-tender Marlene Wolfe NP September 29, 2018 10:21
--- NOTE | 2018-09-29 11:47 | Infectious Diseases Prog Note ---
Assessment/Plan Assessment/Plan Abx: Levaquin 09/25- Ceftriaxone x1 09/25 Assessment: Low back pain -CT T +L spine: No obvious acute fracture.Severe degenerative changes of the lumbar spine as described above. Suspected right renal cysts. 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 -CTA c/a/p: Ascending aortic aneurysm 4.5 cm. Moderate atherosclerotic disease with ectasia of the thoracic and abdominal aorta as described above. 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 No evidence of dissection. Multiple incidental findings: Patchy lung fibrosis. Groundglass opacities, nonspecific. Trace right pleural effusion. Trace ascites. Diverticulosis of the colon. Thickening of the wall the gallbladder, nonspecific in nature. Degenerative changes of the spine Afebrile No leukocytosis -CXR: Cardiomegaly. No acute findings Probable UTI (+frequency) -u/a wbc 40-60, nit neg, leuk +3, sq cells many; ucx 10-20k P.mirabilis (R nitro; otherwise S); repeat u/a wbc 5-10, nit neg, leuk +3, few sq cells; ucx p Mild LFTs elevation; improving- r/o hepatobiliary disease -Abd US: Fusiform aneurysm suspected in the infradiaphragmatic upper abdominal aorta measuring up to 3.5 cm. Thickening of the gallbladder wall, nonspecific. Trace ascites. Right renal cysts CAD s/p angioplasty HTN compression fractures of spine CHF Afib on Eliquis Dementia Plan: -Continue empiric LEvaquin #5/7 for UTI -f/u cx -Monitor CBC/CMP, temperatures -aspiration precautions -f/u repeat ucx Thank you for this consultation. Will continue to follow along with you. Discussed with RN. Subjective Allergies: Coded Allergies: No Known Allergies (Unverified , 09/25/18) Subjective afebrile no leukocytosis Objective Vital Signs Last 24 Hour Vital Signs Date Time Temp Pulse Resp B/P (MAP) Pulse Ox O2 Delivery O2 Flow Rate FiO2 09/29/18 08:39 123/81 09/29/18 08:39 84 123/81 09/29/18 08:38 84 09/29/18 08:38 123/81 09/29/18 08:00 Room Air 09/29/18 08:00 97.0 84 18 123/81 (95) 99 09/29/18 08:00 88 09/29/18 04:00 67 09/29/18 04:00 Room Air 09/29/18 04:00 97.2 70 16 137/86 (103) 97 09/29/18 00:00 Room Air 09/29/18 00:00 97.3 84 16 126/66 (86) 96 09/29/18 00:00 67 09/28/18 21:25 131/79 09/28/18 20:45 138/88 09/28/18 20:31 75 138/88 09/28/18 20:00 97.3 75 16 138/88 (105) 100 09/28/18 20:00 Room Air 09/28/18 20:00 59 09/28/18 16:00 62 09/28/18 16:00 97.7 67 22 131/58 (82) 96 09/28/18 16:00 Room Air 09/28/18 12:00 46 09/28/18 12:00 97.0 68 18 116/73 (87) 99 09/28/18 12:00 Room Air Height (Feet): 5 Height (Inches): 4.00 Weight (Pounds): 116 Objective General Appearance: well appearing, no apparent distress, alert, thin Head: normocephalic EENT: PERRL/EOMI, normal ENT inspection Neck: supple Respiratory: normal breath sounds, no respiratory distress Cardiovascular: normal rate Gastrointestinal: normal inspection, non tender, soft, normal bowel sounds, non -distended Genitourinary: no CVA tenderness Musculoskeletal: normal inspection, back normal Neurologic: normal inspection, alert, oriented x3, responsive Psychiatric: normal inspection, judgement/insight normal, memory normal Skin: normal inspection, normal color, no rash, warm/dry, palpation normal, well hydrated Microbiology Date/Time Source Procedure Growth Status 09/26/18 22:20 Urine,Clean Catch Urine Culture - Preliminary Resulted Laboratory Tests Test 09/29/18 04:00 White Blood Count 4.1 K/UL (4.8-10.8) L Red Blood Count 4.37 M/UL (4.20-5.40) Hemoglobin 14.3 G/DL (12.0-16.0) Hematocrit 43.3 % (37.0-47.0) Mean Corpuscular Volume 99 FL (80-99) Mean Corpuscular Hemoglobin 32.7 PG (27.0-31.0) H Mean Corpuscular Hemoglobin Concent 32.9 G/DL (32.0-36.0) Red Cell Distribution Width 14.8 % (11.6-14.8) Platelet Count 152 K/UL (150-450) Mean Platelet Volume 5.5 FL (6.5-10.1) L Neutrophils (%) (Auto) 48.1 % (45.0-75.0) Lymphocytes (%) (Auto) 28.2 % (20.0-45.0) Monocytes (%) (Auto) 9.4 % (1.0-10.0) Eosinophils (%) (Auto) 6.8 % (0.0-3.0) H Basophils (%) (Auto) 7.4 % (0.0-2.0) H Sodium Level 135 MMOL/L (136-145) L Potassium Level 5.9 MMOL/L (3.5-5.1) H Chloride Level 97 MMOL/L (98-107) L Carbon Dioxide Level 22 MMOL/L (21-32) Anion Gap 15 mmol/L (5-15) Blood Urea Nitrogen 34 mg/dL (7-18) H Creatinine 1.1 MG/DL (0.55-1.30) Estimat Glomerular Filtration Rate mL/min (>60) Glucose Level 85 MG/DL (74-106) Calcium Level 9.7 MG/DL (8.5-10.1) Total Bilirubin 0.9 MG/DL (0.2-1.0) Aspartate Amino Transf (AST/SGOT) 82 U/L (15-37) H Alanine Aminotransferase (ALT/SGPT) 53 U/L (12-78) Alkaline Phosphatase 170 U/L (46-116) H Total Protein 7.8 G/DL (6.4-8.2) Albumin 3.8 G/DL (3.4-5.0) Globulin 4.0 g/dL Albumin/Globulin Ratio 0.9 (1.0-2.7) L Current Medications Medications (Trade) Dose Ordered Sig/Yunior Route PRN Reason Start Time Stop Time Status Last Admin Dose Admin Acetaminophen (Tylenol) 650 mg Q4H PRN ORAL fever 09/25/18 20:45 10/25/18 20:44 Acetaminophen/ Hydrocodone Bitart ([place] 10/325) 1 tab Q4H PRN ORAL For Pain 09/28/18 11:00 10/05/18 10:59 Apixaban (Eliquis) 2.5 mg BID ORAL 09/26/18 18:00 10/26/18 17:59 09/29/18 08:39 Carvedilol (Coreg) 3.125 mg EVERY 12 HOURS ORAL 09/28/18 21:00 10/28/18 20:59 09/29/18 08:39 Dextrose (Dextrose 50%) 25 ml Q30M PRN IV Hypoglycemia 09/25/18 20:45 10/25/18 20:44 Dextrose (Dextrose 50%) 50 ml Q30M PRN IV Hypoglycemia 09/25/18 20:45 10/25/18 20:44 Digoxin (Lanoxin) 0.25 mg DAILY ORAL 09/28/18 09:00 10/28/18 08:59 09/29/18 08:38 Diltiazem HCl (Cardizem) 10 mg Q1H PRN IV HR>120BPM 09/26/18 12:30 10/26/18 12:29 09/27/18 08:53 Donepezil HCl (Aricept) 5 mg DAILY ORAL 09/28/18 09:00 10/28/18 08:59 09/29/18 08:38 Iopamidol (Isovue-370 150ml) 150 ml NOW PRN INJ Radiology Procedure 09/25/18 17:00 Isosorbide Mononitrate (Imdur) 30 mg Q12HR ORAL 09/27/18 21:00 10/27/18 20:59 09/29/18 08:38 Levofloxacin (Levaquin) 250 mg Q24H ORAL 09/27/18 21:00 10/04/18 20:59 09/28/18 20:31 Levothyroxine Sodium (Synthroid) 25 mcg DAILY@0630 ORAL 09/28/18 06:45 10/28/18 06:44 09/29/18 06:34 Lorazepam (Ativan 2mg/ml 1ml) 0.5 mg Q4H PRN IV For Anxiety 09/25/18 20:45 10/02/18 20:44 09/28/18 16:09 Memantine (Namenda) 10 mg DAILY ORAL 09/28/18 09:00 10/28/18 08:59 09/29/18 08:38 Morphine Sulfate (Morphine Sulfate) 2 mg Q4H PRN IVP For Pain 4-6 09/25/18 20:45 10/02/18 20:44 09/26/18 21:30 Morphine Sulfate (Morphine Sulfate) 4 mg Q4H PRN IVP For Pain 7-09/25/18 20:45 10/02/18 20:44 09/28/18 02:52 Ondansetron HCl (Zofran) 4 mg Q6H PRN IVP Nausea & Vomiting 09/25/18 20:45 10/25/18 20:44 Polyethylene Glycol (Miralax) 17 gm HSPRN PRN ORAL Constipation 09/25/18 20:45 10/25/18 20:44 Quetiapine Fumarate (SEROquel) 25 mg BID ORAL 09/27/18 18:00 10/27/18 17:59 09/29/18 08:40 Zolpidem Tartrate (Ambien) 5 mg HSPRN PRN ORAL Insomnia 09/25/18 20:45 10/02/18 20:44 09/26/18 23:34 Fanny Lugo M.D. September 29, 2018 11:47
[2018-09-29 12:00] VITALS: BP 139/64
--- NOTE | 2018-09-29 12:56 | Neurology Progress Note ---
Interim History Interim History ROS Limited/Unobtainable: No Complaints: LBP Events: Awaiting completion of L Spine MRI Interim History Intermittent pain but more well controlled overall at this time secondary to opioid use. Objective Physical Exam Last Vital Signs Date Time Temp Pulse Resp B/P (MAP) Pulse Ox O2 Delivery O2 Flow Rate FiO2 09/29/18 12:00 97.5 87 18 139/64 (89) 98 09/29/18 12:00 Room Air Laboratory Tests Test 09/29/18 04:00 White Blood Count 4.1 K/UL (4.8-10.8) L Red Blood Count 4.37 M/UL (4.20-5.40) Hemoglobin 14.3 G/DL (12.0-16.0) Hematocrit 43.3 % (37.0-47.0) Mean Corpuscular Volume 99 FL (80-99) Mean Corpuscular Hemoglobin 32.7 PG (27.0-31.0) H Mean Corpuscular Hemoglobin Concent 32.9 G/DL (32.0-36.0) Red Cell Distribution Width 14.8 % (11.6-14.8) Platelet Count 152 K/UL (150-450) Mean Platelet Volume 5.5 FL (6.5-10.1) L Neutrophils (%) (Auto) 48.1 % (45.0-75.0) Lymphocytes (%) (Auto) 28.2 % (20.0-45.0) Monocytes (%) (Auto) 9.4 % (1.0-10.0) Eosinophils (%) (Auto) 6.8 % (0.0-3.0) H Basophils (%) (Auto) 7.4 % (0.0-2.0) H Sodium Level 135 MMOL/L (136-145) L Potassium Level 5.9 MMOL/L (3.5-5.1) H Chloride Level 97 MMOL/L (98-107) L Carbon Dioxide Level 22 MMOL/L (21-32) Anion Gap 15 mmol/L (5-15) Blood Urea Nitrogen 34 mg/dL (7-18) H Creatinine 1.1 MG/DL (0.55-1.30) Estimat Glomerular Filtration Rate mL/min (>60) Glucose Level 85 MG/DL (74-106) Calcium Level 9.7 MG/DL (8.5-10.1) Total Bilirubin 0.9 MG/DL (0.2-1.0) Aspartate Amino Transf (AST/SGOT) 82 U/L (15-37) H Alanine Aminotransferase (ALT/SGPT) 53 U/L (12-78) Alkaline Phosphatase 170 U/L (46-116) H Total Protein 7.8 G/DL (6.4-8.2) Albumin 3.8 G/DL (3.4-5.0) Globulin 4.0 g/dL Albumin/Globulin Ratio 0.9 (1.0-2.7) L Neurologic Exam Mental Status: awake, alert, oriented x4, normal cognition, good mathematical skills, normal recent memory, normal remote memory, preserved visuospatial function Speech: normal speech, no dysarthia Language: normal language, no aphasia Cranial Nerve II: fundus normal, visual daley, no papilledema Cranial Nerves III, IV, : PERRLA, EOMI, pupils Cranial Nerve V: normal facial sensations, temporales function normal, masseters function normal, pterygoids function normal Cranial Nerve VII: no facial asymmetry, normal facial expressions Cranial Nerve VIII: normal hearing, no nystagmus Cranial Nerve IX: normal palate elevation, gag response Cranial Nerve X: no voice hoarseness Cranial Nerve XI: SCM symmetric, trapezii function normal Cranial Nerve XII: tongue midline, no tongue atrophy/fasciculations Motor System: normal muscle tone, strength 5/5, no involuntary movement, no muscle wasting Sensory: normal pinprick, normal light touch, normal position sense, normal graphesthesia Coordination: normal finger to nose bilaterally, normal heel to cason bilaterally, negative Romberg test Deep Tendon Reflexes: 2+ bicep (L), 2+ bicep (R), 2+ tricep (L), 2+ tricep (R) , 2+ brachioradialis (L), 2+ brachioradialis (R), 2+ knee (L), 2+ knee (R), 2+ ankle (L), 2+ ankle (R) Stance: normal Gait: stable, normal regular Impression/Recommendations Problems: (1) Constipation (2) Urinary tract infection (3) Spinal stenosis (4) Atrial fibrillation with RVR (5) Intractable back pain (6) Subclinical hypothyroidism (7) EF 15% Status: stable, unchanged Recommendations Continue Q 4 Neurovascular obs Treat UTI with abx Correct Replete lytes - hyperkalemia on labs Consider Gabapentin if patient requires more opioid PRNs - doesn't appear to be needing this at this time. Maintain normothermia MRI L Spine with surgical consult= mainly for discussion of injectable therapy as patient is likely unable to have any surgery secondary to poor cardiac function/ age Awaiting completion of study- She remains ambulatory with improved pain overall secondary to opioid use. Kady López N.P. September 29, 2018 12:56
--- NOTE | 2018-09-29 14:31 | NUR ---
*-* INSURANCE *-* UPDATED CLINICALS HAVE BEEN FAXED TO: [facility] #PENDING [facility]:ABBI Easley [id number] [phone]
--- NOTE | 2018-09-29 14:42 | Diagnostic Imaging Report ---
Indication: Back pain Technique: MRI examination of the lumbar spine was performed in a 1.5 Irish magnet. Sequences obtained include sagittal and axial T1 and T2 fast spin echo, and sagittal STIR. Comparison: none Findings: Conus medullaris is seen at L1. Bone marrow signal is essentially normal with no evidence of bone marrow edema or fracture. There is severe degenerative disc disease and facet arthropathy at multiple levels within the lumbar spine. Disc disease is characterized by desiccation, narrowing and hypertrophic endplate spur formation. Variable degrees of concentric appearing disc protrusions demonstrated in association with endplate spur formation (disc osteophyte complex). T12-L1 shows mild bilateral foraminal stenosis. No central stenosis seen. L1-2: Mild central spinal stenosis demonstrated. Moderate to severe bilateral foraminal stenosis demonstrated. L2-3: Severe narrowing of the central canal demonstrated. There is narrowing of the lateral recess. Moderate to severe bilateral foraminal stenosis is present. L3-4: There is severe stenosis of the central canal lateral recess. There is a severe bilateral foraminal stenosis. L4-5: There is severe central spinal stenosis and narrowing of the lateral recesses. There is severe bilateral foraminal stenosis. L5-S1: There is narrowing of the lateral recess and moderate to severe bilateral foraminal stenosis. The central canal is capacious. There are multiple cysts present within both kidneys. IMPRESSION: Moderate to severe multilevel spinal stenosis involving the central canal and lateral recess and bilateral foramina as described above. This is due to combination of factors including severe degenerative disc disease and facet arthropathy.
--- NOTE | 2018-09-29 14:45 | General Progress Note ---
Assessment/Plan Problem List: (1) CHF (congestive heart failure) ICD Codes: I50.9 - Heart failure, unspecified SNOMED: 49841871 (2) Chronic a-fib ICD Codes: I48.2 - Chronic atrial fibrillation SNOMED: 323566031 (3) Spinal stenosis ICD Codes: M48.00 - Spinal stenosis, site unspecified SNOMED: 16435703 (4) Atrial fibrillation with RVR ICD Codes: I48.91 - Unspecified atrial fibrillation SNOMED: 685408510408363 (5) Intractable back pain ICD Codes: M54.9 - Dorsalgia, unspecified SNOMED: 216754568 (6) Subclinical hypothyroidism ICD Codes: E03.9 - Hypothyroidism, unspecified SNOMED: 61792578 (7) Tachy-christen syndrome ICD Codes: I49.5 - Sick sinus syndrome SNOMED: 18309562 Status: stable, unchanged Assessment/Plan: pt diet pain control cbc bmp am pending pace maker, dc plan alcott snf Subjective Constitutional: Reports: weakness Allergies: Coded Allergies: No Known Allergies (Unverified , 09/25/18) All Systems: reviewed and negative except above Subjective eating calm, daughter agree w pacemaker Objective Last 24 Hour Vital Signs Date Time Temp Pulse Resp B/P (MAP) Pulse Ox O2 Delivery O2 Flow Rate FiO2 09/29/18 12:00 97.5 87 18 139/64 (89) 98 09/29/18 12:00 105 09/29/18 12:00 Room Air 09/29/18 08:39 123/81 09/29/18 08:39 84 123/81 09/29/18 08:38 84 09/29/18 08:38 123/81 09/29/18 08:00 Room Air 09/29/18 08:00 97.0 84 18 123/81 (95) 99 09/29/18 08:00 88 09/29/18 04:00 67 09/29/18 04:00 Room Air 09/29/18 04:00 97.2 70 16 137/86 (103) 97 09/29/18 00:00 Room Air 09/29/18 00:00 97.3 84 16 126/66 (86) 96 09/29/18 00:00 67 09/28/18 21:25 131/79 09/28/18 20:45 138/88 09/28/18 20:31 75 138/88 09/28/18 20:00 97.3 75 16 138/88 (105) 100 09/28/18 20:00 Room Air 09/28/18 20:00 59 09/28/18 16:00 62 09/28/18 16:00 97.7 67 22 131/58 (82) 96 09/28/18 16:00 Room Air Intake and Output 09/28/18 09/29/18 19:00 07:00 Intake Total 480 ml Balance 480 ml Intake Oral 480 ml # Voids 2 2 Laboratory Tests 09/29/18 04:00: White Blood Count 4.1L, Red Blood Count 4.37, Hemoglobin 14.3, Hematocrit 43.3, Mean Corpuscular Volume 99, Mean Corpuscular Hemoglobin 32.7H, Mean Corpuscular Hemoglobin Concent 32.9, Red Cell Distribution Width 14.8, Platelet Count 152, Mean Platelet Volume 5.5L, Neutrophils (%) (Auto) 48.1, Lymphocytes (%) (Auto) 28.2, Monocytes (%) (Auto) 9.4, Eosinophils (%) (Auto) 6.8H, Basophils (%) (Auto ) 7.4H, Sodium Level 135L, Potassium Level 5.9H, Chloride Level 97L, Carbon Dioxide Level 22, Anion Gap 15, Blood Urea Nitrogen 34H, Creatinine 1.1, Estimat Glomerular Filtration Rate , Glucose Level 85, Calcium Level 9.7, Total Bilirubin 0.9, Aspartate Amino Transf (AST/SGOT) 82H, Alanine Aminotransferase ( ALT/SGPT) 53, Alkaline Phosphatase 170H, Total Protein 7.8, Albumin 3.8, Globulin 4.0, Albumin/Globulin Ratio 0.9L Height (Feet): 5 Height (Inches): 4.00 Weight (Pounds): 116 General Appearance: lethargic EENT: normal ENT inspection Neck: normal alignment Cardiovascular: normal peripheral pulses, normal rate, regular rhythm Respiratory/Chest: chest wall non-tender, lungs clear, normal breath sounds Abdomen: normal bowel sounds, non tender, soft Extremities: normal inspection Edema: no edema noted Arm (L), no edema noted Arm (R), no edema noted Leg (L), no edema noted Leg (R), no edema noted Pedal (L), no edema noted Pedal (R), no edema noted Generalized Neurologic: motor weakness Skin: normal pigmentation, warm/dry Hugh Pressley DO September 29, 2018 14:45
--- NOTE | 2018-09-29 15:28 | General Progress Note ---
Assessment/Plan Problem List: (1) Subclinical hypothyroidism ICD Codes: E03.9 - Hypothyroidism, unspecified SNOMED: 35646099 (2) Intractable back pain ICD Codes: M54.9 - Dorsalgia, unspecified SNOMED: 491887899 (3) Atrial fibrillation with RVR ICD Codes: I48.91 - Unspecified atrial fibrillation SNOMED: 426805857996084 (4) Spinal stenosis ICD Codes: M48.00 - Spinal stenosis, site unspecified SNOMED: 14382247 (5) Urinary tract infection ICD Codes: N39.0 - Urinary tract infection, site not specified SNOMED: 41140601 Status: stable, unchanged Assessment/Plan: TSH is repeated and elevation is confirmed free T4 and free T3 are normal continue Levothyroxine 25 mcg daily Subjective ROS Limited/Unobtainable: Yes Allergies: Coded Allergies: No Known Allergies (Unverified , 09/25/18) Subjective events noted interval notes reviewed Objective Last 24 Hour Vital Signs Date Time Temp Pulse Resp B/P (MAP) Pulse Ox O2 Delivery O2 Flow Rate FiO2 09/29/18 12:00 97.5 87 18 139/64 (89) 98 09/29/18 12:00 105 09/29/18 12:00 Room Air 09/29/18 08:39 123/81 09/29/18 08:39 84 123/81 09/29/18 08:38 84 09/29/18 08:38 123/81 09/29/18 08:00 Room Air 09/29/18 08:00 97.0 84 18 123/81 (95) 99 09/29/18 08:00 88 09/29/18 04:00 67 09/29/18 04:00 Room Air 09/29/18 04:00 97.2 70 16 137/86 (103) 97 09/29/18 00:00 Room Air 09/29/18 00:00 97.3 84 16 126/66 (86) 96 09/29/18 00:00 67 09/28/18 21:25 131/79 09/28/18 20:45 138/88 09/28/18 20:31 75 138/88 09/28/18 20:00 97.3 75 16 138/88 (105) 100 09/28/18 20:00 Room Air 09/28/18 20:00 59 09/28/18 16:00 62 09/28/18 16:00 97.7 67 22 131/58 (82) 96 09/28/18 16:00 Room Air Intake and Output 09/28/18 09/29/18 19:00 07:00 Intake Total 480 ml Balance 480 ml Intake Oral 480 ml # Voids 2 2 Laboratory Tests 09/29/18 04:00: White Blood Count 4.1L, Red Blood Count 4.37, Hemoglobin 14.3, Hematocrit 43.3, Mean Corpuscular Volume 99, Mean Corpuscular Hemoglobin 32.7H, Mean Corpuscular Hemoglobin Concent 32.9, Red Cell Distribution Width 14.8, Platelet Count 152, Mean Platelet Volume 5.5L, Neutrophils (%) (Auto) 48.1, Lymphocytes (%) (Auto) 28.2, Monocytes (%) (Auto) 9.4, Eosinophils (%) (Auto) 6.8H, Basophils (%) (Auto ) 7.4H, Sodium Level 135L, Potassium Level 5.9H, Chloride Level 97L, Carbon Dioxide Level 22, Anion Gap 15, Blood Urea Nitrogen 34H, Creatinine 1.1, Estimat Glomerular Filtration Rate , Glucose Level 85, Calcium Level 9.7, Total Bilirubin 0.9, Aspartate Amino Transf (AST/SGOT) 82H, Alanine Aminotransferase ( ALT/SGPT) 53, Alkaline Phosphatase 170H, Total Protein 7.8, Albumin 3.8, Globulin 4.0, Albumin/Globulin Ratio 0.9L Height (Feet): 5 Height (Inches): 4.00 Weight (Pounds): 116 General Appearance: no apparent distress Neck: normal alignment Cardiovascular: arrhythmia Respiratory/Chest: lungs clear Abdomen: normal bowel sounds Pelvis: normal external exam Edema: no edema noted Arm (L), no edema noted Arm (R), no edema noted Leg (L), no edema noted Leg (R), no edema noted Pedal (L), no edema noted Pedal (R), no edema noted Generalized Objective Current Medications Medications (Trade) Dose Ordered Sig/Yunior Route PRN Reason Start Time Stop Time Status Last Admin Dose Admin Acetaminophen (Tylenol) 650 mg Q4H PRN ORAL fever 09/25/18 20:45 10/25/18 20:44 Acetaminophen/ Hydrocodone Bitart ([place] 10/325) 1 tab Q4H PRN ORAL For Pain 09/28/18 11:00 10/05/18 10:59 Apixaban (Eliquis) 2.5 mg BID ORAL 09/26/18 18:00 10/26/18 17:59 09/29/18 08:39 Carvedilol (Coreg) 3.125 mg EVERY 12 HOURS ORAL 09/28/18 21:00 10/28/18 20:59 09/29/18 08:39 Dextrose (Dextrose 50%) 25 ml Q30M PRN IV Hypoglycemia 09/25/18 20:45 10/25/18 20:44 Dextrose (Dextrose 50%) 50 ml Q30M PRN IV Hypoglycemia 09/25/18 20:45 10/25/18 20:44 Digoxin (Lanoxin) 0.25 mg DAILY ORAL 09/28/18 09:00 10/28/18 08:59 09/29/18 08:38 Diltiazem HCl (Cardizem) 10 mg Q1H PRN IV HR>120BPM 09/26/18 12:30 10/26/18 12:29 09/27/18 08:53 Donepezil HCl (Aricept) 5 mg DAILY ORAL 09/28/18 09:00 10/28/18 08:59 09/29/18 08:38 Iopamidol (Isovue-370 150ml) 150 ml NOW PRN INJ Radiology Procedure 09/25/18 17:00 Isosorbide Mononitrate (Imdur) 30 mg Q12HR ORAL 09/27/18 21:00 10/27/18 20:59 09/29/18 08:38 Levofloxacin (Levaquin) 250 mg Q24H ORAL 09/27/18 21:00 09/30/18 23:00 09/28/18 20:31 Levothyroxine Sodium (Synthroid) 25 mcg DAILY@0630 ORAL 09/28/18 06:45 10/28/18 06:44 09/29/18 06:34 Lorazepam (Ativan 2mg/ml 1ml) 0.5 mg Q4H PRN IV For Anxiety 09/25/18 20:45 10/02/18 20:44 09/28/18 16:09 Memantine (Namenda) 10 mg DAILY ORAL 09/28/18 09:00 10/28/18 08:59 09/29/18 08:38 Morphine Sulfate (Morphine Sulfate) 2 mg Q4H PRN IVP For Pain 4-6 09/25/18 20:45 10/02/18 20:44 09/26/18 21:30 Morphine Sulfate (Morphine Sulfate) 4 mg Q4H PRN IVP For Pain 7-10 09/25/18 20:45 10/02/18 20:44 09/28/18 02:52 Ondansetron HCl (Zofran) 4 mg Q6H PRN IVP Nausea & Vomiting 09/25/18 20:45 10/25/18 20:44 Polyethylene Glycol (Miralax) 17 gm HSPRN PRN ORAL Constipation 09/25/18 20:45 10/25/18 20:44 Quetiapine Fumarate (SEROquel) 25 mg BID ORAL 09/27/18 18:00 10/27/18 17:59 09/29/18 08:40 Zolpidem Tartrate (Ambien) 5 mg HSPRN PRN ORAL Insomnia 09/25/18 20:45 10/02/18 20:44 09/26/18 23:34 Herber Velazquez MD September 29, 2018 15:28
[2018-09-29 16:00] VITALS: BP 140/84
--- NOTE | 2018-09-29 16:43 | NUR ---
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 AFIB W/RVR . UTI VS: BP 140/84, P 105, T 97.5, RR 18, SpO2 95 WBC 4.1, NA 135, K 5.9, BUN 34 IS: KAYEXALATE 30gm ELIQUIS 25mg COREG 3.125mg VASOTEK 2.5mg IMDUR 30mg DIGOXIN 0.25mg SYNTHROID 25mcg MEMANTINE 10mg ARICEPT 5mg SDU STATUS
--- NOTE | 2018-09-29 18:49 | NUR ---
NURSE NOTES: IV pulled out by patient while eating dinner. Attempted IV insertion x1 but patient uncooperative and started to get agitated. patient's daughter at bedside, requested for patient to have IV inserted after change of shift. explained risks and consequences of not having IV line in place, patient's daughter verbalized understanding but insisted on refusing IV placement at this time. respected patient and patient's daughter's wishes. will endorse to shiftman.
--- NOTE | 2018-09-29 19:03 | NUR ---
HAND-OFF: Report given to ENRIQUETA Barlow. patient is stable at this time. nurse aware that patient needs IV line. Charge nurse Suraj also aware.
--- NOTE | 2018-09-29 19:04 | NUR ---
NURSE NOTES: BEDSIDE REPORT RECEIVED FROM ENRIQUETA MURGUIA. PT IS X1, CONFUSED, FAMILY AT BEDSIDE. 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 RA, SATING WELL. SKIN IS CLEAN, DRY, INTACT. PT HAS NO IV SITE, PULLED OUT UPON ARRIVAL. WILL PLACE DEMETRIUS, CHARGE AWARE. LABS OK, RECEIVED 30 OF KAYEXALATE. PT TO RECEIVED AICD HERE AT [facility], FAMILY AWARE. BED IS LOCKED IN LOWEST POSITION, SR X3, CALL [facility] W/ IN REACH, BED ALARM ON. WILL CONTINUE TO MONITOR AND FOLLOW W/ PLAN OF CARE.
[2018-09-29 20:00] VITALS: BP 120/92
--- NOTE | 2018-09-29 20:37 | Cardiology Report ---
APPROVED REPORT EXAM: Two-dimensional and M-mode echocardiogram with Doppler and color Doppler. INDICATION Arrhythmia M-Mode DIMENSIONS IVSd1.2 (0.7-1.1cm)Left Atrium (MM)4.8 (1.6-4.0cm) LVDd4.4 (3.5-5.6cm)Aortic Root3.1 (2.0-3.7cm) PWd1.2 (0.7-1.1cm)Aortic Cusp Exc.1.9 (1.5-2.0cm) LVDs3.9 (2.5-4.0cm) PWs1.4 cm Normal left ventricular chamber size. Severe global left ventricular hypokinesis. There is anteroseptal, anterior, basal inferior, and apical akinesia. Ischemic cardiomyopathy can not be excluded. Left ventricular ejection fraction estimated to be 15-20 %. No evidence of left ventricular hypertrophy. Small posterior pericardial effusion. Moderate bi-atrial enlargement. Mild right ventricular enlargement with low systolic function. Focal aortic valve sclerosis with adequate cusp excursion. Thickened mitral valve leaflets with normal excursion. Mitral annulus and aortic root calcification. Pulmonic valve not well visualized. Normal tricuspid valve structure. IVC dilated at 2.6 cm without physiologic collapse suggestive of increased RA pressure. A color flow and spectral Doppler study was performed and revealed: Mild aortic regurgitation. Moderate mitral regurgitation. Can not determine left ventricular diastolic function by mitral diastolic velocities due to atrial fibrillation. Moderate tricuspid regurgitation. Tricuspid systolic velocities suggests peak right ventricular systolic pressure of 71 mmHg, consistent with severe pulmonary hypertension. Pulmonic regurgitation present.
--- NOTE | 2018-09-29 23:53 | Cardiology Progress Note ---
Assessment/Plan Assessment/Plan 1. Four-chamber and dilated cardiomyopathy with areas of wall motion abnormalities suggestive of possible ischemic cardiomyopathy, LVEF ~ 15-20%. Continue GDMT. 2. Atrial fibrillation with controlled ventricular response, on carvedilol, Eliquis and digoxin. 3. History of hypertension. Subjective Subjective Atrial fibrillation with rapid ventricular response. Objective Last 24 Hour Vital Signs Date Time Temp Pulse Resp B/P (MAP) Pulse Ox O2 Delivery O2 Flow Rate FiO2 09/29/18 20:22 112 120/92 09/29/18 20:22 120/92 09/29/18 20:00 Room Air 09/29/18 20:00 99 09/29/18 20:00 96.8 112 16 120/92 (101) 98 09/29/18 16:00 97 09/29/18 16:00 98.1 81 18 140/84 (102) 95 09/29/18 16:00 Room Air 09/29/18 12:00 97.5 87 18 139/64 (89) 98 09/29/18 12:00 105 09/29/18 12:00 Room Air 09/29/18 08:39 123/81 09/29/18 08:39 84 123/81 09/29/18 08:38 84 09/29/18 08:38 123/81 09/29/18 08:00 Room Air 09/29/18 08:00 97.0 84 18 123/81 (95) 99 09/29/18 08:00 88 09/29/18 04:00 67 09/29/18 04:00 Room Air 09/29/18 04:00 97.2 70 16 137/86 (103) 97 09/29/18 00:00 Room Air 09/29/18 00:00 97.3 84 16 126/66 (86) 96 09/29/18 00:00 67 Intake and Output 09/28/18 09/29/18 19:00 07:00 Intake Total 480 ml Balance 480 ml Intake Oral 480 ml # Voids 2 2 2D Echo: 4C-DCM, + WM, LVEF 20%, Small Kitty.Effusion, RVSP 71 mmHg, Mild AR, Mod MR, Laboratory Tests Test 09/29/18 04:00 White Blood Count 4.1 K/UL (4.8-10.8) L Red Blood Count 4.37 M/UL (4.20-5.40) Hemoglobin 14.3 G/DL (12.0-16.0) Hematocrit 43.3 % (37.0-47.0) Mean Corpuscular Volume 99 FL (80-99) Mean Corpuscular Hemoglobin 32.7 PG (27.0-31.0) H Mean Corpuscular Hemoglobin Concent 32.9 G/DL (32.0-36.0) Red Cell Distribution Width 14.8 % (11.6-14.8) Platelet Count 152 K/UL (150-450) Mean Platelet Volume 5.5 FL (6.5-10.1) L Neutrophils (%) (Auto) 48.1 % (45.0-75.0) Lymphocytes (%) (Auto) 28.2 % (20.0-45.0) Monocytes (%) (Auto) 9.4 % (1.0-10.0) Eosinophils (%) (Auto) 6.8 % (0.0-3.0) H Basophils (%) (Auto) 7.4 % (0.0-2.0) H Sodium Level 135 MMOL/L (136-145) L Potassium Level 5.9 MMOL/L (3.5-5.1) H Chloride Level 97 MMOL/L (98-107) L Carbon Dioxide Level 22 MMOL/L (21-32) Anion Gap 15 mmol/L (5-15) Blood Urea Nitrogen 34 mg/dL (7-18) H Creatinine 1.1 MG/DL (0.55-1.30) Estimat Glomerular Filtration Rate mL/min (>60) Glucose Level 85 MG/DL (74-106) Calcium Level 9.7 MG/DL (8.5-10.1) Total Bilirubin 0.9 MG/DL (0.2-1.0) Aspartate Amino Transf (AST/SGOT) 82 U/L (15-37) H Alanine Aminotransferase (ALT/SGPT) 53 U/L (12-78) Alkaline Phosphatase 170 U/L (46-116) H Total Protein 7.8 G/DL (6.4-8.2) Albumin 3.8 G/DL (3.4-5.0) Globulin 4.0 g/dL Albumin/Globulin Ratio 0.9 (1.0-2.7) L Objective HEENT: Atraumatic, normocephalic, anicteric. Pupils are equal, round, and reactive to light and accommodation. Extraocular muscles are intact. NECK: JVP is elevated about 12 cm. No carotid bruit. Carotid upstroke is 2+ bilaterally. CVS: Normal S1, S2. Irregular irregular rhythm. A 2/6 holosystolic murmur at the apex. LUNGS: Clear to auscultation bilaterally. ABDOMEN: Soft, nontender, and nondistended. No hepatosplenomegaly. Positive bowel sounds. EXTREMITIES: No evidence of edema, clubbing, or cyanosis. Mark Manuel MD September 29, 2018 23:53
[2018-09-30] VITALS: BP 128/79
[2018-09-30] MEDS: HYDROcodone/Acetamin 10/325 tab ORAL PRN ×2 (00:01→11:22)
--- NOTE | 2018-09-30 03:18 | Neurology Progress Note ---
Interim History Interim History ROS Limited/Unobtainable: Yes Complaints: LBP Events: Lumbar Spine MRI completed- pain controlled Objective Physical Exam Last Vital Signs Date Time Temp Pulse Resp B/P (MAP) Pulse Ox O2 Delivery O2 Flow Rate FiO2 09/30/18 00:31 97.9 09/30/18 00:00 Room Air 09/30/18 00:00 91 16 128/79 (95) 96 Laboratory Tests Test 09/29/18 04:00 White Blood Count 4.1 K/UL (4.8-10.8) L Red Blood Count 4.37 M/UL (4.20-5.40) Hemoglobin 14.3 G/DL (12.0-16.0) Hematocrit 43.3 % (37.0-47.0) Mean Corpuscular Volume 99 FL (80-99) Mean Corpuscular Hemoglobin 32.7 PG (27.0-31.0) H Mean Corpuscular Hemoglobin Concent 32.9 G/DL (32.0-36.0) Red Cell Distribution Width 14.8 % (11.6-14.8) Platelet Count 152 K/UL (150-450) Mean Platelet Volume 5.5 FL (6.5-10.1) L Neutrophils (%) (Auto) 48.1 % (45.0-75.0) Lymphocytes (%) (Auto) 28.2 % (20.0-45.0) Monocytes (%) (Auto) 9.4 % (1.0-10.0) Eosinophils (%) (Auto) 6.8 % (0.0-3.0) H Basophils (%) (Auto) 7.4 % (0.0-2.0) H Sodium Level 135 MMOL/L (136-145) L Potassium Level 5.9 MMOL/L (3.5-5.1) H Chloride Level 97 MMOL/L (98-107) L Carbon Dioxide Level 22 MMOL/L (21-32) Anion Gap 15 mmol/L (5-15) Blood Urea Nitrogen 34 mg/dL (7-18) H Creatinine 1.1 MG/DL (0.55-1.30) Estimat Glomerular Filtration Rate mL/min (>60) Glucose Level 85 MG/DL (74-106) Calcium Level 9.7 MG/DL (8.5-10.1) Total Bilirubin 0.9 MG/DL (0.2-1.0) Aspartate Amino Transf (AST/SGOT) 82 U/L (15-37) H Alanine Aminotransferase (ALT/SGPT) 53 U/L (12-78) Alkaline Phosphatase 170 U/L (46-116) H Total Protein 7.8 G/DL (6.4-8.2) Albumin 3.8 G/DL (3.4-5.0) Globulin 4.0 g/dL Albumin/Globulin Ratio 0.9 (1.0-2.7) L Neurologic Exam Mental Status: awake, alert, oriented x4, normal cognition, good mathematical skills, normal recent memory, normal remote memory, preserved visuospatial function Speech: normal speech, no dysarthia Language: normal language, no aphasia Cranial Nerve II: fundus normal, visual daley, no papilledema Cranial Nerves III, IV, : PERRLA, EOMI, pupils Cranial Nerve V: normal facial sensations, temporales function normal, masseters function normal, pterygoids function normal Cranial Nerve VII: no facial asymmetry, normal facial expressions Cranial Nerve VIII: normal hearing, no nystagmus Cranial Nerve IX: normal palate elevation, gag response Cranial Nerve X: no voice hoarseness Cranial Nerve XI: SCM symmetric, trapezii function normal Cranial Nerve XII: tongue midline, no tongue atrophy/fasciculations Motor System: normal muscle tone, strength 5/5, no involuntary movement, no muscle wasting Sensory: normal pinprick, normal light touch, normal position sense, normal graphesthesia Coordination: normal finger to nose bilaterally, normal heel to cason bilaterally, negative Romberg test Deep Tendon Reflexes: 1+ knee (L), 1+ knee (R), 1+ ankle (L), 1+ ankle (R); 2+ bicep (L), 2+ bicep (R), 2+ tricep (L), 2+ tricep (R), 2+ brachioradialis (L), 2 + brachioradialis (R) Stance: normal Gait: stable, normal regular Impression/Recommendations Problems: (1) Constipation (2) Urinary tract infection (3) Spinal stenosis (4) Atrial fibrillation with RVR (5) Intractable back pain (6) Subclinical hypothyroidism (7) EF 15% Status: stable, unchanged Recommendations Continue Q 4 Neurovascular obs Consider Gabapentin if patient requires more opioid PRNs - doesn't appear to be needing this at this time. Maintain normothermia Conus medullaris is seen at L1. Bone marrow signal is essentially normal with no evidence of bone marrow edema or fracture. There is severe degenerative disc disease and facet arthropathy at multiple levels within the lumbar spine. Disc disease is characterized by desiccation, narrowing and hypertrophic endplate spur formation. Variable degrees of concentric appearing disc protrusions demonstrated in association with endplate spur formation (disc osteophyte complex). T12-L1 shows mild bilateral foraminal stenosis. No central stenosis seen. L1-2: Mild central spinal stenosis demonstrated. Moderate to severe bilateral foraminal stenosis demonstrated. L2-3: Severe narrowing of the central canal demonstrated. There is narrowing of the lateral recess. Moderate to severe bilateral foraminal stenosis is present. L3-4: There is severe stenosis of the central canal lateral recess. There is a severe bilateral foraminal stenosis. L4-5: There is severe central spinal stenosis and narrowing of the lateral recesses. There is severe bilateral foraminal stenosis. L5-S1: There is narrowing of the lateral recess and moderate to severe bilateral foraminal stenosis. The central canal is capacious. There are multiple cysts present within both kidneys. IMPRESSION: Moderate to severe multilevel spinal stenosis involving the central canal and lateral recess and bilateral foramina as described above. This is due to combination of factors including severe degenerative disc disease and facet arthropathy. May discuss injectable therapy as patient is likely unable to have any surgery secondary to poor cardiac function/ age No acute fractures or She remains ambulatory with improved pain overall secondary to opioid use. Kady óLpez N.P. September 30, 2018 03:18
[2018-09-30 04:00] VITALS: BP 119/85
[2018-09-30] MEDS: Morphine Sulfate 2mg/ml Inj(IV/IM USE ONLY) IVP PRN (04:09)
[2018-09-30 04:39] LABS: BASOPHILS % (AUTO) 1.1 % (0.0-2.0); EOSINOPHILS % (AUTO) 7.9 % (0.0-3.0); HEMOGLOBIN 13.7 G/DL (12.0-16.0); MEAN CORPUSCULAR VOLUME 97 FL (80-99); MONOCYTES % (AUTO) 10.8 % (1.0-10.0); NEUTROPHILS % (AUTO) 53.3 % (45.0-75.0); PLATELET COUNT 163 K/UL (150-450); RED BLOOD COUNT 4.22 M/UL (4.20-5.40); RED CELL DISTRIBUTION WIDTH 14.7 % (11.6-14.8); WHITE BLOOD COUNT 4.1 K/UL (4.8-10.8)
[2018-09-30 05:06] LABS: ANION GAP 5 mmol/L (5-15); BLOOD UREA NITROGEN 25 mg/dL (7-18); CALCIUM 8.8 MG/DL (8.5-10.1); CARBON DIOXIDE 29 MMOL/L (21-32); CHLORIDE 104 MMOL/L (98-107); PHOSPHORUS 2.9 MG/DL (2.5-4.9); POTASSIUM 3.6 MMOL/L (3.5-5.1); SODIUM 138 MMOL/L (136-145)
--- NOTE | 2018-09-30 05:26 | NUR ---
HAND-OFF: Report given to ENRIQUETA GARCIA.
--- NOTE | 2018-09-30 06:00 | Consultation ---
DATE OF CONSULTATION: 09/19/2018 CARDIAC ELECTROPHYSIOLOGY CONSULTATION CONSULTING PHYSICIAN: Mark Sanders M.D. REFERRING PHYSICIAN: Hugh Pressley D.O. REASON FOR CONSULTATION: Evaluation for defibrillator implantation. HISTORY OF PRESENT ILLNESS: The patient is an 88-year-old [place] lady who was admitted to the hospital with palpitation and was found to be in atrial fibrillation with ventricular response, heart rate up to 130s. The patient also was found to have urinary tract infection. The patient's echocardiogram showed severe global left ventricular systolic dysfunction, ejection fraction about 15% and moderate mitral regurgitation and severe pulmonary hypertension with PA pressure of 71. The patient was evaluated by Dr. Manuel from Cardiology perspective and a cardiac electrophysiology consultation was requested for evaluation of the patient for defibrillator and management of atrial fibrillation. REVIEW OF SYSTEMS: Negative other than what was mentioned in the history of present illness. PAST MEDICAL HISTORY: As mentioned above. The patient's daughter states that the patient was admitted to [facility] a year ago and she has had cardiac catheterization about three years ago again at [facility]. MEDICATIONS: Per reconciliation. ALLERGIES: She has no known drug allergies. PHYSICAL EXAMINATION: VITAL SIGNS: Show blood pressure of 122/80, pulse 80, respirations 18, and she is afebrile. HEAD AND NECK: Shows positive JVD. LUNGS: Decreased breath sounds. CARDIOVASCULAR: Irregularly irregular S1 and S2 with no gallop or murmur. ABDOMEN: Soft. EXTREMITIES: A 1+ pitting edema. LABORATORY AND DIAGNOSTIC DATA: Her labs show white count of 4.1, hemoglobin of 14, hematocrit of 43, and platelet count is 152,000. Sodium 135, potassium is 5.9, BUN of 34, creatinine of 1.1, and glucose of 85. 18 and 11. ASSESSMENT AND PLAN: 1. Severe cardiomyopathy with EF of 15%. We will try to get the records from [facility] to evaluate the reason for the patient's cardiomyopathy as well as the duration of cardiomyopathy. The patient is already on Coreg 3.125 mg b.i.d. and enalapril 2.5 mg b.i.d. daily. If the records confirm that the patient's cardiomyopathy has been more than three months medical therapy, we will discuss the option of prophylactic defibrillator implantation with her and her family. 2. Atrial fibrillation with rapid ventricular response. Heart rate is better on combination of Coreg 3.125 mg b.i.d., digoxin 0.25 mg daily. The patient is also on Eliquis 2.5 mg b.i.d. 3. Hypothyroidism, on Synthroid. 4. Dementia. 5. History of hypertension. Current medication per Dr. Manuel. Thank you very much, Dr. Pressley, for allowing me to participate in the care of this patient. Please do not hesitate to contact me for any questions regarding my evaluation. Mark Sanders M.D. DR: ISIAH JOB#: [id number] CC:
--- NOTE | 2018-09-30 06:43 | General Progress Note ---
Assessment/Plan Problem List: (1) Subclinical hypothyroidism ICD Codes: E03.9 - Hypothyroidism, unspecified SNOMED: 02915348 (2) Intractable back pain ICD Codes: M54.9 - Dorsalgia, unspecified SNOMED: 759841939 (3) Atrial fibrillation with RVR ICD Codes: I48.91 - Unspecified atrial fibrillation SNOMED: 665096963264028 (4) Spinal stenosis ICD Codes: M48.00 - Spinal stenosis, site unspecified SNOMED: 08207986 (5) Urinary tract infection ICD Codes: N39.0 - Urinary tract infection, site not specified SNOMED: 24510499 Status: stable, unchanged Assessment/Plan: TSH is repeated and elevation is confirmed free T4 and free T3 are normal continue Levothyroxine 25 mcg daily Subjective Allergies: Coded Allergies: No Known Allergies (Unverified , 09/25/18) All Systems: reviewed and negative except above Subjective events noted interval notes reviewed Objective Last 24 Hour Vital Signs Date Time Temp Pulse Resp B/P (MAP) Pulse Ox O2 Delivery O2 Flow Rate FiO2 09/30/18 04:39 97.9 09/30/18 04:00 97.3 95 20 119/85 (96) 98 09/30/18 04:00 101 09/30/18 04:00 Room Air 09/30/18 00:31 97.9 09/30/18 00:00 Room Air 09/30/18 00:00 97.9 91 16 128/79 (95) 96 09/30/18 00:00 98 09/29/18 20:22 112 120/92 09/29/18 20:22 120/92 09/29/18 20:00 Room Air 09/29/18 20:00 99 09/29/18 20:00 96.8 112 16 120/92 (101) 98 09/29/18 16:00 97 09/29/18 16:00 98.1 81 18 140/84 (102) 95 09/29/18 16:00 Room Air 09/29/18 12:00 97.5 87 18 139/64 (89) 98 09/29/18 12:00 105 09/29/18 12:00 Room Air 09/29/18 08:39 123/81 09/29/18 08:39 84 123/81 09/29/18 08:38 84 09/29/18 08:38 123/81 09/29/18 08:00 Room Air 09/29/18 08:00 97.0 84 18 123/81 (95) 99 09/29/18 08:00 88 Intake and Output 09/29/18 09/30/18 19:00 07:00 Intake Total 960 ml 240 ml Balance 960 ml 240 ml Intake Oral 960 ml 240 ml # Voids 6 3 # Bowel Movements 3 Laboratory Tests 09/30/18 03:40: White Blood Count 4.1L, Red Blood Count 4.22, Hemoglobin 13.7, Hematocrit 41.0, Mean Corpuscular Volume 97, Mean Corpuscular Hemoglobin 32.4H, Mean Corpuscular Hemoglobin Concent 33.4, Red Cell Distribution Width 14.7, Platelet Count 163, Mean Platelet Volume 5.5L, Neutrophils (%) (Auto) 53.3, Lymphocytes (%) (Auto) 27.0, Monocytes (%) (Auto) 10.8H, Eosinophils (%) (Auto) 7.9H, Basophils (%) ( Auto) 1.1, Sodium Level 138, Potassium Level 3.6, Chloride Level 104, Carbon Dioxide Level 29, Anion Gap 5, Blood Urea Nitrogen 25H, Creatinine 1.0, Estimat Glomerular Filtration Rate , Glucose Level 98, Calcium Level 8.8, Phosphorus Level 2.9, Magnesium Level 2.1 Height (Feet): 5 Height (Inches): 4.00 Weight (Pounds): 116 General Appearance: no apparent distress EENT: normal ENT inspection Neck: normal alignment Cardiovascular: normal rate Respiratory/Chest: lungs clear Abdomen: normal bowel sounds Pelvis: normal external exam Objective Current Medications Medications (Trade) Dose Ordered Sig/Yunior Route PRN Reason Start Time Stop Time Status Last Admin Dose Admin Acetaminophen (Tylenol) 650 mg Q4H PRN ORAL fever 09/25/18 20:45 10/25/18 20:44 Acetaminophen/ Hydrocodone Bitart ([place] 10/325) 1 tab Q4H PRN ORAL For Pain 09/28/18 11:00 10/05/18 10:59 09/30/18 00:01 Apixaban (Eliquis) 2.5 mg BID ORAL 09/26/18 18:00 10/26/18 17:59 09/29/18 17:37 Carvedilol (Coreg) 3.125 mg EVERY 12 HOURS ORAL 09/28/18 21:00 10/28/18 20:59 09/29/18 20:22 Dextrose (Dextrose 50%) 25 ml Q30M PRN IV Hypoglycemia 09/25/18 20:45 10/25/18 20:44 Dextrose (Dextrose 50%) 50 ml Q30M PRN IV Hypoglycemia 09/25/18 20:45 10/25/18 20:44 Digoxin (Lanoxin) 0.25 mg DAILY ORAL 09/28/18 09:00 10/28/18 08:59 09/29/18 08:38 Diltiazem HCl (Cardizem) 10 mg Q1H PRN IV HR>120BPM 09/26/18 12:30 10/26/18 12:29 09/27/18 08:53 Donepezil HCl (Aricept) 5 mg DAILY ORAL 09/28/18 09:00 10/28/18 08:59 09/29/18 08:38 Iopamidol (Isovue-370 150ml) 150 ml NOW PRN INJ Radiology Procedure 09/25/18 17:00 Isosorbide Mononitrate (Imdur) 30 mg Q12HR ORAL 09/27/18 21:00 10/27/18 20:59 09/29/18 20:22 Levofloxacin (Levaquin) 250 mg Q24H ORAL 09/27/18 21:00 09/30/18 23:00 09/29/18 20:22 Levothyroxine Sodium (Synthroid) 25 mcg DAILY@0630 ORAL 09/28/18 06:45 10/28/18 06:44 09/29/18 06:34 Lorazepam (Ativan 2mg/ml 1ml) 0.5 mg Q4H PRN IV For Anxiety 09/25/18 20:45 10/02/18 20:44 09/28/18 16:09 Memantine (Namenda) 10 mg DAILY ORAL 09/28/18 09:00 10/28/18 08:59 09/29/18 08:38 Morphine Sulfate (Morphine Sulfate) 2 mg Q4H PRN IVP For Pain 4-6 09/25/18 20:45 10/02/18 20:44 09/30/18 04:09 Morphine Sulfate (Morphine Sulfate) 4 mg Q4H PRN IVP For Pain 7-10 09/25/18 20:45 10/02/18 20:44 09/28/18 02:52 Ondansetron HCl (Zofran) 4 mg Q6H PRN IVP Nausea & Vomiting 09/25/18 20:45 10/25/18 20:44 Polyethylene Glycol (Miralax) 17 gm HSPRN PRN ORAL Constipation 09/25/18 20:45 10/25/18 20:44 Quetiapine Fumarate (SEROquel) 25 mg BID ORAL 09/27/18 18:00 10/27/18 17:59 09/29/18 17:37 Zolpidem Tartrate (Ambien) 5 mg HSPRN PRN ORAL Insomnia 09/25/18 20:45 10/02/18 20:44 09/26/18 23:34 Herber Velazquez MD September 30, 2018 06:43
--- NOTE | 2018-09-30 07:30 | NUR ---
NURSE NOTES: Received patient from ENRIQUETA Ruelas. patient is awake and sitting at bedside. she is currently on room air. Right wrist IV 24 gauge saline lock patent and intact. patient's daughter is at bedside. bed in lowest position and locked, bed alarm is on. call light within reach. will continue to monitor. Addendum: 09/30/18 at 0741 by KARY GAYTAN RN RN siderails up X3
[2018-09-30] MEDS: Levothyroxine 25mcg tab ORAL SCH (07:31)
[2018-09-30 08:00] VITALS: BP 142/117
--- NOTE | 2018-09-30 08:21 | General Progress Note ---
Assessment/Plan Problem List: (1) CHF (congestive heart failure) ICD Codes: I50.9 - Heart failure, unspecified SNOMED: 43688141 (2) Chronic a-fib ICD Codes: I48.2 - Chronic atrial fibrillation SNOMED: 777728502 (3) Spinal stenosis ICD Codes: M48.00 - Spinal stenosis, site unspecified SNOMED: 47303730 (4) Atrial fibrillation with RVR ICD Codes: I48.91 - Unspecified atrial fibrillation SNOMED: 578173788421077 (5) Intractable back pain ICD Codes: M54.9 - Dorsalgia, unspecified SNOMED: 074847006 (6) Subclinical hypothyroidism ICD Codes: E03.9 - Hypothyroidism, unspecified SNOMED: 00937450 (7) Tachy-christen syndrome ICD Codes: I49.5 - Sick sinus syndrome SNOMED: 36779756 Status: stable, unchanged Assessment/Plan: pt diet pain control cbc bmp am pending pace maker, dc plan alcott snf Subjective Constitutional: Reports: weakness Allergies: Coded Allergies: No Known Allergies (Unverified , 09/25/18) All Systems: reviewed and negative except above Subjective sleepy calm Objective Last 24 Hour Vital Signs Date Time Temp Pulse Resp B/P (MAP) Pulse Ox O2 Delivery O2 Flow Rate FiO2 09/30/18 04:39 97.9 09/30/18 04:00 97.3 95 20 119/85 (96) 98 09/30/18 04:00 101 09/30/18 04:00 Room Air 09/30/18 00:31 97.9 09/30/18 00:00 Room Air 09/30/18 00:00 97.9 91 16 128/79 (95) 96 09/30/18 00:00 98 09/29/18 20:22 112 120/92 09/29/18 20:22 120/92 09/29/18 20:00 Room Air 09/29/18 20:00 99 09/29/18 20:00 96.8 112 16 120/92 (101) 98 09/29/18 16:00 97 09/29/18 16:00 98.1 81 18 140/84 (102) 95 09/29/18 16:00 Room Air 09/29/18 12:00 97.5 87 18 139/64 (89) 98 09/29/18 12:00 105 5/16/19 12:00 Room Air 09/29/18 08:39 123/81 09/29/18 08:39 84 123/81 09/29/18 08:38 84 09/29/18 08:38 123/81 Intake and Output 09/29/18 09/30/18 19:00 07:00 Intake Total 960 ml 240 ml Balance 960 ml 240 ml Intake Oral 960 ml 240 ml # Voids 6 3 # Bowel Movements 3 Laboratory Tests 09/30/18 03:40: White Blood Count 4.1L, Red Blood Count 4.22, Hemoglobin 13.7, Hematocrit 41.0, Mean Corpuscular Volume 97, Mean Corpuscular Hemoglobin 32.4H, Mean Corpuscular Hemoglobin Concent 33.4, Red Cell Distribution Width 14.7, Platelet Count 163, Mean Platelet Volume 5.5L, Neutrophils (%) (Auto) 53.3, Lymphocytes (%) (Auto) 27.0, Monocytes (%) (Auto) 10.8H, Eosinophils (%) (Auto) 7.9H, Basophils (%) ( Auto) 1.1, Sodium Level 138, Potassium Level 3.6, Chloride Level 104, Carbon Dioxide Level 29, Anion Gap 5, Blood Urea Nitrogen 25H, Creatinine 1.0, Estimat Glomerular Filtration Rate , Glucose Level 98, Calcium Level 8.8, Phosphorus Level 2.9, Magnesium Level 2.1 Height (Feet): 5 Height (Inches): 4.00 Weight (Pounds): 117 General Appearance: lethargic EENT: normal ENT inspection Neck: normal alignment Cardiovascular: normal peripheral pulses, normal rate, regular rhythm Respiratory/Chest: chest wall non-tender, lungs clear, normal breath sounds Abdomen: normal bowel sounds, non tender, soft Extremities: normal inspection Edema: no edema noted Arm (L), no edema noted Arm (R), no edema noted Leg (L), no edema noted Leg (R), no edema noted Pedal (L), no edema noted Pedal (R), no edema noted Generalized Neurologic: motor weakness Skin: normal pigmentation, warm/dry Hugh Pressleyg September 30, 2018 08:21
[2018-09-30] MEDS: Memantine 10mg tab ORAL SCH (08:23)
[2018-09-30] MEDS: Donepezil 5mg Tab ORAL SCH (08:23)
[2018-09-30] MEDS: Imdur 30mg tab ORAL SCH ×2 (08:23→22:13)
[2018-09-30] MEDS: Eliquis 2.5mg tablet ORAL SCH (08:45)
--- NOTE | 2018-09-30 09:05 | General Progress Note ---
Assessment/Plan Assessment/Plan: (1) Thoracic and Lumbar DDD (2) Thoracic and Lumbar Spondylosis (3) Lumbar Radiculopathy/ spinal stenosis Pt will be continued on Morphine and norco We recommend patient to be seen by neurosurgeon as per canal driver. D/w Dr. Wilson and he concurred. Subjective Date patient seen: September 30, 2018 Time patient seen: 07:30 - am Allergies: Coded Allergies: No Known Allergies (Unverified , 09/25/18) Subjective REVIEW OF SYSTEMS: Denies rash, fever, chills, sweating, dizziness, drowsiness, blurred vision, sore throat, or change in weight. No shortness of breath or chest pain. No nausea, vomiting, or blood in the stool or urine. No bowel or bladder incontinence. No dysuria. The patient is complaining of back pain. SUBJECTIVE: Patient has been c/o pain which is tolerated on the Blue and Morphine. MRI was reviewed. No new complaints at this time. Objective Last 24 Hour Vital Signs Date Time Temp Pulse Resp B/P (MAP) Pulse Ox O2 Delivery O2 Flow Rate FiO2 09/30/18 08:24 69 09/30/18 08:23 69 142/117 09/30/18 08:23 142/117 09/30/18 08:00 97.2 69 16 142/117 (125) 95 09/30/18 04:39 97.9 09/30/18 04:00 97.3 95 20 119/85 (96) 98 09/30/18 04:00 101 09/30/18 04:00 Room Air 09/30/18 00:31 97.9 09/30/18 00:00 Room Air 09/30/18 00:00 97.9 91 16 128/79 (95) 96 09/30/18 00:00 98 09/29/18 20:22 112 120/92 09/29/18 20:22 120/92 09/29/18 20:00 Room Air 09/29/18 20:00 99 09/29/18 20:00 96.8 112 16 120/92 (101) 98 09/29/18 16:00 97 09/29/18 16:00 98.1 81 18 140/84 (102) 95 09/29/18 16:00 Room Air 09/29/18 12:00 97.5 87 18 139/64 (89) 98 09/29/18 12:00 105 09/29/18 12:00 Room Air Intake and Output 09/29/18 09/30/18 18:59 06:59 Intake Total 960 ml 240 ml Balance 960 ml 240 ml Intake Oral 960 ml 240 ml # Voids 5 4 # Bowel Movements 3 Laboratory Tests 09/30/18 03:40: White Blood Count 4.1L, Red Blood Count 4.22, Hemoglobin 13.7, Hematocrit 41.0, Mean Corpuscular Volume 97, Mean Corpuscular Hemoglobin 32.4H, Mean Corpuscular Hemoglobin Concent 33.4, Red Cell Distribution Width 14.7, Platelet Count 163, Mean Platelet Volume 5.5L, Neutrophils (%) (Auto) 53.3, Lymphocytes (%) (Auto) 27.0, Monocytes (%) (Auto) 10.8H, Eosinophils (%) (Auto) 7.9H, Basophils (%) ( Auto) 1.1, Sodium Level 138, Potassium Level 3.6, Chloride Level 104, Carbon Dioxide Level 29, Anion Gap 5, Blood Urea Nitrogen 25H, Creatinine 1.0, Estimat Glomerular Filtration Rate , Glucose Level 98, Calcium Level 8.8, Phosphorus Level 2.9, Magnesium Level 2.1 Height (Feet): 5 Height (Inches): 4.00 Weight (Pounds): 117 Objective PHYSICAL EXAMINATION: GENERAL: Alert, awake, and oriented. LUNGS: Decreased breath sounds bilaterally. HEART: S1 and S2 regular. ABDOMEN: Soft and nontender. EXTREMITIES: No cyanosis. No clubbing. NEURO: No changes. Procedure: MRI L Spine no Contrast Indication: Back pain Technique: MRI examination of the lumbar spine was performed in a 1.5 Irish magnet. Sequences obtained include sagittal and axial T1 and T2 fast spin echo, and sagittal STIR. Comparison: none Findings: Conus medullaris is seen at L1. Bone marrow signal is essentially normal with no evidence of bone marrow edema or fracture. There is severe degenerative disc disease and facet arthropathy at multiple levels within the lumbar spine. Disc disease is characterized by desiccation, narrowing and hypertrophic endplate spur formation. Variable degrees of concentric appearing disc protrusions demonstrated in association with endplate spur formation (disc osteophyte complex). T12-L1 shows mild bilateral foraminal stenosis. No central stenosis seen. L1-2: Mild central spinal stenosis demonstrated. Moderate to severe bilateral foraminal stenosis demonstrated. L2-3: Severe narrowing of the central canal demonstrated. There is narrowing of the lateral recess. Moderate to severe bilateral foraminal stenosis is present. L3-4: There is severe stenosis of the central canal lateral recess. There is a severe bilateral foraminal stenosis. L4-5: There is severe central spinal stenosis and narrowing of the lateral recesses. There is severe bilateral foraminal stenosis. L5-S1: There is narrowing of the lateral recess and moderate to severe bilateral foraminal stenosis. The central canal is capacious. There are multiple cysts present within both kidneys. IMPRESSION: Moderate to severe multilevel spinal stenosis involving the central canal and lateral recess and bilateral foramina as described above. This is due to combination of factors including severe degenerative disc disease and facet arthropathy. Ilya Perez September 30, 2018 09:05
--- NOTE | 2018-09-30 09:29 | NUR ---
VICE PRESIDENT QUALITY NOTES SPOKE TO VICE PRESIDENT QUALITY [facility] EXT [id number] AND WAS INFORMED THAT NO AUTHORIZATION WAS NEEDED FOR AN AICD SINCE THE PATIENT IS INPATIENT IT IS BILLED INPATIENT STAY.
--- NOTE | 2018-09-30 09:52 | GI Progress Note ---
Assessment/Plan Problems: (1) Subclinical hypothyroidism ICD Codes: E03.9 - Hypothyroidism, unspecified SNOMED: 04722642 (2) Constipation ICD Codes: K59.00 - Constipation, unspecified SNOMED: 80154480 (3) LFTs abnormal ICD Codes: R94.5 - Abnormal results of liver function studies SNOMED: 124129449 Status: stable Status Narrative Discussed with Dr. Mcclure. Assessment/Plan Symptomatic treatment at this time Advance diet as tolerated Pain management Zofran as needed bowel regime Repeat LFTs PPI Follow-up labs GI procedures only if emergent, otherwise outpatient The patient was seen and examined at bedside and all new and available data was reviewed in the patients chart. I agree with the above findings, impression and plan. (Patient seen earlier today. Signature stamp does not reflect patient encounter time.). - Daron Mcclure MD Subjective Subjective limited Objective Last 24 Hour Vital Signs Date Time Temp Pulse Resp B/P (MAP) Pulse Ox O2 Delivery O2 Flow Rate FiO2 09/30/18 09:00 Room Air 09/30/18 08:24 69 09/30/18 08:23 69 142/117 09/30/18 08:23 142/117 09/30/18 08:00 97.2 69 16 142/117 (125) 95 09/30/18 07:47 92 09/30/18 04:39 97.9 09/30/18 04:00 97.3 95 20 119/85 (96) 98 09/30/18 04:00 101 09/30/18 04:00 Room Air 09/30/18 00:31 97.9 09/30/18 00:00 Room Air 09/30/18 00:00 97.9 91 16 128/79 (95) 96 09/30/18 00:00 98 09/29/18 20:22 112 120/92 09/29/18 20:22 120/92 09/29/18 20:00 Room Air 09/29/18 20:00 99 09/29/18 20:00 96.8 112 16 120/92 (101) 98 09/29/18 16:00 97 09/29/18 16:00 98.1 81 18 140/84 (102) 95 09/29/18 16:00 Room Air 09/29/18 12:00 97.5 87 18 139/64 (89) 98 09/29/18 12:00 105 09/29/18 12:00 Room Air Intake and Output 09/29/18 09/30/18 18:59 06:59 Intake Total 960 ml 240 ml Balance 960 ml 240 ml Intake Oral 960 ml 240 ml # Voids 5 4 # Bowel Movements 3 Laboratory Tests Test 09/30/18 03:40 White Blood Count 4.1 K/UL (4.8-10.8) L Red Blood Count 4.22 M/UL (4.20-5.40) Hemoglobin 13.7 G/DL (12.0-16.0) Hematocrit 41.0 % (37.0-47.0) Mean Corpuscular Volume 97 FL (80-99) Mean Corpuscular Hemoglobin 32.4 PG (27.0-31.0) H Mean Corpuscular Hemoglobin Concent 33.4 G/DL (32.0-36.0) Red Cell Distribution Width 14.7 % (11.6-14.8) Platelet Count 163 K/UL (150-450) Mean Platelet Volume 5.5 FL (6.5-10.1) L Neutrophils (%) (Auto) 53.3 % (45.0-75.0) Lymphocytes (%) (Auto) 27.0 % (20.0-45.0) Monocytes (%) (Auto) 10.8 % (1.0-10.0) H Eosinophils (%) (Auto) 7.9 % (0.0-3.0) H Basophils (%) (Auto) 1.1 % (0.0-2.0) Sodium Level 138 MMOL/L (136-145) Potassium Level 3.6 MMOL/L (3.5-5.1) Chloride Level 104 MMOL/L (98-107) Carbon Dioxide Level 29 MMOL/L (21-32) Anion Gap 5 mmol/L (5-15) Blood Urea Nitrogen 25 mg/dL (7-18) H Creatinine 1.0 MG/DL (0.55-1.30) Estimat Glomerular Filtration Rate mL/min (>60) Glucose Level 98 MG/DL (74-106) Calcium Level 8.8 MG/DL (8.5-10.1) Phosphorus Level 2.9 MG/DL (2.5-4.9) Magnesium Level 2.1 MG/DL (1.8-2.4) Height (Feet): 5 Height (Inches): 4.00 Weight (Pounds): 117 General Appearance: WD/WN, no apparent distress, alert, thin Cardiovascular: normal rate Respiratory/Chest: normal breath sounds, no respiratory distress Abdominal Exam: normal bowel sounds, non tender, soft Extremities: normal range of motion, non-tender Objective Last BM 09/29 Marlene Wolfe NP September 30, 2018 09:52
--- NOTE | 2018-09-30 10:09 | NUR ---
*-* INSURANCE *-* UPDATED CLINICALS AND REVIEWS HAVE BEEN FAXED TO: [facility] #[facility]:ABBI Easley [id number]
--- NOTE | 2018-09-30 11:21 | Pulmonology Progress Note ---
Assessment/Plan Problems: (1) Atrial fibrillation with RVR Assessment & Plan: controlled now with heart rate as low as 50's (2) EF 15% (3) Urinary tract infection (4) Chronic systolic CHF (congestive heart failure) (5) Chronic a-fib (6) Spinal stenosis (7) Intractable back pain (8) Pulmonary hypertension, moderate to severe (9) Subclinical hypothyroidism Assessment/Plan Methasone for radiculopathic back pain continue IV abx Echo reviewed EF of 15%heart rate controlled hyperkalemia, ? etiology, dc enalapril, one dose of Kayexalate. resume Cardizem PO check Urine c/s mckoy sensitive except for Nitrofurantoin responding well to Morphine IV, will add Renovo on Eliquis for afib resume Quetiapine, d/w daughter at the bed site. Subjective ROS Limited/Unobtainable: Yes Constitutional: Reports: no symptoms HEENT: Repors: no symptoms Allergies: Coded Allergies: No Known Allergies (Unverified , 09/25/18) Objective Last 24 Hour Vital Signs Date Time Temp Pulse Resp B/P (MAP) Pulse Ox O2 Delivery O2 Flow Rate FiO2 09/30/18 09:00 Room Air 09/30/18 08:24 69 09/30/18 08:23 69 142/117 09/30/18 08:23 142/117 09/30/18 08:00 97.2 69 16 142/117 (125) 95 09/30/18 07:47 92 09/30/18 04:39 97.9 09/30/18 04:00 97.3 95 20 119/85 (96) 98 09/30/18 04:00 101 09/30/18 04:00 Room Air 09/30/18 00:31 97.9 09/30/18 00:00 Room Air 09/30/18 00:00 97.9 91 16 128/79 (95) 96 09/30/18 00:00 98 09/29/18 20:22 112 120/92 09/29/18 20:22 120/92 09/29/18 20:00 Room Air 09/29/18 20:00 99 09/29/18 20:00 96.8 112 16 120/92 (101) 98 09/29/18 16:00 97 09/29/18 16:00 98.1 81 18 140/84 (102) 95 09/29/18 16:00 Room Air 09/29/18 12:00 97.5 87 18 139/64 (89) 98 09/29/18 12:00 105 09/29/18 12:00 Room Air Intake and Output 09/29/18 09/30/18 18:59 06:59 Intake Total 960 ml 240 ml Balance 960 ml 240 ml Intake Oral 960 ml 240 ml # Voids 5 4 # Bowel Movements 3 General Appearance: WD/WN, cachetic HEENT: normocephalic Respiratory/Chest: chest wall non-tender, normal breath sounds Breasts: no masses Cardiovascular: normal peripheral pulses Abdomen: normal bowel sounds, non distended Extremities: no cyanosis Skin: no rash Laboratory Tests 09/30/18 03:40: White Blood Count 4.1L, Red Blood Count 4.22, Hemoglobin 13.7, Hematocrit 41.0, Mean Corpuscular Volume 97, Mean Corpuscular Hemoglobin 32.4H, Mean Corpuscular Hemoglobin Concent 33.4, Red Cell Distribution Width 14.7, Platelet Count 163, Mean Platelet Volume 5.5L, Neutrophils (%) (Auto) 53.3, Lymphocytes (%) (Auto) 27.0, Monocytes (%) (Auto) 10.8H, Eosinophils (%) (Auto) 7.9H, Basophils (%) ( Auto) 1.1, Sodium Level 138, Potassium Level 3.6, Chloride Level 104, Carbon Dioxide Level 29, Anion Gap 5, Blood Urea Nitrogen 25H, Creatinine 1.0, Estimat Glomerular Filtration Rate , Glucose Level 98, Calcium Level 8.8, Phosphorus Level 2.9, Magnesium Level 2.1 Current Medications Medications (Trade) Dose Ordered Sig/Yunior Route PRN Reason Start Time Stop Time Status Last Admin Dose Admin Acetaminophen (Tylenol) 650 mg Q4H PRN ORAL fever 09/25/18 20:45 10/25/18 20:44 Acetaminophen/ Hydrocodone Bitart (Renovo 10/325) 1 tab Q4H PRN ORAL For Pain 09/28/18 11:00 10/05/18 10:59 09/30/18 00:01 Apixaban (Eliquis) 2.5 mg BID ORAL 09/26/18 18:00 10/26/18 17:59 09/30/18 08:45 Carvedilol (Coreg) 3.125 mg EVERY 12 HOURS ORAL 09/28/18 21:00 10/28/18 20:59 09/30/18 08:23 Dextrose (Dextrose 50%) 25 ml Q30M PRN IV Hypoglycemia 09/25/18 20:45 10/25/18 20:44 Dextrose (Dextrose 50%) 50 ml Q30M PRN IV Hypoglycemia 09/25/18 20:45 10/25/18 20:44 Digoxin (Lanoxin) 0.25 mg DAILY ORAL 09/28/18 09:00 10/28/18 08:59 09/30/18 08:24 Diltiazem HCl (Cardizem) 10 mg Q1H PRN IV HR>120BPM 09/26/18 12:30 10/26/18 12:29 09/27/18 08:53 Donepezil HCl (Aricept) 5 mg DAILY ORAL 09/28/18 09:00 10/28/18 08:59 09/30/18 08:23 Iopamidol (Isovue-370 150ml) 150 ml NOW PRN INJ Radiology Procedure 09/25/18 17:00 Isosorbide Mononitrate (Imdur) 30 mg Q12HR ORAL 09/27/18 21:00 10/27/18 20:59 09/30/18 08:23 Levofloxacin (Levaquin) 250 mg Q24H ORAL 09/27/18 21:00 09/30/18 23:00 09/29/18 20:22 Levothyroxine Sodium (Synthroid) 25 mcg DAILY@0630 ORAL 09/28/18 06:45 10/28/18 06:44 09/30/18 07:31 Lorazepam (Ativan 2mg/ml 1ml) 0.5 mg Q4H PRN IV For Anxiety 09/25/18 20:45 10/02/18 20:44 09/28/18 16:09 Memantine (Namenda) 10 mg DAILY ORAL 09/28/18 09:00 10/28/18 08:59 09/30/18 08:23 Morphine Sulfate (Morphine Sulfate) 2 mg Q4H PRN IVP For Pain 4-6 09/25/18 20:45 10/02/18 20:44 09/30/18 04:09 Morphine Sulfate (Morphine Sulfate) 4 mg Q4H PRN IVP For Pain 7-10 09/25/18 20:45 10/02/18 20:44 09/28/18 02:52 Ondansetron HCl (Zofran) 4 mg Q6H PRN IVP Nausea & Vomiting 09/25/18 20:45 10/25/18 20:44 Polyethylene Glycol (Miralax) 17 gm HSPRN PRN ORAL Constipation 09/25/18 20:45 10/25/18 20:44 Quetiapine Fumarate (SEROquel) 25 mg BID ORAL 09/27/18 18:00 10/27/18 17:59 09/30/18 08:23 Zolpidem Tartrate (Ambien) 5 mg HSPRN PRN ORAL Insomnia 09/25/18 20:45 10/02/18 20:44 09/26/18 23:34 John Hollingsworth MD September 30, 2018 11:21
[2018-09-30 12:00] VITALS: BP 142/117
--- NOTE | 2018-09-30 12:18 | Cardiac Electrophysiology PN ---
Assessment/Plan Assessment/Plan 1. 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 Records from [facility] 07/2014 showed had PA and stent in LAD. The patient is already on Coreg 3.125 mg b.i.d. and enalapril 2.5 mg b.i.d. and Isordil daily. Awaiting more recent echo and daughters consent for ICD implant 2. Atrial fibrillation with rapid ventricular response. Heart rate is better on combination of Coreg 3.125 mg b.i.d., digoxin 0.25 mg daily. Change Eliquis To Lovenox 3. Hypothyroidism, on Synthroid. 4. Dementia. 5. History of hypertension. Current medication per Dr. Manuel. DW Dr. Manuel and daughter and RN Subjective Subjective [facility] records were reviewed. Had PA and mid LAD stent in 07/2014. No CP or SOB Objective Last 24 Hour Vital Signs Date Time Temp Pulse Resp B/P (MAP) Pulse Ox O2 Delivery O2 Flow Rate FiO2 09/30/18 09:00 Room Air 09/30/18 08:24 69 09/30/18 08:23 69 142/117 09/30/18 08:23 142/117 09/30/18 08:00 97.2 69 16 142/117 (125) 95 09/30/18 07:47 92 09/30/18 04:39 97.9 09/30/18 04:00 97.3 95 20 119/85 (96) 98 09/30/18 04:00 101 09/30/18 04:00 Room Air 09/30/18 00:31 97.9 09/30/18 00:00 Room Air 09/30/18 00:00 97.9 91 16 128/79 (95) 96 09/30/18 00:00 98 09/29/18 20:22 112 120/92 09/29/18 20:22 120/92 09/29/18 20:00 Room Air 09/29/18 20:00 99 09/29/18 20:00 96.8 112 16 120/92 (101) 98 09/29/18 16:00 97 09/29/18 16:00 98.1 81 18 140/84 (102) 95 09/29/18 16:00 Room Air Intake and Output 09/29/18 09/30/18 18:59 06:59 Intake Total 960 ml 240 ml Balance 960 ml 240 ml Intake Oral 960 ml 240 ml # Voids 5 4 # Bowel Movements 3 Laboratory Tests Test 09/30/18 03:40 White Blood Count 4.1 K/UL (4.8-10.8) L Red Blood Count 4.22 M/UL (4.20-5.40) Hemoglobin 13.7 G/DL (12.0-16.0) Hematocrit 41.0 % (37.0-47.0) Mean Corpuscular Volume 97 FL (80-99) Mean Corpuscular Hemoglobin 32.4 PG (27.0-31.0) H Mean Corpuscular Hemoglobin Concent 33.4 G/DL (32.0-36.0) Red Cell Distribution Width 14.7 % (11.6-14.8) Platelet Count 163 K/UL (150-450) Mean Platelet Volume 5.5 FL (6.5-10.1) L Neutrophils (%) (Auto) 53.3 % (45.0-75.0) Lymphocytes (%) (Auto) 27.0 % (20.0-45.0) Monocytes (%) (Auto) 10.8 % (1.0-10.0) H Eosinophils (%) (Auto) 7.9 % (0.0-3.0) H Basophils (%) (Auto) 1.1 % (0.0-2.0) Sodium Level 138 MMOL/L (136-145) Potassium Level 3.6 MMOL/L (3.5-5.1) Chloride Level 104 MMOL/L (98-107) Carbon Dioxide Level 29 MMOL/L (21-32) Anion Gap 5 mmol/L (5-15) Blood Urea Nitrogen 25 mg/dL (7-18) H Creatinine 1.0 MG/DL (0.55-1.30) Estimat Glomerular Filtration Rate mL/min (>60) Glucose Level 98 MG/DL (74-106) Calcium Level 8.8 MG/DL (8.5-10.1) Phosphorus Level 2.9 MG/DL (2.5-4.9) Magnesium Level 2.1 MG/DL (1.8-2.4) Objective HEAD AND NECK: Positive JVD. LUNGS: Decreased breath sounds. CARDIOVASCULAR: Irregularly irregular S1 and S2 with no gallop or murmur. ABDOMEN: Soft. EXTREMITIES: A 1+ pitting edema. Mark Sanders MD September 30, 2018 12:18
--- NOTE | 2018-09-30 12:56 | NUR ---
NURSE NOTES: patient's daughter refused to sign consent for automated implantable cardioverter defibrillator. patient's daughter has concerns over patient's recovery and stated that she does not want patient to have surgery at this time and would prefer for patient to be treated with medication first and schedule surgery at later time. Will inform Dr. Sanders.
--- NOTE | 2018-09-30 14:04 | NUR ---
NURSE NOTES: Dr. Sanders aware that consent was not obtained today.
--- NOTE | 2018-09-30 14:48 | Infectious Diseases Prog Note ---
Assessment/Plan Assessment/Plan Abx: Levaquin 09/25- Ceftriaxone x1 09/25 Assessment: Low back pain -MRI L spine: Moderate to severe multilevel spinal stenosis involving the central canal and lateral recess and bilateral foramina as described above. This is due to combination of factors including severe degenerative disc disease and facet arthropathy. -CT T +L spine: No obvious acute fracture.Severe degenerative changes of the lumbar spine as described above. Suspected right renal cysts. 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 -CTA c/a/p: Ascending aortic aneurysm 4.5 cm. Moderate atherosclerotic disease with ectasia of the thoracic and abdominal aorta as described above. 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 No evidence of dissection. Multiple incidental findings: Patchy lung fibrosis. Groundglass opacities, nonspecific. Trace right pleural effusion. Trace ascites. Diverticulosis of the colon. Thickening of the wall the gallbladder, nonspecific in nature. Degenerative changes of the spine Afebrile No leukocytosis -CXR: Cardiomegaly. No acute findings Probable UTI (+frequency) -u/a wbc 40-60, nit neg, leuk +3, sq cells many; ucx 10-20k P.mirabilis (R nitro; otherwise S); repeat u/a wbc 5-10, nit neg, leuk +3, few sq cells; ucx p Mild LFTs elevation; improving- r/o hepatobiliary disease -Abd US: Fusiform aneurysm suspected in the infradiaphragmatic upper abdominal aorta measuring up to 3.5 cm. Thickening of the gallbladder wall, nonspecific. Trace ascites. Right renal cysts CAD s/p angioplasty HTN compression fractures of spine CHF Afib on Eliquis Dementia Plan: -Continue empiric LEvaquin #6/7 for UTI -f/u cx -Monitor CBC/CMP, temperatures -aspiration precautions -f/u repeat ucx Thank you for this consultation. Will continue to follow along with you. Discussed with RN. Subjective Allergies: Coded Allergies: No Known Allergies (Unverified , 09/25/18) Subjective afebrile no leukocytosis Objective Vital Signs Last 24 Hour Vital Signs Date Time Temp Pulse Resp B/P (MAP) Pulse Ox O2 Delivery O2 Flow Rate FiO2 09/30/18 12:00 96.4 69 16 142/117 (125) 95 09/30/18 11:29 81 09/30/18 09:00 Room Air 09/30/18 08:24 69 09/30/18 08:23 69 142/117 09/30/18 08:23 142/117 09/30/18 08:00 97.2 69 16 142/117 (125) 95 09/30/18 07:47 92 09/30/18 04:39 97.9 09/30/18 04:00 97.3 95 20 119/85 (96) 98 09/30/18 04:00 101 09/30/18 04:00 Room Air 09/30/18 00:31 97.9 09/30/18 00:00 Room Air 09/30/18 00:00 97.9 91 16 128/79 (95) 96 09/30/18 00:00 98 09/29/18 20:22 112 120/92 09/29/18 20:22 120/92 09/29/18 20:00 Room Air 09/29/18 20:00 99 09/29/18 20:00 96.8 112 16 120/92 (101) 98 09/29/18 16:00 97 09/29/18 16:00 98.1 81 18 140/84 (102) 95 09/29/18 16:00 Room Air Height (Feet): 5 Height (Inches): 4.00 Weight (Pounds): 117 Objective General Appearance: well appearing, no apparent distress, alert, thin Head: normocephalic EENT: PERRL/EOMI, normal ENT inspection Neck: supple Respiratory: normal breath sounds, no respiratory distress Cardiovascular: normal rate Gastrointestinal: normal inspection, non tender, soft, normal bowel sounds, non -distended Genitourinary: no CVA tenderness Musculoskeletal: normal inspection, back normal Neurologic: normal inspection, alert, oriented x3, responsive Psychiatric: normal inspection, judgement/insight normal, memory normal Skin: normal inspection, normal color, no rash, warm/dry, palpation normal, well hydrated Laboratory Tests Test 09/30/18 03:40 White Blood Count 4.1 K/UL (4.8-10.8) L Red Blood Count 4.22 M/UL (4.20-5.40) Hemoglobin 13.7 G/DL (12.0-16.0) Hematocrit 41.0 % (37.0-47.0) Mean Corpuscular Volume 97 FL (80-99) Mean Corpuscular Hemoglobin 32.4 PG (27.0-31.0) H Mean Corpuscular Hemoglobin Concent 33.4 G/DL (32.0-36.0) Red Cell Distribution Width 14.7 % (11.6-14.8) Platelet Count 163 K/UL (150-450) Mean Platelet Volume 5.5 FL (6.5-10.1) L Neutrophils (%) (Auto) 53.3 % (45.0-75.0) Lymphocytes (%) (Auto) 27.0 % (20.0-45.0) Monocytes (%) (Auto) 10.8 % (1.0-10.0) H Eosinophils (%) (Auto) 7.9 % (0.0-3.0) H Basophils (%) (Auto) 1.1 % (0.0-2.0) Sodium Level 138 MMOL/L (136-145) Potassium Level 3.6 MMOL/L (3.5-5.1) Chloride Level 104 MMOL/L (98-107) Carbon Dioxide Level 29 MMOL/L (21-32) Anion Gap 5 mmol/L (5-15) Blood Urea Nitrogen 25 mg/dL (7-18) H Creatinine 1.0 MG/DL (0.55-1.30) Estimat Glomerular Filtration Rate mL/min (>60) Glucose Level 98 MG/DL (74-106) Calcium Level 8.8 MG/DL (8.5-10.1) Phosphorus Level 2.9 MG/DL (2.5-4.9) Magnesium Level 2.1 MG/DL (1.8-2.4) Current Medications Medications (Trade) Dose Ordered Sig/Yunior Route PRN Reason Start Time Stop Time Status Last Admin Dose Admin Acetaminophen (Tylenol) 650 mg Q4H PRN ORAL fever 09/25/18 20:45 10/25/18 20:44 Acetaminophen/ Hydrocodone Bitart ([place] [address]) 1 tab Q4H PRN ORAL For Pain 09/28/18 11:00 10/05/18 10:59 09/30/18 11:22 Carvedilol (Coreg) 3.125 mg EVERY 12 HOURS ORAL 09/28/18 21:00 10/28/18 20:59 09/30/18 08:23 Dextrose (Dextrose 50%) 25 ml Q30M PRN IV Hypoglycemia 09/25/18 20:45 10/25/18 20:44 Dextrose (Dextrose 50%) 50 ml Q30M PRN IV Hypoglycemia 09/25/18 20:45 10/25/18 20:44 Digoxin (Lanoxin) 0.25 mg DAILY ORAL 09/28/18 09:00 10/28/18 08:59 09/30/18 08:24 Diltiazem HCl (Cardizem) 10 mg Q1H PRN IV HR>120BPM 09/26/18 12:30 10/26/18 12:29 09/27/18 08:53 Donepezil HCl (Aricept) 5 mg DAILY ORAL 09/28/18 09:00 10/28/18 08:59 09/30/18 08:23 Iopamidol (Isovue-370 150ml) 150 ml NOW PRN INJ Radiology Procedure 09/25/18 17:00 Isosorbide Mononitrate (Imdur) 30 mg Q12HR ORAL 09/27/18 21:00 10/27/18 20:59 09/30/18 08:23 Levofloxacin (Levaquin) 250 mg Q24H ORAL 09/27/18 21:00 10/01/18 23:00 09/29/18 20:22 Levothyroxine Sodium (Synthroid) 25 mcg DAILY@0630 ORAL 09/28/18 06:45 10/28/18 06:44 09/30/18 07:31 Lorazepam (Ativan 2mg/ml 1ml) 0.5 mg Q4H PRN IV For Anxiety 09/25/18 20:45 10/02/18 20:44 09/28/18 16:09 Memantine (Namenda) 10 mg DAILY ORAL 09/28/18 09:00 10/28/18 08:59 09/30/18 08:23 Methadone HCl (Methadone HCl) 5 mg EVERY 12 HOURS ORAL 09/30/18 11:30 10/07/18 11:29 Morphine Sulfate (Morphine Sulfate) 2 mg Q4H PRN IVP For Pain 4-6 09/25/18 20:45 10/02/18 20:44 09/30/18 04:09 Morphine Sulfate (Morphine Sulfate) 4 mg Q4H PRN IVP For Pain 7-10 09/25/18 20:45 10/02/18 20:44 09/28/18 02:52 Ondansetron HCl (Zofran) 4 mg Q6H PRN IVP Nausea & Vomiting 09/25/18 20:45 10/25/18 20:44 Polyethylene Glycol (Miralax) 17 gm HSPRN PRN ORAL Constipation 09/25/18 20:45 10/25/18 20:44 Quetiapine Fumarate (SEROquel) 25 mg BID ORAL 09/27/18 18:00 10/27/18 17:59 09/30/18 08:23 Zolpidem Tartrate (Ambien) 5 mg HSPRN PRN ORAL Insomnia 09/25/18 20:45 10/02/18 20:44 09/26/18 23:34 Fanny Lugo M.D. September 30, 2018 14:48
--- NOTE | 2018-09-30 15:27 | NUR ---
NURSE NOTES: Patient and daughter notified transfer to room 218-1,agree,by bed stable with ENRIQUETA Espinosa
--- NOTE | 2018-09-30 15:28 | NUR ---
TRANSFER TO FLOOR: Patient transferred to Telemetry room 218-1, per Dr. Hollingsworth. Report given to ENRIQUETA Mccoy. Belongings checked and given to ENRIQUETA Mccoy. Family at bedside and informed of transfer.
--- NOTE | 2018-09-30 15:42 | NUR ---
NURSE NOTES: Report received from ENRIQUETA Pruitt. Belongings list verified and signed. Pt shows no signs of distress and denies pain/SOB. Daughter at bedside. Respirations are even and unlabored on room air. Bed is at lowest position, brakes engaged, siderails x2, bed alarm on, and call light within reach. Pt is in stable condition at this time; will continue to monitor. Orders transferred.
[2018-09-30 15:45] VITALS: BP 150/91
[2018-09-30] MEDS ORDERED: LORazepam Inj 2mg/ml 1ml IV PRN (15:45)
[2018-09-30] MEDS ORDERED: Morphine Sulfate 2mg/ml Inj(IV/IM USE ONLY) IVP PRN (15:46)
[2018-09-30] MEDS ORDERED: dilTIAZem HCl 25mg/5ml Inj IV PRN (15:46)
[2018-09-30] MEDS ORDERED: Morphine Sulfate 4mg/ml Inj (IV USE ONLY) IVP PRN (15:46)
[2018-09-30] MEDS ORDERED: HYDROcodone/Acetamin 10/325 tab ORAL PRN (15:51)
--- NOTE | 2018-09-30 16:40 | NUR ---
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 AFIB W/RVR . UTI VS: BP 150/91, P 89, T 96.4, RR 18, SpO2 95 WBC 4.1, BUN 25 IS:NORCO 10/325 1tab ELIQUIS 2.5mg DIGOXIN 0.25mg ARICEPT 5mg IMDUR 30mg SEROQUEL 25mg NAMENDA 10mg COREG 3.125mg SYNTHROID 25mcg MORPHINE SULFATE 2mg TELE STATUS
[2018-09-30] MEDS ORDERED: Isovue-370 150ml vial INJ PRN (17:00)
--- NOTE | 2018-09-30 19:25 | NUR ---
HAND-OFF: Report given to ENRIQUETA West. Pt is in stable condition; plan of care endorsed.
--- NOTE | 2018-09-30 19:25 | NUR ---
NURSE NOTES: Report received from Osvaldo Patel RN. Pt is resting in bed in stable condition. Pt is awake, alert, and oriented x3, primarily Lithuanian speaking. Pt is on room air and breathing is even and unlabored. No acute distress noted. IV site is R hand #24g and site and dressing are asymptomatic, patent, and intact. Bed is placed in lowest position with brake engaged, side rails up x3, and bed alarm on. Call light and side table placed within reach. Fall precautions noted to be in place - sign outside of room, yellow socks, call light within reach, and bed low and locked position. Family is at bedside. Will continue to monitor.
[2018-09-30 20:00] VITALS: BP 145/110
[2018-09-30] MEDS ORDERED: Miralax 17gm pkt ORAL PRN (20:45)
[2018-09-30] MEDS ORDERED: Zolpidem 5mg tab ORAL PRN (20:45)
[2018-10-01] VITALS: BP 147/95
[2018-10-01 04:00] VITALS: BP 131/81
[2018-10-01] MEDS: Levothyroxine 25mcg tab ORAL SCH (06:02)
--- NOTE | 2018-10-01 06:49 | General Progress Note ---
Assessment/Plan Problem List: (1) Subclinical hypothyroidism ICD Codes: E03.9 - Hypothyroidism, unspecified SNOMED: 46936416 (2) Intractable back pain ICD Codes: M54.9 - Dorsalgia, unspecified SNOMED: 812886123 (3) Atrial fibrillation with RVR ICD Codes: I48.91 - Unspecified atrial fibrillation SNOMED: 156412185219870 (4) Spinal stenosis ICD Codes: M48.00 - Spinal stenosis, site unspecified SNOMED: 65645213 (5) Urinary tract infection ICD Codes: N39.0 - Urinary tract infection, site not specified SNOMED: 64745587 Status: stable Assessment/Plan: continue Levothyroxine 25 mcg daily repeat thyroid function in 3 weeks Subjective Allergies: Coded Allergies: No Known Allergies (Unverified , 09/25/18) All Systems: reviewed and negative except above Subjective events noted interval notes reviewed Objective Last 24 Hour Vital Signs Date Time Temp Pulse Resp B/P (MAP) Pulse Ox O2 Delivery O2 Flow Rate FiO2 10/01/18 04:00 85 10/01/18 04:00 97.9 92 18 131/81 (98) 96 10/01/18 00:00 95 10/01/18 00:00 98.2 87 18 147/95 (112) 96 09/30/18 22:13 145/110 09/30/18 22:12 95 145/110 09/30/18 21:00 Room Air 09/30/18 20:00 109 09/30/18 20:00 97.7 95 18 145/110 (122) 96 09/30/18 16:00 91 09/30/18 15:45 97.7 89 18 150/91 (110) 96 09/30/18 12:00 96.4 69 16 142/117 (125) 95 09/30/18 11:29 81 09/30/18 09:00 Room Air 09/30/18 08:24 69 09/30/18 08:23 69 142/117 09/30/18 08:23 142/117 09/30/18 08:00 97.2 69 16 142/117 (125) 95 09/30/18 07:47 92 Intake and Output 09/30/18 10/01/18 19:00 07:00 Intake Total 240 ml 240 ml Balance 240 ml 240 ml Intake Oral 240 ml 240 ml # Voids 3 2 Height (Feet): 5 Height (Inches): 4.00 Weight (Pounds): 117 General Appearance: no apparent distress Neck: normal alignment Cardiovascular: arrhythmia Respiratory/Chest: lungs clear Abdomen: normal bowel sounds Pelvis: normal external exam Edema: no edema noted Arm (L), no edema noted Arm (R), no edema noted Leg (L), no edema noted Leg (R), no edema noted Pedal (L), no edema noted Pedal (R), no edema noted Generalized Objective Current Medications Medications (Trade) Dose Ordered Sig/Yunior Route PRN Reason Start Time Stop Time Status Last Admin Dose Admin Acetaminophen (Tylenol) 650 mg Q4H PRN ORAL fever 09/30/18 15:44 10/25/18 15:43 Acetaminophen/ Hydrocodone Bitart ([place] 10/325) 1 tab Q4H PRN ORAL For Pain 09/30/18 15:51 10/05/18 15:50 Carvedilol (Coreg) 3.125 mg EVERY 12 HOURS ORAL 09/30/18 21:00 10/28/18 20:59 09/30/18 22:12 Dextrose (Dextrose 50%) 25 ml Q30M PRN IV Hypoglycemia 09/30/18 15:44 10/25/18 15:43 Dextrose (Dextrose 50%) 50 ml Q30M PRN IV Hypoglycemia 09/30/18 15:45 10/25/18 20:44 Digoxin (Lanoxin) 0.25 mg DAILY ORAL 10/01/18 09:00 10/28/18 08:59 Diltiazem HCl (Cardizem) 10 mg Q1H PRN IV HR>120BPM 09/30/18 15:46 10/26/18 15:45 Donepezil HCl (Aricept) 5 mg DAILY ORAL 10/01/18 09:00 10/28/18 08:59 Isosorbide Mononitrate (Imdur) 30 mg Q12HR ORAL 09/30/18 21:00 10/27/18 20:59 09/30/18 22:13 Levofloxacin (Levaquin) 250 mg Q24H ORAL 09/30/18 21:00 10/01/18 23:00 09/30/18 22:12 Levothyroxine Sodium (Synthroid) 25 mcg DAILY@0630 ORAL 10/01/18 06:30 10/28/18 06:44 10/01/18 06:02 Lorazepam (Ativan 2mg/ml 1ml) 0.5 mg Q4H PRN IV For Anxiety 09/30/18 15:45 10/02/18 15:44 Memantine (Namenda) 10 mg DAILY ORAL 10/01/18 09:00 10/28/18 08:59 Methadone HCl (Methadone HCl) 5 mg EVERY 12 HOURS ORAL 09/30/18 21:00 10/07/18 11:29 09/30/18 22:12 Morphine Sulfate (Morphine Sulfate) 2 mg Q4H PRN IVP For Pain 4-6 09/30/18 15:46 10/02/18 15:45 Morphine Sulfate (Morphine Sulfate) 4 mg Q4H PRN IVP For Pain 7-10 09/30/18 15:46 10/02/18 15:45 Ondansetron HCl (Zofran) 4 mg Q6H PRN IVP Nausea & Vomiting 09/30/18 15:45 10/25/18 15:44 09/30/18 17:53 Polyethylene Glycol (Miralax) 17 gm HSPRN PRN ORAL Constipation 09/30/18 20:45 10/25/18 20:44 Quetiapine Fumarate (SEROquel) 25 mg BID ORAL 09/30/18 18:00 10/27/18 17:59 09/30/18 17:53 Zolpidem Tartrate (Ambien) 5 mg HSPRN PRN ORAL Insomnia 09/30/18 20:45 10/02/18 20:44 Herber Velazquez MD October 01, 2018 06:49
--- NOTE | 2018-10-01 07:29 | NUR ---
HAND-OFF: Report given to Faizan Caceres RN. Pt is sitting up at bedside in stable condition. No acute distress noted. Endorsed plan of care.
--- NOTE | 2018-10-01 07:31 | NUR ---
NURSE NOTES: Received report from ENRIQUETA West. Patient sleep and is in stable condition. Daughter is at the bedside. Will continue plan of care.
--- NOTE | 2018-10-01 07:53 | General Progress Note ---
Assessment/Plan Problem List: (1) LFTs abnormal ICD Codes: R94.5 - Abnormal results of liver function studies SNOMED: 962431115 (2) CHF (congestive heart failure) ICD Codes: I50.9 - Heart failure, unspecified SNOMED: 47073173 (3) Atrial fibrillation with RVR ICD Codes: I48.91 - Unspecified atrial fibrillation SNOMED: 849879579157241 (4) EF 15% (5) Constipation ICD Codes: K59.00 - Constipation, unspecified SNOMED: 20736819 Status: stable Assessment/Plan: Symptomatic treatment at this time Advance diet as tolerated Pain management Zofran as needed bowel regime Repeat LFTs PPI Follow-up labs GI procedures only if emergent, otherwise outpatient Subjective ROS Limited/Unobtainable: No Allergies: Coded Allergies: No Known Allergies (Unverified , 09/25/18) Objective Last 24 Hour Vital Signs Date Time Temp Pulse Resp B/P (MAP) Pulse Ox O2 Delivery O2 Flow Rate FiO2 10/01/18 04:00 85 10/01/18 04:00 97.9 92 18 131/81 (98) 96 10/01/18 00:00 95 10/01/18 00:00 98.2 87 18 147/95 (112) 96 09/30/18 22:13 145/110 09/30/18 22:12 95 145/110 09/30/18 21:00 Room Air 09/30/18 20:00 109 09/30/18 20:00 97.7 95 18 145/110 (122) 96 09/30/18 16:00 91 09/30/18 15:45 97.7 89 18 150/91 (110) 96 09/30/18 12:00 96.4 69 16 142/117 (125) 95 09/30/18 11:29 81 09/30/18 09:00 Room Air 09/30/18 08:24 69 09/30/18 08:23 69 142/117 09/30/18 08:23 142/117 09/30/18 08:00 97.2 69 16 142/117 (125) 95 Intake and Output 09/30/18 10/01/18 19:00 07:00 Intake Total 240 ml 240 ml Balance 240 ml 240 ml Intake Oral 240 ml 240 ml # Voids 3 2 Height (Feet): 5 Height (Inches): 4.00 Weight (Pounds): 117 General Appearance: no apparent distress EENT: normal ENT inspection Neck: supple Cardiovascular: normal rate Respiratory/Chest: accessory muscle use Abdomen: normal bowel sounds, non tender, soft Extremities: non-tender Daron Mcclure MD October 01, 2018 07:53
[2018-10-01 08:00] VITALS: BP 146/108
--- NOTE | 2018-10-01 08:10 | NUR ---
NURSE NOTES: Seen by SHAYE Cox.
--- NOTE | 2018-10-01 08:15 | Pulmonology Progress Note ---
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 fib Severe pulmonary hypertension UTI Spinal stenosis Intractable back pain secondary to stenosis spinal stenosis Subclinical hypothyroidism Hyperkalemia- resolved Constipation Abnormal LFT PLAN OF CARE telemetry O2 HHN prn fup with CXR Wednesday, Echo with EF 15%, no evidence of left ventricular hypertrophy, right ventricular systolic pressure of 71 consistent with severe pulmonary hypertension anti-failure regimen with beta-dillon, digoxin, RAEGAN , long-acting nitrate continue anticoagulation : Eliquis changed to Lovenox ( since AICD planned) rate control with digoxin and BB, Cardizem on board prn patient needs AICD, awaiting for consent cardiomyopathy, after [place], stent in LAD; monitor K, was elevated, and RAEGAN was stopped, hyperkalemia treated, RAEGAN restart today and monitor K carefully IV abx as per ID recommendation, urine culture grew Proteus neuro follows CT L-spine no obvious acute fracture, severe degenerative changes of lumbar spine CT T-spine no obvious acute fracture, MRI of lumbar spine moderate to severe multilevel spinal stenosis neuro recommended surgical eval for discussion of injectable therapy as patient likely unable to have any surgery secondary to poor cardiac function fall precaution PT eval and treatment pain management as per pain specialist CTA of the chest noted patchy lung fibrosis with ground- glass opacity ; nonspecified supplemental oxygen PRN to keep pulse ox above 92% pulmonary toilet ascending aortic aneurysm with moderate atherosclerotic disease 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 no evidence of dissection abdominal ultrasound with fusiform aneurysm thickening of the gallbladder wall nonspecific trace ascites Endo follows TSH x3 elevated with normal free T4 and free T3, continue levothyroxine 25 mcg daily as per endo recommendation GI follows Bowel regimen Antiemetic as needed Follow-up with LFT PPI case discussed and evaluated by supervising physician Subjective Allergies: Coded Allergies: No Known Allergies (Unverified , 09/25/18) Subjective no chest pain, no SOB pulse ox stable on RA daughter at the bedside, still not decided re AICD placement Objective Last 24 Hour Vital Signs Date Time Temp Pulse Resp B/P (MAP) Pulse Ox O2 Delivery O2 Flow Rate FiO2 10/01/18 04:00 85 10/01/18 04:00 97.9 92 18 131/81 (98) 96 10/01/18 00:00 95 10/01/18 00:00 98.2 87 18 147/95 (112) 96 09/30/18 22:13 145/110 09/30/18 22:12 95 145/110 09/30/18 21:00 Room Air 09/30/18 20:00 109 09/30/18 20:00 97.7 95 18 145/110 (122) 96 09/30/18 16:00 91 09/30/18 15:45 97.7 89 18 150/91 (110) 96 09/30/18 12:00 96.4 69 16 142/117 (125) 95 09/30/18 11:29 81 09/30/18 09:00 Room Air 09/30/18 08:24 69 09/30/18 08:23 69 142/117 09/30/18 08:23 142/117 Intake and Output 09/30/18 10/01/18 19:00 07:00 Intake Total 240 ml 240 ml Balance 240 ml 240 ml Intake Oral 240 ml 240 ml # Voids 3 2 General Appearance: no acute distress, other - awake, alert, elderly Faroese speaking female HEENT: normocephalic, atraumatic, anicteric, mucous membranes moist Respiratory/Chest: lungs clear - with moderate air exchange Cardiovascular: normal peripheral pulses, normal rate, irregularly irregular - A fib on tele, rate controlled Abdomen: normal bowel sounds, soft, non tender, non distended Extremities: other - trace edema BLE Neurologic/Psychiatric: abnormal gait, alert, responsive Musculoskeletal: atrophy - BLE Current Medications Medications (Trade) Dose Ordered Sig/Yunior Route PRN Reason Start Time Stop Time Status Last Admin Dose Admin Acetaminophen (Tylenol) 650 mg Q4H PRN ORAL fever 09/30/18 15:44 10/25/18 15:43 Acetaminophen/ Hydrocodone Bitart ([place] 10/325) 1 tab Q4H PRN ORAL For Pain 09/30/18 15:51 10/05/18 15:50 Carvedilol (Coreg) 3.125 mg EVERY 12 HOURS ORAL 09/30/18 21:00 10/28/18 20:59 09/30/18 22:12 Dextrose (Dextrose 50%) 25 ml Q30M PRN IV Hypoglycemia 09/30/18 15:44 10/25/18 15:43 Dextrose (Dextrose 50%) 50 ml Q30M PRN IV Hypoglycemia 09/30/18 15:45 10/25/18 20:44 Digoxin (Lanoxin) 0.25 mg DAILY ORAL 10/01/18 09:00 10/28/18 08:59 Diltiazem HCl (Cardizem) 10 mg Q1H PRN IV HR>120BPM 09/30/18 15:46 10/26/18 15:45 Donepezil HCl (Aricept) 5 mg DAILY ORAL 10/01/18 09:00 10/28/18 08:59 Isosorbide Mononitrate (Imdur) 30 mg Q12HR ORAL 09/30/18 21:00 10/27/18 20:59 09/30/18 22:13 Levofloxacin (Levaquin) 250 mg Q24H ORAL 09/30/18 21:00 10/01/18 23:00 09/30/18 22:12 Levothyroxine Sodium (Synthroid) 25 mcg DAILY@0630 ORAL 10/01/18 06:30 10/28/18 06:44 10/01/18 06:02 Lorazepam (Ativan 2mg/ml 1ml) 0.5 mg Q4H PRN IV For Anxiety 09/30/18 15:45 10/02/18 15:44 Memantine (Namenda) 10 mg DAILY ORAL 10/01/18 09:00 10/28/18 08:59 Methadone HCl (Methadone HCl) 5 mg EVERY 12 HOURS ORAL 09/30/18 21:00 10/07/18 11:29 09/30/18 22:12 Morphine Sulfate (Morphine Sulfate) 2 mg Q4H PRN IVP For Pain 4-6 09/30/18 15:46 10/02/18 15:45 Morphine Sulfate (Morphine Sulfate) 4 mg Q4H PRN IVP For Pain 7-10 09/30/18 15:46 10/02/18 15:45 Ondansetron HCl (Zofran) 4 mg Q6H PRN IVP Nausea & Vomiting 09/30/18 15:45 10/25/18 15:44 09/30/18 17:53 Polyethylene Glycol (Miralax) 17 gm HSPRN PRN ORAL Constipation 09/30/18 20:45 10/25/18 20:44 Quetiapine Fumarate (SEROquel) 25 mg BID ORAL 5/17/19 18:00 10/27/18 17:59 09/30/18 17:53 Zolpidem Tartrate (Ambien) 5 mg HSPRN PRN ORAL Insomnia 09/30/18 20:45 10/02/18 20:44 Brooke Seaman NP October 01, 2018 08:15
[2018-10-01 08:39] LABS: BASOPHILS % (AUTO) 1.1 % (0.0-2.0); EOSINOPHILS % (AUTO) 8.2 % (0.0-3.0); HEMATOCRIT 42.3 % (37.0-47.0); MEAN CORPUSCULAR VOLUME 98 FL (80-99); MONOCYTES % (AUTO) 9.1 % (1.0-10.0); NEUTROPHILS % (AUTO) 56.6 % (45.0-75.0); PLATELET COUNT 172 K/UL (150-450); RED CELL DISTRIBUTION WIDTH 15.1 % (11.6-14.8); WHITE BLOOD COUNT 4.8 K/UL (4.8-10.8)
[2018-10-01 08:48] LABS: ANION GAP 4 mmol/L (5-15); BLOOD UREA NITROGEN 23 mg/dL (7-18); CALCIUM 9.7 MG/DL (8.5-10.1); CARBON DIOXIDE 34 MMOL/L (21-32); CHLORIDE 102 MMOL/L (98-107); POTASSIUM 3.8 MMOL/L (3.5-5.1); SODIUM 140 MMOL/L (136-145)
[2018-10-01] MEDS: Memantine 10mg tab ORAL SCH (08:58)
[2018-10-01] MEDS: Donepezil 5mg Tab ORAL SCH (09:01)
[2018-10-01] MEDS: Imdur 30mg tab ORAL SCH ×2 (09:02→20:10)
[2018-10-01] MEDS ORDERED: Albuterol/Ipratropium 3ml neb HHN PRN (10:30)
--- NOTE | 2018-10-01 10:57 | Infectious Diseases Prog Note ---
Assessment/Plan Assessment/Plan Abx: Levaquin 09/25- Ceftriaxone x1 09/25 Assessment: Low back pain -MRI L spine: Moderate to severe multilevel spinal stenosis involving the central canal and lateral recess and bilateral foramina as described above. This is due to combination of factors including severe degenerative disc disease and facet arthropathy. -CT T +L spine: No obvious acute fracture.Severe degenerative changes of the lumbar spine as described above. Suspected right renal cysts. 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 -CTA c/a/p: Ascending aortic aneurysm 4.5 cm. Moderate atherosclerotic disease with ectasia of the thoracic and abdominal aorta as described above. 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 No evidence of dissection. Multiple incidental findings: Patchy lung fibrosis. Groundglass opacities, nonspecific. Trace right pleural effusion. Trace ascites. Diverticulosis of the colon. Thickening of the wall the gallbladder, nonspecific in nature. Degenerative changes of the spine Afebrile No leukocytosis -CXR: Cardiomegaly. No acute findings Probable UTI (+frequency) -u/a wbc 40-60, nit neg, leuk +3, sq cells many; ucx 10-20k P.mirabilis (R nitro; otherwise S); repeat u/a wbc 5-10, nit neg, leuk +3, few sq cells; ucx 20 -40k CONS (Colonizer) Mild LFTs elevation; improving- r/o hepatobiliary disease -Abd US: Fusiform aneurysm suspected in the infradiaphragmatic upper abdominal aorta measuring up to 3.5 cm. Thickening of the gallbladder wall, nonspecific. Trace ascites. Right renal cysts CAD s/p angioplasty HTN compression fractures of spine CHF Afib on Eliquis Dementia Plan: -Continue empiric LEvaquin #7/7 for UTI -f/u cx -Monitor CBC/CMP, temperatures -aspiration precautions Thank you for this consultation. Will continue to follow along with you. Discussed with RN. Subjective Allergies: Coded Allergies: No Known Allergies (Unverified , 09/25/18) Subjective afebrile no leukocytosis Objective Vital Signs Last 24 Hour Vital Signs Date Time Temp Pulse Resp B/P (MAP) Pulse Ox O2 Delivery O2 Flow Rate FiO2 10/01/18 09:02 146/108 10/01/18 09:02 73 10/01/18 09:02 73 146/108 10/01/18 09:00 Room Air 10/01/18 08:00 97.2 73 23 146/108 (121) 95 10/01/18 08:00 88 10/01/18 04:00 85 10/01/18 04:00 97.9 92 18 131/81 (98) 96 10/01/18 00:00 95 10/01/18 00:00 98.2 87 18 147/95 (112) 96 09/30/18 22:13 145/110 09/30/18 22:12 95 145/110 09/30/18 21:00 Room Air 09/30/18 20:00 109 09/30/18 20:00 97.7 95 18 145/110 (122) 96 09/30/18 16:00 91 09/30/18 15:45 97.7 89 18 150/91 (110) 96 09/30/18 12:00 96.4 69 16 142/117 (125) 95 09/30/18 11:29 81 Height (Feet): 5 Height (Inches): 4.00 Weight (Pounds): 117 Objective General Appearance: well appearing, no apparent distress, alert, thin Head: normocephalic EENT: PERRL/EOMI, normal ENT inspection Neck: supple Respiratory: normal breath sounds, no respiratory distress Cardiovascular: normal rate Gastrointestinal: normal inspection, non tender, soft, normal bowel sounds, non -distended Genitourinary: no CVA tenderness Musculoskeletal: normal inspection, back normal Neurologic: normal inspection, alert, oriented x3, responsive Psychiatric: normal inspection, judgement/insight normal, memory normal Skin: normal inspection, normal color, no rash, warm/dry, palpation normal, well hydrated Laboratory Tests Test 10/01/18 07:45 White Blood Count 4.8 K/UL (4.8-10.8) Red Blood Count 4.30 M/UL (4.20-5.40) Hemoglobin 14.0 G/DL (12.0-16.0) Hematocrit 42.3 % (37.0-47.0) Mean Corpuscular Volume 98 FL (80-99) Mean Corpuscular Hemoglobin 32.4 PG (27.0-31.0) H Mean Corpuscular Hemoglobin Concent 33.0 G/DL (32.0-36.0) Red Cell Distribution Width 15.1 % (11.6-14.8) H Platelet Count 172 K/UL (150-450) Mean Platelet Volume 6.6 FL (6.5-10.1) Neutrophils (%) (Auto) 56.6 % (45.0-75.0) Lymphocytes (%) (Auto) 25.0 % (20.0-45.0) Monocytes (%) (Auto) 9.1 % (1.0-10.0) Eosinophils (%) (Auto) 8.2 % (0.0-3.0) H Basophils (%) (Auto) 1.1 % (0.0-2.0) Sodium Level 140 MMOL/L (136-145) Potassium Level 3.8 MMOL/L (3.5-5.1) Chloride Level 102 MMOL/L (98-107) Carbon Dioxide Level 34 MMOL/L (21-32) H Anion Gap 4 mmol/L (5-15) L Blood Urea Nitrogen 23 mg/dL (7-18) H Creatinine 1.0 MG/DL (0.55-1.30) Estimat Glomerular Filtration Rate mL/min (>60) Glucose Level 109 MG/DL (74-106) H Calcium Level 9.7 MG/DL (8.5-10.1) Current Medications Medications (Trade) Dose Ordered Sig/Yunior Route PRN Reason Start Time Stop Time Status Last Admin Dose Admin Acetaminophen (Tylenol) 650 mg Q4H PRN ORAL fever 09/30/18 15:44 10/25/18 15:43 Acetaminophen/ Hydrocodone Bitart ([place] 10/325) 1 tab Q4H PRN ORAL For Pain 09/30/18 15:51 10/05/18 15:50 Albuterol/ Ipratropium (Albuterol/ Ipratropium) 3 ml Q4H PRN HHN Shortness of Breath 10/01/18 10:30 10/06/18 10:29 Carvedilol (Coreg) 3.125 mg EVERY 12 HOURS ORAL 09/30/18 21:00 10/28/18 20:59 10/01/18 09:02 Dextrose (Dextrose 50%) 25 ml Q30M PRN IV Hypoglycemia 09/30/18 15:44 10/25/18 15:43 Dextrose (Dextrose 50%) 50 ml Q30M PRN IV Hypoglycemia 09/30/18 15:45 10/25/18 20:44 Digoxin (Lanoxin) 0.25 mg DAILY ORAL 10/01/18 09:00 10/28/18 08:59 10/01/18 09:02 Diltiazem HCl (Cardizem) 10 mg Q1H PRN IV HR>120BPM 09/30/18 15:46 10/26/18 15:45 Donepezil HCl (Aricept) 5 mg DAILY ORAL 10/01/18 09:00 10/28/18 08:59 10/01/18 09:01 Enalapril Maleate (Vasotec) 2.5 mg EVERY 12 HOURS ORAL 10/01/18 21:00 10/31/18 20:59 Enoxaparin Sodium (Lovenox) 50 mg EVERY 12 HOURS SUBQ 10/01/18 11:30 10/31/18 11:29 Isosorbide Mononitrate (Imdur) 30 mg Q12HR ORAL 09/30/18 21:00 10/27/18 20:59 10/01/18 09:02 Levofloxacin (Levaquin) 250 mg Q24H ORAL 09/30/18 21:00 10/01/18 23:00 09/30/18 22:12 Levothyroxine Sodium (Synthroid) 25 mcg DAILY@0630 ORAL 10/01/18 06:30 10/28/18 06:44 10/01/18 06:02 Lorazepam (Ativan 2mg/ml 1ml) 0.5 mg Q4H PRN IV For Anxiety 09/30/18 15:45 10/02/18 15:44 Memantine (Namenda) 10 mg DAILY ORAL 10/01/18 09:00 10/28/18 08:59 10/01/18 08:58 Methadone HCl (Methadone HCl) 5 mg EVERY 12 HOURS ORAL 09/30/18 21:00 10/07/18 11:29 10/01/18 09:01 Morphine Sulfate (Morphine Sulfate) 2 mg Q4H PRN IVP For Pain 4-6 09/30/18 15:46 10/02/18 15:45 Morphine Sulfate (Morphine Sulfate) 4 mg Q4H PRN IVP For Pain 7-10 09/30/18 15:46 10/02/18 15:45 Ondansetron HCl (Zofran) 4 mg Q6H PRN IVP Nausea & Vomiting 09/30/18 15:45 10/25/18 15:44 09/30/18 17:53 Polyethylene Glycol (Miralax) 17 gm HSPRN PRN ORAL Constipation 09/30/18 20:45 10/25/18 20:44 Quetiapine Fumarate (SEROquel) 25 mg BID ORAL 09/30/18 18:00 10/27/18 17:59 10/01/18 08:58 Zolpidem Tartrate (Ambien) 5 mg HSPRN PRN ORAL Insomnia 09/30/18 20:45 10/02/18 20:44 Fanny Lugo M.D. October 01, 2018 10:57
[2018-10-01] MEDS ORDERED: Enoxaparin Sodium 300mg/3ml vial SUBQ SCH (11:30)
[2018-10-01 12:00] VITALS: BP 144/91
--- NOTE | 2018-10-01 15:30 | Cardiac Electrophysiology PN ---
Assessment/Plan Assessment/Plan 1. 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 Records from [facility] 07/2014 showed had TX and stent in LAD. Continue Coreg 3.125 mg bid, Enalapril 2.5 mg b.i.d. and Isordil daily. Echo at [facility] on 03/07/18 also showed EF 40% Daughter however refusing ICD now 2. Atrial fibrillation with rapid ventricular response. On Coreg 3.125 mg b.i.d., digoxin 0.25 mg daily. Change to Eliquis if refusing ICD 3. Hypothyroidism, on Synthroid. 4. Dementia. 5. History of hypertension. Current medication per Dr. Manuel. DW Dr. Manuel and daughter and RN Subjective Subjective Daughter still undecided re ICD implant. No CP or SOB Objective Last 24 Hour Vital Signs Date Time Temp Pulse Resp B/P (MAP) Pulse Ox O2 Delivery O2 Flow Rate FiO2 10/01/18 12:00 97.4 76 22 144/91 (108) 100 10/01/18 12:00 75 10/01/18 09:02 146/108 10/01/18 09:02 73 10/01/18 09:02 73 146/108 10/01/18 09:00 Room Air 10/01/18 08:00 97.2 73 23 146/108 (121) 95 10/01/18 08:00 88 10/01/18 04:00 85 10/01/18 04:00 97.9 92 18 131/81 (98) 96 10/01/18 00:00 95 10/01/18 00:00 98.2 87 18 147/95 (112) 96 09/30/18 22:13 145/110 09/30/18 22:12 95 145/110 09/30/18 21:00 Room Air 09/30/18 20:00 109 09/30/18 20:00 97.7 95 18 145/110 (122) 96 09/30/18 16:00 91 09/30/18 15:45 97.7 89 18 150/91 (110) 96 Intake and Output 09/30/18 10/01/18 18:59 06:59 Intake Total 240 ml 240 ml Balance 240 ml 240 ml Intake Oral 240 ml 240 ml # Voids 3 2 Laboratory Tests Test 10/01/18 07:45 White Blood Count 4.8 K/UL (4.8-10.8) Red Blood Count 4.30 M/UL (4.20-5.40) Hemoglobin 14.0 G/DL (12.0-16.0) Hematocrit 42.3 % (37.0-47.0) Mean Corpuscular Volume 98 FL (80-99) Mean Corpuscular Hemoglobin 32.4 PG (27.0-31.0) H Mean Corpuscular Hemoglobin Concent 33.0 G/DL (32.0-36.0) Red Cell Distribution Width 15.1 % (11.6-14.8) H Platelet Count 172 K/UL (150-450) Mean Platelet Volume 6.6 FL (6.5-10.1) Neutrophils (%) (Auto) 56.6 % (45.0-75.0) Lymphocytes (%) (Auto) 25.0 % (20.0-45.0) Monocytes (%) (Auto) 9.1 % (1.0-10.0) Eosinophils (%) (Auto) 8.2 % (0.0-3.0) H Basophils (%) (Auto) 1.1 % (0.0-2.0) Sodium Level 140 MMOL/L (136-145) Potassium Level 3.8 MMOL/L (3.5-5.1) Chloride Level 102 MMOL/L (98-107) Carbon Dioxide Level 34 MMOL/L (21-32) H Anion Gap 4 mmol/L (5-15) L Blood Urea Nitrogen 23 mg/dL (7-18) H Creatinine 1.0 MG/DL (0.55-1.30) Estimat Glomerular Filtration Rate mL/min (>60) Glucose Level 109 MG/DL (74-106) H Calcium Level 9.7 MG/DL (8.5-10.1) Objective HEAD AND NECK: Positive JVD. LUNGS: Decreased breath sounds. CARDIOVASCULAR: Irregularly irregular S1 and S2 with no gallop or murmur. ABDOMEN: Soft. EXTREMITIES: A 1+ pitting edema. Mark Sanders MD October 01, 2018 15:30
[2018-10-01 16:00] VITALS: BP 133/52
[2018-10-01] MEDS: Eliquis 2.5mg tablet ORAL SCH (17:15)
--- NOTE | 2018-10-01 19:12 | NUR ---
HAND-OFF: Report given to ENRIQUETA Martino. Patient is in stable condition. Endorsed plan of care.
--- NOTE | 2018-10-01 19:17 | NUR ---
NURSE NOTES: Report received from ENRIQUETA Calhoun. Observed pt lying on the bed. A/O x2, no signs of pain noted. 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 On room air with no signs of SOB. IV on R H 24G, SL, covered with kerlix. Bed in the lowest position. Side rails up x3. Call light within reach. will continue to monitor.
--- NOTE | 2018-10-01 19:26 | NUR ---
CASE MANAGEMENT: REVIEW SI: UTI . A-FIB w/RVR T 97.4 HR 76 RR 22 BP 146/108 SAT 95% ROOM AIR CO2 34 A-GAP 4 BUN 23 IS: VASOTEC PO Q12HR ELIQUIS PO BID DIGOXIN PO QD COREG PO Q12HR LEVAQUIN PO Q24HR TELEMETRY UNIT STATUS DCP: PATIENT IS FROM HOME
[2018-10-01 20:00] VITALS: BP 126/91
[2018-10-01] MEDS: Enalapril 2.5mg tab ORAL SCH (20:19)
--- NOTE | 2018-10-01 21:06 | General Progress Note ---
Assessment/Plan Problem List: (1) Chronic a-fib ICD Codes: I48.2 - Chronic atrial fibrillation SNOMED: 558479093 (2) Urinary tract infection ICD Codes: N39.0 - Urinary tract infection, site not specified SNOMED: 99510697 (3) Atrial fibrillation with RVR ICD Codes: I48.91 - Unspecified atrial fibrillation SNOMED: 006182762949619 (4) Intractable back pain ICD Codes: M54.9 - Dorsalgia, unspecified SNOMED: 417727862 (5) CHF (congestive heart failure) ICD Codes: I50.9 - Heart failure, unspecified SNOMED: 98942222 (6) Pulmonary hypertension, moderate to severe ICD Codes: I27.20 - Pulmonary hypertension, unspecified SNOMED: 16276067 Status: stable Assessment/Plan: a fib w rvr uti improving lbp reviewed chart and labs and meds Subjective ROS Limited/Unobtainable: Yes Allergies: Coded Allergies: No Known Allergies (Unverified , 09/25/18) Objective Last 24 Hour Vital Signs Date Time Temp Pulse Resp B/P (MAP) Pulse Ox O2 Delivery O2 Flow Rate FiO2 10/01/18 20:19 126/91 10/01/18 20:11 96 126/91 10/01/18 20:10 126/91 10/01/18 20:00 83 10/01/18 20:00 98.8 72 19 126/91 (103) 96 10/01/18 16:00 99.1 67 21 133/52 (79) 97 10/01/18 16:00 71 10/01/18 12:00 97.4 76 22 144/91 (108) 100 10/01/18 12:00 75 10/01/18 09:02 146/108 10/01/18 09:02 73 10/01/18 09:02 73 146/108 10/01/18 09:00 Room Air 10/01/18 08:00 97.2 73 23 146/108 (121) 95 10/01/18 08:00 88 10/01/18 04:00 85 10/01/18 04:00 97.9 92 18 131/81 (98) 96 10/01/18 00:00 95 10/01/18 00:00 98.2 87 18 147/95 (112) 96 09/30/18 22:13 145/110 09/30/18 22:12 95 145/110 Intake and Output 09/30/18 10/01/18 19:00 07:00 Intake Total 240 ml 240 ml Balance 240 ml 240 ml Intake Oral 240 ml 240 ml # Voids 3 2 Laboratory Tests 10/01/18 07:45: White Blood Count 4.8, Red Blood Count 4.30, Hemoglobin 14.0, Hematocrit 42.3, Mean Corpuscular Volume 98, Mean Corpuscular Hemoglobin 32.4H, Mean Corpuscular Hemoglobin Concent 33.0, Red Cell Distribution Width 15.1H, Platelet Count 172, Mean Platelet Volume 6.6, Neutrophils (%) (Auto) 56.6, Lymphocytes (%) (Auto) 25.0, Monocytes (%) (Auto) 9.1, Eosinophils (%) (Auto) 8.2H, Basophils (%) (Auto ) 1.1, Sodium Level 140, Potassium Level 3.8, Chloride Level 102, Carbon Dioxide Level 34H, Anion Gap 4L, Blood Urea Nitrogen 23H, Creatinine 1.0, Estimat Glomerular Filtration Rate , Glucose Level 109H, Calcium Level 9.7 Height (Feet): 5 Height (Inches): 4.00 Weight (Pounds): 117 Respiratory/Chest: lungs clear Abdomen: soft Trini Aponte MD October 01, 2018 21:06
[2018-10-02] VITALS: BP 138/96
--- NOTE | 2018-10-02 | NUR ---
NURSE NOTES: Pt seems to be confused, repeating her words several times. IV changed to L W 22G, SL and covered with Kerlix. Pt c/o itching on bilateral arms and back and applied A&D. Pt daughter at the bedside. AFib with HR of 82 noted. No signs of SOB. Will continue to monitor.
--- NOTE | 2018-10-02 03:05 | NUR ---
NURSE NOTES: Observed pt sleeping on the bed. No signs of acute distress noted at this time. Pt appears calm and comfortable. Bed locked in the lowest position. Side rails up x3. Call light within reach. Will continue to monitor.
[2018-10-02 04:00] VITALS: BP 157/96
--- NOTE | 2018-10-02 05:25 | NUR ---
NURSE NOTES: Observed pt sleeping on the bed. AFib with HR of 94 noted. PT appears calm and comfortable. No signs of any distress noted at this time. Pt family at the bedside.
[2018-10-02] MEDS: Levothyroxine 25mcg tab ORAL SCH (06:04)
--- NOTE | 2018-10-02 07:02 | NUR ---
HAND-OFF: Report given to ENRIQUETA Calhoun. No acute distress noted at this time.
--- NOTE | 2018-10-02 07:25 | NUR ---
NURSE NOTES: Received report from ENRIQUETA Martino. Patient is in stable condition. No acute distress/SOB noted. Daughter is at the bedside. Will continue plan of care.
[2018-10-02 08:00] VITALS: BP 122/81
--- NOTE | 2018-10-02 08:27 | Pulmonology Progress Note ---
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 fib Severe pulmonary hypertension UTI Spinal stenosis Intractable back pain secondary to stenosis Spinal stenosis Subclinical hypothyroidism Hyperkalemia- resolved Constipation Abnormal LFT PLAN OF CARE telemetry O2 HHN prn fup with CXR Wednesday, Echo with EF 15%, no evidence of left ventricular hypertrophy, right ventricular systolic pressure of 71 consistent with severe pulmonary hypertension anti-failure regimen with beta-dillon, digoxin, RAEGAN , long-acting nitrate continue anticoagulation : back to [facility] , off Lovenox ( since daughter declined AICD placement at this time) rate control with digoxin and BB, Cardizem on board prn AICD cancelled since daughter declined at this time cardiomyopathy, after FL, stent in LAD; monitor K, was elevated, and RAEGAN was stopped, hyperkalemia treated, RAEGAN restart today and monitor K carefully IV abx as per ID recommendation, urine culture grew Proteus neuro follows CT L-spine no obvious acute fracture, severe degenerative changes of lumbar spine CT T-spine no obvious acute fracture, MRI of lumbar spine moderate to severe multilevel spinal stenosis neuro recommended surgical eval for discussion of injectable therapy as patient likely unable to have any surgery secondary to poor cardiac function fall precaution PT eval and treatment pain management as per pain specialist CTA of the chest noted patchy lung fibrosis with ground- glass opacity ; nonspecified supplemental oxygen PRN to keep pulse ox above 92% pulmonary toilet ascending aortic aneurysm with moderate atherosclerotic disease 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 no evidence of dissection abdominal ultrasound with fusiform aneurysm thickening of the gallbladder wall nonspecific trace ascites Endo follows TSH x3 elevated with normal free T4 and free T3, continue levothyroxine 25 mcg daily as per endo recommendation GI follows Bowel regimen Antiemetic as needed Follow-up with LFT PPI case discussed and evaluated by supervising physician Subjective Allergies: Coded Allergies: No Known Allergies (Unverified , 09/25/18) Subjective no chest pain, no SOB pulse ox stable on RA daughter refused AICD placement at this time Objective Last 24 Hour Vital Signs Date Time Temp Pulse Resp B/P (MAP) Pulse Ox O2 Delivery O2 Flow Rate FiO2 10/02/18 08:00 97.6 71 18 122/81 (95) 96 10/02/18 04:00 91 10/02/18 04:00 98.0 82 18 157/96 (116) 96 10/02/18 00:00 98.3 82 18 138/96 (110) 96 10/02/18 00:00 84 10/01/18 21:00 Room Air 10/01/18 20:19 126/91 10/01/18 20:11 96 126/91 10/01/18 20:10 126/91 10/01/18 20:00 83 10/01/18 20:00 98.8 72 19 126/91 (103) 96 10/01/18 16:00 99.1 67 21 133/52 (79) 97 10/01/18 16:00 71 10/01/18 12:00 97.4 76 22 144/91 (108) 100 10/01/18 12:00 75 10/01/18 09:02 146/108 10/01/18 09:02 73 10/01/18 09:02 73 146/108 10/01/18 09:00 Room Air Intake and Output 10/01/18 10/02/18 19:00 07:00 Intake Total 240 ml Balance 240 ml Intake Oral 240 ml # Voids 2 1 Objective General Appearance: no acute distress, awake, alert, elderly Polish speaking female HEENT: normocephalic, atraumatic, anicteric, mucous membranes moist Respiratory/Chest: lungs clear - with moderate air exchange Cardiovascular: normal peripheral pulses, normal rate, irregularly irregular - A fib on tele, rate controlled Abdomen: normal bowel sounds, soft, non tender, non distended Extremities: trace edema BLE Neurologic/Psychiatric: abnormal gait, alert, responsive Musculoskeletal: atrophy - BLE Current Medications Medications (Trade) Dose Ordered Sig/Yunior Route PRN Reason Start Time Stop Time Status Last Admin Dose Admin Acetaminophen (Tylenol) 650 mg Q4H PRN ORAL fever 09/30/18 15:44 10/25/18 15:43 Acetaminophen/ Hydrocodone Bitart ([place] 10/325) 1 tab Q4H PRN ORAL For Pain 09/30/18 15:51 10/05/18 15:50 Albuterol/ Ipratropium (Albuterol/ Ipratropium) 3 ml Q4H PRN HHN Shortness of Breath 10/01/18 10:30 10/06/18 10:29 Apixaban (Eliquis) 2.5 mg BID ORAL 10/01/18 18:00 10/31/18 17:59 10/01/18 17:15 Carvedilol (Coreg) 3.125 mg EVERY 12 HOURS ORAL 09/30/18 21:00 10/28/18 20:59 10/01/18 20:11 Dextrose (Dextrose 50%) 25 ml Q30M PRN IV Hypoglycemia 09/30/18 15:44 10/25/18 15:43 Dextrose (Dextrose 50%) 50 ml Q30M PRN IV Hypoglycemia 09/30/18 15:45 10/25/18 20:44 Digoxin (Lanoxin) 0.25 mg DAILY ORAL 10/01/18 09:00 10/28/18 08:59 10/01/18 09:02 Diltiazem HCl (Cardizem) 10 mg Q1H PRN IV HR>120BPM 09/30/18 15:46 10/26/18 15:45 Donepezil HCl (Aricept) 5 mg DAILY ORAL 10/01/18 09:00 10/28/18 08:59 10/01/18 09:01 Enalapril Maleate (Vasotec) 2.5 mg EVERY 12 HOURS ORAL 10/01/18 21:00 10/31/18 20:59 10/01/18 20:19 Isosorbide Mononitrate (Imdur) 30 mg Q12HR ORAL 09/30/18 21:00 10/27/18 20:59 10/01/18 20:10 Levothyroxine Sodium (Synthroid) 25 mcg DAILY@0630 ORAL 10/01/18 06:30 10/28/18 06:44 10/02/18 06:04 Lorazepam (Ativan 2mg/ml 1ml) 0.5 mg Q4H PRN IV For Anxiety 09/30/18 15:45 10/02/18 15:44 Memantine (Namenda) 10 mg DAILY ORAL 10/01/18 09:00 10/28/18 08:59 10/01/18 08:58 Methadone HCl (Methadone HCl) 5 mg EVERY 12 HOURS ORAL 09/30/18 21:00 10/07/18 11:29 10/01/18 20:11 Morphine Sulfate (Morphine Sulfate) 2 mg Q4H PRN IVP For Pain 4-6 09/30/18 15:46 10/02/18 15:45 Morphine Sulfate (Morphine Sulfate) 4 mg Q4H PRN IVP For Pain 7-10 09/30/18 15:46 10/02/18 15:45 Ondansetron HCl (Zofran) 4 mg Q6H PRN IVP Nausea & Vomiting 09/30/18 15:45 10/25/18 15:44 09/30/18 17:53 Polyethylene Glycol (Miralax) 17 gm HSPRN PRN ORAL Constipation 09/30/18 20:45 10/25/18 20:44 Quetiapine Fumarate (SEROquel) 25 mg BID ORAL 09/30/18 18:00 10/27/18 17:59 10/01/18 17:15 Zolpidem Tartrate (Ambien) 5 mg HSPRN PRN ORAL Insomnia 09/30/18 20:45 10/02/18 20:44 Brooke Seaman NP October 02, 2018 08:27
--- NOTE | 2018-10-02 08:29 | General Progress Note ---
Assessment/Plan Problem List: (1) LFTs abnormal ICD Codes: R94.5 - Abnormal results of liver function studies SNOMED: 516885831 (2) CHF (congestive heart failure) ICD Codes: I50.9 - Heart failure, unspecified SNOMED: 14702842 (3) Atrial fibrillation with RVR ICD Codes: I48.91 - Unspecified atrial fibrillation SNOMED: 078044603819311 (4) EF 15% (5) Constipation ICD Codes: K59.00 - Constipation, unspecified SNOMED: 36978474 Status: stable Assessment/Plan: Symptomatic treatment at this time Advance diet as tolerated Pain management Zofran as needed bowel regime Repeat LFTs PPI Follow-up labs GI procedures only if emergent, otherwise outpatient Subjective ROS Limited/Unobtainable: No Allergies: Coded Allergies: No Known Allergies (Unverified , 09/25/18) Objective Last 24 Hour Vital Signs Date Time Temp Pulse Resp B/P (MAP) Pulse Ox O2 Delivery O2 Flow Rate FiO2 10/02/18 08:00 97.6 71 18 122/81 (95) 96 10/02/18 04:00 91 10/02/18 04:00 98.0 82 18 157/96 (116) 96 10/02/18 00:00 98.3 82 18 138/96 (110) 96 10/02/18 00:00 84 10/01/18 21:00 Room Air 10/01/18 20:19 126/91 10/01/18 20:11 96 126/91 10/01/18 20:10 126/91 10/01/18 20:00 83 10/01/18 20:00 98.8 72 19 126/91 (103) 96 10/01/18 16:00 99.1 67 21 133/52 (79) 97 10/01/18 16:00 71 10/01/18 12:00 97.4 76 22 144/91 (108) 100 10/01/18 12:00 75 10/01/18 09:02 146/108 10/01/18 09:02 73 10/01/18 09:02 73 146/108 10/01/18 09:00 Room Air Intake and Output 10/01/18 10/02/18 19:00 07:00 Intake Total 240 ml Balance 240 ml Intake Oral 240 ml # Voids 2 1 Laboratory Tests 10/02/18 07:30: White Blood Count [Pending], Red Blood Count [Pending], Hemoglobin [Pending], Hematocrit [Pending], Mean Corpuscular Volume [Pending], Mean Corpuscular Hemoglobin [Pending], Mean Corpuscular Hemoglobin Concent [Pending], Red Cell Distribution Width [Pending], Platelet Count [Pending], Mean Platelet Volume [ Pending], Neutrophils (%) (Auto) [Pending], Lymphocytes (%) (Auto) [Pending], Monocytes (%) (Auto) [Pending], Eosinophils (%) (Auto) [Pending], Basophils (%) (Auto) [Pending], Sodium Level [Pending], Potassium Level [Pending], Chloride Level [Pending], Carbon Dioxide Level [Pending], Blood Urea Nitrogen [Pending], Creatinine [Pending], Estimat Glomerular Filtration Rate [Pending], Glucose Level [Pending], Calcium Level [Pending], Total Bilirubin [Pending], Aspartate Amino Transf (AST/SGOT) [Pending], Alanine Aminotransferase (ALT/SGPT) [Pending] , Alkaline Phosphatase [Pending], Total Protein [Pending], Albumin [Pending], Globulin [Pending] Height (Feet): 5 Height (Inches): 4.00 Weight (Pounds): 114 General Appearance: no apparent distress EENT: normal ENT inspection Neck: supple Cardiovascular: normal rate Respiratory/Chest: decreased breath sounds Abdomen: normal bowel sounds, non tender, soft Extremities: non-tender Daron Mcclure MD October 02, 2018 08:29
[2018-10-02 08:33] LABS: BASOPHILS % (AUTO) 1.1 % (0.0-2.0); EOSINOPHILS % (AUTO) 10.5 % (0.0-3.0); HEMATOCRIT 42.7 % (37.0-47.0); HEMOGLOBIN 13.9 G/DL (12.0-16.0); MEAN CORPUSCULAR VOLUME 98 FL (80-99); MONOCYTES % (AUTO) 8.5 % (1.0-10.0); NEUTROPHILS % (AUTO) 50.9 % (45.0-75.0); PLATELET COUNT 171 K/UL (150-450); RED BLOOD COUNT 4.35 M/UL (4.20-5.40); RED CELL DISTRIBUTION WIDTH 15.3 % (11.6-14.8); WHITE BLOOD COUNT 4.5 K/UL (4.8-10.8)
[2018-10-02] MEDS: Donepezil 5mg Tab ORAL SCH (08:34)
[2018-10-02] MEDS: Enalapril 2.5mg tab ORAL SCH ×2 (08:35→20:34)
[2018-10-02] MEDS: Eliquis 2.5mg tablet ORAL SCH ×2 (08:36→17:14)
[2018-10-02] MEDS: Memantine 10mg tab ORAL SCH (08:36)
[2018-10-02] MEDS: Imdur 30mg tab ORAL SCH ×2 (08:36→20:35)
[2018-10-02 08:46] LABS: ALANINE AMINOTRANSFERASE 40 U/L (12-78); ALBUMIN 3.2 G/DL (3.4-5.0); ALBUMIN/GLOBULIN RATIO 0.7 (1.0-2.7); ALKALINE PHOSPHATASE 129 U/L (46-116); ANION GAP 6 mmol/L (5-15); ASPARTATE AMINO TRANSFERASE 49 U/L (15-37); BILIRUBIN,TOTAL 0.5 MG/DL (0.2-1.0); BLOOD UREA NITROGEN 22 mg/dL (7-18); CALCIUM 9.4 MG/DL (8.5-10.1); CARBON DIOXIDE 29 MMOL/L (21-32); CHLORIDE 101 MMOL/L (98-107); POTASSIUM 3.9 MMOL/L (3.5-5.1); SODIUM 136 MMOL/L (136-145)
--- NOTE | 2018-10-02 08:50 | General Progress Note ---
Assessment/Plan Problem List: (1) Subclinical hypothyroidism ICD Codes: E03.9 - Hypothyroidism, unspecified SNOMED: 50460877 (2) Intractable back pain ICD Codes: M54.9 - Dorsalgia, unspecified SNOMED: 753177881 (3) Atrial fibrillation with RVR ICD Codes: I48.91 - Unspecified atrial fibrillation SNOMED: 621505749079262 (4) Spinal stenosis ICD Codes: M48.00 - Spinal stenosis, site unspecified SNOMED: 50212456 (5) Urinary tract infection ICD Codes: N39.0 - Urinary tract infection, site not specified SNOMED: 97920749 Status: stable Assessment/Plan: continue Levothyroxine 25 mcg daily repeat thyroid function in 3 weeks Subjective ROS Limited/Unobtainable: Yes Allergies: Coded Allergies: No Known Allergies (Unverified , 09/25/18) Subjective events noted interval notes reviewed family have not made decision regarding ICD placement Objective Last 24 Hour Vital Signs Date Time Temp Pulse Resp B/P (MAP) Pulse Ox O2 Delivery O2 Flow Rate FiO2 10/02/18 08:36 122/81 10/02/18 08:35 122/81 10/02/18 08:35 71 10/02/18 08:35 71 122/81 10/02/18 08:00 97.6 71 18 122/81 (95) 96 10/02/18 04:00 91 10/02/18 04:00 98.0 82 18 157/96 (116) 96 10/02/18 00:00 98.3 82 18 138/96 (110) 96 10/02/18 00:00 84 10/01/18 21:00 Room Air 10/01/18 20:19 126/91 10/01/18 20:11 96 126/91 10/01/18 20:10 126/91 10/01/18 20:00 83 10/01/18 20:00 98.8 72 19 126/91 (103) 96 10/01/18 16:00 99.1 67 21 133/52 (79) 97 10/01/18 16:00 71 10/01/18 12:00 97.4 76 22 144/91 (108) 100 10/01/18 12:00 75 10/01/18 09:02 146/108 10/01/18 09:02 73 10/01/18 09:02 73 146/108 10/01/18 09:00 Room Air Intake and Output 10/01/18 10/02/18 19:00 07:00 Intake Total 240 ml Balance 240 ml Intake Oral 240 ml # Voids 2 1 Laboratory Tests 10/02/18 07:30: White Blood Count 4.5L, Red Blood Count 4.35, Hemoglobin 13.9, Hematocrit 42.7, Mean Corpuscular Volume 98, Mean Corpuscular Hemoglobin 31.9H, Mean Corpuscular Hemoglobin Concent 32.5, Red Cell Distribution Width 15.3H, Platelet Count 171, Mean Platelet Volume 6.0L, Neutrophils (%) (Auto) 50.9, Lymphocytes (%) (Auto) 29.0, Monocytes (%) (Auto) 8.5, Eosinophils (%) (Auto) 10.5H, Basophils (%) ( Auto) 1.1, Sodium Level 136, Potassium Level 3.9, Chloride Level 101, Carbon Dioxide Level 29, Anion Gap 6, Blood Urea Nitrogen 22H, Creatinine 1.0, Estimat Glomerular Filtration Rate , Glucose Level 98, Calcium Level 9.4, Total Bilirubin 0.5, Aspartate Amino Transf (AST/SGOT) 49H, Alanine Aminotransferase ( ALT/SGPT) 40, Alkaline Phosphatase 129H, Total Protein 7.5, Albumin 3.2L, Globulin 4.3, Albumin/Globulin Ratio 0.7L Height (Feet): 5 Height (Inches): 4.00 Weight (Pounds): 114 General Appearance: no apparent distress Neck: normal alignment Cardiovascular: arrhythmia Respiratory/Chest: lungs clear Abdomen: normal bowel sounds Objective Current Medications Medications (Trade) Dose Ordered Sig/Yunior Route PRN Reason Start Time Stop Time Status Last Admin Dose Admin Acetaminophen (Tylenol) 650 mg Q4H PRN ORAL fever 09/30/18 15:44 10/25/18 15:43 Acetaminophen/ Hydrocodone Bitart ([place] [address]) 1 tab Q4H PRN ORAL For Pain 09/30/18 15:51 10/05/18 15:50 Albuterol/ Ipratropium (Albuterol/ Ipratropium) 3 ml Q4H PRN HHN Shortness of Breath 10/01/18 10:30 10/06/18 10:29 Apixaban (Eliquis) 2.5 mg BID ORAL 10/01/18 18:00 10/31/18 17:59 10/02/18 08:36 Carvedilol (Coreg) 3.125 mg EVERY 12 HOURS ORAL 09/30/18 21:00 10/28/18 20:59 10/02/18 08:35 Dextrose (Dextrose 50%) 25 ml Q30M PRN IV Hypoglycemia 09/30/18 15:44 10/25/18 15:43 Dextrose (Dextrose 50%) 50 ml Q30M PRN IV Hypoglycemia 09/30/18 15:45 10/25/18 20:44 Digoxin (Lanoxin) 0.25 mg DAILY ORAL 10/01/18 09:00 10/28/18 08:59 10/02/18 08:35 Diltiazem HCl (Cardizem) 10 mg Q1H PRN IV HR>120BPM 09/30/18 15:46 10/26/18 15:45 Donepezil HCl (Aricept) 5 mg DAILY ORAL 10/01/18 09:00 10/28/18 08:59 10/02/18 08:34 Enalapril Maleate (Vasotec) 2.5 mg EVERY 12 HOURS ORAL 10/01/18 21:00 10/31/18 20:59 10/02/18 08:35 Isosorbide Mononitrate (Imdur) 30 mg Q12HR ORAL 09/30/18 21:00 10/27/18 20:59 10/02/18 08:36 Levothyroxine Sodium (Synthroid) 25 mcg DAILY@0630 ORAL 10/01/18 06:30 10/28/18 06:44 10/02/18 06:04 Lorazepam (Ativan 2mg/ml 1ml) 0.5 mg Q4H PRN IV For Anxiety 09/30/18 15:45 10/02/18 15:44 Memantine (Namenda) 10 mg DAILY ORAL 10/01/18 09:00 10/28/18 08:59 10/02/18 08:36 Methadone HCl (Methadone HCl) 5 mg EVERY 12 HOURS ORAL 09/30/18 21:00 10/07/18 11:29 10/02/18 08:37 Morphine Sulfate (Morphine Sulfate) 2 mg Q4H PRN IVP For Pain 4-6 09/30/18 15:46 10/02/18 15:45 Morphine Sulfate (Morphine Sulfate) 4 mg Q4H PRN IVP For Pain 7-10 09/30/18 15:46 10/02/18 15:45 Ondansetron HCl (Zofran) 4 mg Q6H PRN IVP Nausea & Vomiting 09/30/18 15:45 10/25/18 15:44 09/30/18 17:53 Polyethylene Glycol (Miralax) 17 gm HSPRN PRN ORAL Constipation 09/30/18 20:45 10/25/18 20:44 Quetiapine Fumarate (SEROquel) 25 mg BID ORAL 09/30/18 18:00 10/27/18 17:59 10/02/18 08:35 Zolpidem Tartrate (Ambien) 5 mg HSPRN PRN ORAL Insomnia 09/30/18 20:45 10/02/18 20:44 Herber Velazquez MD October 02, 2018 08:50
[2018-10-02 12:00] VITALS: BP 142/84
--- NOTE | 2018-10-02 12:37 | Cardiology Progress Note ---
Assessment/Plan Assessment/Plan 1. Four-chamber and dilated cardiomyopathy with areas of wall motion abnormalities suggestive of possible ischemic cardiomyopathy, LVEF ~ 15-20%. Continue GDMT. 2. Atrial fibrillation with controlled ventricular response, on carvedilol, Eliquis and digoxin. 3. History of hypertension. Subjective Subjective Atrial fibrillation with controlled ventricular response. Objective Last 24 Hour Vital Signs Date Time Temp Pulse Resp B/P (MAP) Pulse Ox O2 Delivery O2 Flow Rate FiO2 10/02/18 12:00 97.6 56 18 142/84 (103) 96 10/02/18 09:00 Room Air 10/02/18 08:36 122/81 10/02/18 08:35 122/81 10/02/18 08:35 71 10/02/18 08:35 71 122/81 10/02/18 08:00 97.6 71 18 122/81 (95) 96 10/02/18 08:00 83 10/02/18 04:00 91 10/02/18 04:00 98.0 82 18 157/96 (116) 96 10/02/18 00:00 98.3 82 18 138/96 (110) 96 10/02/18 00:00 84 10/01/18 21:00 Room Air 10/01/18 20:19 126/91 10/01/18 20:11 96 126/91 10/01/18 20:10 126/91 10/01/18 20:00 83 10/01/18 20:00 98.8 72 19 126/91 (103) 96 10/01/18 16:00 99.1 67 21 133/52 (79) 97 10/01/18 16:00 71 Neurologic: normal mood/affect Intake and Output 10/01/18 10/02/18 19:00 07:00 Intake Total 240 ml Balance 240 ml Intake Oral 240 ml # Voids 2 1 2D Echo: 4C-DCM, + WM, LVEF 20%, [place].Effusion, RVSP 71 mmHg, Mild AR, Mod MR, Laboratory Tests Test 10/02/18 07:30 White Blood Count 4.5 K/UL (4.8-10.8) L Red Blood Count 4.35 M/UL (4.20-5.40) Hemoglobin 13.9 G/DL (12.0-16.0) Hematocrit 42.7 % (37.0-47.0) Mean Corpuscular Volume 98 FL (80-99) Mean Corpuscular Hemoglobin 31.9 PG (27.0-31.0) H Mean Corpuscular Hemoglobin Concent 32.5 G/DL (32.0-36.0) Red Cell Distribution Width 15.3 % (11.6-14.8) H Platelet Count 171 K/UL (150-450) Mean Platelet Volume 6.0 FL (6.5-10.1) L Neutrophils (%) (Auto) 50.9 % (45.0-75.0) Lymphocytes (%) (Auto) 29.0 % (20.0-45.0) Monocytes (%) (Auto) 8.5 % (1.0-10.0) Eosinophils (%) (Auto) 10.5 % (0.0-3.0) H Basophils (%) (Auto) 1.1 % (0.0-2.0) Sodium Level 136 MMOL/L (136-145) Potassium Level 3.9 MMOL/L (3.5-5.1) Chloride Level 101 MMOL/L (98-107) Carbon Dioxide Level 29 MMOL/L (21-32) Anion Gap 6 mmol/L (5-15) Blood Urea Nitrogen 22 mg/dL (7-18) H Creatinine 1.0 MG/DL (0.55-1.30) Estimat Glomerular Filtration Rate mL/min (>60) Glucose Level 98 MG/DL (74-106) Calcium Level 9.4 MG/DL (8.5-10.1) Total Bilirubin 0.5 MG/DL (0.2-1.0) Aspartate Amino Transf (AST/SGOT) 49 U/L (15-37) H Alanine Aminotransferase (ALT/SGPT) 40 U/L (12-78) Alkaline Phosphatase 129 U/L (46-116) H Total Protein 7.5 G/DL (6.4-8.2) Albumin 3.2 G/DL (3.4-5.0) L Globulin 4.3 g/dL Albumin/Globulin Ratio 0.7 (1.0-2.7) L Objective HEENT: Atraumatic, normocephalic, anicteric. Pupils are equal, round, and reactive to light and accommodation. Extraocular muscles are intact. NECK: JVP is elevated about 12 cm. No carotid bruit. Carotid upstroke is 2+ bilaterally. CVS: Normal S1, S2. Irregular irregular rhythm. A 2/6 holosystolic murmur at the apex. LUNGS: Clear to auscultation bilaterally. ABDOMEN: Soft, nontender, and nondistended. No hepatosplenomegaly. Positive bowel sounds. EXTREMITIES: No evidence of edema, clubbing, or cyanosis. Mark Manuel MD October 02, 2018 12:37
--- NOTE | 2018-10-02 13:11 | General Progress Note ---
Assessment/Plan Assessment/Plan: (1) Thoracic and Lumbar DDD (2) Thoracic and Lumbar Spondylosis (3) Lumbar Radiculopathy/ spinal stenosis Pt will be continued on norco We will discontinue Morphine and methadone. D/w Dr. Wilson and he concurred. Subjective Date patient seen: October 02, 2018 Time patient seen: 12:30 - pm Allergies: Coded Allergies: No Known Allergies (Unverified , 09/25/18) Subjective REVIEW OF SYSTEMS: Denies rash, fever, chills, sweating, dizziness, drowsiness, blurred vision, sore throat, or change in weight. No shortness of breath or chest pain. No nausea, vomiting, or blood in the stool or urine. No bowel or bladder incontinence. No dysuria. The patient is complaining of back pain. SUBJECTIVE: Patient is in bed sitting up family at bedside. Was started on Methadone 5mg BID as per another physician. However d/w family in detail about the Methadone and they would like it to be stopped. Objective Last 24 Hour Vital Signs Date Time Temp Pulse Resp B/P (MAP) Pulse Ox O2 Delivery O2 Flow Rate FiO2 10/02/18 12:00 97.6 56 18 142/84 (103) 96 10/02/18 09:00 Room Air 10/02/18 08:36 122/81 10/02/18 08:35 122/81 10/02/18 08:35 71 10/02/18 08:35 71 122/81 10/02/18 08:00 97.6 71 18 122/81 (95) 96 10/02/18 08:00 83 10/02/18 04:00 91 10/02/18 04:00 98.0 82 18 157/96 (116) 96 10/02/18 00:00 98.3 82 18 138/96 (110) 96 10/02/18 00:00 84 10/01/18 21:00 Room Air 10/01/18 20:19 126/91 10/01/18 20:11 96 126/91 10/01/18 20:10 126/91 10/01/18 20:00 83 10/01/18 20:00 98.8 72 19 126/91 (103) 96 10/01/18 16:00 99.1 67 21 133/52 (79) 97 10/01/18 16:00 71 Intake and Output 10/01/18 10/02/18 19:00 07:00 Intake Total 240 ml Balance 240 ml Intake Oral 240 ml # Voids 2 1 Laboratory Tests 10/02/18 07:30: White Blood Count 4.5L, Red Blood Count 4.35, Hemoglobin 13.9, Hematocrit 42.7, Mean Corpuscular Volume 98, Mean Corpuscular Hemoglobin 31.9H, Mean Corpuscular Hemoglobin Concent 32.5, Red Cell Distribution Width 15.3H, Platelet Count 171, Mean Platelet Volume 6.0L, Neutrophils (%) (Auto) 50.9, Lymphocytes (%) (Auto) 29.0, Monocytes (%) (Auto) 8.5, Eosinophils (%) (Auto) 10.5H, Basophils (%) ( Auto) 1.1, Sodium Level 136, Potassium Level 3.9, Chloride Level 101, Carbon Dioxide Level 29, Anion Gap 6, Blood Urea Nitrogen 22H, Creatinine 1.0, Estimat Glomerular Filtration Rate , Glucose Level 98, Calcium Level 9.4, Total Bilirubin 0.5, Aspartate Amino Transf (AST/SGOT) 49H, Alanine Aminotransferase ( ALT/SGPT) 40, Alkaline Phosphatase 129H, Total Protein 7.5, Albumin 3.2L, Globulin 4.3, Albumin/Globulin Ratio 0.7L Height (Feet): 5 Height (Inches): 4.00 Weight (Pounds): 114 Objective PHYSICAL EXAMINATION: GENERAL: Alert, awake, and oriented. LUNGS: Decreased breath sounds bilaterally. HEART: S1 and S2 regular. ABDOMEN: Soft and nontender. EXTREMITIES: No cyanosis. No clubbing. NEURO: No changes. Ilya Perez October 02, 2018 13:11
--- NOTE | 2018-10-02 14:44 | NUR ---
CASE MANAGEMENT: REVIEW SI: UTI . A-FIB w/RVR T 97.5 HR 56 RR 18 BP 142/84 SAT 96% ROOM AIR WBC 4.5 BUN 22 AST 49 ALK PHOS 129 IS: VASOTEC PO Q12HR ELIQUIS PO BID DIGOXIN PO QD COREG PO Q12HR TELEMETRY UNIT STATUS DCP: PATIENT IS FROM HOME
[2018-10-02 16:00] VITALS: BP 145/78
--- NOTE | 2018-10-02 17:55 | Neurology Progress Note ---
Interim History Interim History ROS Limited/Unobtainable: Yes Complaints: LBP Events: Stable exam, pain controlled Interim History This visit was conducted on 10/01/[address] Ross Smith Review of Systems All Systems: reviewed and negative except above Objective Physical Exam Last Vital Signs Date Time Temp Pulse Resp B/P (MAP) Pulse Ox O2 Delivery O2 Flow Rate FiO2 10/02/18 16:00 82 10/02/18 16:00 97.9 18 145/78 (100) 96 10/02/18 09:00 Room Air Laboratory Tests Test 10/02/18 07:30 White Blood Count 4.5 K/UL (4.8-10.8) L Red Blood Count 4.35 M/UL (4.20-5.40) Hemoglobin 13.9 G/DL (12.0-16.0) Hematocrit 42.7 % (37.0-47.0) Mean Corpuscular Volume 98 FL (80-99) Mean Corpuscular Hemoglobin 31.9 PG (27.0-31.0) H Mean Corpuscular Hemoglobin Concent 32.5 G/DL (32.0-36.0) Red Cell Distribution Width 15.3 % (11.6-14.8) H Platelet Count 171 K/UL (150-450) Mean Platelet Volume 6.0 FL (6.5-10.1) L Neutrophils (%) (Auto) 50.9 % (45.0-75.0) Lymphocytes (%) (Auto) 29.0 % (20.0-45.0) Monocytes (%) (Auto) 8.5 % (1.0-10.0) Eosinophils (%) (Auto) 10.5 % (0.0-3.0) H Basophils (%) (Auto) 1.1 % (0.0-2.0) Sodium Level 136 MMOL/L (136-145) Potassium Level 3.9 MMOL/L (3.5-5.1) Chloride Level 101 MMOL/L (98-107) Carbon Dioxide Level 29 MMOL/L (21-32) Anion Gap 6 mmol/L (5-15) Blood Urea Nitrogen 22 mg/dL (7-18) H Creatinine 1.0 MG/DL (0.55-1.30) Estimat Glomerular Filtration Rate mL/min (>60) Glucose Level 98 MG/DL (74-106) Calcium Level 9.4 MG/DL (8.5-10.1) Total Bilirubin 0.5 MG/DL (0.2-1.0) Aspartate Amino Transf (AST/SGOT) 49 U/L (15-37) H Alanine Aminotransferase (ALT/SGPT) 40 U/L (12-78) Alkaline Phosphatase 129 U/L (46-116) H Total Protein 7.5 G/DL (6.4-8.2) Albumin 3.2 G/DL (3.4-5.0) L Globulin 4.3 g/dL Albumin/Globulin Ratio 0.7 (1.0-2.7) L Neurologic Exam Mental Status: awake, alert, oriented x4, normal cognition, good mathematical skills, normal recent memory, normal remote memory, preserved visuospatial function Speech: normal speech, no dysarthia Language: normal language, no aphasia Cranial Nerve II: fundus normal, visual daley, no papilledema Cranial Nerves III, IV, : PERRLA, EOMI, pupils Cranial Nerve V: normal facial sensations, temporales function normal, masseters function normal, pterygoids function normal Cranial Nerve VII: no facial asymmetry, normal facial expressions Cranial Nerve VIII: normal hearing, no nystagmus Cranial Nerve IX: normal palate elevation, gag response Cranial Nerve X: no voice hoarseness Cranial Nerve XI: SCM symmetric, trapezii function normal Cranial Nerve XII: tongue midline, no tongue atrophy/fasciculations Motor System: normal muscle tone, strength 5/5, no involuntary movement, no muscle wasting Sensory: normal pinprick, normal light touch, normal position sense, normal graphesthesia Coordination: normal finger to nose bilaterally, normal heel to cason bilaterally, negative Romberg test Deep Tendon Reflexes: 1+ knee (L), 1+ knee (R), 1+ ankle (L), 1+ ankle (R); 2+ bicep (L), 2+ bicep (R), 2+ tricep (L), 2+ tricep (R), 2+ brachioradialis (L), 2 + brachioradialis (R) Stance: normal Gait: stable, normal regular Impression/Recommendations Problems: (1) Constipation (2) Urinary tract infection (3) Spinal stenosis (4) Atrial fibrillation with RVR (5) Intractable back pain (6) Subclinical hypothyroidism (7) EF 15% Status: stable, progressing, tolerating diet, ambulating well Recommendations Continue Q 4 Neurovascular obs Consider Gabapentin if patient requires more opioid PRNs - doesn't appear to be needing this at this time. Maintain normothermia There is severe degenerative disc disease and facet arthropathy at multiple levels within the lumbar spine. Disc disease is characterized by desiccation, narrowing and hypertrophic endplate spur formation. Variable degrees of concentric appearing disc protrusions demonstrated in association with endplate spur formation (disc osteophyte complex). T12-L1 shows mild bilateral foraminal stenosis. No central stenosis seen. L1-2: Mild central spinal stenosis demonstrated. Moderate to severe bilateral foraminal stenosis demonstrated. L2-3: Severe narrowing of the central canal demonstrated. There is narrowing of the lateral recess. Moderate to severe bilateral foraminal stenosis is present. L3-4: There is severe stenosis of the central canal lateral recess. There is a severe bilateral foraminal stenosis. L4-5: There is severe central spinal stenosis and narrowing of the lateral recesses. There is severe bilateral foraminal stenosis. L5-S1: There is narrowing of the lateral recess and moderate to severe bilateral foraminal stenosis. The central canal is capacious. There are multiple cysts present within both kidneys. IMPRESSION: Moderate to severe multilevel spinal stenosis involving the central canal and lateral recess and bilateral foramina as described above. This is due to combination of factors including severe degenerative disc disease and facet arthropathy. May discuss injectable therapy as patient is likely unable to have any surgery secondary to poor cardiac function/ age She remains ambulatory with improved pain overall secondary to opioid use. Kady López N.P. October 02, 2018 17:55
--- NOTE | 2018-10-02 19:05 | NUR ---
NURSE NOTES: Received pt. and report from ENRIQUETA Calhoun. Observe pt. eating dinner in bed. 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 Bed is in the lowest position, locked, and alarmed. Call light within reach. No signs/symptoms of acute distress noted at this time. Will continue plan of care.
--- NOTE | 2018-10-02 19:15 | NUR ---
HAND-OFF: Report given to ENRIQUETA Nogueira. Patient is in stable condition. Endorsed plan of care.
[2018-10-02 20:00] VITALS: BP 142/84
--- NOTE | 2018-10-02 21:28 | General Progress Note ---
Assessment/Plan Problem List: (1) Chronic a-fib ICD Codes: I48.2 - Chronic atrial fibrillation SNOMED: 877522666 (2) Urinary tract infection ICD Codes: N39.0 - Urinary tract infection, site not specified SNOMED: 41597458 (3) Atrial fibrillation with RVR ICD Codes: I48.91 - Unspecified atrial fibrillation SNOMED: 991877607193847 (4) Intractable back pain ICD Codes: M54.9 - Dorsalgia, unspecified SNOMED: 339399597 (5) CHF (congestive heart failure) ICD Codes: I50.9 - Heart failure, unspecified SNOMED: 46403357 (6) Pulmonary hypertension, moderate to severe ICD Codes: I27.20 - Pulmonary hypertension, unspecified SNOMED: 58394539 Status: progressing Assessment/Plan: a fib w rvr improved uti improving chf no acute events reviewed chart and labs and meds Subjective ROS Limited/Unobtainable: Yes Allergies: Coded Allergies: No Known Allergies (Unverified , 09/25/18) Objective Last 24 Hour Vital Signs Date Time Temp Pulse Resp B/P (MAP) Pulse Ox O2 Delivery O2 Flow Rate FiO2 10/02/18 20:35 142/78 10/02/18 20:34 142/78 10/02/18 20:34 96 142/78 10/02/18 20:00 81 10/02/18 20:00 97.2 81 20 142/84 (103) 94 10/02/18 16:00 82 10/02/18 16:00 97.9 80 18 145/78 (100) 96 10/02/18 12:00 80 10/02/18 12:00 97.6 56 18 142/84 (103) 96 10/02/18 09:00 Room Air 10/02/18 08:36 122/81 10/02/18 08:35 122/81 10/02/18 08:35 71 10/02/18 08:35 71 122/81 10/02/18 08:00 97.6 71 18 122/81 (95) 96 10/02/18 08:00 83 10/02/18 04:00 91 10/02/18 04:00 98.0 82 18 157/96 (116) 96 10/02/18 00:00 98.3 82 18 138/96 (110) 96 10/02/18 00:00 84 Intake and Output 10/01/18 10/02/18 18:59 06:59 Intake Total 240 ml Balance 240 ml Intake Oral 240 ml # Voids 2 1 Laboratory Tests 10/02/18 07:30: White Blood Count 4.5L, Red Blood Count 4.35, Hemoglobin 13.9, Hematocrit 42.7, Mean Corpuscular Volume 98, Mean Corpuscular Hemoglobin 31.9H, Mean Corpuscular Hemoglobin Concent 32.5, Red Cell Distribution Width 15.3H, Platelet Count 171, Mean Platelet Volume 6.0L, Neutrophils (%) (Auto) 50.9, Lymphocytes (%) (Auto) 29.0, Monocytes (%) (Auto) 8.5, Eosinophils (%) (Auto) 10.5H, Basophils (%) ( Auto) 1.1, Sodium Level 136, Potassium Level 3.9, Chloride Level 101, Carbon Dioxide Level 29, Anion Gap 6, Blood Urea Nitrogen 22H, Creatinine 1.0, Estimat Glomerular Filtration Rate , Glucose Level 98, Calcium Level 9.4, Total Bilirubin 0.5, Aspartate Amino Transf (AST/SGOT) 49H, Alanine Aminotransferase ( ALT/SGPT) 40, Alkaline Phosphatase 129H, Total Protein 7.5, Albumin 3.2L, Globulin 4.3, Albumin/Globulin Ratio 0.7L Height (Feet): 5 Height (Inches): 4.00 Weight (Pounds): 114 Neck: supple Cardiovascular: normal rate Respiratory/Chest: lungs clear Trini Aponte MD October 02, 2018 21:28
--- NOTE | 2018-10-02 23:27 | Neurology Progress Note ---
Interim History Interim History ROS Limited/Unobtainable: Yes Complaints: LBP Events: MOved to step down unit Interim History This visit was conducted with Dr. Ross Smith on October 02, 2018 Review of Systems All Systems: reviewed and negative except above Objective Physical Exam Last Vital Signs Date Time Temp Pulse Resp B/P (MAP) Pulse Ox O2 Delivery O2 Flow Rate FiO2 10/02/18 21:00 Room Air 10/02/18 20:35 142/78 10/02/18 20:34 96 10/02/18 20:00 97.2 20 94 Laboratory Tests Test 10/02/18 07:30 White Blood Count 4.5 K/UL (4.8-10.8) L Red Blood Count 4.35 M/UL (4.20-5.40) Hemoglobin 13.9 G/DL (12.0-16.0) Hematocrit 42.7 % (37.0-47.0) Mean Corpuscular Volume 98 FL (80-99) Mean Corpuscular Hemoglobin 31.9 PG (27.0-31.0) H Mean Corpuscular Hemoglobin Concent 32.5 G/DL (32.0-36.0) Red Cell Distribution Width 15.3 % (11.6-14.8) H Platelet Count 171 K/UL (150-450) Mean Platelet Volume 6.0 FL (6.5-10.1) L Neutrophils (%) (Auto) 50.9 % (45.0-75.0) Lymphocytes (%) (Auto) 29.0 % (20.0-45.0) Monocytes (%) (Auto) 8.5 % (1.0-10.0) Eosinophils (%) (Auto) 10.5 % (0.0-3.0) H Basophils (%) (Auto) 1.1 % (0.0-2.0) Sodium Level 136 MMOL/L (136-145) Potassium Level 3.9 MMOL/L (3.5-5.1) Chloride Level 101 MMOL/L (98-107) Carbon Dioxide Level 29 MMOL/L (21-32) Anion Gap 6 mmol/L (5-15) Blood Urea Nitrogen 22 mg/dL (7-18) H Creatinine 1.0 MG/DL (0.55-1.30) Estimat Glomerular Filtration Rate mL/min (>60) Glucose Level 98 MG/DL (74-106) Calcium Level 9.4 MG/DL (8.5-10.1) Total Bilirubin 0.5 MG/DL (0.2-1.0) Aspartate Amino Transf (AST/SGOT) 49 U/L (15-37) H Alanine Aminotransferase (ALT/SGPT) 40 U/L (12-78) Alkaline Phosphatase 129 U/L (46-116) H Total Protein 7.5 G/DL (6.4-8.2) Albumin 3.2 G/DL (3.4-5.0) L Globulin 4.3 g/dL Albumin/Globulin Ratio 0.7 (1.0-2.7) L General: no acute distress Head: normocophalic Neck: no rigidity EENT: benign Neurologic Exam Mental Status: awake, alert, oriented x4, normal cognition, good mathematical skills, normal recent memory, normal remote memory, preserved visuospatial function Speech: normal speech, no dysarthia Language: normal language, no aphasia Cranial Nerve II: fundus normal, visual daley, no papilledema Cranial Nerves III, IV, : PERRLA, EOMI, pupils Cranial Nerve V: normal facial sensations, temporales function normal, masseters function normal, pterygoids function normal Cranial Nerve VII: no facial asymmetry, normal facial expressions Cranial Nerve VIII: normal hearing, no nystagmus Cranial Nerve IX: normal palate elevation, gag response Cranial Nerve X: no voice hoarseness Cranial Nerve XI: SCM symmetric, trapezii function normal Cranial Nerve XII: tongue midline, no tongue atrophy/fasciculations Motor System: normal muscle tone, strength 5/5, no involuntary movement, no muscle wasting Sensory: normal pinprick, normal light touch, normal position sense, normal graphesthesia Coordination: normal finger to nose bilaterally, normal heel to cason bilaterally, negative Romberg test Deep Tendon Reflexes: 1+ knee (L), 1+ knee (R), 1+ ankle (L), 1+ ankle (R); 2+ bicep (L), 2+ bicep (R), 2+ tricep (L), 2+ tricep (R), 2+ brachioradialis (L), 2 + brachioradialis (R) Stance: normal Gait: stable, normal regular Impression/Recommendations Problems: (1) Constipation (2) Urinary tract infection (3) Spinal stenosis (4) Atrial fibrillation with RVR (5) Intractable back pain (6) Subclinical hypothyroidism (7) EF 15% Status: stable, progressing, tolerating diet, ambulating well Recommendations Continue Q 4 Neurovascular obs Consider Gabapentin if patient requires more opioid PRNs - doesn't appear to be needing this at this time. Maintain normothermia There is severe degenerative disc disease and facet arthropathy at multiple levels within the lumbar spine. Disc disease is characterized by desiccation, narrowing and hypertrophic endplate spur formation. Variable degrees of concentric appearing disc protrusions demonstrated in association with endplate spur formation (disc osteophyte complex). T12-L1 shows mild bilateral foraminal stenosis. No central stenosis seen. L1-2: Mild central spinal stenosis demonstrated. Moderate to severe bilateral foraminal stenosis demonstrated. L2-3: Severe narrowing of the central canal demonstrated. There is narrowing of the lateral recess. Moderate to severe bilateral foraminal stenosis is present. L3-4: There is severe stenosis of the central canal lateral recess. There is a severe bilateral foraminal stenosis. L4-5: There is severe central spinal stenosis and narrowing of the lateral recesses. There is severe bilateral foraminal stenosis. L5-S1: There is narrowing of the lateral recess and moderate to severe bilateral foraminal stenosis. The central canal is capacious. There are multiple cysts present within both kidneys. IMPRESSION: Moderate to severe multilevel spinal stenosis involving the central canal and lateral recess and bilateral foramina as described above. This is due to combination of factors including severe degenerative disc disease and facet arthropathy. May discuss injectable therapy as patient is likely unable to have any surgery secondary to poor cardiac function/ age She remains ambulatory with improved pain overall - opioids with exception of Methadone have all been stopped- appears to be controlling patient's pain well. Kady López N.P. October 02, 2018 23:27
[2018-10-03] VITALS: BP 124/82
[2018-10-03 04:00] VITALS: BP 149/85
[2018-10-03] MEDS: Levothyroxine 25mcg tab ORAL SCH (05:56)
--- NOTE | 2018-10-03 06:46 | General Progress Note ---
Assessment/Plan Problem List: (1) Subclinical hypothyroidism ICD Codes: E03.9 - Hypothyroidism, unspecified SNOMED: 23831920 (2) Intractable back pain ICD Codes: M54.9 - Dorsalgia, unspecified SNOMED: 539613778 (3) Atrial fibrillation with RVR ICD Codes: I48.91 - Unspecified atrial fibrillation SNOMED: 390815365403389 (4) Spinal stenosis ICD Codes: M48.00 - Spinal stenosis, site unspecified SNOMED: 87006061 (5) Urinary tract infection ICD Codes: N39.0 - Urinary tract infection, site not specified SNOMED: 01652515 Status: stable, progressing, tolerating diet, ambulating well Assessment/Plan: continue Levothyroxine 25 mcg daily repeat thyroid function in 3 weeks Subjective ROS Limited/Unobtainable: Yes Allergies: Coded Allergies: No Known Allergies (Unverified , 09/25/18) Subjective events noted interval notes reviewed Objective Last 24 Hour Vital Signs Date Time Temp Pulse Resp B/P (MAP) Pulse Ox O2 Delivery O2 Flow Rate FiO2 10/03/18 04:00 97.0 85 18 149/85 (106) 95 10/03/18 04:00 72 10/03/18 01:53 86 20 Room Air 21 10/03/18 00:00 97.7 84 20 124/82 (96) 97 10/03/18 00:00 86 10/02/18 21:00 Room Air 10/02/18 20:35 142/78 10/02/18 20:34 142/78 10/02/18 20:34 96 142/78 10/02/18 20:00 81 10/02/18 20:00 97.2 81 20 142/84 (103) 94 10/02/18 16:00 82 10/02/18 16:00 97.9 80 18 145/78 (100) 96 10/02/18 12:00 80 10/02/18 12:00 97.6 56 18 142/84 (103) 96 10/02/18 09:00 Room Air 10/02/18 08:36 122/81 10/02/18 08:35 122/81 10/02/18 08:35 71 10/02/18 08:35 71 122/81 10/02/18 08:00 97.6 71 18 122/81 (95) 96 10/02/18 08:00 83 Intake and Output 10/02/18 10/03/18 19:00 07:00 Intake Total 140 ml Balance 140 ml Intake Oral 140 ml Laboratory Tests 10/02/18 07:30: White Blood Count 4.5L, Red Blood Count 4.35, Hemoglobin 13.9, Hematocrit 42.7, Mean Corpuscular Volume 98, Mean Corpuscular Hemoglobin 31.9H, Mean Corpuscular Hemoglobin Concent 32.5, Red Cell Distribution Width 15.3H, Platelet Count 171, Mean Platelet Volume 6.0L, Neutrophils (%) (Auto) 50.9, Lymphocytes (%) (Auto) 29.0, Monocytes (%) (Auto) 8.5, Eosinophils (%) (Auto) 10.5H, Basophils (%) ( Auto) 1.1, Sodium Level 136, Potassium Level 3.9, Chloride Level 101, Carbon Dioxide Level 29, Anion Gap 6, Blood Urea Nitrogen 22H, Creatinine 1.0, Estimat Glomerular Filtration Rate , Glucose Level 98, Calcium Level 9.4, Total Bilirubin 0.5, Aspartate Amino Transf (AST/SGOT) 49H, Alanine Aminotransferase ( ALT/SGPT) 40, Alkaline Phosphatase 129H, Total Protein 7.5, Albumin 3.2L, Globulin 4.3, Albumin/Globulin Ratio 0.7L Height (Feet): 5 Height (Inches): 4.00 Weight (Pounds): 113 General Appearance: no apparent distress Neck: normal alignment Cardiovascular: arrhythmia Respiratory/Chest: lungs clear Abdomen: normal bowel sounds Pelvis: normal external exam Objective Current Medications Medications (Trade) Dose Ordered Sig/Yunior Route PRN Reason Start Time Stop Time Status Last Admin Dose Admin Acetaminophen (Tylenol) 650 mg Q4H PRN ORAL fever 09/30/18 15:44 10/25/18 15:43 Acetaminophen/ Hydrocodone Bitart ([place] 10/325) 1 tab Q4H PRN ORAL For Pain 09/30/18 15:51 10/05/18 15:50 10/03/18 00:41 Albuterol/ Ipratropium (Albuterol/ Ipratropium) 3 ml Q4H PRN HHN Shortness of Breath 10/01/18 10:30 10/06/18 10:29 Apixaban (Eliquis) 2.5 mg BID ORAL 10/01/18 18:00 10/31/18 17:59 10/02/18 17:14 Carvedilol (Coreg) 3.125 mg EVERY 12 HOURS ORAL 09/30/18 21:00 10/28/18 20:59 10/02/18 20:34 Dextrose (Dextrose 50%) 25 ml Q30M PRN IV Hypoglycemia 09/30/18 15:44 10/25/18 15:43 Dextrose (Dextrose 50%) 50 ml Q30M PRN IV Hypoglycemia 09/30/18 15:45 10/25/18 20:44 Digoxin (Lanoxin) 0.25 mg DAILY ORAL 10/01/18 09:00 10/28/18 08:59 10/02/18 08:35 Diltiazem HCl (Cardizem) 10 mg Q1H PRN IV HR>120BPM 09/30/18 15:46 10/26/18 15:45 Donepezil HCl (Aricept) 5 mg DAILY ORAL 10/01/18 09:00 10/28/18 08:59 10/02/18 08:34 Enalapril Maleate (Vasotec) 2.5 mg EVERY 12 HOURS ORAL 10/01/18 21:00 10/31/18 20:59 10/02/18 20:34 Isosorbide Mononitrate (Imdur) 30 mg Q12HR ORAL 09/30/18 21:00 10/27/18 20:59 10/02/18 20:35 Levothyroxine Sodium (Synthroid) 25 mcg DAILY@0630 ORAL 10/01/18 06:30 10/28/18 06:44 10/03/18 05:56 Memantine (Namenda) 10 mg DAILY ORAL 10/01/18 09:00 10/28/18 08:59 10/02/18 08:36 Ondansetron HCl (Zofran) 4 mg Q6H PRN IVP Nausea & Vomiting 09/30/18 15:45 10/25/18 15:44 09/30/18 17:53 Polyethylene Glycol (Miralax) 17 gm HSPRN PRN ORAL Constipation 09/30/18 20:45 10/25/18 20:44 Quetiapine Fumarate (SEROquel) 25 mg BID ORAL 09/30/18 18:00 10/27/18 17:59 10/02/18 17:14 Herber Velazquez MD October 03, 2018 06:46
--- NOTE | 2018-10-03 07:20 | NUR ---
NURSE NOTES: Received pt. and report from Mirlande RN. Pt. awake and alert x1 but able to make needs known. On roam air. Noted Both ears hard of hearing. IV L wrist 20G SL intact, patent asymptomatic. Bed is in the lowest position and locked. Pt on alarm zone 2. Call light within reach. Denied pain and No signs and symptoms of acute distress noted at this time. Will continue plan of care.
--- NOTE | 2018-10-03 07:21 | NUR ---
HAND-OFF: Report given to ENRIQUETA Burdick.
[2018-10-03 08:00] VITALS: BP 153/73
[2018-10-03] MEDS: Donepezil 5mg Tab ORAL SCH (08:38)
[2018-10-03] MEDS: Eliquis 2.5mg tablet ORAL SCH ×2 (08:40→18:17)
[2018-10-03] MEDS: Imdur 30mg tab ORAL SCH ×2 (08:41→21:14)
[2018-10-03] MEDS: Memantine 10mg tab ORAL SCH (08:42)
[2018-10-03] MEDS: Enalapril 2.5mg tab ORAL SCH ×2 (08:42→21:13)
--- NOTE | 2018-10-03 08:43 | General Progress Note ---
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 D/w Dr. Wilson and he concurred. Subjective Date patient seen: October 03, 2018 Time patient seen: 07:30 - am Allergies: Coded Allergies: No Known Allergies (Unverified , 09/25/18) Subjective REVIEW OF SYSTEMS: Denies rash, fever, chills, sweating, dizziness, drowsiness, blurred vision, sore throat, or change in weight. No shortness of breath or chest pain. No nausea, vomiting, or blood in the stool or urine. No bowel or bladder incontinence. No dysuria. The patient is complaining of back pain. SUBJECTIVE: Patient showing no signs of pain which has been tolerated on the [place]. No new complaints at this time. Objective Last 24 Hour Vital Signs Date Time Temp Pulse Resp B/P (MAP) Pulse Ox O2 Delivery O2 Flow Rate FiO2 10/03/18 04:00 97.0 85 18 149/85 (106) 95 10/03/18 04:00 72 10/03/18 01:53 86 20 Room Air 21 10/03/18 00:00 97.7 84 20 124/82 (96) 97 10/03/18 00:00 86 10/02/18 21:00 Room Air 10/02/18 20:35 142/78 10/02/18 20:34 142/78 10/02/18 20:34 96 142/78 10/02/18 20:00 81 10/02/18 20:00 97.2 81 20 142/84 (103) 94 10/02/18 16:00 82 10/02/18 16:00 97.9 80 18 145/78 (100) 96 10/02/18 12:00 80 10/02/18 12:00 97.6 56 18 142/84 (103) 96 10/02/18 09:00 Room Air Intake and Output 10/02/18 10/03/18 19:00 07:00 Intake Total 140 ml Balance 140 ml Intake Oral 140 ml Height (Feet): 5 Height (Inches): 4.00 Weight (Pounds): 113 Objective PHYSICAL EXAMINATION: GENERAL: Alert, awake, and oriented. LUNGS: Decreased breath sounds bilaterally. HEART: S1 and S2 regular. ABDOMEN: Soft and nontender. EXTREMITIES: No cyanosis. No clubbing. NEURO: No changes. Ilya Perez October 03, 2018 08:43
--- NOTE | 2018-10-03 08:45 | Neurology Progress Note ---
Interim History Interim History ROS Limited/Unobtainable: Yes Complaints: LBP Events: MOved to step down unit Interim History This visit was performed on 10/03/[address] Ross Smith. Review of Systems All Systems: reviewed and negative except above Objective Physical Exam Last Vital Signs Date Time Temp Pulse Resp B/P (MAP) Pulse Ox O2 Delivery O2 Flow Rate FiO2 10/03/18 08:42 152/102 10/03/18 08:41 61 10/03/18 04:00 97.0 18 95 10/03/18 01:53 Room Air 21 General: no acute distress Head: normocophalic Neck: no rigidity EENT: benign Neurologic Exam Mental Status: awake, alert, oriented x4, normal cognition, good mathematical skills, normal recent memory, normal remote memory, preserved visuospatial function Speech: normal speech, no dysarthia Language: normal language, no aphasia Cranial Nerve II: fundus normal, visual daley, no papilledema Cranial Nerves III, IV, : PERRLA, EOMI, pupils Cranial Nerve V: normal facial sensations, temporales function normal, masseters function normal, pterygoids function normal Cranial Nerve VII: no facial asymmetry, normal facial expressions Cranial Nerve VIII: normal hearing, no nystagmus Cranial Nerve IX: normal palate elevation, gag response Cranial Nerve X: no voice hoarseness Cranial Nerve XI: SCM symmetric, trapezii function normal Cranial Nerve XII: tongue midline, no tongue atrophy/fasciculations Motor System: normal muscle tone, strength 5/5, no involuntary movement, no muscle wasting Sensory: normal pinprick, normal light touch, normal position sense, normal graphesthesia Coordination: normal finger to nose bilaterally, normal heel to cason bilaterally, negative Romberg test Deep Tendon Reflexes: 1+ knee (L), 1+ knee (R), 1+ ankle (L), 1+ ankle (R); 2+ bicep (L), 2+ bicep (R), 2+ tricep (L), 2+ tricep (R), 2+ brachioradialis (L), 2 + brachioradialis (R) Stance: normal Gait: stable, normal regular Impression/Recommendations Problems: (1) Constipation (2) Urinary tract infection (3) Spinal stenosis (4) Atrial fibrillation with RVR (5) Intractable back pain (6) Subclinical hypothyroidism (7) EF 15% Status: stable, progressing, tolerating diet, ambulating well Recommendations Continue Q 4 Neurovascular obs Consider Gabapentin if patient requires more opioid PRNs - doesn't appear to be needing this at this time. Maintain normothermia There is severe degenerative disc disease and facet arthropathy at multiple levels within the lumbar spine. Disc disease is characterized by desiccation, narrowing and hypertrophic endplate spur formation. Variable degrees of concentric appearing disc protrusions demonstrated in association with endplate spur formation (disc osteophyte complex). T12-L1 shows mild bilateral foraminal stenosis. No central stenosis seen. L1-2: Mild central spinal stenosis demonstrated. Moderate to severe bilateral foraminal stenosis demonstrated. L2-3: Severe narrowing of the central canal demonstrated. There is narrowing of the lateral recess. Moderate to severe bilateral foraminal stenosis is present. L3-4: There is severe stenosis of the central canal lateral recess. There is a severe bilateral foraminal stenosis. L4-5: There is severe central spinal stenosis and narrowing of the lateral recesses. There is severe bilateral foraminal stenosis. L5-S1: There is narrowing of the lateral recess and moderate to severe bilateral foraminal stenosis. The central canal is capacious. There are multiple cysts present within both kidneys. IMPRESSION: Moderate to severe multilevel spinal stenosis involving the central canal and lateral recess and bilateral foramina as described above. This is due to combination of factors including severe degenerative disc disease and facet arthropathy. May discuss injectable therapy as patient is likely unable to have any surgery secondary to poor cardiac function/ age She remains ambulatory with improved pain overall - opioids with exception of Methadone have all been stopped- appears to be controlling patient's pain well. No changes to plan at this time Kady López N.P. October 03, 2018 08:45
[2018-10-03 08:57] LABS: BASOPHILS % (AUTO) 1.2 % (0.0-2.0); HEMATOCRIT 44.3 % (37.0-47.0); HEMOGLOBIN 14.4 G/DL (12.0-16.0); LYMPHOCYTES % (AUTO) 32.7 % (20.0-45.0); MEAN CORPUSCULAR VOLUME 97 FL (80-99); MONOCYTES % (AUTO) 10.1 % (1.0-10.0); PLATELET COUNT 181 K/UL (150-450); RED BLOOD COUNT 4.54 M/UL (4.20-5.40); RED CELL DISTRIBUTION WIDTH 15.1 % (11.6-14.8); WHITE BLOOD COUNT 4.4 K/UL (4.8-10.8)
[2018-10-03 09:15] LABS: ANION GAP 4 mmol/L (5-15); BLOOD UREA NITROGEN 25 mg/dL (7-18); CALCIUM 9.6 MG/DL (8.5-10.1); CARBON DIOXIDE 32 MMOL/L (21-32); CHLORIDE 101 MMOL/L (98-107); POTASSIUM 4.2 MMOL/L (3.5-5.1); SODIUM 137 MMOL/L (136-145)
--- NOTE | 2018-10-03 10:05 | NUR ---
RADIOLOGY DEPT., CHEST X-RAY DONE.-P.DYE
--- NOTE | 2018-10-03 10:23 | NUR ---
DISCHARGE PLANNING FAXED REFERRAL TO [facility] . WILL FOLLOW UP
--- NOTE | 2018-10-03 10:45 | GI Progress Note ---
Assessment/Plan Problems: (1) Subclinical hypothyroidism ICD Codes: E03.9 - Hypothyroidism, unspecified SNOMED: 70332905 (2) Constipation ICD Codes: K59.00 - Constipation, unspecified SNOMED: 83947998 (3) LFTs abnormal ICD Codes: R94.5 - Abnormal results of liver function studies SNOMED: 388380482 Status: stable Status Narrative Discussed with Dr. Mcclure. Assessment/Plan Symptomatic treatment at this time Advance diet as tolerated Pain management Zofran as needed bowel regime Repeat LFTs PPI Follow-up labs GI procedures only if emergent, otherwise outpatient The patient was seen and examined at bedside and all new and available data was reviewed in the patients chart. I agree with the above findings, impression and plan. (Patient seen earlier today. Signature stamp does not reflect patient encounter time.). - Daron Mcclure MD Subjective Gastrointestinal/Abdominal: Reports: no symptoms Objective Last 24 Hour Vital Signs Date Time Temp Pulse Resp B/P (MAP) Pulse Ox O2 Delivery O2 Flow Rate FiO2 10/03/18 09:00 Room Air 10/03/18 08:42 152/102 10/03/18 08:41 153/73 10/03/18 08:41 61 10/03/18 08:40 61 152/102 10/03/18 08:00 72 10/03/18 08:00 97.6 84 19 153/73 (99) 96 10/03/18 07:30 68 20 Room Air 21 10/03/18 04:00 97.0 85 18 149/85 (106) 95 10/03/18 04:00 72 10/03/18 01:53 86 20 Room Air 21 10/03/18 00:00 97.7 84 20 124/82 (96) 97 10/03/18 00:00 86 10/02/18 21:00 Room Air 10/02/18 20:35 142/78 10/02/18 20:34 142/78 10/02/18 20:34 96 142/78 10/02/18 20:00 81 10/02/18 20:00 97.2 81 20 142/84 (103) 94 10/02/18 16:00 82 10/02/18 16:00 97.9 80 18 145/78 (100) 96 10/02/18 12:00 80 10/02/18 12:00 97.6 56 18 142/84 (103) 96 Intake and Output 10/02/18 10/03/18 19:00 07:00 Intake Total 140 ml Balance 140 ml Intake Oral 140 ml Laboratory Tests Test 10/03/18 08:00 White Blood Count 4.4 K/UL (4.8-10.8) L Red Blood Count 4.54 M/UL (4.20-5.40) Hemoglobin 14.4 G/DL (12.0-16.0) Hematocrit 44.3 % (37.0-47.0) Mean Corpuscular Volume 97 FL (80-99) Mean Corpuscular Hemoglobin 31.6 PG (27.0-31.0) H Mean Corpuscular Hemoglobin Concent 32.5 G/DL (32.0-36.0) Red Cell Distribution Width 15.1 % (11.6-14.8) H Platelet Count 181 K/UL (150-450) Mean Platelet Volume 5.7 FL (6.5-10.1) L Neutrophils (%) (Auto) 46.0 % (45.0-75.0) Lymphocytes (%) (Auto) 32.7 % (20.0-45.0) Monocytes (%) (Auto) 10.1 % (1.0-10.0) H Eosinophils (%) (Auto) 10.0 % (0.0-3.0) H Basophils (%) (Auto) 1.2 % (0.0-2.0) Sodium Level 137 MMOL/L (136-145) Potassium Level 4.2 MMOL/L (3.5-5.1) Chloride Level 101 MMOL/L (98-107) Carbon Dioxide Level 32 MMOL/L (21-32) Anion Gap 4 mmol/L (5-15) L Blood Urea Nitrogen 25 mg/dL (7-18) H Creatinine 1.0 MG/DL (0.55-1.30) Estimat Glomerular Filtration Rate mL/min (>60) Glucose Level 94 MG/DL (74-106) Calcium Level 9.6 MG/DL (8.5-10.1) Height (Feet): 5 Height (Inches): 4.00 Weight (Pounds): 113 General Appearance: WD/WN, no apparent distress, alert Cardiovascular: normal rate Respiratory/Chest: normal breath sounds, no respiratory distress Abdominal Exam: normal bowel sounds, non tender, soft Extremities: normal range of motion, non-tender Objective Last BM 09/29 Marlene Wolfe NP October 03, 2018 10:45
--- NOTE | 2018-10-03 11:40 | NUR ---
[employer] SI:HYPOTHYROIDISM . CONSTIPATION VS: BP 152/102, P 61, T 97.6, RR 20, SpO2 96 WBC 4.4, BUN 25 IS:MEMANTINE 10mg VASOTEC 2.5mg DIGOXIN 0.25mg IMDUR 30mg COREG 3.125mg SYNTHROID 25mcg 2E TELE STATUS
--- NOTE | 2018-10-03 11:40 | Cardiac Electrophysiology PN ---
Assessment/Plan Assessment/Plan 1. 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 [facility] 07/2014 showed had SC and stent in LAD. Continue Coreg 3.125 mg bid, Enalapril 2.5 mg b.i.d. and Isordil daily. Echo at [facility] on 03/07/18 also showed EF 40% Daughter undecided about ICD. 2. Atrial fibrillation with rapid ventricular response. On Coreg 3.125 mg b.i.d., digoxin 0.25 mg daily. On Eliquis 3. Hypothyroidism, on Synthroid. 4. Dementia. 5. History of hypertension. Current medication per Dr. Manuel. DW Dr. Hollingsworth and daughter and RN Subjective Subjective Daughter undecided re ICD implant. Feeling better. Objective Last 24 Hour Vital Signs Date Time Temp Pulse Resp B/P (MAP) Pulse Ox O2 Delivery O2 Flow Rate FiO2 10/03/18 09:00 Room Air 10/03/18 08:42 152/102 10/03/18 08:41 153/73 10/03/18 08:41 61 10/03/18 08:40 61 152/102 10/03/18 08:00 72 10/03/18 08:00 97.6 84 19 153/73 (99) 96 10/03/18 07:30 68 20 Room Air 21 10/03/18 04:00 97.0 85 18 149/85 (106) 95 10/03/18 04:00 72 10/03/18 01:53 86 20 Room Air 21 10/03/18 00:00 97.7 84 20 124/82 (96) 97 10/03/18 00:00 86 10/02/18 21:00 Room Air 10/02/18 20:35 142/78 10/02/18 20:34 142/78 10/02/18 20:34 96 142/78 10/02/18 20:00 81 10/02/18 20:00 97.2 81 20 142/84 (103) 94 10/02/18 16:00 82 10/02/18 16:00 97.9 80 18 145/78 (100) 96 10/02/18 12:00 80 10/02/18 12:00 97.6 56 18 142/84 (103) 96 Intake and Output 10/02/18 10/03/18 19:00 07:00 Intake Total 140 ml Balance 140 ml Intake Oral 140 ml Laboratory Tests Test 10/03/18 08:00 White Blood Count 4.4 K/UL (4.8-10.8) L Red Blood Count 4.54 M/UL (4.20-5.40) Hemoglobin 14.4 G/DL (12.0-16.0) Hematocrit 44.3 % (37.0-47.0) Mean Corpuscular Volume 97 FL (80-99) Mean Corpuscular Hemoglobin 31.6 PG (27.0-31.0) H Mean Corpuscular Hemoglobin Concent 32.5 G/DL (32.0-36.0) Red Cell Distribution Width 15.1 % (11.6-14.8) H Platelet Count 181 K/UL (150-450) Mean Platelet Volume 5.7 FL (6.5-10.1) L Neutrophils (%) (Auto) 46.0 % (45.0-75.0) Lymphocytes (%) (Auto) 32.7 % (20.0-45.0) Monocytes (%) (Auto) 10.1 % (1.0-10.0) H Eosinophils (%) (Auto) 10.0 % (0.0-3.0) H Basophils (%) (Auto) 1.2 % (0.0-2.0) Sodium Level 137 MMOL/L (136-145) Potassium Level 4.2 MMOL/L (3.5-5.1) Chloride Level 101 MMOL/L (98-107) Carbon Dioxide Level 32 MMOL/L (21-32) Anion Gap 4 mmol/L (5-15) L Blood Urea Nitrogen 25 mg/dL (7-18) H Creatinine 1.0 MG/DL (0.55-1.30) Estimat Glomerular Filtration Rate mL/min (>60) Glucose Level 94 MG/DL (74-106) Calcium Level 9.6 MG/DL (8.5-10.1) Objective HEAD AND NECK: Positive JVD. LUNGS: Decreased breath sounds. CARDIOVASCULAR: Irregularly irregular S1 and S2 with no gallop or murmur. ABDOMEN: Soft. EXTREMITIES: A 1+ pitting edema. Mark Sanders MD October 03, 2018 11:40
[2018-10-03 12:00] VITALS: BP 146/94
--- NOTE | 2018-10-03 12:25 | Pulmonology Progress Note ---
Assessment/Plan Problems: (1) Atrial fibrillation with RVR Assessment & Plan: controlled now with heart rate as low as 50's (2) EF 15% (3) Urinary tract infection (4) Chronic systolic CHF (congestive heart failure) (5) Chronic a-fib (6) Spinal stenosis (7) Intractable back pain (8) Pulmonary hypertension, moderate to severe (9) Subclinical hypothyroidism Assessment/Plan Methasone for radiculopathic back pain pt's daughter doesn't want any ICD or pacemaker Echo reviewed EF of 15%heart rate controlled on Cardizem PO check Urine c/s mckoy sensitive except for Nitrofurantoin responding well to Morphine IV, will add [place] on Eliquis for afib resume Quetiapine, d/w daughter at the bed site. Subjective ROS Limited/Unobtainable: No Constitutional: Reports: no symptoms HEENT: Repors: no symptoms Allergies: Coded Allergies: No Known Allergies (Unverified , 09/25/18) Objective Last 24 Hour Vital Signs Date Time Temp Pulse Resp B/P (MAP) Pulse Ox O2 Delivery O2 Flow Rate FiO2 10/03/18 09:00 Room Air 10/03/18 08:42 152/102 10/03/18 08:41 153/73 10/03/18 08:41 61 10/03/18 08:40 61 152/102 10/03/18 08:00 72 10/03/18 08:00 97.6 84 19 153/73 (99) 96 10/03/18 07:30 68 20 Room Air 21 10/03/18 04:00 97.0 85 18 149/85 (106) 95 10/03/18 04:00 72 10/03/18 01:53 86 20 Room Air 21 10/03/18 00:00 97.7 84 20 124/82 (96) 97 10/03/18 00:00 86 10/02/18 21:00 Room Air 10/02/18 20:35 142/78 10/02/18 20:34 142/78 10/02/18 20:34 96 142/78 10/02/18 20:00 81 10/02/18 20:00 97.2 81 20 142/84 (103) 94 10/02/18 16:00 82 10/02/18 16:00 97.9 80 18 145/78 (100) 96 Intake and Output 10/02/18 10/03/18 19:00 07:00 Intake Total 140 ml Balance 140 ml Intake Oral 140 ml General Appearance: WD/WN HEENT: normocephalic, atraumatic Respiratory/Chest: chest wall non-tender, lungs clear Breasts: no masses Cardiovascular: normal peripheral pulses, normal rate, regular rhythm Abdomen: normal bowel sounds, soft, non tender Genitourinary: normal external genitalia Extremities: no cyanosis Neurologic/Psychiatric: no motor/sensory deficits Laboratory Tests 10/03/18 08:00: White Blood Count 4.4L, Red Blood Count 4.54, Hemoglobin 14.4, Hematocrit 44.3, Mean Corpuscular Volume 97, Mean Corpuscular Hemoglobin 31.6H, Mean Corpuscular Hemoglobin Concent 32.5, Red Cell Distribution Width 15.1H, Platelet Count 181, Mean Platelet Volume 5.7L, Neutrophils (%) (Auto) 46.0, Lymphocytes (%) (Auto) 32.7, Monocytes (%) (Auto) 10.1H, Eosinophils (%) (Auto) 10.0H, Basophils (%) ( Auto) 1.2, Sodium Level 137, Potassium Level 4.2, Chloride Level 101, Carbon Dioxide Level 32, Anion Gap 4L, Blood Urea Nitrogen 25H, Creatinine 1.0, Estimat Glomerular Filtration Rate , Glucose Level 94, Calcium Level 9.6 Current Medications Medications (Trade) Dose Ordered Sig/Yunior Route PRN Reason Start Time Stop Time Status Last Admin Dose Admin Acetaminophen (Tylenol) 650 mg Q4H PRN ORAL fever 09/30/18 15:44 10/25/18 15:43 Acetaminophen/ Hydrocodone Bitart ([place] 10/325) 1 tab Q4H PRN ORAL For Pain 09/30/18 15:51 10/05/18 15:50 10/03/18 00:41 Albuterol/ Ipratropium (Albuterol/ Ipratropium) 3 ml Q4H PRN HHN Shortness of Breath 10/01/18 10:30 10/06/18 10:29 Apixaban (Eliquis) 2.5 mg BID ORAL 10/01/18 18:00 10/31/18 17:59 10/03/18 08:40 Carvedilol (Coreg) 3.125 mg EVERY 12 HOURS ORAL 09/30/18 21:00 10/28/18 20:59 10/03/18 08:40 Dextrose (Dextrose 50%) 25 ml Q30M PRN IV Hypoglycemia 09/30/18 15:44 10/25/18 15:43 Dextrose (Dextrose 50%) 50 ml Q30M PRN IV Hypoglycemia 09/30/18 15:45 10/25/18 20:44 Digoxin (Lanoxin) 0.25 mg DAILY ORAL 10/01/18 09:00 10/28/18 08:59 10/03/18 08:41 Diltiazem HCl (Cardizem) 10 mg Q1H PRN IV HR>120BPM 09/30/18 15:46 10/26/18 15:45 Docusate Sodium (Colace) 100 mg THREE TIMES A DAY ORAL 10/03/18 13:00 11/02/18 12:59 Donepezil HCl (Aricept) 5 mg DAILY ORAL 10/01/18 09:00 10/28/18 08:59 10/03/18 08:38 Enalapril Maleate (Vasotec) 2.5 mg EVERY 12 HOURS ORAL 10/01/18 21:00 10/31/18 20:59 10/03/18 08:42 Isosorbide Mononitrate (Imdur) 30 mg Q12HR ORAL 09/30/18 21:00 10/27/18 20:59 10/03/18 08:41 Levothyroxine Sodium (Synthroid) 25 mcg DAILY@0630 ORAL 10/01/18 06:30 10/28/18 06:44 10/03/18 05:56 Memantine (Namenda) 10 mg DAILY ORAL 10/01/18 09:00 10/28/18 08:59 10/03/18 08:42 Ondansetron HCl (Zofran) 4 mg Q6H PRN IVP Nausea & Vomiting 09/30/18 15:45 10/25/18 15:44 09/30/18 17:53 Polyethylene Glycol (Miralax) 17 gm HSPRN PRN ORAL Constipation 09/30/18 20:45 10/25/18 20:44 Quetiapine Fumarate (SEROquel) 25 mg BID ORAL 09/30/18 18:00 10/27/18 17:59 10/03/18 08:42 John Hollingsworth MD October 03, 2018 12:25
[2018-10-03] MEDS: Docusate 100mg cap ORAL SCH ×2 (12:51→18:17)
--- NOTE | 2018-10-03 13:19 | Infectious Diseases Prog Note ---
Assessment/Plan Assessment/Plan Assessment: Low back pain -MRI L spine: Moderate to severe multilevel spinal stenosis involving the central canal and lateral recess and bilateral foramina as described above. This is due to combination of factors including severe degenerative disc disease and facet arthropathy. -CT T +L spine: No obvious acute fracture.Severe degenerative changes of the lumbar spine as described above. Suspected right renal cysts. 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 -CTA c/a/p: Ascending aortic aneurysm 4.5 cm. Moderate atherosclerotic disease with ectasia of the thoracic and abdominal aorta as described above. 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 No evidence of dissection. Multiple incidental findings: Patchy lung fibrosis. Groundglass opacities, nonspecific. Trace right pleural effusion. Trace ascites. Diverticulosis of the colon. Thickening of the wall the gallbladder, nonspecific in nature. Degenerative changes of the spine Afebrile No leukocytosis -CXR: Cardiomegaly. No acute findings Probable UTI (+frequency) -u/a wbc 40-60, nit neg, leuk +3, sq cells many; ucx 10-20k P.mirabilis (R nitro; otherwise S); repeat u/a wbc 5-10, nit neg, leuk +3, few sq cells; ucx 20 -40k CONS (Colonizer) Mild LFTs elevation; improving- r/o hepatobiliary disease -Abd US: Fusiform aneurysm suspected in the infradiaphragmatic upper abdominal aorta measuring up to 3.5 cm. Thickening of the gallbladder wall, nonspecific. Trace ascites. Right renal cysts CAD s/p angioplasty HTN compression fractures of spine CHF Afib on Eliquis Dementia Plan: -Continue to monitor off -10/02 SP LEvaquin #7 -09/25 SP Ceftriaxone x1 -f/u cx -Monitor CBC/CMP, temperatures -aspiration precautions Thank you for this consultation. Will continue to follow along with you. Discussed with RN. Subjective Allergies: Coded Allergies: No Known Allergies (Unverified , 09/25/18) Subjective afebrile no leukocytosis Objective Vital Signs Last 24 Hour Vital Signs Date Time Temp Pulse Resp B/P (MAP) Pulse Ox O2 Delivery O2 Flow Rate FiO2 10/03/18 12:00 97.2 53 19 146/94 (111) 95 10/03/18 12:00 63 10/03/18 09:00 Room Air 10/03/18 08:42 152/102 10/03/18 08:41 153/73 10/03/18 08:41 61 10/03/18 08:40 61 152/102 10/03/18 08:00 72 10/03/18 08:00 97.6 84 19 153/73 (99) 96 10/03/18 07:30 68 20 Room Air 21 10/03/18 04:00 97.0 85 18 149/85 (106) 95 10/03/18 04:00 72 10/03/18 01:53 86 20 Room Air 21 10/03/18 00:00 97.7 84 20 124/82 (96) 97 10/03/18 00:00 86 10/02/18 21:00 Room Air 10/02/18 20:35 142/78 10/02/18 20:34 142/78 10/02/18 20:34 96 142/78 10/02/18 20:00 81 10/02/18 20:00 97.2 81 20 142/84 (103) 94 10/02/18 16:00 82 10/02/18 16:00 97.9 80 18 145/78 (100) 96 Height (Feet): 5 Height (Inches): 4.00 Weight (Pounds): 113 Objective General Appearance: well appearing, no apparent distress, alert, thin Head: normocephalic EENT: PERRL/EOMI, normal ENT inspection Neck: supple Respiratory: normal breath sounds, no respiratory distress Cardiovascular: normal rate Gastrointestinal: normal inspection, non tender, soft, normal bowel sounds, non -distended Genitourinary: no CVA tenderness Musculoskeletal: normal inspection, back normal Neurologic: normal inspection, alert, oriented x3, responsive Psychiatric: normal inspection, judgement/insight normal, memory normal Skin: normal inspection, normal color, no rash, warm/dry, palpation normal, well hydrated Laboratory Tests Test 10/03/18 08:00 White Blood Count 4.4 K/UL (4.8-10.8) L Red Blood Count 4.54 M/UL (4.20-5.40) Hemoglobin 14.4 G/DL (12.0-16.0) Hematocrit 44.3 % (37.0-47.0) Mean Corpuscular Volume 97 FL (80-99) Mean Corpuscular Hemoglobin 31.6 PG (27.0-31.0) H Mean Corpuscular Hemoglobin Concent 32.5 G/DL (32.0-36.0) Red Cell Distribution Width 15.1 % (11.6-14.8) H Platelet Count 181 K/UL (150-450) Mean Platelet Volume 5.7 FL (6.5-10.1) L Neutrophils (%) (Auto) 46.0 % (45.0-75.0) Lymphocytes (%) (Auto) 32.7 % (20.0-45.0) Monocytes (%) (Auto) 10.1 % (1.0-10.0) H Eosinophils (%) (Auto) 10.0 % (0.0-3.0) H Basophils (%) (Auto) 1.2 % (0.0-2.0) Sodium Level 137 MMOL/L (136-145) Potassium Level 4.2 MMOL/L (3.5-5.1) Chloride Level 101 MMOL/L (98-107) Carbon Dioxide Level 32 MMOL/L (21-32) Anion Gap 4 mmol/L (5-15) L Blood Urea Nitrogen 25 mg/dL (7-18) H Creatinine 1.0 MG/DL (0.55-1.30) Estimat Glomerular Filtration Rate mL/min (>60) Glucose Level 94 MG/DL (74-106) Calcium Level 9.6 MG/DL (8.5-10.1) Current Medications Medications (Trade) Dose Ordered Sig/Yunior Route PRN Reason Start Time Stop Time Status Last Admin Dose Admin Acetaminophen (Tylenol) 650 mg Q4H PRN ORAL fever 09/30/18 15:44 10/25/18 15:43 Acetaminophen/ Hydrocodone Bitart ([place] 10/325) 1 tab Q4H PRN ORAL For Pain 09/30/18 15:51 10/05/18 15:50 10/03/18 00:41 Albuterol/ Ipratropium (Albuterol/ Ipratropium) 3 ml Q4H PRN HHN Shortness of Breath 10/01/18 10:30 10/06/18 10:29 Apixaban (Eliquis) 2.5 mg BID ORAL 10/01/18 18:00 10/31/18 17:59 10/03/18 08:40 Carvedilol (Coreg) 3.125 mg EVERY 12 HOURS ORAL 09/30/18 21:00 10/28/18 20:59 10/03/18 08:40 Dextrose (Dextrose 50%) 25 ml Q30M PRN IV Hypoglycemia 09/30/18 15:44 10/25/18 15:43 Dextrose (Dextrose 50%) 50 ml Q30M PRN IV Hypoglycemia 09/30/18 15:45 10/25/18 20:44 Digoxin (Lanoxin) 0.25 mg DAILY ORAL 10/01/18 09:00 10/28/18 08:59 10/03/18 08:41 Diltiazem HCl (Cardizem) 10 mg Q1H PRN IV HR>120BPM 09/30/18 15:46 10/26/18 15:45 Docusate Sodium (Colace) 100 mg THREE TIMES A DAY ORAL 10/03/18 13:00 11/02/18 12:59 10/03/18 12:51 Donepezil HCl (Aricept) 5 mg DAILY ORAL 10/01/18 09:00 10/28/18 08:59 10/03/18 08:38 Enalapril Maleate (Vasotec) 2.5 mg EVERY 12 HOURS ORAL 10/01/18 21:00 10/31/18 20:59 10/03/18 08:42 Isosorbide Mononitrate (Imdur) 30 mg Q12HR ORAL 09/30/18 21:00 10/27/18 20:59 10/03/18 08:41 Levothyroxine Sodium (Synthroid) 25 mcg DAILY@0630 ORAL 10/01/18 06:30 10/28/18 06:44 10/03/18 05:56 Memantine (Namenda) 10 mg DAILY ORAL 10/01/18 09:00 10/28/18 08:59 10/03/18 08:42 Methadone HCl (Methadone HCl) 10 mg EVERY 12 HOURS ORAL 10/03/18 21:00 10/10/18 20:59 Ondansetron HCl (Zofran) 4 mg Q6H PRN IVP Nausea & Vomiting 09/30/18 15:45 10/25/18 15:44 09/30/18 17:53 Polyethylene Glycol (Miralax) 17 gm HSPRN PRN ORAL Constipation 09/30/18 20:45 10/25/18 20:44 Quetiapine Fumarate (SEROquel) 25 mg BID ORAL 09/30/18 18:00 10/27/18 17:59 10/03/18 08:42 Fanny Lugo M.D. October 03, 2018 13:19
--- NOTE | 2018-10-03 13:30 | General Progress Note ---
Assessment/Plan Problem List: (1) CHF (congestive heart failure) ICD Codes: I50.9 - Heart failure, unspecified SNOMED: 51814533 (2) Chronic a-fib ICD Codes: I48.2 - Chronic atrial fibrillation SNOMED: 269426151 (3) Spinal stenosis ICD Codes: M48.00 - Spinal stenosis, site unspecified SNOMED: 65365972 (4) Atrial fibrillation with RVR ICD Codes: I48.91 - Unspecified atrial fibrillation SNOMED: 283517701204369 (5) Intractable back pain ICD Codes: M54.9 - Dorsalgia, unspecified SNOMED: 468954217 (6) Subclinical hypothyroidism ICD Codes: E03.9 - Hypothyroidism, unspecified SNOMED: 39653914 (7) Tachy-christen syndrome ICD Codes: I49.5 - Sick sinus syndrome SNOMED: 54923010 Status: stable, progressing Assessment/Plan: pt diet pain control cbc bmp am pending pace maker, dc plan alcott snf Subjective Constitutional: Reports: weakness Allergies: Coded Allergies: No Known Allergies (Unverified , 09/25/18) All Systems: reviewed and negative except above Subjective sleepy calm Objective Last 24 Hour Vital Signs Date Time Temp Pulse Resp B/P (MAP) Pulse Ox O2 Delivery O2 Flow Rate FiO2 10/03/18 12:00 97.2 53 19 146/94 (111) 95 10/03/18 12:00 63 10/03/18 09:00 Room Air 10/03/18 08:42 152/102 10/03/18 08:41 153/73 10/03/18 08:41 61 10/03/18 08:40 61 152/102 10/03/18 08:00 72 10/03/18 08:00 97.6 84 19 153/73 (99) 96 10/03/18 07:30 68 20 Room Air 21 10/03/18 04:00 97.0 85 18 149/85 (106) 95 10/03/18 04:00 72 10/03/18 01:53 86 20 Room Air 21 10/03/18 00:00 97.7 84 20 124/82 (96) 97 10/03/18 00:00 86 10/02/18 21:00 Room Air 10/02/18 20:35 142/78 10/02/18 20:34 142/78 10/02/18 20:34 96 142/78 10/02/18 20:00 81 10/02/18 20:00 97.2 81 20 142/84 (103) 94 10/02/18 16:00 82 10/02/18 16:00 97.9 80 18 145/78 (100) 96 Intake and Output 10/02/18 10/03/18 19:00 07:00 Intake Total 140 ml Balance 140 ml Intake Oral 140 ml Laboratory Tests 10/03/18 08:00: White Blood Count 4.4L, Red Blood Count 4.54, Hemoglobin 14.4, Hematocrit 44.3, Mean Corpuscular Volume 97, Mean Corpuscular Hemoglobin 31.6H, Mean Corpuscular Hemoglobin Concent 32.5, Red Cell Distribution Width 15.1H, Platelet Count 181, Mean Platelet Volume 5.7L, Neutrophils (%) (Auto) 46.0, Lymphocytes (%) (Auto) 32.7, Monocytes (%) (Auto) 10.1H, Eosinophils (%) (Auto) 10.0H, Basophils (%) ( Auto) 1.2, Sodium Level 137, Potassium Level 4.2, Chloride Level 101, Carbon Dioxide Level 32, Anion Gap 4L, Blood Urea Nitrogen 25H, Creatinine 1.0, Estimat Glomerular Filtration Rate , Glucose Level 94, Calcium Level 9.6 Height (Feet): 5 Height (Inches): 4.00 Weight (Pounds): 113 General Appearance: lethargic EENT: normal ENT inspection Neck: normal alignment Cardiovascular: normal peripheral pulses, normal rate, regular rhythm Respiratory/Chest: chest wall non-tender, lungs clear, normal breath sounds Abdomen: normal bowel sounds, non tender, soft Extremities: normal inspection Edema: no edema noted Arm (L), no edema noted Arm (R), no edema noted Leg (L), no edema noted Leg (R), no edema noted Pedal (L), no edema noted Pedal (R), no edema noted Generalized Neurologic: responsive, motor weakness Skin: normal pigmentation, warm/dry Hugh Pressley DO October 03, 2018 13:30
--- NOTE | 2018-10-03 15:23 | Diagnostic Imaging Report ---
Indication: Dyspnea Comparison: 09/26/2018 A single view chest radiograph was obtained. Findings: Cardiomegaly and moderate enlargement of the aorta noted. Lungs are essentially clear. Bones are osteopenic. IMPRESSION: No acute findings
--- NOTE | 2018-10-03 15:32 | NUR ---
RD ASSESSMENT & RECOMMENDATIONS SEE CARE ACTIVITY FOR COMPLETE ASSESSMENT DAILY ESTIMATED NEEDS: Needs based on Cardiac, 51.5kg 25-30 kcals/kg 0180-1174 total kcals 1-1.3 g protein/kg 52-67 g total protein 20-25 mL/kg 7203-1951 total fluid mLs NUTRITION DIAGNOSIS: Decreased sodium intake needs R/T cardiac dx as evidenced by CHF dx w/ EF 15%, elev BNP (21419). CURRENT DIET:REGULAR + Ensure TID w/ meals PO DIET RECOMMENDATIONS: LOW NA/ texture as tolerated ADDITIONAL RECOMMENDATIONS: * Daily standing wt or calibrated bedscale wt -> CHF dx * Monitor for continued good PO intake
[2018-10-03 16:00] VITALS: BP 139/101
--- NOTE | 2018-10-03 19:26 | NUR ---
HAND-OFF: Report given to Aminata ROBISON. Pt remains stable.
--- NOTE | 2018-10-03 19:30 | NUR ---
NURSE NOTES: Received report from ENRIQUETA Sams. Patient awake sitting in bed showing no signs of acute distress. Respiration even and non labored on room air. No SOB noted. IV line patent and intact. Bed in lowest position, wheels locked, and alarm on. All needs attended and met. will continue plan of care.
[2018-10-03 20:00] VITALS: BP 144/95
--- NOTE | 2018-10-03 23:08 | Cardiology Progress Note ---
Assessment/Plan Assessment/Plan 1. Four-chamber and dilated cardiomyopathy with areas of wall motion abnormalities suggestive of possible ischemic cardiomyopathy, LVEF ~ 15-20%. Optimize carvedilol and lisinopril dose. 2. Atrial fibrillation with controlled ventricular response, on carvedilol, Eliquis and digoxin. 3. History of hypertension. Subjective Subjective Atrial fibrillation at rate of 66. Objective Last 24 Hour Vital Signs Date Time Temp Pulse Resp B/P (MAP) Pulse Ox O2 Delivery O2 Flow Rate FiO2 10/03/18 21:14 144/95 10/03/18 21:13 144/95 10/03/18 21:13 65 144/95 10/03/18 21:00 Room Air 10/03/18 20:00 97.5 65 18 144/95 (111) 98 10/03/18 20:00 72 10/03/18 19:37 64 20 96 Room Air 21 10/03/18 16:00 97.8 61 19 139/101 (114) 96 10/03/18 16:00 77 10/03/18 12:00 97.2 53 19 146/94 (111) 95 10/03/18 12:00 63 10/03/18 09:00 Room Air 10/03/18 08:42 152/102 10/03/18 08:41 153/73 10/03/18 08:41 61 10/03/18 08:40 61 152/102 10/03/18 08:00 72 10/03/18 08:00 97.6 84 19 153/73 (99) 96 10/03/18 07:30 68 20 Room Air 21 10/03/18 04:00 97.0 85 18 149/85 (106) 95 10/03/18 04:00 72 10/03/18 01:53 86 20 Room Air 21 10/03/18 00:00 97.7 84 20 124/82 (96) 97 10/03/18 00:00 86 Intake and Output 10/02/18 10/03/18 18:59 06:59 Intake Total 140 ml Balance 140 ml Intake Oral 140 ml 2D Echo: 4C-DCM, + WM, LVEF 20%, Small Kitty.Effusion, RVSP 71 mmHg, Mild AR, Mod MR, Laboratory Tests Test 10/03/18 08:00 White Blood Count 4.4 K/UL (4.8-10.8) L Red Blood Count 4.54 M/UL (4.20-5.40) Hemoglobin 14.4 G/DL (12.0-16.0) Hematocrit 44.3 % (37.0-47.0) Mean Corpuscular Volume 97 FL (80-99) Mean Corpuscular Hemoglobin 31.6 PG (27.0-31.0) H Mean Corpuscular Hemoglobin Concent 32.5 G/DL (32.0-36.0) Red Cell Distribution Width 15.1 % (11.6-14.8) H Platelet Count 181 K/UL (150-450) Mean Platelet Volume 5.7 FL (6.5-10.1) L Neutrophils (%) (Auto) 46.0 % (45.0-75.0) Lymphocytes (%) (Auto) 32.7 % (20.0-45.0) Monocytes (%) (Auto) 10.1 % (1.0-10.0) H Eosinophils (%) (Auto) 10.0 % (0.0-3.0) H Basophils (%) (Auto) 1.2 % (0.0-2.0) Sodium Level 137 MMOL/L (136-145) Potassium Level 4.2 MMOL/L (3.5-5.1) Chloride Level 101 MMOL/L (98-107) Carbon Dioxide Level 32 MMOL/L (21-32) Anion Gap 4 mmol/L (5-15) L Blood Urea Nitrogen 25 mg/dL (7-18) H Creatinine 1.0 MG/DL (0.55-1.30) Estimat Glomerular Filtration Rate mL/min (>60) Glucose Level 94 MG/DL (74-106) Calcium Level 9.6 MG/DL (8.5-10.1) Objective HEENT: Atraumatic, normocephalic, anicteric. Pupils are equal, round, and reactive to light and accommodation. Extraocular muscles are intact. NECK: JVP is elevated about 12 cm. No carotid bruit. Carotid upstroke is 2+ bilaterally. CVS: Normal S1, S2. Irregular irregular rhythm. A 2/6 holosystolic murmur at the apex. LUNGS: Clear to auscultation bilaterally. ABDOMEN: Soft, nontender, and nondistended. No hepatosplenomegaly. Positive bowel sounds. EXTREMITIES: No evidence of edema, clubbing, or cyanosis. Mark Manuel MD October 03, 2018 23:08
[2018-10-04] VITALS: BP 163/107
[2018-10-04 04:00] VITALS: BP 164/109
[2018-10-04] MEDS: Levothyroxine 25mcg tab ORAL SCH (06:22)
--- NOTE | 2018-10-04 06:31 | General Progress Note ---
Assessment/Plan Problem List: (1) Subclinical hypothyroidism ICD Codes: E03.9 - Hypothyroidism, unspecified SNOMED: 91357889 (2) Intractable back pain ICD Codes: M54.9 - Dorsalgia, unspecified SNOMED: 861880297 (3) Atrial fibrillation with RVR ICD Codes: I48.91 - Unspecified atrial fibrillation SNOMED: 531230292030069 (4) Spinal stenosis ICD Codes: M48.00 - Spinal stenosis, site unspecified SNOMED: 98473896 (5) Urinary tract infection ICD Codes: N39.0 - Urinary tract infection, site not specified SNOMED: 54468017 Status: stable, progressing Assessment/Plan: continue Levothyroxine 25 mcg daily repeat thyroid function in 3 weeks Subjective ROS Limited/Unobtainable: Yes Allergies: Coded Allergies: No Known Allergies (Unverified , 09/25/18) Subjective events noted interval notes reviewed Objective Last 24 Hour Vital Signs Date Time Temp Pulse Resp B/P (MAP) Pulse Ox O2 Delivery O2 Flow Rate FiO2 10/04/18 04:00 97.4 57 18 164/109 (127) 95 10/04/18 04:00 64 10/04/18 00:00 86 10/04/18 00:00 98.1 68 18 163/107 (125) 97 10/03/18 21:14 144/95 10/03/18 21:13 144/95 10/03/18 21:13 65 144/95 10/03/18 21:00 Room Air 10/03/18 20:00 97.5 65 18 144/95 (111) 98 10/03/18 20:00 72 10/03/18 19:37 64 20 96 Room Air 21 10/03/18 16:00 97.8 61 19 139/101 (114) 96 10/03/18 16:00 77 10/03/18 12:00 97.2 53 19 146/94 (111) 95 10/03/18 12:00 63 10/03/18 09:00 Room Air 10/03/18 08:42 152/102 10/03/18 08:41 153/73 10/03/18 08:41 61 10/03/18 08:40 61 152/102 10/03/18 08:00 72 10/03/18 08:00 97.6 84 19 153/73 (99) 96 10/03/18 07:30 68 20 Room Air 21 Intake and Output 10/03/18 10/04/18 19:00 07:00 Intake Total 240 ml Balance 240 ml Intake Oral 240 ml Laboratory Tests 10/03/18 08:00: White Blood Count 4.4L, Red Blood Count 4.54, Hemoglobin 14.4, Hematocrit 44.3, Mean Corpuscular Volume 97, Mean Corpuscular Hemoglobin 31.6H, Mean Corpuscular Hemoglobin Concent 32.5, Red Cell Distribution Width 15.1H, Platelet Count 181, Mean Platelet Volume 5.7L, Neutrophils (%) (Auto) 46.0, Lymphocytes (%) (Auto) 32.7, Monocytes (%) (Auto) 10.1H, Eosinophils (%) (Auto) 10.0H, Basophils (%) ( Auto) 1.2, Sodium Level 137, Potassium Level 4.2, Chloride Level 101, Carbon Dioxide Level 32, Anion Gap 4L, Blood Urea Nitrogen 25H, Creatinine 1.0, Estimat Glomerular Filtration Rate , Glucose Level 94, Calcium Level 9.6 Height (Feet): 5 Height (Inches): 4.00 Weight (Pounds): 113 General Appearance: no apparent distress Neck: normal alignment Cardiovascular: arrhythmia Respiratory/Chest: lungs clear Abdomen: normal bowel sounds Pelvis: normal external exam Objective Current Medications Medications (Trade) Dose Ordered Sig/Yunior Route PRN Reason Start Time Stop Time Status Last Admin Dose Admin Acetaminophen (Tylenol) 650 mg Q4H PRN ORAL fever 09/30/18 15:44 10/25/18 15:43 Acetaminophen/ Hydrocodone Bitart ([place] 10/325) 1 tab Q4H PRN ORAL For Pain 09/30/18 15:51 10/05/18 15:50 10/03/18 00:41 Albuterol/ Ipratropium (Albuterol/ Ipratropium) 3 ml Q4H PRN HHN Shortness of Breath 10/01/18 10:30 10/06/18 10:29 Apixaban (Eliquis) 2.5 mg BID ORAL 10/01/18 18:00 10/31/18 17:59 10/03/18 18:17 Carvedilol (Coreg) 6.25 mg EVERY 12 HOURS ORAL 10/04/18 09:00 11/03/18 08:59 Dextrose (Dextrose 50%) 25 ml Q30M PRN IV Hypoglycemia 09/30/18 15:44 10/25/18 15:43 Dextrose (Dextrose 50%) 50 ml Q30M PRN IV Hypoglycemia 09/30/18 15:45 10/25/18 20:44 Digoxin (Lanoxin) 0.25 mg DAILY ORAL 10/01/18 09:00 10/28/18 08:59 10/03/18 08:41 Diltiazem HCl (Cardizem) 10 mg Q1H PRN IV HR>120BPM 09/30/18 15:46 10/26/18 15:45 Docusate Sodium (Colace) 100 mg THREE TIMES A DAY ORAL 10/03/18 13:00 11/02/18 12:59 10/03/18 18:17 Donepezil HCl (Aricept) 5 mg DAILY ORAL 10/01/18 09:00 10/28/18 08:59 10/03/18 08:38 Enalapril Maleate (Vasotec) 5 mg EVERY 12 HOURS ORAL 10/04/18 09:00 11/03/18 08:59 Isosorbide Mononitrate (Imdur) 30 mg Q12HR ORAL 09/30/18 21:00 10/27/18 20:59 10/03/18 21:14 Levothyroxine Sodium (Synthroid) 25 mcg DAILY@0630 ORAL 10/01/18 06:30 10/28/18 06:44 10/04/18 06:22 Memantine (Namenda) 10 mg DAILY ORAL 10/01/18 09:00 10/28/18 08:59 10/03/18 08:42 Methadone HCl (Methadone HCl) 10 mg EVERY 12 HOURS ORAL 10/03/18 21:00 10/10/18 20:59 10/03/18 21:14 Ondansetron HCl (Zofran) 4 mg Q6H PRN IVP Nausea & Vomiting 09/30/18 15:45 10/25/18 15:44 09/30/18 17:53 Polyethylene Glycol (Miralax) 17 gm HSPRN PRN ORAL Constipation 09/30/18 20:45 10/25/18 20:44 Quetiapine Fumarate (SEROquel) 25 mg BID ORAL 09/30/18 18:00 10/27/18 17:59 10/03/18 18:17 Herber Velazquez MD October 04, 2018 06:31
--- NOTE | 2018-10-04 07:01 | NUR ---
HAND-OFF: Report given to ENRIQUETA Sams.
--- NOTE | 2018-10-04 07:02 | NUR ---
NURSE NOTES: Received report from Aminata RN. Pt in bed awake and alert x1 or 2 and able to follow the direction. Bed siderails x2 and Zone 2 alarm on. Bed in lowest position and locked. No c/o pian and no signs of distress noted. On room air. Rhythm with A-fib reported during shift engineer. Will continue to monitor.
[2018-10-04 07:05] LABS: ANION GAP 7 mmol/L (5-15); BLOOD UREA NITROGEN 22 mg/dL (7-18); CALCIUM 9.6 MG/DL (8.5-10.1); CARBON DIOXIDE 28 MMOL/L (21-32); CHLORIDE 101 MMOL/L (98-107); CREATININE 0.9 MG/DL (0.55-1.30); POTASSIUM 4.5 MMOL/L (3.5-5.1); SODIUM 136 MMOL/L (136-145)
[2018-10-04 07:06] LABS: BASOPHILS % (AUTO) 1.3 % (0.0-2.0); EOSINOPHILS % (AUTO) 9.8 % (0.0-3.0); HEMATOCRIT 43.4 % (37.0-47.0); HEMOGLOBIN 14.5 G/DL (12.0-16.0); LYMPHOCYTES % (AUTO) 35.9 % (20.0-45.0); MEAN CORPUSCULAR VOLUME 98 FL (80-99); MONOCYTES % (AUTO) 7.2 % (1.0-10.0); NEUTROPHILS % (AUTO) 45.8 % (45.0-75.0); PLATELET COUNT 190 K/UL (150-450); RED BLOOD COUNT 4.44 M/UL (4.20-5.40); RED CELL DISTRIBUTION WIDTH 14.9 % (11.6-14.8); WHITE BLOOD COUNT 4.5 K/UL (4.8-10.8)
[2018-10-04 08:00] VITALS: BP 149/93
[2018-10-04] MEDS: Docusate 100mg cap ORAL SCH ×3 (08:35→17:21)
[2018-10-04] MEDS: Imdur 30mg tab ORAL SCH (08:35)
[2018-10-04] MEDS: Donepezil 5mg Tab ORAL SCH (08:35)
[2018-10-04] MEDS: Eliquis 2.5mg tablet ORAL SCH ×2 (08:36→17:21)
[2018-10-04] MEDS: Memantine 10mg tab ORAL SCH (08:36)
[2018-10-04] MEDS ORDERED: Enalapril 2.5mg tab ORAL SCH (09:00)
--- NOTE | 2018-10-04 09:25 | GI Progress Note ---
Assessment/Plan Problems: (1) Subclinical hypothyroidism ICD Codes: E03.9 - Hypothyroidism, unspecified SNOMED: 45664921 (2) Constipation ICD Codes: K59.00 - Constipation, unspecified SNOMED: 67037900 (3) LFTs abnormal ICD Codes: R94.5 - Abnormal results of liver function studies SNOMED: 551310316 Status: stable Status Narrative Discussed with Dr. Mcclure Assessment/Plan Symptomatic treatment at this time Advance diet as tolerated Pain management Zofran as needed bowel regime Repeat LFTs PPI Follow-up labs GI procedures only if emergent, otherwise outpatient The patient was seen and examined at bedside and all new and available data was reviewed in the patients chart. I agree with the above findings, impression and plan. (Patient seen earlier today. Signature stamp does not reflect patient encounter time.). - Daron Mcclure MD Subjective Gastrointestinal/Abdominal: Reports: no symptoms Objective Last 24 Hour Vital Signs Date Time Temp Pulse Resp B/P (MAP) Pulse Ox O2 Delivery O2 Flow Rate FiO2 10/04/18 09:00 Room Air 10/04/18 08:36 149/93 10/04/18 08:35 75 149/93 10/04/18 08:35 149/93 10/04/18 08:35 75 10/04/18 08:00 97.4 75 20 149/93 (111) 96 10/04/18 04:00 97.4 57 18 164/109 (127) 95 10/04/18 04:00 64 10/04/18 00:00 86 10/04/18 00:00 98.1 68 18 163/107 (125) 97 10/03/18 21:14 144/95 10/03/18 21:13 144/95 10/03/18 21:13 65 144/95 10/03/18 21:00 Room Air 10/03/18 20:00 97.5 65 18 144/95 (111) 98 10/03/18 20:00 72 10/03/18 19:37 64 20 96 Room Air 21 10/03/18 16:00 97.8 61 19 139/101 (114) 96 10/03/18 16:00 77 10/03/18 12:00 97.2 53 19 146/94 (111) 95 10/03/18 12:00 63 Intake and Output 10/03/18 10/04/18 19:00 07:00 Intake Total 240 ml Balance 240 ml Intake Oral 240 ml # Voids 2 Laboratory Tests Test 10/04/18 06:17 White Blood Count 4.5 K/UL (4.8-10.8) L Red Blood Count 4.44 M/UL (4.20-5.40) Hemoglobin 14.5 G/DL (12.0-16.0) Hematocrit 43.4 % (37.0-47.0) Mean Corpuscular Volume 98 FL (80-99) Mean Corpuscular Hemoglobin 32.6 PG (27.0-31.0) H Mean Corpuscular Hemoglobin Concent 33.4 G/DL (32.0-36.0) Red Cell Distribution Width 14.9 % (11.6-14.8) H Platelet Count 190 K/UL (150-450) Mean Platelet Volume 6.6 FL (6.5-10.1) Neutrophils (%) (Auto) 45.8 % (45.0-75.0) Lymphocytes (%) (Auto) 35.9 % (20.0-45.0) Monocytes (%) (Auto) 7.2 % (1.0-10.0) Eosinophils (%) (Auto) 9.8 % (0.0-3.0) H Basophils (%) (Auto) 1.3 % (0.0-2.0) Sodium Level 136 MMOL/L (136-145) Potassium Level 4.5 MMOL/L (3.5-5.1) Chloride Level 101 MMOL/L (98-107) Carbon Dioxide Level 28 MMOL/L (21-32) Anion Gap 7 mmol/L (5-15) Blood Urea Nitrogen 22 mg/dL (7-18) H Creatinine 0.9 MG/DL (0.55-1.30) Estimat Glomerular Filtration Rate mL/min (>60) Glucose Level 97 MG/DL (74-106) Calcium Level 9.6 MG/DL (8.5-10.1) Height (Feet): 5 Height (Inches): 4.00 Weight (Pounds): 114 General Appearance: WD/WN, no apparent distress, alert, thin Cardiovascular: normal rate Respiratory/Chest: normal breath sounds, no respiratory distress Abdominal Exam: normal bowel sounds, non tender, soft Extremities: non-tender Marlene Wolfe NP October 04, 2018 09:25
[2018-10-04 09:43] VITALS: BP 126/72
--- NOTE | 2018-10-04 09:50 | NUR ---
NURSE NOTES: Noted LBM X2 during shift and no bleed from rectum or bleed on stool noted. OB stool and stool culture sent to Lab @8:10am. Made Dwayne CR aware.
[2018-10-04 12:00] VITALS: BP 121/70
--- NOTE | 2018-10-04 12:22 | Pulmonology Progress Note ---
Assessment/Plan Problems: (1) Atrial fibrillation with RVR Assessment & Plan: controlled now with heart rate as low as 50's (2) EF 15% (3) Urinary tract infection (4) Chronic systolic CHF (congestive heart failure) (5) Chronic a-fib (6) Spinal stenosis (7) Intractable back pain (8) Pulmonary hypertension, moderate to severe (9) Subclinical hypothyroidism Assessment/Plan Methasone for radiculopathic back pain working very well pt's daughter doesn't want any ICD or pacemaker Echo reviewed EF of 15%heart rate controlled on Cardizem PO check Urine c/s mckoy sensitive except for Nitrofurantoin responding well to Morphine IV, will add [place] on Eliquis for afib resume Quetiapine, d/w daughter at the bed site. Subjective Constitutional: Reports: no symptoms HEENT: Repors: no symptoms Allergies: Coded Allergies: No Known Allergies (Unverified , 09/25/18) Objective Last 24 Hour Vital Signs Date Time Temp Pulse Resp B/P (MAP) Pulse Ox O2 Delivery O2 Flow Rate FiO2 10/04/18 12:00 97.2 70 18 121/70 (87) 98 10/04/18 09:43 86 20 126/72 (90) 10/04/18 09:00 Room Air 10/04/18 08:36 149/93 10/04/18 08:35 75 149/93 10/04/18 08:35 149/93 10/04/18 08:35 75 10/04/18 08:13 61 16 96 Room Air 21 10/04/18 08:00 59 10/04/18 08:00 97.4 75 20 149/93 (111) 96 10/04/18 04:00 97.4 57 18 164/109 (127) 95 10/04/18 04:00 64 10/04/18 00:00 86 10/04/18 00:00 98.1 68 18 163/107 (125) 97 10/03/18 21:14 144/95 10/03/18 21:13 144/95 10/03/18 21:13 65 144/95 10/03/18 21:00 Room Air 10/03/18 20:00 97.5 65 18 144/95 (111) 98 10/03/18 20:00 72 10/03/18 19:37 64 20 96 Room Air 21 10/03/18 16:00 97.8 61 19 139/101 (114) 96 10/03/18 16:00 77 Intake and Output 10/03/18 10/04/18 19:00 07:00 Intake Total 240 ml Balance 240 ml Intake Oral 240 ml # Voids 2 HEENT: normocephalic, atraumatic Respiratory/Chest: chest wall non-tender, lungs clear Breasts: no masses Cardiovascular: normal peripheral pulses Abdomen: normal bowel sounds, soft, non tender Extremities: no cyanosis Skin: no lesions Neurologic/Psychiatric: measurement psychologist II-XII grossly normal Laboratory Tests 10/04/18 06:17: White Blood Count 4.5L, Red Blood Count 4.44, Hemoglobin 14.5, Hematocrit 43.4, Mean Corpuscular Volume 98, Mean Corpuscular Hemoglobin 32.6H, Mean Corpuscular Hemoglobin Concent 33.4, Red Cell Distribution Width 14.9H, Platelet Count 190, Mean Platelet Volume 6.6, Neutrophils (%) (Auto) 45.8, Lymphocytes (%) (Auto) 35.9, Monocytes (%) (Auto) 7.2, Eosinophils (%) (Auto) 9.8H, Basophils (%) (Auto ) 1.3, Sodium Level 136, Potassium Level 4.5, Chloride Level 101, Carbon Dioxide Level 28, Anion Gap 7, Blood Urea Nitrogen 22H, Creatinine 0.9, Estimat Glomerular Filtration Rate , Glucose Level 97, Calcium Level 9.6 Current Medications Medications (Trade) Dose Ordered Sig/Yunior Route PRN Reason Start Time Stop Time Status Last Admin Dose Admin Acetaminophen (Tylenol) 650 mg Q4H PRN ORAL fever 09/30/18 15:44 10/25/18 15:43 Acetaminophen/ Hydrocodone Bitart ([place] 10/325) 1 tab Q4H PRN ORAL For Pain 09/30/18 15:51 10/05/18 15:50 10/03/18 00:41 Albuterol/ Ipratropium (Albuterol/ Ipratropium) 3 ml Q4H PRN HHN Shortness of Breath 10/01/18 10:30 10/06/18 10:29 Apixaban (Eliquis) 2.5 mg BID ORAL 10/01/18 18:00 10/31/18 17:59 10/04/18 08:36 Carvedilol (Coreg) 6.25 mg EVERY 12 HOURS ORAL 10/04/18 09:00 11/03/18 08:59 10/04/18 08:35 Dextrose (Dextrose 50%) 25 ml Q30M PRN IV Hypoglycemia 09/30/18 15:44 10/25/18 15:43 Dextrose (Dextrose 50%) 50 ml Q30M PRN IV Hypoglycemia 09/30/18 15:45 10/25/18 20:44 Digoxin (Lanoxin) 0.25 mg DAILY ORAL 10/01/18 09:00 10/28/18 08:59 10/04/18 08:35 Diltiazem HCl (Cardizem) 10 mg Q1H PRN IV HR>120BPM 09/30/18 15:46 10/26/18 15:45 Docusate Sodium (Colace) 100 mg THREE TIMES A DAY ORAL 10/03/18 13:00 11/02/18 12:59 10/04/18 12:07 Donepezil HCl (Aricept) 5 mg DAILY ORAL 10/01/18 09:00 10/28/18 08:59 10/04/18 08:35 Enalapril Maleate (Vasotec) 5 mg EVERY 12 HOURS ORAL 10/04/18 09:00 11/03/18 08:59 10/04/18 08:36 Isosorbide Mononitrate (Imdur) 30 mg Q12HR ORAL 09/30/18 21:00 10/27/18 20:59 10/04/18 08:35 Levothyroxine Sodium (Synthroid) 25 mcg DAILY@0630 ORAL 10/01/18 06:30 10/28/18 06:44 10/04/18 06:22 Memantine (Namenda) 10 mg DAILY ORAL 10/01/18 09:00 10/28/18 08:59 10/04/18 08:36 Methadone HCl (Methadone HCl) 10 mg EVERY 12 HOURS ORAL 10/03/18 21:00 10/10/18 20:59 10/04/18 08:37 Ondansetron HCl (Zofran) 4 mg Q6H PRN IVP Nausea & Vomiting 09/30/18 15:45 10/25/18 15:44 09/30/18 17:53 Polyethylene Glycol (Miralax) 17 gm HSPRN PRN ORAL Constipation 09/30/18 20:45 10/25/18 20:44 Quetiapine Fumarate (SEROquel) 25 mg BID ORAL 09/30/18 18:00 10/27/18 17:59 10/04/18 08:35 John Hollingsworth MD October 04, 2018 12:22
[2018-10-04] MEDS ORDERED: COREG3.125 MG ORAL (12:31)
[2018-10-04] MEDS ORDERED: METHADONE HCL10 MG ORAL (12:31)
[2018-10-04] MEDS ORDERED: SYNTHROID25 MCG ORAL (12:31)
[2018-10-04] MEDS ORDERED: DIGOXIN250 MCG ORAL (12:31)
--- NOTE | 2018-10-04 12:38 | General Progress Note ---
Assessment/Plan Problem List: (1) CHF (congestive heart failure) ICD Codes: I50.9 - Heart failure, unspecified SNOMED: 42190182 (2) Chronic a-fib ICD Codes: I48.2 - Chronic atrial fibrillation SNOMED: 228116290 (3) Spinal stenosis ICD Codes: M48.00 - Spinal stenosis, site unspecified SNOMED: 37736749 (4) Atrial fibrillation with RVR ICD Codes: I48.91 - Unspecified atrial fibrillation SNOMED: 641734299092398 (5) Intractable back pain ICD Codes: M54.9 - Dorsalgia, unspecified SNOMED: 810818207 (6) Subclinical hypothyroidism ICD Codes: E03.9 - Hypothyroidism, unspecified SNOMED: 43860561 (7) Tachy-christen syndrome ICD Codes: I49.5 - Sick sinus syndrome SNOMED: 51428139 Status: stable, progressing Assessment/Plan: pt diet pain control dc to [place] snf if clear Subjective Constitutional: Reports: weakness Allergies: Coded Allergies: No Known Allergies (Unverified , 09/25/18) All Systems: reviewed and negative except above Subjective sleepy calm Objective Last 24 Hour Vital Signs Date Time Temp Pulse Resp B/P (MAP) Pulse Ox O2 Delivery O2 Flow Rate FiO2 10/04/18 12:00 97.2 70 18 121/70 (87) 98 10/04/18 09:43 86 20 126/72 (90) 10/04/18 09:00 Room Air 10/04/18 08:36 149/93 10/04/18 08:35 75 149/93 10/04/18 08:35 149/93 10/04/18 08:35 75 10/04/18 08:13 61 16 96 Room Air 21 10/04/18 08:00 59 10/04/18 08:00 97.4 75 20 149/93 (111) 96 10/04/18 04:00 97.4 57 18 164/109 (127) 95 10/04/18 04:00 64 10/04/18 00:00 86 10/04/18 00:00 98.1 68 18 163/107 (125) 97 10/03/18 21:14 144/95 10/03/18 21:13 144/95 10/03/18 21:13 65 144/95 5/20/19 21:00 Room Air 10/03/18 20:00 97.5 65 18 144/95 (111) 98 10/03/18 20:00 72 10/03/18 19:37 64 20 96 Room Air 21 10/03/18 16:00 97.8 61 19 139/101 (114) 96 10/03/18 16:00 77 Intake and Output 10/03/18 10/04/18 19:00 07:00 Intake Total 240 ml Balance 240 ml Intake Oral 240 ml # Voids 2 Laboratory Tests 10/04/18 06:17: White Blood Count 4.5L, Red Blood Count 4.44, Hemoglobin 14.5, Hematocrit 43.4, Mean Corpuscular Volume 98, Mean Corpuscular Hemoglobin 32.6H, Mean Corpuscular Hemoglobin Concent 33.4, Red Cell Distribution Width 14.9H, Platelet Count 190, Mean Platelet Volume 6.6, Neutrophils (%) (Auto) 45.8, Lymphocytes (%) (Auto) 35.9, Monocytes (%) (Auto) 7.2, Eosinophils (%) (Auto) 9.8H, Basophils (%) (Auto ) 1.3, Sodium Level 136, Potassium Level 4.5, Chloride Level 101, Carbon Dioxide Level 28, Anion Gap 7, Blood Urea Nitrogen 22H, Creatinine 0.9, Estimat Glomerular Filtration Rate , Glucose Level 97, Calcium Level 9.6 Height (Feet): 5 Height (Inches): 4.00 Weight (Pounds): 114 General Appearance: lethargic EENT: normal ENT inspection Neck: normal alignment Cardiovascular: normal peripheral pulses, normal rate, regular rhythm Respiratory/Chest: chest wall non-tender, lungs clear, normal breath sounds Abdomen: normal bowel sounds, non tender, soft Extremities: normal inspection Edema: no edema noted Arm (L), no edema noted Arm (R), no edema noted Leg (L), no edema noted Leg (R), no edema noted Pedal (L), no edema noted Pedal (R), no edema noted Generalized Neurologic: responsive, motor weakness Skin: normal pigmentation, warm/dry Hugh PressleyIvelisse October 04, 2018 12:38
--- NOTE | 2018-10-04 15:00 | NUR ---
*-* INSURANCE *-* UPDATED CLINICALS AND REVIEWS HAVE BEEN FAXED TO: [facility] #PENDING [facility]:ABBI Easley [phone]
--- NOTE | 2018-10-04 15:41 | NUR ---
NURSE NOTES: Confirmed [facility] correctional case records supervisor that she explained the patient's daughter that pt has to leave [facility] today. Also spoke with correctional case records supervisor at [facility] and she states that she explained the daughter the patient has to be transferred to SNF if a doctor orders to discharge and if not the patient has to pay for hospital stay. Made the nursing plant operator/shift supervisor, unit charge nurse and the correctional case records supervisor at [facility] aware. Rescheduled medical ambulance at 6pm. [place] [facility]
[2018-10-04 16:00] VITALS: BP 152/90
--- NOTE | 2018-10-04 16:12 | Cardiac Electrophysiology PN ---
Assessment/Plan Assessment/Plan 1. 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 [facility] 07/2014 showed had NE and stent in LAD. Continue Coreg 3.125 mg bid, Enalapril 2.5 mg b.i.d. and Isordil daily. Echo at [facility] on 03/07/18 also showed EF 40% Daughter refused ICD. 2. Atrial fibrillation with rapid ventricular response. On Coreg 3.125 bid, digoxin 0.25 mg daily and Eliquis 3. Hypothyroidism, on Synthroid. 4. Dementia. 5. History of hypertension. Current medication per Dr. Manuel. BRYAN RN Subjective Subjective No events. Awaiting transfer to [facility] Objective Last 24 Hour Vital Signs Date Time Temp Pulse Resp B/P (MAP) Pulse Ox O2 Delivery O2 Flow Rate FiO2 10/04/18 12:00 97.2 70 18 121/70 (87) 98 10/04/18 12:00 68 10/04/18 09:43 86 20 126/72 (90) 10/04/18 09:00 Room Air 10/04/18 08:36 149/93 10/04/18 08:35 75 149/93 10/04/18 08:35 149/93 10/04/18 08:35 75 10/04/18 08:13 61 16 96 Room Air 21 10/04/18 08:00 59 10/04/18 08:00 97.4 75 20 149/93 (111) 96 10/04/18 04:00 97.4 57 18 164/109 (127) 95 10/04/18 04:00 64 10/04/18 00:00 86 10/04/18 00:00 98.1 68 18 163/107 (125) 97 10/03/18 21:14 144/95 10/03/18 21:13 144/95 10/03/18 21:13 65 144/95 10/03/18 21:00 Room Air 10/03/18 20:00 97.5 65 18 144/95 (111) 98 10/03/18 20:00 72 10/03/18 19:37 64 20 96 Room Air 21 Intake and Output 10/03/18 10/04/18 19:00 07:00 Intake Total 240 ml Balance 240 ml Intake Oral 240 ml # Voids 2 Laboratory Tests Test 10/04/18 06:17 White Blood Count 4.5 K/UL (4.8-10.8) L Red Blood Count 4.44 M/UL (4.20-5.40) Hemoglobin 14.5 G/DL (12.0-16.0) Hematocrit 43.4 % (37.0-47.0) Mean Corpuscular Volume 98 FL (80-99) Mean Corpuscular Hemoglobin 32.6 PG (27.0-31.0) H Mean Corpuscular Hemoglobin Concent 33.4 G/DL (32.0-36.0) Red Cell Distribution Width 14.9 % (11.6-14.8) H Platelet Count 190 K/UL (150-450) Mean Platelet Volume 6.6 FL (6.5-10.1) Neutrophils (%) (Auto) 45.8 % (45.0-75.0) Lymphocytes (%) (Auto) 35.9 % (20.0-45.0) Monocytes (%) (Auto) 7.2 % (1.0-10.0) Eosinophils (%) (Auto) 9.8 % (0.0-3.0) H Basophils (%) (Auto) 1.3 % (0.0-2.0) Sodium Level 136 MMOL/L (136-145) Potassium Level 4.5 MMOL/L (3.5-5.1) Chloride Level 101 MMOL/L (98-107) Carbon Dioxide Level 28 MMOL/L (21-32) Anion Gap 7 mmol/L (5-15) Blood Urea Nitrogen 22 mg/dL (7-18) H Creatinine 0.9 MG/DL (0.55-1.30) Estimat Glomerular Filtration Rate mL/min (>60) Glucose Level 97 MG/DL (74-106) Calcium Level 9.6 MG/DL (8.5-10.1) Objective HEAD AND NECK: Mild JVD. LUNGS: Decreased breath sounds. CARDIOVASCULAR: Irregularly irregular S1 and S2 with no murmur. ABDOMEN: Soft. EXTREMITIES: A 1+ pitting edema. Mark Sanders MD October 04, 2018 16:12
--- NOTE | 2018-10-04 16:55 | Infectious Diseases Prog Note ---
Assessment/Plan Assessment/Plan Assessment: Low back pain -MRI L spine: Moderate to severe multilevel spinal stenosis involving the central canal and lateral recess and bilateral foramina as described above. This is due to combination of factors including severe degenerative disc disease and facet arthropathy. -CT T +L spine: No obvious acute fracture.Severe degenerative changes of the lumbar spine as described above. Suspected right renal cysts. 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 -CTA c/a/p: Ascending aortic aneurysm 4.5 cm. Moderate atherosclerotic disease with ectasia of the thoracic and abdominal aorta as described above. 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 No evidence of dissection. Multiple incidental findings: Patchy lung fibrosis. Groundglass opacities, nonspecific. Trace right pleural effusion. Trace ascites. Diverticulosis of the colon. Thickening of the wall the gallbladder, nonspecific in nature. Degenerative changes of the spine Afebrile No leukocytosis -CXR: Cardiomegaly. No acute findings Probable UTI (+frequency) -u/a wbc 40-60, nit neg, leuk +3, sq cells many; ucx 10-20k P.mirabilis (R nitro; otherwise S); repeat u/a wbc 5-10, nit neg, leuk +3, few sq cells; ucx 20 -40k CONS (Colonizer) Mild LFTs elevation; improving- r/o hepatobiliary disease -Abd US: Fusiform aneurysm suspected in the infradiaphragmatic upper abdominal aorta measuring up to 3.5 cm. Thickening of the gallbladder wall, nonspecific. Trace ascites. Right renal cysts CAD s/p angioplasty HTN compression fractures of spine CHF Afib on Eliquis Dementia Plan: -Continue to monitor off -10/02 SP LEvaquin #7 -09/25 SP Ceftriaxone x1 -f/u cx -Monitor CBC/CMP, temperatures -aspiration precautions Thank you for this consultation. Will continue to follow along with you. Discussed with RN. Subjective Allergies: Coded Allergies: No Known Allergies (Unverified , 09/25/18) Subjective afebrile no leukocytosis Objective Vital Signs Last 24 Hour Vital Signs Date Time Temp Pulse Resp B/P (MAP) Pulse Ox O2 Delivery O2 Flow Rate FiO2 10/04/18 12:00 97.2 70 18 121/70 (87) 98 10/04/18 12:00 68 10/04/18 09:43 86 20 126/72 (90) 10/04/18 09:00 Room Air 10/04/18 08:36 149/93 10/04/18 08:35 75 149/93 10/04/18 08:35 149/93 10/04/18 08:35 75 10/04/18 08:13 61 16 96 Room Air 21 10/04/18 08:00 59 10/04/18 08:00 97.4 75 20 149/93 (111) 96 10/04/18 04:00 97.4 57 18 164/109 (127) 95 10/04/18 04:00 64 10/04/18 00:00 86 10/04/18 00:00 98.1 68 18 163/107 (125) 97 10/03/18 21:14 144/95 10/03/18 21:13 144/95 10/03/18 21:13 65 144/95 10/03/18 21:00 Room Air 10/03/18 20:00 97.5 65 18 144/95 (111) 98 10/03/18 20:00 72 10/03/18 19:37 64 20 96 Room Air 21 Height (Feet): 5 Height (Inches): 4.00 Weight (Pounds): 114 Objective General Appearance: well appearing, no apparent distress, alert, thin Head: normocephalic EENT: PERRL/EOMI, normal ENT inspection Neck: supple Respiratory: normal breath sounds, no respiratory distress Cardiovascular: normal rate Gastrointestinal: normal inspection, non tender, soft, normal bowel sounds, non -distended Genitourinary: no CVA tenderness Musculoskeletal: normal inspection, back normal Neurologic: normal inspection, alert, oriented x3, responsive Psychiatric: normal inspection, judgement/insight normal, memory normal Skin: normal inspection, normal color, no rash, warm/dry, palpation normal, well hydrated Laboratory Tests Test 10/04/18 06:17 White Blood Count 4.5 K/UL (4.8-10.8) L Red Blood Count 4.44 M/UL (4.20-5.40) Hemoglobin 14.5 G/DL (12.0-16.0) Hematocrit 43.4 % (37.0-47.0) Mean Corpuscular Volume 98 FL (80-99) Mean Corpuscular Hemoglobin 32.6 PG (27.0-31.0) H Mean Corpuscular Hemoglobin Concent 33.4 G/DL (32.0-36.0) Red Cell Distribution Width 14.9 % (11.6-14.8) H Platelet Count 190 K/UL (150-450) Mean Platelet Volume 6.6 FL (6.5-10.1) Neutrophils (%) (Auto) 45.8 % (45.0-75.0) Lymphocytes (%) (Auto) 35.9 % (20.0-45.0) Monocytes (%) (Auto) 7.2 % (1.0-10.0) Eosinophils (%) (Auto) 9.8 % (0.0-3.0) H Basophils (%) (Auto) 1.3 % (0.0-2.0) Sodium Level 136 MMOL/L (136-145) Potassium Level 4.5 MMOL/L (3.5-5.1) Chloride Level 101 MMOL/L (98-107) Carbon Dioxide Level 28 MMOL/L (21-32) Anion Gap 7 mmol/L (5-15) Blood Urea Nitrogen 22 mg/dL (7-18) H Creatinine 0.9 MG/DL (0.55-1.30) Estimat Glomerular Filtration Rate mL/min (>60) Glucose Level 97 MG/DL (74-106) Calcium Level 9.6 MG/DL (8.5-10.1) Current Medications Medications (Trade) Dose Ordered Sig/Yunior Route PRN Reason Start Time Stop Time Status Last Admin Dose Admin Acetaminophen (Tylenol) 650 mg Q4H PRN ORAL fever 09/30/18 15:44 10/25/18 15:43 Acetaminophen/ Hydrocodone Bitart ([place] 10325) 1 tab Q4H PRN ORAL For Pain 09/30/18 15:51 10/05/18 15:50 10/03/18 00:41 Albuterol/ Ipratropium (Albuterol/ Ipratropium) 3 ml Q4H PRN HHN Shortness of Breath 10/01/18 10:30 10/06/18 10:29 Apixaban (Eliquis) 2.5 mg BID ORAL 10/01/18 18:00 10/31/18 17:59 10/04/18 08:36 Carvedilol (Coreg) 6.25 mg EVERY 12 HOURS ORAL 10/04/18 09:00 11/03/18 08:59 10/04/18 08:35 Dextrose (Dextrose 50%) 25 ml Q30M PRN IV Hypoglycemia 09/30/18 15:44 10/25/18 15:43 Dextrose (Dextrose 50%) 50 ml Q30M PRN IV Hypoglycemia 09/30/18 15:45 10/25/18 20:44 Digoxin (Lanoxin) 0.25 mg DAILY ORAL 10/01/18 09:00 10/28/18 08:59 10/04/18 08:35 Diltiazem HCl (Cardizem) 10 mg Q1H PRN IV HR>120BPM 09/30/18 15:46 10/26/18 15:45 Docusate Sodium (Colace) 100 mg THREE TIMES A DAY ORAL 10/03/18 13:00 11/02/18 12:59 10/04/18 12:07 Donepezil HCl (Aricept) 5 mg DAILY ORAL 10/01/18 09:00 10/28/18 08:59 10/04/18 08:35 Enalapril Maleate (Vasotec) 5 mg EVERY 12 HOURS ORAL 10/04/18 09:00 11/03/18 08:59 10/04/18 08:36 Isosorbide Mononitrate (Imdur) 30 mg Q12HR ORAL 09/30/18 21:00 10/27/18 20:59 10/04/18 08:35 Levothyroxine Sodium (Synthroid) 25 mcg DAILY@0630 ORAL 10/01/18 06:30 10/28/18 06:44 10/04/18 06:22 Memantine (Namenda) 10 mg DAILY ORAL 10/01/18 09:00 10/28/18 08:59 10/04/18 08:36 Methadone HCl (Methadone HCl) 10 mg EVERY 12 HOURS ORAL 10/03/18 21:00 10/10/18 20:59 10/04/18 08:37 Ondansetron HCl (Zofran) 4 mg Q6H PRN IVP Nausea & Vomiting 09/30/18 15:45 10/25/18 15:44 09/30/18 17:53 Polyethylene Glycol (Miralax) 17 gm HSPRN PRN ORAL Constipation 09/30/18 20:45 10/25/18 20:44 Quetiapine Fumarate (SEROquel) 25 mg BID ORAL 09/30/18 18:00 10/27/18 17:59 10/04/18 08:35 Fanny Lugo M.D. October 04, 2018 16:55
--- NOTE | 2018-10-04 18:21 | NUR ---
NURSE NOTES: Spoke with pt's daughter, Mitchel Fraire and confirmed that patient can be transferred to [facility] today. Gave the report to Sara ROBISON @[facility].
--- NOTE | 2018-10-04 19:06 | General Progress Note ---
Assessment/Plan Assessment/Plan: (1) Thoracic and Lumbar DDD (2) Thoracic and Lumbar Spondylosis (3) Lumbar Radiculopathy/ spinal stenosis We recommend patient to be continued on norco. We do not recommend patient to be on methadone. At this we will sign off from the case due to the pain management being taken care of by another physician. D/w Dr. Wilson and he concurred. Subjective Date patient seen: October 04, 2018 Time patient seen: 06:15 - pm Allergies: Coded Allergies: No Known Allergies (Unverified , 09/25/18) Subjective REVIEW OF SYSTEMS: Denies rash, fever, chills, sweating, drowsiness, blurred vision, sore throat, or change in weight. No shortness of breath or chest pain. No nausea, vomiting, or blood in the stool or urine. No bowel or bladder incontinence. No dysuria. The patient is complaining of back pain, dizziness. SUBJECTIVE: Patient is in bed with daughter at bed side. She was restarted on Methadone 10mg BID by another health care practitioner, at this time I d/w patient, daughter and nurse that we do not recommend patient to be on methadone, however to be continued on [place] as needed. At this we will sign off from the case due to the pain management being taken care of by another physician. Objective Last 24 Hour Vital Signs Date Time Temp Pulse Resp B/P (MAP) Pulse Ox O2 Delivery O2 Flow Rate FiO2 10/04/18 16:00 73 10/04/18 16:00 97.1 80 18 152/90 (110) 97 10/04/18 12:00 97.2 70 18 121/70 (87) 98 10/04/18 12:00 68 10/04/18 09:43 86 20 126/72 (90) 10/04/18 09:00 Room Air 10/04/18 08:36 149/93 10/04/18 08:35 75 149/93 10/04/18 08:35 149/93 10/04/18 08:35 75 10/04/18 08:13 61 16 96 Room Air 21 10/04/18 08:00 59 10/04/18 08:00 97.4 75 20 149/93 (111) 96 10/04/18 04:00 97.4 57 18 164/109 (127) 95 10/04/18 04:00 64 10/04/18 00:00 86 10/04/18 00:00 98.1 68 18 163/107 (125) 97 10/03/18 21:14 144/95 10/03/18 21:13 144/95 10/03/18 21:13 65 144/95 10/03/18 21:00 Room Air 10/03/18 20:00 97.5 65 18 144/95 (111) 98 10/03/18 20:00 72 10/03/18 19:37 64 20 96 Room Air 21 Intake and Output 10/03/18 10/04/18 19:00 07:00 Intake Total 240 ml Balance 240 ml Intake Oral 240 ml # Voids 2 Laboratory Tests 10/04/18 06:17: White Blood Count 4.5L, Red Blood Count 4.44, Hemoglobin 14.5, Hematocrit 43.4, Mean Corpuscular Volume 98, Mean Corpuscular Hemoglobin 32.6H, Mean Corpuscular Hemoglobin Concent 33.4, Red Cell Distribution Width 14.9H, Platelet Count 190, Mean Platelet Volume 6.6, Neutrophils (%) (Auto) 45.8, Lymphocytes (%) (Auto) 35.9, Monocytes (%) (Auto) 7.2, Eosinophils (%) (Auto) 9.8H, Basophils (%) (Auto ) 1.3, Sodium Level 136, Potassium Level 4.5, Chloride Level 101, Carbon Dioxide Level 28, Anion Gap 7, Blood Urea Nitrogen 22H, Creatinine 0.9, Estimat Glomerular Filtration Rate , Glucose Level 97, Calcium Level 9.6 Height (Feet): 5 Height (Inches): 4.00 Weight (Pounds): 114 Objective PHYSICAL EXAMINATION: GENERAL: Alert, awake, and oriented. LUNGS: Decreased breath sounds bilaterally. HEART: S1 and S2 regular. ABDOMEN: Soft and nontender. EXTREMITIES: No cyanosis. No clubbing. NEURO: No changes. Ilya Perez October 04, 2018 19:06
--- NOTE | 2018-10-04 19:43 | NUR ---
HAND-OFF: Report given to Aminata ROBISON. Pt remains stable..
--- NOTE | 2018-10-04 20:05 | NUR ---
NURSE NOTES: Received report from ENRIQUETA Sams. Patient stable, showing no signs of acute distress. Respiration even and non labored on room air. No SOB noted. Vitals stable and afebrile. [facility], [facility], and report given. alarm security or surveillance monitor and IV dc'd from patient. Patient stable.
--- NOTE | 2018-10-04 23:59 | Cardiology Progress Note ---
Assessment/Plan Assessment/Plan 1. Four-chamber and dilated cardiomyopathy with areas of wall motion abnormalities suggestive of possible ischemic cardiomyopathy, LVEF ~ 15-20%. Continue carvedilol and lisinopril dose. 2. Atrial fibrillation with controlled ventricular response, on carvedilol, Eliquis and digoxin. 3. History of hypertension. Subjective Subjective Atrial fibrillation at rate of 73. Objective Last 24 Hour Vital Signs Date Time Temp Pulse Resp B/P (MAP) Pulse Ox O2 Delivery O2 Flow Rate FiO2 10/04/18 16:00 73 10/04/18 16:00 97.1 80 18 152/90 (110) 97 10/04/18 12:00 97.2 70 18 121/70 (87) 98 10/04/18 12:00 68 10/04/18 09:43 86 20 126/72 (90) 10/04/18 09:00 Room Air 10/04/18 08:36 149/93 10/04/18 08:35 75 149/93 10/04/18 08:35 149/93 10/04/18 08:35 75 10/04/18 08:13 61 16 96 Room Air 21 10/04/18 08:00 59 10/04/18 08:00 97.4 75 20 149/93 (111) 96 10/04/18 04:00 97.4 57 18 164/109 (127) 95 10/04/18 04:00 64 10/04/18 00:00 86 10/04/18 00:00 98.1 68 18 163/107 (125) 97 Intake and Output 10/03/18 10/04/18 18:59 06:59 Intake Total 240 ml Balance 240 ml Intake Oral 240 ml # Voids 2 2D Echo: 4C-DCM, + WM, LVEF 20%, Small Kitty.Effusion, RVSP 71 mmHg, Mild AR, Mod MR, Laboratory Tests Test 10/04/18 06:17 White Blood Count 4.5 K/UL (4.8-10.8) L Red Blood Count 4.44 M/UL (4.20-5.40) Hemoglobin 14.5 G/DL (12.0-16.0) Hematocrit 43.4 % (37.0-47.0) Mean Corpuscular Volume 98 FL (80-99) Mean Corpuscular Hemoglobin 32.6 PG (27.0-31.0) H Mean Corpuscular Hemoglobin Concent 33.4 G/DL (32.0-36.0) Red Cell Distribution Width 14.9 % (11.6-14.8) H Platelet Count 190 K/UL (150-450) Mean Platelet Volume 6.6 FL (6.5-10.1) Neutrophils (%) (Auto) 45.8 % (45.0-75.0) Lymphocytes (%) (Auto) 35.9 % (20.0-45.0) Monocytes (%) (Auto) 7.2 % (1.0-10.0) Eosinophils (%) (Auto) 9.8 % (0.0-3.0) H Basophils (%) (Auto) 1.3 % (0.0-2.0) Sodium Level 136 MMOL/L (136-145) Potassium Level 4.5 MMOL/L (3.5-5.1) Chloride Level 101 MMOL/L (98-107) Carbon Dioxide Level 28 MMOL/L (21-32) Anion Gap 7 mmol/L (5-15) Blood Urea Nitrogen 22 mg/dL (7-18) H Creatinine 0.9 MG/DL (0.55-1.30) Estimat Glomerular Filtration Rate mL/min (>60) Glucose Level 97 MG/DL (74-106) Calcium Level 9.6 MG/DL (8.5-10.1) Objective HEENT: Atraumatic, normocephalic, anicteric. Pupils are equal, round, and reactive to light and accommodation. Extraocular muscles are intact. NECK: JVP is elevated about 12 cm. No carotid bruit. Carotid upstroke is 2+ bilaterally. CVS: Normal S1, S2. Irregular irregular rhythm. A 2/6 holosystolic murmur at the apex. LUNGS: Clear to auscultation bilaterally. ABDOMEN: Soft, nontender, and nondistended. No hepatosplenomegaly. Positive bowel sounds. EXTREMITIES: No evidence of edema, clubbing, or cyanosis. Mark Manuel MD October 04, 2018 23:59
--- NOTE | 2018-10-05 00:53 | Neurology Progress Note ---
Interim History Interim History ROS Limited/Unobtainable: Yes - secondary to language - she is Hungarian speaking only Complaints: LBP Events: Ambulating independently and tolerating diet Objective Physical Exam Last Vital Signs Date Time Temp Pulse Resp B/P (MAP) Pulse Ox O2 Delivery O2 Flow Rate FiO2 10/04/18 16:00 73 10/04/18 16:00 97.1 18 152/90 (110) 97 10/04/18 09:00 Room Air 10/04/18 08:13 21 Laboratory Tests Test 10/04/18 06:17 White Blood Count 4.5 K/UL (4.8-10.8) L Red Blood Count 4.44 M/UL (4.20-5.40) Hemoglobin 14.5 G/DL (12.0-16.0) Hematocrit 43.4 % (37.0-47.0) Mean Corpuscular Volume 98 FL (80-99) Mean Corpuscular Hemoglobin 32.6 PG (27.0-31.0) H Mean Corpuscular Hemoglobin Concent 33.4 G/DL (32.0-36.0) Red Cell Distribution Width 14.9 % (11.6-14.8) H Platelet Count 190 K/UL (150-450) Mean Platelet Volume 6.6 FL (6.5-10.1) Neutrophils (%) (Auto) 45.8 % (45.0-75.0) Lymphocytes (%) (Auto) 35.9 % (20.0-45.0) Monocytes (%) (Auto) 7.2 % (1.0-10.0) Eosinophils (%) (Auto) 9.8 % (0.0-3.0) H Basophils (%) (Auto) 1.3 % (0.0-2.0) Sodium Level 136 MMOL/L (136-145) Potassium Level 4.5 MMOL/L (3.5-5.1) Chloride Level 101 MMOL/L (98-107) Carbon Dioxide Level 28 MMOL/L (21-32) Anion Gap 7 mmol/L (5-15) Blood Urea Nitrogen 22 mg/dL (7-18) H Creatinine 0.9 MG/DL (0.55-1.30) Estimat Glomerular Filtration Rate mL/min (>60) Glucose Level 97 MG/DL (74-106) Calcium Level 9.6 MG/DL (8.5-10.1) General: no acute distress Head: normocophalic Neck: no rigidity EENT: benign Neurologic Exam Mental Status: awake, alert, oriented x4, normal cognition, good mathematical skills, normal recent memory, normal remote memory, preserved visuospatial function Speech: normal speech, no dysarthia Language: normal language, no aphasia Cranial Nerve II: fundus normal, visual daley, no papilledema Cranial Nerves III, IV, : PERRLA, EOMI, pupils Cranial Nerve V: normal facial sensations, temporales function normal, masseters function normal, pterygoids function normal Cranial Nerve VII: no facial asymmetry, normal facial expressions Cranial Nerve VIII: normal hearing, no nystagmus Cranial Nerve IX: normal palate elevation, gag response Cranial Nerve X: no voice hoarseness Cranial Nerve XI: SCM symmetric, trapezii function normal Cranial Nerve XII: tongue midline, no tongue atrophy/fasciculations Motor System: normal muscle tone, strength 5/5, no involuntary movement, no muscle wasting Sensory: normal pinprick, normal light touch, normal position sense, normal graphesthesia Coordination: normal finger to nose bilaterally, normal heel to cason bilaterally, negative Romberg test Deep Tendon Reflexes: 1+ knee (L), 1+ knee (R), 1+ ankle (L), 1+ ankle (R); 2+ bicep (L), 2+ bicep (R), 2+ tricep (L), 2+ tricep (R), 2+ brachioradialis (L), 2 + brachioradialis (R) Stance: normal Gait: stable, normal regular Impression/Recommendations Problems: (1) Constipation (2) Urinary tract infection (3) Spinal stenosis (4) Atrial fibrillation with RVR (5) Intractable back pain (6) Subclinical hypothyroidism (7) EF 15% Status: stable, progressing, tolerating diet, ambulating well Recommendations Continue Q 4 Neurovascular obs Consider Gabapentin if patient requires more opioid PRNs - doesn't appear to be needing this at this time. Maintain normothermia There is severe degenerative disc disease and facet arthropathy at multiple levels within the lumbar spine. Disc disease is characterized by desiccation, narrowing and hypertrophic endplate spur formation. Variable degrees of concentric appearing disc protrusions demonstrated in association with endplate spur formation (disc osteophyte complex). T12-L1 shows mild bilateral foraminal stenosis. No central stenosis seen. L1-2: Mild central spinal stenosis demonstrated. Moderate to severe bilateral foraminal stenosis demonstrated. L2-3: Severe narrowing of the central canal demonstrated. There is narrowing of the lateral recess. Moderate to severe bilateral foraminal stenosis is present. L3-4: There is severe stenosis of the central canal lateral recess. There is a severe bilateral foraminal stenosis. L4-5: There is severe central spinal stenosis and narrowing of the lateral recesses. There is severe bilateral foraminal stenosis. L5-S1: There is narrowing of the lateral recess and moderate to severe bilateral foraminal stenosis. The central canal is capacious. There are multiple cysts present within both kidneys. IMPRESSION: Moderate to severe multilevel spinal stenosis involving the central canal and lateral recess and bilateral foramina as described above. This is due to combination of factors including severe degenerative disc disease and facet arthropathy. May discuss injectable therapy as patient is likely unable to have any surgery secondary to poor cardiac function/ age She remains ambulatory with improved pain overall - opioids with exception of Methadone have all been stopped- appears to be controlling patient's pain well. Stable for discharge from a neurological perspective. Kady López N.P. October 05, 2018 00:52
--- NOTE | 2018-10-07 08:01 | Discharge Summary ---
Discharge Summary Discharge Summary _ DATE OF ADMISSION: 09/25/2018 DATE OF DISCHARGE: 10/04/2018 DISCHARGED BY: Dr Pressley REASON FOR ADMISSION: 88 years old female with past medical history of hypertension, coronary artery disease, status post stent, atrial fibrillation, congestive heart failure, hypertension, history of compression fracture, dementia, presented to emergency department accompanied by family member due to low back pain. Patient reported worsening pain over the past 2 days. Patient reported worsening discomfort with ambulation. Patient denied difficulty with urination. No nausea, no vomiting. No evidence of bleeding (patient on chronic anticoagulation with Eliquis). Upon evaluation vital signs reveal tachycardia with heart rate 134. EKG revealed atrial fibrillation with rapid ventricular response. Troponin - 0.006. Urinalysis revealed +3 protein, +3 leukocyte esterase, pyuria and moderate bacteria. No leukocytosis, stable hemoglobin and hematocrit. Stable renal parameters and electrolytes. Glucose 111. Lumbar spine CT revealed no obvious acute fracture. Severe degenerative changes of the lumbar spine. CT scan of the thoracic spine revealed no obvious acute fracture. Severe degenerative changes of the lumbar spine. 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 CTA of the chest, abdomen and pelvis revealed ascending aortic aneurysm 4.5 cm. Moderate atherosclerotic disease with ectasia of the thoracic and abdominal aorta. 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 No evidence of dissection. Patchy lung fibrosis. Ground-glass opacities. Trace right pleural effusion. Trace ascites. AST 64, ALT within normal limits. Diverticulosis of the colon. Thickening of the gallbladder wall nonspecific. Degenerative changes of the spine. Patient subsequently was admitted to telemetry floor for further management. CONSULTANTS: director international Dr. Manuel neurologist Dr. Smith pulmonary Dr. Hollingsworth tube former operator Dr. Velazquez ID specialist Dr. Dong pain specialist Dr. Wilson GI specialist [facility] COURSE: Patient admitted to telemetry floor. Heart rate was controlled. Anticoagulation with Eliquis continued. Telemetry persistently showed atrial fibrillation. Supplemental oxygen and pulmonary toilet provided as needed to keep pulse oximetry above 92%. Pulmonary toilet was on standby as needed. Fractionation Supervisor and retail agent closely followed. Echocardiogram revealed ejection fraction of 15% , no evidence of left ventricular hypertrophy. Right ventricular systolic pressure of 71 consistent with severe pulmonary hypertension. Severe global left ventricular hypokinesis. Anterior, basal, inferior, and apical akinesia. Moderate mitral regurgitation. Moderate tricuspid regurgitation. Anti-failure regimen with beta-dillon, digoxin, RAEGAN inhibitor and long-acting nitrate was continued. Anticoagulation was continued. Heart rate was controlled with digoxin and beta-dillon. Cardizem was on board as needed. Fractionation Supervisor recommended automatic implanted cardiac defibrillation placement. Patient switched to Lovenox in planning for procedure . However, daughter declined at this time placement of automatic implantable cardiac defibrillator. Procedure was canceled, and patient was switched back from Lovenox to Eliquis for prevention of cardioembolic stroke. 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 Patient had stent in LAD. Hyperkalemia was treated. RAEGAN was stopped at that time temporarily due to hyperkalemia. Potassium was stabilized, and RAEGAN was slowly restarted. Monitor potassium level carefully at the facility Urine culture grew Proteus. Antibiotic provided as per ID specialist recommendation. Supplemental oxygen provided as needed to keep pulse oximetry above 92%. Pulmonary toilet provided. Aspiration precaution maintained. Annealer followed. TSH was elevated x3 with normal free T4 and T3. Annealer recommended to continue levothyroxine 25 mcg daily and repeat thyroid function test in 3 weeks. Neurologist followed, after reviewing CT scan results, recommended surgical evaluation for discussion of injectable therapy, as patient likely unable to have any surgery secondary to poor cardiac function. Fall precaution maintained. Patient was working with physical therapist. Pain management was provided as per pain specialist recommendation. GI specialist followed. Bowel regimen instituted. Antiemetic provided as needed. Patient was follow-up with LFT. LFT trending down Abdominal ultrasound revealed aneurysm suspected in the infradiaphragmatic upper abdominal aorta measuring up to 3.5 cm. Thickening of the gallbladder wall, nonspecific. Trace ascites. GI prophylaxis with PPI provided. Per GI specialist, hold on any GI procedure , only if emergent. Otherwise can be done as outpatient. Hemoglobin and hematocrit remained stable. Supportive care provided. Pain management was controlled. Placement was arranged to detention facilit. Patient was stable for discharge via ambulance to detention facility for continuation of care. FINAL DIAGNOSES: Atrial fibrillation with rapid ventricular response-rate controlled currently Severe dilated cardiomyopathy with ejection fraction 15% ( post MT), possible ischemic cardiomyopathy Chronic atrial fibrillation Coronary artery disease , status post angioplasty Hypertension Severe pulmonary hypertension UTI Spinal stenosis, moderate to severe, multilevel Intractable back pain secondary to spinal stenosis History of compression fracture Dementia Subclinical hypothyroidism Hyperkalemia -resolved Constipation Abnormal LFT DISCHARGE MEDICATIONS: See Medication Reconciliation list. DISCHARGE INSTRUCTIONS: Patient was discharged to the detention facility. Follow up with medical doctor at the facility. Brooke Seaman NP October 07, 2018 08:01
== END 2018-10-04 19:59 | DRG 309 ==
LOC: EMR 15:53 → EDBEDREQSVC 19:21 → EDBEDREQ 19:21 → 2W 19:41 → EDBEDREQ 20:33 → 2E 09-30 15:16
DX: I48.2 Chronic atrial fibrillation (principal); N39.0 Urinary tract infection, site not specified; I50.22 Chronic systolic (congestive) heart failure; M51.16 Intervertebral disc disorders with radiculopathy, lumbar region; I42.0 Dilated cardiomyopathy; M48.061 Spinal stenosis, lumbar region without neurogenic claudication; I11.0 Hypertensive heart disease with heart failure; F03.90 Unspecified dementia, unspecified severity, without behavioral disturbance, psychotic disturbance, mood disturbance, and anxiety; E03.9 Hypothyroidism, unspecified; M19.90 Unspecified osteoarthritis, unspecified site; K59.00 Constipation, unspecified; I25.10 Atherosclerotic heart disease of native coronary artery without angina pectoris; I71.4 Abdominal aortic aneurysm, without rupture; I34.0 Nonrheumatic mitral (valve) insufficiency; I36.1 Nonrheumatic tricuspid (valve) insufficiency; I27.20 Pulmonary hypertension, unspecified; M51.36 Other intervertebral disc degeneration, lumbar region; M51.34 Other intervertebral disc degeneration, thoracic region; M47.26 Other spondylosis with radiculopathy, lumbar region; K57.90 Diverticulosis of intestine, part unspecified, without perforation or abscess without bleeding; I49.5 Sick sinus syndrome; I25.2 Old myocardial infarction; Z95.5 Presence of coronary angioplasty implant and graft; E87.5 Hyperkalemia
CPT/HCPCS: 36415; 71045; 71275; 72128; 72131; 72148; 74174; 76700; 80048; 80053; 81001; 81003; 82248; 83036; 83690; 83735; 83880; 84100; 84436; 84439; 84443; 84481; 84484; 85025; 87086; 87181; 93306; 94664; 96365; 96367; 96375; 96376; 99285; J2405; J7620